=== PATIENT | female | born 1970 | race Caucasian/White ===

== ENCOUNTER 2016-11-15 14:06 | Emergency (ER) | payer OTHER, SELFPAY ==
--- NOTE | 2016-11-15 14:53 | ERPHSYRPT ---
- History of Present Illness Time Seen by Provider: 11/15/16 14:42 Source: patient Exam Limitations: no limitations Patient Subjective Stated Complaint: states fell out of bed sunday evening after having three seizures. now c/o pain to left shoulder, ribs, hip and knee. states knee is numb. Triage Nursing Assessment: ambulated to room per self with a cane. skin w/d, color normal, resp easy. no deformities or swelling noted to patient's left extremities or ribs and hip. no bruising noted. Physician History: The 46-year-old white female with history of chronic pain syndrome, seizures, high blood pressure, asthma, arthritis, degenerative disc disease, osteoarthritis, depression, menstrual problems, restless legs, herniated disc, Parkinson's she arrives with complaint of pain in her left shoulder left knee left hip left low back symptoms since falling during a seizure 3 days ago she states her knee feels numb. She also has pain on her left ribs Patient is not short of breath she has no abdominal pain she is not having any head pain or neck pain. Past medical history includes seizures, high blood pressure, asthma, arthritis, degenerative disc disease, osteoarthritis, depression, menstrual problems, bariatric surgery, restless legs, herniated disc, Parkinson's Past surgical history includes cholecystectomy, ulcers, kidney surgery, to remove kidney stone, , bariatric surgery Social history patient denies tobacco alcohol or illicit drug use. Patient does have a history of chronic pain review of patient's inspect report show that she is on a blue trans-patch, Klonopin, oxycodone the patient denies chance of Timing/Duration: day(s) (Seizure 3 4 days ago injured left shoulder, left thigh and hip low back left knee left ribs) Severity: moderate Modifying Factors: Improves With: other (patient chronic pain patient on Butrans -patch, oxycodone, Klonopin) Associated Symptoms: other (pain left shoulder, low back, left hip, left knee, left ribs), No nausea, No vomiting, No abdominal pain, No shortness of breath, No heartburn, No diaphoresis, No cough, No chills, No chest pain, No fever, No headaches, No loss of appetite, No malaise, No rash, No syncope, No seizure, No weakness Allergies/Adverse Reactions: aspirin Allergy (Verified 11/15/16 14:18) latex Allergy (Verified 11/15/16 14:18) NSAIDS (Non-Steroidal Anti-Inflamma Allergy (Verified 11/15/16 14:18) Penicillins Allergy (Verified 11/15/16 14:18) Home Medications: Clonazepam 1 mg PO DAILY 04/07/15 [History] Fluticasone/Salmeterol [Advair 250-50 Diskus] 1 puff IH BID 04/07/15 [History] Gabapentin 600 mg PO BID 04/07/15 [History] Buprenorphine [Butrans] 1 each TD WEEKLY 08/12/15 [History] Mecobalamin [B-12] 1,000 mcg PO UD 01/29/16 [History] Multivitamin [Multi-Vitamin Daily] 1 tablet PO DAILY 01/29/16 [History] Dulaglutide [Trulicity] 0.75 mg SQ UD 06/18/16 [History] Gabapentin Enacarbil [Horizant] 600 mg PO BID 11/15/16 [History] Levetiracetam [Keppra 500 mg ] 500 mg PO BID 11/15/16 [History] Oxycodone HCl/Acetaminophen [Oxycodon-Acetaminophen 7.5-325] 1 each PO TID 11/15 [History] Ropinirole HCl 0.5 mg [Requip 0.5 MG] 0.5 mg PO HS 11/15/16 [History] Hx Tetanus, Diphtheria Vaccination/Date Given: No Hx Influenza Vaccination/Date Given: No Hx Pneumococcal Vaccination/Date Given: Yes Immunizations Up to Date: No - Review of Systems Constitutional: No Fever, No Chills Eyes: No Symptoms Ears, Nose, & Throat: No Symptoms Respiratory: No Cough, No Dyspnea Cardiac: No Chest Pain, No Edema, No Syncope Abdominal/Gastrointestinal: No Abdominal Pain, No Nausea, No Vomiting, No Diarrhea Genitourinary Symptoms: No Dysuria Musculoskeletal: Other (pain l shoulder, low back, left hip, left kbee left ribs ), No Back Pain, No Neck Pain Skin: No Rash Neurological: Seizure (seizure 3 4 days ago, numbness left anterior knee) Psychological: No Symptoms Endocrine: No Symptoms All Other Systems: Reviewed and Negative - Past Medical History Pertinent Past Medical History: Yes Neurological History: Seizures ENT History: No Pertinent History Cardiac History: Hypertension Respiratory History: Asthma Endocrine Medical History: No Pertinent History Musculoskeletal History: Arthritis, Degenerative Disk Disease, Osteoarthritis, Other GI Medical History: Other History: Other Psycho-Social History: Bipolar, Depression Female Reproductive Disorders: Menstrual Problems Other Medical History: bariatric surgery, restless leg syndrome, herniated disc , parkinsons - Past Surgical History Past Surgical History: Yes Neuro Surgical History: No Pertinent History Cardiac: No Pertinent History Respiratory: No Pertinent History Gastrointestinal: Cholecystectomy, Other Genitourinary: Kidney Surgery Musculoskeletal: No Pertinent History Female Surgical History: Section Other Surgical History: ulcer, kidney, , bariatric, gallbladder - Social History Smoking Status: Former smoker Exposure to second hand smoke: Yes Drug Use: none Patient Lives Alone: No - Female History Hx Last Menstrual Period: 11/10/16 Hx Now: No - Nursing Vital Signs Nursing Vital Signs: Initial Vital Signs Temperature 97.9 F Temperature Source Oral Pulse Rate 71 Respiratory Rate 16 Blood Pressure [] 112/81 Pain Intensity 9 - Physical Exam General Appearance: mild distress Eye Exam: PERRL/EOMI, eyes nml inspection, other (fundi are unremarkable) Ears, Nose, Throat Exam: normal ENT inspection, TMs normal, pharynx normal, moist mucous membranes Neck Exam: non-tender, supple, full range of motion Respiratory Exam: normal breath sounds, chest tenderness (left ribs tender with palpation), lungs clear, airway intact, No respiratory distress Cardiovascular Exam: regular rate/rhythm, normal heart sounds, normal peripheral pulses Gastrointestinal/Abdomen Exam: soft, normal bowel sounds, No tenderness, No mass Back Exam: other (tender left low lumbar region with palpation) Extremity Exam: other (left shoulder tender with palpation and movement, left hip tender with palpation, left knee no tendernesswith palpation no edema decreased range of motion secondary tenderness) Neurologic Exam: alert, oriented x 3, crime scene investigator II-XII nml as tested, other (patient is alert, oriented 3, speech normal, sensation intact to all extremities cranial nerves II through XII intact) Skin Exam: normal color, warm, dry, No rash Lymphatic Exam: No adenopathy SpO2: 99 Oxygen Delivery: Room Air - Course Nursing assessment & vital signs reviewed: Yes - Radiology Exams Femur X-ray Interpretation: Discussed w/ radiologist ( degenerative joint disease, otherwise negative), Negative Left Knee X-ray Interpretation: Discussed w/ radiologist (degenerative joint disease otherwise negative), Negative, No Fracture, No Subluxation Pelvis X-ray Interpretation: Discussed w/ radiologist (bilateral degenerative joint disease otherwise negative), Negative, No Fracture, No Subluxation L-Spine X-ray Interpretation: Discussed w/ radiologist (degenerative disc disease otherwise negative), Negative, No Fracture, No Subluxation Left Shoulder X-ray Interpretation: Discussed w/ radiologist, Negative, No Fracture, No Subluxation Ordered Tests: Active Orders 24 hr Category Date Time Status Accucheck STAT Care 11/15/16 15:04 Active CHEST 2 VIEWS (PA AND LAT) Stat Exams 11/15/16 14:54 Completed FEMUR Stat Exams 11/15/16 14:49 Taken KNEE (3 VIEWS) Stat Exams 11/15/16 14:49 Taken LUMBAR LIMITED (2 OR 3 VIEWS) Stat Exams 11/15/16 14:47 Taken PELVIS (1 OR 2 VIEWS) Stat Exams 11/15/16 14:49 Taken SHOULDER Stat Exams 11/15/16 14:49 Taken - Progress Progress: improved Progress Note: 11/15/16 15:00 This is a 46-year-old white female with history of seizure disorder, Parkinson's , high blood pressure, asthma, chronic back pain Who is on butrans patch and oxycodone as well as Klonopin. She sees a pain specialist. She states she had a seizure 3 on Sunday 4 days ago. She is complaining of pain in her left shoulder left lateral ribs, low back, left hip, she states she has some numbness in her left anterior knee. On physical examination patient alert oriented 3 she does have tenderness with palpation or movement left shoulder tenderness with palpation left low back, tenderness left lateral hip, there does not appear to be tenderness in her left knee with palpation he does have tenderness with movement. She has negative edema to the left knee Patient is able to wiggle her toes she also has sensation intact to all extremities Will go ahead and obtain x-rays of the patient's left shoulder, chest, lumbar area, left femur. Will consider giving patient fentanyl for pain. Do not anticipate further home narcotic prescriptions. 11/15/16 15:43 Patient's x-ray of her left femur, left knee, pelvis, LS spine, shoulder all negative for fractures or dislocations. Patient states she has pain moving her left knee Will go ahead and place immobilizer on the knee. Patient has chronic pain medications she may take at home. Will go ahead and give patient fentanyl 50 g IV. - Departure Time of Disposition: 15:44 Departure Disposition: Home Clinical Impression: Multiple contusions, History of chronic pain Strain of left knee Qualifiers: Encounter type: initial encounter Qualified Code(s): S86.912A - Strain of unspecified muscle(s) and tendon(s) at lower leg level, left leg, initial encounter Back pain Qualifiers: Back pain location: low back pain Chronicity: acute Back pain laterality: left Sciatica presence: without sciatica Qualified Code(s): M54.5 - Low back pain Left shoulder strain Qualifiers: Encounter type: initial encounter Qualified Code(s): S46.912A - Strain of unspecified muscle, fascia and tendon at shoulder and upper arm level, left arm , initial encounter Condition: Fair Critical Care Time: No Additional Instructions: Return home. Cold packs to contused areas 24-48 hours. Pain meds as prescribed by your pain control systems specialist. Follow-up with your family doctor or pain control systems specialist. Return for acute distress or for severe symptoms
--- NOTE | 2016-11-15 15:32 | XRAY ---
Indication: Left-sided pain following fall. Comparison: October 26, 2009 AP/lateral chest again demonstrates normal heart and lungs. Bony thorax intact again with minimal spinal degenerative changes.
[2016-11-15] MEDS ORDERED: SUBLIMAZE 100 MCG/2 ML IV ONE (15:46)
[2016-11-15] MEDS ORDERED: SUBLIMAZE 100 MCG/2 ML ONE (16:08)
[2016-11-15 16:31] VITALS: BP 127/80; PULSE 70; O2SAT 97
--- NOTE | 2016-11-15 16:34 | XRAY ---
Indication: Left-sided pain following fall. Comparison: None 3 views of the lumbar spine demonstrates 5 lumbar vertebral segments with minimal multilevel anterior endplate spurring, L5-S1 degenerative disc space narrowing, bilateral L4-S1 degenerative facet arthropathy, cholecystectomy clips, and left abdominal suture material. No other bony, articular, or soft tissue abnormalities.
--- NOTE | 2016-11-15 16:34 | XRAY ---
Indication: Left-sided pain following fall. Comparison: None 3 views of the left shoulder demonstrates minimal AC degenerative arthropathy. No other bony, articular, or soft tissue abnormalities.
--- NOTE | 2016-11-15 16:34 | XRAY ---
Indication: Left-sided pain following fall. Comparison: None 2 views of the left femur demonstrates tiny spurring of the superior acetabulum and greater trochanter. No other bony, articular, or soft tissue abnormalities. Left knee reported separately.
--- NOTE | 2016-11-15 16:36 | XRAY ---
Indication: Left-sided pain following fall. Comparison: None 3 views of the left knee demonstrates mild tricompartmental degenerative changes and posterior fabella. No other bony, articular, or soft tissue abnormalities.
--- NOTE | 2016-11-15 16:37 | XRAY ---
Indication: Left-sided pain following fall. Comparison: None AP pelvis demonstrates small bilateral superior acetabular spurring, right greater than left. Also lower lumbar degenerative changes, left abdomen suture material, and pelvic phleboliths. No other bony, articular, or soft tissue abnormalities.
== END 2016-11-15 16:31 | disposition home or self-care (01) ==
LOC: ED 14:06
DX: S86.912A Strain of unspecified muscle(s) and tendon(s) at lower leg level, left leg, initial encounter (principal); M54.5 Low back pain; S46.912A Strain of unspecified muscle, fascia and tendon at shoulder and upper arm level, left arm, initial encounter; R56.9 Unspecified convulsions; M25.512 Pain in left shoulder; M25.552 Pain in left hip; M25.562 Pain in left knee; R07.81 Pleurodynia; I10 Essential (primary) hypertension; W06.XXXA Fall from bed, initial encounter; Z79.899 Other long term (current) drug therapy
CPT/HCPCS: 36000; 71020; 72100; 72170; 73030; 73552; 73562; 82962; 96374; 99283; J3010; L1830

== ENCOUNTER 2017-02-28 13:31 | Emergency (ER) | payer OTHER ==
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
[2017-02-28] MEDS ORDERED: Sodium Chloride 0.9% 1000 ML 1,000 ML IV STA (14:21)
[2017-02-28] MEDS ORDERED: Zofran 4 MG/2 ML VIAL IV ONE (14:21)
[2017-02-28] MEDS ORDERED: Zofran 4 MG/2 ML VIAL ONE (14:29)
[2017-02-28] MEDS ORDERED: Sodium Chloride 0.9% 1000 ML 1,000 ML ONE (14:29)
--- NOTE | 2017-02-28 14:48 | XRAY ---
Indication: Vomiting and weakness. Comparison: Chest exam November 15, 2016. 2 views of the abdomen nonacute and nonobstructed with note of previous gastric bypass surgery and cholecystectomy. A few pelvic phleboliths. Solid organs unremarkable. Osseous structures intact with lower lumbar degenerative changes. Single PA chest again demonstrates normal heart, lungs, and bony thorax. Impression: Nonacute nonobstructed abdomen. Stable normal 1 view chest.
[2017-02-28 15:08] LABS: BASOPHIL % 2.1 % (0.0-0.4); Eosinophil % 4.9 % (0.00-5.0); Granulocytes % 59.1 % (36.0-66.0); Lymphocytes % 26.5 % (24.0-44.0); Mean Cell Volume 97.3 fl (78-100); Mean Corpuscular Hemoglobin 30.5 pg (26-32); Mean Platelet Volume 9.5 fl (6-9.5); Monocytes % 7.4 % (0.0-12.0); Platelet Count 308 K/mm3 (150-450); Red Blood Count 3.67 M/mm3 (4.1-5.4); Red Cell Distribution Width 14.5 % (11.5-14.0); White Blood Count 4.3 K/mm3 (4.0-10.5)
[2017-02-28 15:09] LABS: Lactic Acid 2.9 (0.4-2.0)
[2017-02-28 15:25] LABS: Collection Type CCMS
[2017-02-28 15:26] LABS: Bacteria RARE /HPF (NEGATIVE); COMPLETE URINE MICROSCOPIC? YES; Epithelial Cells FEW /HPF (FEW); Mucus SLIGHT /HPF (NEGATIVE)
[2017-02-28 15:28] LABS: ALBUMIN 1.7 g/dL (3.4-5.0); ANION GAP 9.7 MEQ/L (5-15); BILIRUBIN,TOTAL 1.4 mg/dL (0.2-1.0); Carbon Dioxide 29.6 mEq/L (21-32); Potassium 3.6 mEq/L (3.5-5.1); Total Protein 4.8 gm/dL (6.4-8.2)
[2017-02-28 17:58] LABS: ACETAMINOPHEN 4.8 ug/ml (10-30)
[2017-02-28 23:49] VITALS: BP 113/75; PULSE 63; O2SAT 98
== END 2017-02-28 23:20 | disposition short-term general hospital (02) ==
LOC: ED 13:31
DX: F32.9 Major depressive disorder, single episode, unspecified (principal); F31.9 Bipolar disorder, unspecified; R11.10 Vomiting, unspecified; Z79.899 Other long term (current) drug therapy; I10 Essential (primary) hypertension; R56.9 Unspecified convulsions; R53.81 Other malaise
CPT/HCPCS: 36000; 36415; 74022; 80053; 80307; 80320; 81000; 83605; 83986; 85025; 90791; 96360; 96374; 99283; 99284; G0481; J2405; Q3014

== ENCOUNTER 2017-05-16 11:22 | Emergency (ER) | payer OTHER ==
[2017-05-16] MEDS ORDERED: Hydromorphone 1 mg/ml Ampule IM ONE (11:52)
[2017-05-16] MEDS ORDERED: Phenergan 25 MG INJ IM ONE (11:53)
--- NOTE | 2017-05-16 11:59 | ERPHSYRPT ---
- History of Present Illness Time Seen by Provider: 05/16/17 11:45 Source: patient Exam Limitations: clinical condition Patient Subjective Stated Complaint: pt states "I was dropped by my pain management physician and. I was trying to make my pain meds last but ran out today. I go. see my family physician, Dr. Nelson, tomorrow." Triage Nursing Assessment: pt alert and oriented X 3, skin pwd pt ambulates slowly. pt has. some slight tremors, able to speak in full sentences. Physician History: PATIENT WITH A HISTORY OF CHRONIC LOW BACK PAIN, OSTEOARTHRITIS, HERNIATED LUMBAR DISC RAN OUT OF HER PAIN MEDICATIONS INCLUDING PAIN PATCHES 2 DAYS AGO AND HAS INCREASING BACK PAIN. DENIES HISTORY OF RECENT TRAUMA OR INJURY, LOSS OF BOWEL OR URINARY FUNCTION. STATES SHE WAS DROPPED FROM HER [facility]EMENT [facility] MON[facility]S AGO. Timing/Duration: resolved prior to arrival Method of Injury: other (DENIES INJURY OR TRAUMA) Quality: sharp, throbbing Back Pain Location: lumbar spine Back Pain Radiation: buttocks Severity of Pain-Max: moderate Severity of Pain-Current: moderate Modifying Factors: Improves With: movement Associated Symptoms: muscle spasms Previous symptoms: same symptoms as today Allergies/Adverse Reactions: aspirin Allergy (Verified 02/28/17 13:51) latex Allergy (Verified 02/28/17 13:51) NSAIDS (Non-Steroidal Anti-Inflamma Allergy (Verified 05/16/17 11:38) Penicillins Allergy (Verified 02/28/17 13:51) Home Medications: Clonazepam 1 mg PO DAILY 04/07/15 [History] Fluticasone/Salmeterol [Advair 250-50 Diskus] 1 puff IH BID 04/07/15 [History] Gabapentin 600 mg PO BID 04/07/15 [History] Buprenorphine [Butrans] 1 each TD WEEKLY 08/12/15 [History] Mecobalamin [B-12] 1,000 mcg PO UD 01/29/16 [History] Multivitamin [Multi-Vitamin Daily] 1 tablet PO DAILY 01/29/16 [History] Dulaglutide [Trulicity] 0.75 mg SQ UD 06/18/16 [History] Gabapentin Enacarbil [Horizant] 600 mg PO BID 11/15/16 [History] Levetiracetam [Keppra 500 mg ] 500 mg PO BID 11/15/16 [History] Oxycodone HCl/Acetaminophen [Oxycodon-Acetaminophen 7.5-325] 1 each PO TID 11/15 [History] Ropinirole HCl 0.5 mg [Requip 0.5 MG] 0.5 mg PO HS 11/15/16 [History] Hx Tetanus, Diphtheria Vaccination/Date Given: Yes Hx Influenza Vaccination/Date Given: Yes Hx Pneumococcal Vaccination/Date Given: No Immunizations Up to Date: Yes - Review of Systems Constitutional: No Fever, No Chills Eyes: No Symptoms Ears, Nose, & Throat: No Symptoms Respiratory: No Symptoms, No Cough, No Dyspnea Cardiac: No Symptoms, No Chest Pain, No Edema, No Syncope Abdominal/Gastrointestinal: No Symptoms, No Abdominal Pain, No Nausea, No Vomiting, No Diarrhea Genitourinary Symptoms: No Symptoms, No Dysuria Musculoskeletal: Back Pain, No Neck Pain Skin: No Symptoms, No Rash Neurological: No Dizziness, No Focal Weakness, No Sensory Changes Psychological: No Symptoms Endocrine: No Symptoms All Other Systems: Reviewed and Negative - Past Medical History Pertinent Past Medical History: Yes Neurological History: Seizures ENT History: No Pertinent History Cardiac History: Hypertension Respiratory History: Asthma Endocrine Medical History: No Pertinent History Musculoskeletal History: Arthritis, Degenerative Disk Disease, Osteoarthritis, Other GI Medical History: Other History: Other Psycho-Social History: Bipolar, Depression Female Reproductive Disorders: Menstrual Problems Other Medical History: bariatric surgery, restless leg syndrome, herniated disc , parkinsons - Past Surgical History Past Surgical History: Yes Neuro Surgical History: No Pertinent History Cardiac: No Pertinent History Respiratory: No Pertinent History Gastrointestinal: Cholecystectomy, Other Genitourinary: Kidney Surgery Musculoskeletal: No Pertinent History Female Surgical History: Section Other Surgical History: ulcer, kidney, , bariatric, gallbladder - Social History Smoking Status: Never smoker Exposure to second hand smoke: Yes Drug Use: none Patient Lives Alone: No (lives with ) - Female History Hx Last Menstrual Period: menopause Hx Now: No - Nursing Vital Signs Nursing Vital Signs: Initial Vital Signs Temperature 97.7 F 05/16/17 11:29 Pulse Rate 77 05/16/17 11:29 Respiratory Rate 16 05/16/17 11:29 Blood Pressure 109/83 05/16/17 11:29 O2 Sat by Pulse Oximetry 99 05/16/17 11:29 Pain Scale Pain Intensity 9 - Physical Exam General Appearance: no apparent distress, alert Eye Exam: PERRL/EOMI, eyes nml inspection Neck Exam: normal inspection, non-tender, supple, full range of motion, No meningismus, No midline tenderness Respiratory Exam: normal breath sounds, lungs clear, No respiratory distress Cardiovascular Exam: regular rate/rhythm, normal heart sounds Gastrointestinal Exam: soft, normal bowel sounds, No tenderness, No mass Back Exam: normal inspection, decreased range of motion, muscle spasm ( VERTEBRAL TENDERNESS L-1 TO L-5 WITH PARASPINAL TENDERNESS), point tenderness Extremity Exam: normal inspection, normal range of motion, No calf tenderness, No pedal edema Peripheral Pulses: carotid (R): 2+, carotid (L): 2+, femoral (R): 2+, femoral (L ): 2+, dorsalis-pedis (R): 2+, dorsalis-pedis (L): 2+ Neurologic Exam: alert, oriented x 3, cooperative, contact center assistant II-XII nml as tested, normal mood/affect, nml station & gait, sensation nml, No motor deficits Skin Exam: normal color, warm, dry, No rash SpO2 Interpretation: normal SpO2: 99 Oxygen Delivery: Room Air Ordered Tests: Medication Summary Discontinued Medications Generic Name Dose Route Start Last Admin Trade Name Gagan PRN Reason Stop Dose Admin Hydromorphone HCl 1 mg 05/16/17 11:52 05/16/17 12:09 Hydromorphone 1 Mg/Ml Ampule IM 05/16/17 11:53 1 mg STAT ONE Administration Hydromorphone HCl Confirm 05/16/17 12:05 Hydromorphone 1 Mg/Ml Ampule Administered 05/16/17 12:06 Dose 1 mg .ROUTE .STK-MED ONE Promethazine HCl 25 mg 05/16/17 11:53 05/16/17 12:09 Phenergan 25 Mg Inj IM 05/16/17 11:54 25 mg STAT ONE Administration Promethazine HCl Confirm 05/16/17 12:05 Phenergan 25 Mg Inj Administered 05/16/17 12:06 Dose 25 mg .ROUTE .STK-MED ONE - Progress Progress Note: 05/16/17 11:58 PATIENT GIVEN DILAUDID 1MG/PHENERGAN 25MG IM Counseled pt/family regarding: diagnosis, need for follow-up - Departure Time of Disposition: 12:23 Departure Disposition: Home Clinical Impression: CHRONIC LOW BACK PAIN, DEGENERATIVE DISC DISEASE Condition: Stable Critical Care Time: No Referrals: GODWIN NELSON [Primary Care Provider] - Additional Instructions: FOLLOWUP WITH YOUR FAMILY PHYSICIAN FOR PRESCRIPTION REFILLS SCHEDULED TOMORROW AND REFERRAL TO ANOTHER PAIN SPECIALIST. ULTRAM 50MG EVERY 4 HOURS FOR PAIN NEEDED. NORFLEX 100MG TWICE DAILY FOR MUSCLE SPASMS. Prescriptions: Tramadol HCl 50 mg [Ultram 50 mg] 50 mg PO Q4H PRN PRN #8 tablet PRN Reason: Pain Orphenadrine Citrate 100 mg [Norflex 100 MG Tablet] 100 mg PO BIDPRN PRN # 8 tab PRN Reason: Muscle Spasms
[2017-05-16] MEDS ORDERED: Phenergan 25 MG INJ ONE (12:05)
[2017-05-16] MEDS ORDERED: Hydromorphone 1 mg/ml Ampule ONE (12:05)
[2017-05-16 12:24] VITALS: BP 110/78; PULSE 72
[2017-05-17 23:39] VITALS: O2SAT 99
== END 2017-05-16 12:27 | disposition home or self-care (01) ==
LOC: ED 11:22
DX: M54.5 Low back pain (principal); G89.29 Other chronic pain; M51.36 Other intervertebral disc degeneration, lumbar region
CPT/HCPCS: 96372; 99284; J1170; J2550

== ENCOUNTER 2017-10-30 16:42 | Emergency (ER) | payer OTHER ==
--- NOTE | 2017-10-30 17:06 | ERPHSYRPT ---
- History of Present Illness Time Seen by Provider: 10/30/17 17:01 Source: patient Exam Limitations: no limitations Physician History: The patient is a 47-year-old female with her and planing of possible bug in her right ear since last night. It hurts a little bit but not much. She states she can feel it tapping up against her eardrum. Her past medical history significant for seizures, asthma, allergies. Timing/Duration: abrupt onset Severity: mild ENT Location: ear (R) Prearrival Treatment: no prearrival treatment Modifying Factors: Improves With: nothing Associated Symptoms: ear pain (R) Allergies/Adverse Reactions: aspirin Allergy (Verified 10/30/17 17:04) latex Allergy (Verified 10/30/17 17:04) NSAIDS (Non-Steroidal Anti-Inflamma Allergy (Verified 10/30/17 17:04) Penicillins Allergy (Verified 10/30/17 17:04) Home Medications: Gabapentin 600 mg PO BID 04/07/15 [History] Levetiracetam [Keppra 500 mg ] 1,000 mg PO BID 11/15/16 [History] Acetaminophen [Tylenol Extra Strength] 500 mg PO .PRN 10/11/17 [History] Albuterol 2.5 mg/3 ml Neb [Proventil 2.5 mg/3 ml Neb] 2.5 mg IH .PRN 10/11 [History] Albuterol 8 gm Mdi Hfa [Ventolin Hfa MDI] 2 puff IH TID 10/11/17 [History] Montelukast Sodium 10 mg [Singulair 10 MG] 10 mg PO DAILY 10/11/17 [History] Oxybutynin Chloride [Oxybutynin Chloride ER] 5 mg PO HS 10/11/17 [History] Ropinirole HCl [Requip] 1 mg PO HS 10/11/17 [History] Sucralfate 1 gm [Carafate 1 GM] 1 gm PO TID 10/11/17 [History] Trolamine Salicylate/Aloe Vera [Aspercreme 10% Cream] 141.7 gm TP .PRN 10/11/17 [History] Hx Tetanus, Diphtheria Vaccination/Date Given: Yes Hx Influenza Vaccination/Date Given: Yes Hx Pneumococcal Vaccination/Date Given: No - Review of Systems Constitutional: No Fever, No Chills Eyes: No Symptoms Ears, Nose, & Throat: Ear Pain Respiratory: No Cough, No Dyspnea Cardiac: No Chest Pain, No Edema, No Syncope Abdominal/Gastrointestinal: No Abdominal Pain, No Nausea, No Vomiting, No Diarrhea Genitourinary Symptoms: No Dysuria Musculoskeletal: No Back Pain, No Neck Pain Skin: No Rash Neurological: No Dizziness, No Focal Weakness, No Sensory Changes Psychological: No Symptoms Endocrine: No Symptoms Hematologic/Lymphatic: No Symptoms Immunological/Allergic: No Symptoms All Other Systems: Reviewed and Negative - Past Medical History Pertinent Past Medical History: Yes Neurological History: Epilepsy, Peripheral Neuropathy ENT History: No Pertinent History Cardiac History: No Pertinent History Respiratory History: Asthma Endocrine Medical History: Diabetes Type II Musculoskeletal History: Osteoarthritis GI Medical History: Other History: Other Psycho-Social History: Bipolar, Depression Female Reproductive Disorders: Menstrual Problems Other Medical History: kidney surgery at 6 months old, gastric bypass 5 years ago. - Past Surgical History Past Surgical History: Yes Neuro Surgical History: No Pertinent History Cardiac: No Pertinent History Respiratory: No Pertinent History Gastrointestinal: Cholecystectomy, Other Genitourinary: Kidney Surgery Musculoskeletal: No Pertinent History Female Surgical History: Section Other Surgical History: ulcer, kidney, , bariatric, gallbladder - Social History Smoking Status: Never smoker Exposure to second hand smoke: Yes Drug Use: none Patient Lives Alone: No (lives with ) - Nursing Vital Signs Nursing Vital Signs: Initial Vital Signs Temperature 98.5 F 10/30/17 16:57 Pulse Rate 75 10/30/17 16:57 Respiratory Rate 18 10/30/17 16:57 Blood Pressure 133/80 10/30/17 16:57 O2 Sat by Pulse Oximetry 100 10/30/17 16:57 Pain Scale Pain Intensity 7 - Physical Exam General Appearance: no apparent distress, alert Eye Exam: bilateral eye: normal inspection Ear Exam: right ear: foreign body, left ear: TM normal Nasal Exam: normal inspection Throat Exam: pharynx normal, moist mucus membranes, No tonsillar exudate Neck Exam: supple Cardiovascular/Respiratory Exam: normal breath sounds, regular rate/rhythm Abdominal Exam: non-tender, soft Neurologic Exam: alert, oriented x 3, sensation nml, No motor deficits Skin Exam: normal color, warm, dry SpO2 Interpretation: normal - Progress Progress: improved Progress Note: 10/30/17 17:51 Insect was removed from right ear canal with forceps and irrigation by 4th year medical student under my supervision. Counseled pt/family regarding: diagnosis - Departure Time of Disposition: 17:52 Departure Disposition: Home Clinical Impression: Foreign body in right ear Condition: Stable Critical Care Time: No Referrals: GODWIN NELSON [Primary Care Provider] -
[2017-10-30 18:09] VITALS: BP 120/70; PULSE 78; O2SAT 98
== END 2017-10-30 18:20 | disposition home or self-care (01) ==
LOC: ED 16:42
DX: T16.1XXA Foreign body in right ear, initial encounter (principal)
CPT/HCPCS: 99281; 99283

== ENCOUNTER 2019-01-08 08:01 | Day surgery (SDC) | payer OTHER ==
[2019-01-08] MEDS ORDERED: Marcaine 0.5% SDV 10 ML IJ ONE (08:02)
[2019-01-08] MEDS ORDERED: LIDOCAINE HCL 2% 100 MG/5 ML IJ ONE (08:02)
[2019-01-08] MEDS ORDERED: Ketamine HCl 50 MG/ML IJ ONE (08:02)
[2019-01-08] MEDS ORDERED: DIPRIVAN 200 MG/20 ML IV ONE (08:02)
[2019-01-08] MEDS ORDERED: Depo-Medrol 40 MG/ML IM ONE (08:02)
[2019-01-08] MEDS ORDERED: Lactated Ringers 1,000 ML IV ONE (14:23)
--- NOTE | 2019-01-08 16:04 | XRAY ---
Indication: Bilateral SI joint injection. Intraoperative fluoroscopy was provided for 17 seconds. 3 digital spot images submitted for interpretation demonstrates posterior needle tip projecting over the inferior right SI joint. Correlate with intraoperative findings/report.
--- NOTE | 2019-01-08 16:08 | XRAY ---
17 seconds of fluoroscopy was used in surgery for bilateral SI joint injection.
== END 2019-01-08 10:27 | disposition home or self-care (01) ==
LOC: SDC-PAIN 08:01
PROVIDERS: ATTEND Psychiatry & Neurology Pain Medicine
DX: M46.1 Sacroiliitis, not elsewhere classified (principal); E11.9 Type 2 diabetes mellitus without complications; R56.9 Unspecified convulsions; K21.9 Gastro-esophageal reflux disease without esophagitis; F41.8 Other specified anxiety disorders; Z79.899 Other long term (current) drug therapy
CPT/HCPCS: 27096; 72020; 77002; 82962; J1030; J2704; G0260

== ENCOUNTER 2019-01-25 10:49 | Observation (INO) | payer OTHER ==
[2019-01-25] MEDS ORDERED: Adacel Vial IM ONE (11:32)
--- NOTE | 2019-01-25 11:32 | ERPHSYRPT ---
- History of Present Illness Time Seen by Provider: 01/25/19 11:00 Source: patient, other (daughter) Exam Limitations: clinical condition Physician History: According to patient's daughter she had a seizure 3 days ago, started c/o difficulty walking, loosing balance, and her speech became slurred since yesterday. They deny recent fall, head injury, vomiting, focal weakness, fever, cough, chest pain other complaints. She was seen by a wound clinic yesterday due to a sore on her right ear. She is legally blind. Timing/Duration: yesterday Severity: severe Character of Deficits: new weakness, impaired speech, vision problems (legally blind) Deficits: cannot stand, cannot walk, off balance Baseline/Normal Cognition: alert oriented x 3 Current Cognition: alert oriented x 3 Baseline Gait: uses cane Associated Symptoms: fatigue, weakness, slurred speech, trouble walking Allergies/Adverse Reactions: aspirin Allergy (Verified 01/25/19 11:30) latex Allergy (Verified 01/25/19 11:30) NSAIDS (Non-Steroidal Anti-Inflamma Allergy (Verified 01/25/19 11:30) Penicillins Allergy (Verified 01/25/19 11:30) Home Medications: Gabapentin 600 mg PO TID 04/07/15 [History] Levetiracetam [Keppra 500 mg ] 1,000 mg PO BID 11/15/16 [History] Acetaminophen [Tylenol Extra Strength] 500 mg PO .PRN 10/11/17 [History] Albuterol 2.5 mg/3 ml Neb [Proventil 2.5 mg/3 ml Neb] 2.5 mg IH .PRN 10/11 [History] Albuterol 8 gm Mdi Hfa [Ventolin Hfa MDI] 2 puff IH TID 10/11/17 [History] Montelukast Sodium 10 mg [Singulair 10 MG] 10 mg PO DAILY 10/11/17 [History] Oxybutynin Chloride [Oxybutynin Chloride ER] 5 mg PO HS 10/11/17 [History] Sucralfate 1 gm [Carafate 1 GM] 1 gm PO TID 10/11/17 [History] Trolamine Salicylate/Aloe Vera [Aspercreme 10% Cream] 141.7 gm TP .PRN 10/11/17 [History] Meloxicam [Mobic] 15 mg PO DAILY 12/10/17 [History] OLANZapine [Zyprexa] 20 mg PO HS 12/10/17 [History] Omeprazole 20 MG [Prilosec 20 mg] 20 mg PO DAILY 12/10/17 [History] Tizanidine HCl 4 mg [Zanaflex 4 MG] 4 mg PO BID 12/10/17 [History] Hx Tetanus, Diphtheria Vaccination/Date Given: Yes Hx Influenza Vaccination/Date Given: Yes Hx Pneumococcal Vaccination/Date Given: No - Review of Systems Constitutional: No Symptoms Eyes: Other (legally blind) Ears, Nose, & Throat: No Symptoms Respiratory: No Symptoms Cardiac: No Symptoms Abdominal/Gastrointestinal: No Symptoms Genitourinary Symptoms: No Symptoms Musculoskeletal: Back Pain (chronic), Joint Pain (chronic) Skin: Other (bullae on feet) Neurological: Dizziness, Gait Changes, Parasthesia, Speech Changes, Tremors All Other Systems: Reviewed and Negative - Past Medical History Pertinent Past Medical History: Yes Neurological History: Epilepsy, Peripheral Neuropathy, Seizures ENT History: No Pertinent History Cardiac History: No Pertinent History Respiratory History: Asthma Endocrine Medical History: Diabetes Type II Musculoskeletal History: Arthritis, Other GI Medical History: Other History: Other Psycho-Social History: Bipolar, Depression Female Reproductive Disorders: Menstrual Problems Other Medical History: 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 Sees a pain doctor. She reports that she had a seizure last night and has had approximately 4 total so far this year. history of: kidney sx, bariatric sx, - Past Surgical History Past Surgical History: Yes Neuro Surgical History: No Pertinent History Cardiac: No Pertinent History Respiratory: No Pertinent History Gastrointestinal: Cholecystectomy, Other Genitourinary: Kidney Surgery Musculoskeletal: No Pertinent History Female Surgical History: Section Other Surgical History: ulcer, kidney, , bariatric, gallbladder - Social History Smoking Status: Never smoker Exposure to second hand smoke: Yes Drug Use: none Patient Lives Alone: No (lives with ) - Female History Hx Now: No - Nursing Vital Signs Nursing Vital Signs: Initial Vital Signs Temperature 98.1 F 01/25/19 11:18 Pulse Rate 66 01/25/19 11:18 Respiratory Rate 18 01/25/19 11:18 Blood Pressure 96/71 01/25/19 11:18 O2 Sat by Pulse Oximetry 98 01/25/19 11:18 Pain Scale Pain Intensity 0 - [place] Coma Scale Best Eye Response ([place]): (4) open spontaneously Best Verbal Response ([place]): (5) oriented Best Motor Response ([place]): (6) obeys commands [place] Total: 15 - Physical Exam Eye Exam: bilateral eye: PERRL, EOMI Ears, Nose, Throat Exam: dry mucous membranes, No pharyngeal erythema Neck Exam: normal inspection, non-tender, supple, No carotid bruit, No JVD Respiratory: normal breath sounds, lungs clear, airway intact, No chest tenderness Cardiovascular: regular rate/rhythm, normal heart sounds, normal peripheral pulses, No murmur Gastrointestinal: soft, normal bowel sounds, No tenderness Back Exam: normal inspection, No CVA tenderness, No vertebral tenderness Extremity Exam: other (1-2 cm bullae on the medial edge of both feet ), No calf tenderness, No deformities Peripheral Pulses: dorsalis-pedis (R): 2+, dorsalis-pedis (L): 2+ Mental Status: alert, oriented x 3, cooperative dish maker Exam: PERRL, No facial droop Coordination/Gait: abnormal gait Motor/Sensory: no motor deficit DTR: knee (R): 2+, knee (L): 2+, ankle (R): 2+, ankle (L): 2+ Skin Exam: normal color, warm, dry, No rash, No petechiae SpO2 Interpretation: normal O2 Delivery: Room Air - Course Nursing assessment & vital signs reviewed: Yes EKG Interpreted by Me: RATE (69/min), Left Baxter Deviation, NORMAL INTERVALS, Non -specific ST Changes - Radiology Exams Chest X-ray Interpretation: Interpreted by me, Negative - CT Exams Head CT Interpretation: Negative, Tele-radiologist Report Ordered Tests: Active Orders 24 hr Category Date Time Status EKG-ER Only STAT Care 01/25/19 11:23 Active IV Insertion STAT Care 01/25/19 11:23 Active CHEST 1 VIEW (PORTABLE) Stat Exams 01/25/19 11:23 Taken HEAD WITHOUT CONTRAST [CT] Stat Exams 01/25/19 11:24 Taken CBC W DIFF Stat Lab 01/25/19 11:35 Completed CMP Stat Lab 01/25/19 11:35 Completed CULTURE,URINE Stat Lab 01/25/19 11:23 Received MAGNESIUM Stat Lab 01/25/19 11:35 Completed PROTIME WITH INR Stat Lab 01/25/19 11:35 Completed PTT Stat Lab 01/25/19 11:35 Completed SED RATE [Erythrocyte Sedimentation Rate] Stat Lab 01/25/19 11:35 Completed TROPONIN Q3H Lab 01/25/19 11:35 Completed TROPONIN Q3H Lab 01/25/19 14:30 Ordered TROPONIN Q3H Lab 01/25/19 17:30 Ordered TROPONIN Q3H Lab 01/25/19 20:30 Ordered TROPONIN Q3H Lab 01/25/19 23:30 Ordered UA W/RFX UR CULTURE Stat Lab 01/25/19 11:23 Completed Urine Triage Profile Stat Lab 01/25/19 11:23 Completed Medication Summary Generic Name Dose Route Start Last Admin Trade Name Freq PRN Reason Stop Dose Admin Sodium Chloride 1,000 mls @ 100 mls/hr 01/25/19 11:30 01/25/19 11:39 Sodium Chloride 0.9% 1000 Ml IV 02/24/19 11:29 100 mls/hr .Q10H JOSEMANUEL Administration Levofloxacin/Dextrose 500 mg in 100 mls @ 100 mls/hr 01/25/19 13:44 Levofloxacin 500mg/100ml D5w IV 01/25/19 14:43 STAT STA Discontinued Medications Generic Name Dose Route Start Last Admin Trade Name Freq PRN Reason Stop Dose Admin Diphtheria/Tetanus/Acell Pertussis 0.5 ml 01/25/19 11:32 01/25/19 11:41 Adacel Vial IM 01/25/19 11:33 Not Given .ONCE ONE Lab/Rad Data: Laboratory Result Diagrams 01/25/19 11:35 01/25/19 11:35 Laboratory Results 01/25/19 01/25/19 01/25/19 Range/Units 11:35 11:35 11:35 WBC (4.0-10.5) K/mm3 RBC (4.1-5.4) M/mm3 Hgb (12.0-16.0) gm/dl Hct (35-47) % MCV (78-100) fl MCH (26-32) pg MCHC (32-36) g/dl RDW (11.5-14.0) % Plt Count (150-450) K/mm3 MPV (6-9.5) fl Gran % (36.0-66.0) % Eos # (Auto) (0-0.5) Absolute Lymphs (auto) (1.0-4.6) Absolute Monos (auto) (0.0-1.3) Lymphocytes % (24.0-44.0) % Monocytes % (0.0-12.0) % Eosinophils % (0.00-5.0) % Basophils % (0.0-0.4) % Absolute Granulocytes (1.4-6.9) Basophils # (0-0.4) ESR 4 (0-20) mm/hr PT 11.9 (9.95-12.35) SECONDS INR 1.02 (0.8-3.0) APTT 32.4 (25.3-37.0) SECONDS Sodium (137-145) mmol/L Potassium (3.5-5.1) mmol/L Chloride (98-107) mmol/L Carbon Dioxide (22-30) mmol/L Anion Gap (5-15) MEQ/L BUN (7-17) mg/dL Creatinine (0.52-1.04) mg/dL Estimated GFR ML/MIN Glucose (74-106) mg/dL Calcium (8.4-10.2) mg/dL Magnesium (1.6-2.3) mg/dL Total Bilirubin (0.2-1.3) mg/dL AST (14-36) U/L ALT (0-35) U/L Alkaline Phosphatase (38-126) U/L Troponin I < 0.012 (0.000-0.034) ng/mL Serum Total Protein (6.3-8.2) g/dL Albumin (3.5-5.0) g/dL Urine Color (YELLOW) Urine Appearance (CLEAR) Urine pH (5-6) Ur Specific [place] (1.005-1.025) Urine Protein (Negative) Urine Ketones (NEGATIVE) Urine Blood (0-5) Caleb/ul Urine Nitrite (NEGATIVE) Urine Bilirubin (NEGATIVE) Urine Urobilinogen (0-1) mg/dL Ur Leukocyte Esterase (NEGATIVE) Urine WBC (Auto) (0-5) /HPF Urine RBC (Auto) (0-2) /HPF U Epithel Cells (Auto) (FEW) /HPF Urine Bacteria (Auto) (NEGATIVE) /HPF Urine Mucus (Auto) (NEGATIVE) /HPF Urine Culture Reflexed (NO) Urine Glucose (NEGATIVE) mg/dL Urine Opiates Level (NEGATIVE) Ur Methadone (NEGATIVE) Urine Barbiturates (NEGATIVE) Ur Phencyclidine (PCP) (NEGATIVE) Urine Amphetamine (NEGATIVE) U Benzodiazepine Level (NEGATIVE) Urine Cocaine (NEGATIVE) Urine Marijuana (THC) (NEGATIVE) 01/25/19 01/25/19 01/25/19 Range/Units 11:35 11:35 11:23 WBC 14.2 H (4.0-10.5) K/mm3 RBC 4.65 (4.1-5.4) M/mm3 Hgb 14.9 (12.0-16.0) gm/dl Hct 46.0 (35-47) % MCV 98.9 (78-100) fl MCH 32.0 (26-32) pg MCHC 32.4 (32-36) g/dl RDW 12.9 (11.5-14.0) % Plt Count 290 (150-450) K/mm3 MPV 9.8 H (6-9.5) fl Gran % 70.4 H (36.0-66.0) % Eos # (Auto) 0.15 (0-0.5) Absolute Lymphs (auto) 2.68 (1.0-4.6) Absolute Monos (auto) 1.33 H (0.0-1.3) Lymphocytes % 18.9 L (24.0-44.0) % Monocytes % 9.4 (0.0-12.0) % Eosinophils % 1.1 (0.00-5.0) % Basophils % 0.2 (0.0-0.4) % Absolute Granulocytes 10.01 H (1.4-6.9) Basophils # 0.03 (0-0.4) ESR (0-20) mm/hr PT (9.95-12.35) SECONDS INR (0.8-3.0) APTT (25.3-37.0) SECONDS Sodium 140 (137-145) mmol/L Potassium 3.7 (3.5-5.1) mmol/L Chloride 105 (98-107) mmol/L Carbon Dioxide 30 (22-30) mmol/L Anion Gap 9.1 (5-15) MEQ/L BUN 13 (7-17) mg/dL Creatinine 0.80 (0.52-1.04) mg/dL Estimated GFR > 60.0 ML/MIN Glucose 96 (74-106) mg/dL Calcium 9.4 (8.4-10.2) mg/dL Magnesium 1.8 (1.6-2.3) mg/dL Total Bilirubin 0.60 (0.2-1.3) mg/dL AST 24 (14-36) U/L ALT 14 (0-35) U/L Alkaline Phosphatase 104 (38-126) U/L Troponin I (0.000-0.034) ng/mL Serum Total Protein 6.2 L (6.3-8.2) g/dL Albumin 3.2 L (3.5-5.0) g/dL Urine Color (YELLOW) Urine Appearance (CLEAR) Urine pH (5-6) Ur Specific [place] (1.005-1.025) Urine Protein (Negative) Urine Ketones (NEGATIVE) Urine Blood (0-5) Caleb/ul Urine Nitrite (NEGATIVE) Urine Bilirubin (NEGATIVE) Urine Urobilinogen (0-1) mg/dL Ur Leukocyte Esterase (NEGATIVE) Urine WBC (Auto) (0-5) /HPF Urine RBC (Auto) (0-2) /HPF U Epithel Cells (Auto) (FEW) /HPF Urine Bacteria (Auto) (NEGATIVE) /HPF Urine Mucus (Auto) (NEGATIVE) /HPF Urine Culture Reflexed (NO) Urine Glucose (NEGATIVE) mg/dL Urine Opiates Level POSITIVE (NEGATIVE) Ur Methadone NEGATIVE (NEGATIVE) Urine Barbiturates NEGATIVE (NEGATIVE) Ur Phencyclidine (PCP) NEGATIVE (NEGATIVE) Urine Amphetamine NEGATIVE (NEGATIVE) U Benzodiazepine Level NEGATIVE (NEGATIVE) Urine Cocaine NEGATIVE (NEGATIVE) Urine Marijuana (THC) NEGATIVE (NEGATIVE) 01/25/19 Range/Units 11:23 WBC (4.0-10.5) K/mm3 RBC (4.1-5.4) M/mm3 Hgb (12.0-16.0) gm/dl Hct (35-47) % MCV (78-100) fl MCH (26-32) pg MCHC (32-36) g/dl RDW (11.5-14.0) % Plt Count (150-450) K/mm3 MPV (6-9.5) fl Gran % (36.0-66.0) % Eos # (Auto) (0-0.5) Absolute Lymphs (auto) (1.0-4.6) Absolute Monos (auto) (0.0-1.3) Lymphocytes % (24.0-44.0) % Monocytes % (0.0-12.0) % Eosinophils % (0.00-5.0) % Basophils % (0.0-0.4) % Absolute Granulocytes (1.4-6.9) Basophils # (0-0.4) ESR (0-20) mm/hr PT (9.95-12.35) SECONDS INR (0.8-3.0) APTT (25.3-37.0) SECONDS Sodium (137-145) mmol/L Potassium (3.5-5.1) mmol/L Chloride (98-107) mmol/L Carbon Dioxide (22-30) mmol/L Anion Gap (5-15) MEQ/L BUN (7-17) mg/dL Creatinine (0.52-1.04) mg/dL Estimated GFR ML/MIN Glucose (74-106) mg/dL Calcium (8.4-10.2) mg/dL Magnesium (1.6-2.3) mg/dL Total Bilirubin (0.2-1.3) mg/dL AST (14-36) U/L ALT (0-35) U/L Alkaline Phosphatase (38-126) U/L Troponin I (0.000-0.034) ng/mL Serum Total Protein (6.3-8.2) g/dL Albumin (3.5-5.0) g/dL Urine Color YELLOW (YELLOW) Urine Appearance CLOUDY (CLEAR) Urine pH 6.0 (5-6) Ur Specific [place] 1.005 (1.005-1.025) Urine Protein NEGATIVE (Negative) Urine Ketones NEGATIVE (NEGATIVE) Urine Blood NEGATIVE (0-5) Caleb/ul Urine Nitrite NEGATIVE (NEGATIVE) Urine Bilirubin NEGATIVE (NEGATIVE) Urine Urobilinogen 2 (0-1) mg/dL Ur Leukocyte Esterase MODERATE (NEGATIVE) Urine WBC (Auto) 26-50 (0-5) /HPF Urine RBC (Auto) 0-2 (0-2) /HPF U Epithel Cells (Auto) RARE (FEW) /HPF Urine Bacteria (Auto) FEW (NEGATIVE) /HPF Urine Mucus (Auto) SLIGHT (NEGATIVE) /HPF Urine Culture Reflexed YES (NO) Urine Glucose NEGATIVE (NEGATIVE) mg/dL Urine Opiates Level (NEGATIVE) Ur Methadone (NEGATIVE) Urine Barbiturates (NEGATIVE) Ur Phencyclidine (PCP) (NEGATIVE) Urine Amphetamine (NEGATIVE) U Benzodiazepine Level (NEGATIVE) Urine Cocaine (NEGATIVE) Urine Marijuana (THC) (NEGATIVE) - Progress Progress: improved Progress Note: 01/25/19 13:56 Pt was started on iv fluids, and iv Levaquin, she has been afebrile, stable, no severe pain or distress, we reviewed all her results and called Dr Munson, discussed our findings and her current condition, he agreed to admit her for observation. Patient and her daughter were informed and agreed. Discussed with : Arpit Will see patient in: hospital (observation) Counseled pt/family regarding: lab results, diagnosis, rad results - Departure Departure Disposition: Observation Clinical Impression: Ataxia Urinary tract infection Qualifiers: Urinary tract infection type: acute cystitis Hematuria presence: without hematuria Qualified Code(s): N30.00 - Acute cystitis without hematuria Condition: Stable Critical Care Time: No Referrals: GODWIN NELSON [Primary Care Provider] -
[2019-01-25] MEDS: Sodium Chloride 0.9% 1000 ML 1,000 ML IV SCH (11:39)
[2019-01-25 11:43] LABS: BASOPHIL % 0.2 % (0.0-0.4); Basophil (Absolute #) 0.03 (0-0.4); Eosinophil % 1.1 % (0.00-5.0); Eosinophil (Absolute #) 0.15 (0-0.5); Granulocyte Absolute (ANC) 10.01 (1.4-6.9); Granulocytes % 70.4 % (36.0-66.0); Hemoglobin 14.9 gm/dl (12.0-16.0); Lymphocyte (Absolute #) 2.68 (1.0-4.6); Lymphocytes % 18.9 % (24.0-44.0); Mean Cell Volume 98.9 fl (78-100); Mean Corpuscular Hgb Concent. 32.4 g/dl (32-36); Mean Platelet Volume 9.8 fl (6-9.5); Monocyte (Absolute #) 1.33 (0.0-1.3); Monocytes % 9.4 % (0.0-12.0); Platelet Count 290 K/mm3 (150-450); Red Blood Count 4.65 M/mm3 (4.1-5.4); Red Cell Distribution Width 12.9 % (11.5-14.0); White Blood Count 14.2 K/mm3 (4.0-10.5)
[2019-01-25 11:52] LABS: Appearance CLOUDY (CLEAR); Bacteria FEW /HPF (NEGATIVE); Bilirubin NEGATIVE (NEGATIVE); Blood NEGATIVE Ery/ul (0-5); Epithelial Cells RARE /HPF (FEW); Glucose NEGATIVE (NEGATIVE); Ketones NEGATIVE (NEGATIVE); Leukocyte Esterase MODERATE (NEGATIVE); Mucus SLIGHT /HPF (NEGATIVE); Nitrite NEGATIVE (NEGATIVE); Protein,Urine Dip NEGATIVE (Negative); RBC 0-2 /HPF (0-2); Specific Gravity 1.005 (1.005-1.025); Urobilinogen 2 mg/dL (0-1); WBC 26-50 /HPF (0-5)
[2019-01-25 11:53] LABS: INR 1.02 (0.8-3.0); PROTIME 11.9 SECONDS (9.95-12.35)
[2019-01-25 11:56] LABS: PTT 32.4 SECONDS (25.3-37.0)
[2019-01-25 12:01] LABS: Amphetamine,Urine NEGATIVE (NEGATIVE); Barbiturate,Urine NEGATIVE (NEGATIVE); Benzodiazepine,Urine NEGATIVE (NEGATIVE); Cocaine,Urine NEGATIVE (NEGATIVE); Methadone,Urine NEGATIVE (NEGATIVE); Opiate,Urine POSITIVE (NEGATIVE); PCP,Urine NEGATIVE (NEGATIVE); THC,Urine NEGATIVE (NEGATIVE)
[2019-01-25 12:04] LABS: ALBUMIN 3.2 g/dL (3.5-5.0); ALKALINE PHOSPHATASE 104 U/L (38-126); ANION GAP 9.1 MEQ/L (5-15); BLOOD UREA NITROGEN 13 mg/dL (7-17); CHLORIDE 105 mmol/L (98-107); Calcium 9.4 mg/dL (8.4-10.2); Carbon Dioxide 30 mmol/L (22-30); Glucose 96 mg/dL (74-106); MAGNESIUM 1.8 mg/dL (1.6-2.3); Potassium 3.7 mmol/L (3.5-5.1); SGOT/AST 24 U/L (14-36); SGPT/ALT 14 U/L (0-35); SODIUM 140 mmol/L (137-145); Total Protein 6.2 g/dL (6.3-8.2)
[2019-01-25] MEDS ORDERED: Levofloxacin 500MG/100ML D5W 500 MG/100 ML BAG IV STA (13:44)
[2019-01-25] MEDS ORDERED: TYLENOL 325 MG PO PRN (13:59)
[2019-01-25] MEDS ORDERED: Zofran 4 MG/2 ML VIAL IV PRN (13:59)
[2019-01-25] MEDS ORDERED: DUONEB 0.5-3 MG/3 ml Neb IH PRN (13:59)
[2019-01-25] MEDS ORDERED: PLAVIX 75 MG Tablet PO ONE (13:59)
[2019-01-25] MEDS ORDERED: NovoLOG Insulin SQ PRN (13:59)
[2019-01-25] MEDS ORDERED: Sodium Chloride 0.9% 1000 ML 1,000 ML IV SCH (14:00)
[2019-01-25] MEDS ORDERED: Levofloxacin 500MG/100ML D5W 500 MG/100 ML BAG IV ONE (14:35)
[2019-01-25] MEDS ORDERED: PLAVIX 75 MG Tablet ONE (17:13)
[2019-01-25] MEDS ORDERED: Ambien 10 MG PO PRN (18:03)
[2019-01-25] MEDS ORDERED: Ms Contin 15 MG PO PRN (18:07)
--- NOTE | 2019-01-25 18:54 | PCM.HP ---
History of Present Illness - Chief Complaint Chief Complaint: Ataxia, UTI History of Present Illness: is a 48 year old female who was brought to the ER by her family with concerns of difficulty ambulating, feels weak in her arms and legs, she is very slow with her speech and no family is available. she reports a mild cough, nonproductive, no fever, she is a smoker. no vomiting, no diarrhea, no fever, no urinary symptoms. she has a history of seizure disorder, reports compliance with her meds and denies any known recent seizures. - Review of Systems Constitutional: No Symptoms, Weakness Eyes: No Symptoms Respiratory: No Cough, No Short Of Breath Cardiac: No Chest Pain, No Edema, No Syncope Abdominal/Gastrointestinal: No Abdominal Pain, No Nausea, No Vomiting, No Diarrhea Genitourinary Symptoms: No Dysuria Skin: No Rash All Other Systems: Reviewed and Negative Medications & Allergies Home Medications: Home Medication List Levetiracetam [Keppra 500 mg ] 1,000 mg PO TID 11/15/16 [History Confirmed 01/25/19] Acetaminophen [Tylenol Extra Strength] 500 mg PO .PRN 10/11/17 [History Confirmed 01/25/19] Albuterol 2.5 mg/3 ml Neb [Proventil 2.5 mg/3 ml Neb] 2.5 mg IH .PRN 10/11 [History Confirmed 01/25/19] Albuterol 8 gm Mdi Hfa [Ventolin Hfa MDI] 2 puff IH QID 10/11/17 [History Confirmed 01/25/19] Montelukast Sodium 10 mg [Singulair 10 MG] 10 mg PO DAILY 10/11/17 [History Confirmed 01/25/19] Oxybutynin Chloride [Oxybutynin Chloride ER] 5 mg PO DAILY 10/11/17 [History Confirmed 01/25/19] Sucralfate 1 gm [Carafate 1 GM] 1 gm PO BID 10/11/17 [History Confirmed ] Meloxicam [Mobic] 15 mg PO DAILY 12/10/17 [History Confirmed 01/25/19] Omeprazole 20 MG [Prilosec 20 mg] 20 mg PO BID 12/10/17 [History Confirmed 01/25] Atorvastatin Calcium 20 mg PO DAILY 01/25/19 [History Confirmed 01/25/19] Buspirone HCl [Buspar] 15 mg PO BID 01/25/19 [History Confirmed 01/25/19] Cyanocobalamin (Vitamin B-12) [Vitamin B-12] 1,000 mcg PO DAILY 01/25/19 [ History Confirmed 01/25/19] Ergocalciferol (Vitamin D2) [Vitamin D2] 1 cap PO DAILY 01/25/19 [History Confirmed 01/25/19] Eszopiclone [Lunesta] 3 mg PO HS 01/25/19 [History Confirmed 01/25/19] Ferrous Sulfate 325 mg [Feosol 325 mg] 325 mg PO DAILY 01/25/19 [History Confirmed 01/25/19] Folic Acid 1 mg PO DAILY 01/25/19 [History Confirmed 01/25/19] Gabapentin 800 mg PO TID 01/25/19 [History Confirmed 01/25/19] Linaclotide [Linzess] 290 mcg PO DAILY 01/25/19 [History Confirmed 01/25/19] Liraglutide [Victoza 2-Sinan] 18 mg SQ DAILY 01/25/19 [History Confirmed 01/25/19] Melatonin 1 mg PO HS 01/25/19 [History Confirmed 01/25/19] Mometasone/Formoterol [Dulera 100 Mcg/5 Mcg Inhaler] 2 puff IH BID 01/25/19 [ History Confirmed 01/25/19] Morphine Sulfate 15 mg PO TID PRN PRN 01/25/19 [History Confirmed 01/25/19] Multivitamin [Multivitamins] 1 each PO DAILY 01/25/19 [History Confirmed ] Quetiapine Fumarate 300 mg PO HS 01/25/19 [History Confirmed 01/25/19] Ranolazine 500 MG [Ranexa 500 MG] 500 mg PO BID 01/25/19 [History Confirmed 01/25/19] Ropinirole HCl [Requip] 1 mg PO HS 01/25/19 [History Confirmed 01/25/19] Allergies/Adverse Reactions: Allergies Allergy/AdvReac Type Severity Reaction Status Date / Time aspirin Allergy Verified 01/25/19 11:30 latex Allergy Verified 01/25/19 11:30 NSAIDS (Non-Steroidal Allergy Verified 01/25/19 11:30 Anti-Inflamma Penicillins Allergy Verified 01/25/19 11:30 - Past Medical History Past Medical History: Yes Neurological History: Epilepsy, Peripheral Neuropathy, Seizures ENT History: No Pertinent History Cardiac History: No Pertinent History Respiratory History: Asthma Endocrine Medical History: Diabetes Type II Musculoskelatal History: Arthritis, Other GI Medical History: Other History: Other Pyscho-Social History: Bipolar, Depression Reproductive Disorders: Menstrual Problems Comment: 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 Sees a pain doctor. She reports that she had a seizure last night and has had approximately 4 total so far this year. history of: kidney sx, bariatric sx, - Female History Are you now?: No - Past Surgical History Past Surgical History: Yes Neuro Surgical History: No Pertinent History Cardiac History: No Pertinent History Respiratory Surgery: No Pertinent History GI Surgical History: Cholecystectomy, Other Genitourinary Surgical Hx: Kidney Surgery Musculskeletal Surgical Hx: Other Female Surgical History: Section, Other Other Surgical History: ulcer, kidney, , bariatric, gallbladder, pain procedure to bilateral hips with cortisone , ablasion - Social History Smoking Status: Current every day smoker Exposure to second hand smoke: Yes Alcohol: None Drug Use: none - Physical Exam Vital Signs: Vital Signs - 24 hr Temp Pulse Resp BP Pulse Ox 01/25/19 15:42 98.5 F 68 16 129/88 99 01/25/19 15:27 98.5 F 68 16 129/88 99 01/25/19 11:18 98.1 F 66 18 96/71 98 General Appearance: no apparent distress, alert Neurologic Exam: alert, cooperative, other (slow to respond, no focal deficits) Eye Exam: PERRL/EOMI, eyes nml inspection Respiratory Exam: normal breath sounds, lungs clear, No respiratory distress Cardiovascular Exam: regular rate/rhythm, normal heart sounds, normal peripheral pulses Gastrointestinal/Abdomen Exam: soft Results - Labs Lab/Micro Results: Accuchecks Date 01/25/19 Time 16:00 Accucheck Value: 94 Lab Results-Last 24 Hours 01/25/19 01/25/19 01/25/19 Range/Units 11:23 11:23 11:30 WBC (4.0-10.5) K/mm3 RBC (4.1-5.4) M/mm3 Hgb (12.0-16.0) gm/dl Hct (35-47) % MCV (78-100) fl MCH (26-32) pg MCHC (32-36) g/dl RDW (11.5-14.0) % Plt Count (150-450) K/mm3 MPV (6-9.5) fl Gran % (36.0-66.0) % Eos # (Auto) (0-0.5) Absolute Lymphs (auto) (1.0-4.6) Absolute Monos (auto) (0.0-1.3) Lymphocytes % (24.0-44.0) % Monocytes % (0.0-12.0) % Eosinophils % (0.00-5.0) % Basophils % (0.0-0.4) % Absolute Granulocytes (1.4-6.9) Basophils # (0-0.4) ESR (0-20) mm/hr PT (9.95-12.35) SECONDS INR (0.8-3.0) APTT (25.3-37.0) SECONDS Sodium (137-145) mmol/L Potassium (3.5-5.1) mmol/L Chloride (98-107) mmol/L Carbon Dioxide (22-30) mmol/L Anion Gap (5-15) MEQ/L BUN (7-17) mg/dL Creatinine (0.52-1.04) mg/dL Estimated GFR ML/MIN Glucose (74-106) mg/dL Hemoglobin A1c 4.90 (4.5-6.0) % Calcium (8.4-10.2) mg/dL Magnesium (1.6-2.3) mg/dL Total Bilirubin (0.2-1.3) mg/dL AST (14-36) U/L ALT (0-35) U/L Alkaline Phosphatase (38-126) U/L Troponin I (0.000-0.034) ng/mL Serum Total Protein (6.3-8.2) g/dL Albumin (3.5-5.0) g/dL Urine Color YELLOW (YELLOW) Urine Appearance CLOUDY (CLEAR) Urine pH 6.0 (5-6) Ur Specific [place] 1.005 (1.005-1.025) Urine Protein NEGATIVE (Negative) Urine Ketones NEGATIVE (NEGATIVE) Urine Blood NEGATIVE (0-5) Caleb/ul Urine Nitrite NEGATIVE (NEGATIVE) Urine Bilirubin NEGATIVE (NEGATIVE) Urine Urobilinogen 2 (0-1) mg/dL Ur Leukocyte Esterase MODERATE (NEGATIVE) Urine WBC (Auto) 26-50 (0-5) /HPF Urine RBC (Auto) 0-2 (0-2) /HPF U Epithel Cells (Auto) RARE (FEW) /HPF Urine Bacteria (Auto) FEW (NEGATIVE) /HPF Urine Mucus (Auto) SLIGHT (NEGATIVE) /HPF Urine Culture Reflexed YES (NO) Urine Glucose NEGATIVE (NEGATIVE) mg/dL Urine Opiates Level POSITIVE (NEGATIVE) Ur Methadone NEGATIVE (NEGATIVE) Urine Barbiturates NEGATIVE (NEGATIVE) Ur Phencyclidine (PCP) NEGATIVE (NEGATIVE) Urine Amphetamine NEGATIVE (NEGATIVE) U Benzodiazepine Level NEGATIVE (NEGATIVE) Urine Cocaine NEGATIVE (NEGATIVE) Urine Marijuana (THC) NEGATIVE (NEGATIVE) 01/25/19 01/25/19 01/25/19 Range/Units 11:35 11:35 11:35 WBC 14.2 H (4.0-10.5) K/mm3 RBC 4.65 (4.1-5.4) M/mm3 Hgb 14.9 (12.0-16.0) gm/dl Hct 46.0 (35-47) % MCV 98.9 (78-100) fl MCH 32.0 (26-32) pg MCHC 32.4 (32-36) g/dl RDW 12.9 (11.5-14.0) % Plt Count 290 (150-450) K/mm3 MPV 9.8 H (6-9.5) fl Gran % 70.4 H (36.0-66.0) % Eos # (Auto) 0.15 (0-0.5) Absolute Lymphs (auto) 2.68 (1.0-4.6) Absolute Monos (auto) 1.33 H (0.0-1.3) Lymphocytes % 18.9 L (24.0-44.0) % Monocytes % 9.4 (0.0-12.0) % Eosinophils % 1.1 (0.00-5.0) % Basophils % 0.2 (0.0-0.4) % Absolute Granulocytes 10.01 H (1.4-6.9) Basophils # 0.03 (0-0.4) ESR (0-20) mm/hr PT (9.95-12.35) SECONDS INR (0.8-3.0) APTT (25.3-37.0) SECONDS Sodium 140 (137-145) mmol/L Potassium 3.7 (3.5-5.1) mmol/L Chloride 105 (98-107) mmol/L Carbon Dioxide 30 (22-30) mmol/L Anion Gap 9.1 (5-15) MEQ/L BUN 13 (7-17) mg/dL Creatinine 0.80 (0.52-1.04) mg/dL Estimated GFR > 60.0 ML/MIN Glucose 96 (74-106) mg/dL Hemoglobin A1c (4.5-6.0) % Calcium 9.4 (8.4-10.2) mg/dL Magnesium 1.8 (1.6-2.3) mg/dL Total Bilirubin 0.60 (0.2-1.3) mg/dL AST 24 (14-36) U/L ALT 14 (0-35) U/L Alkaline Phosphatase 104 (38-126) U/L Troponin I < 0.012 (0.000-0.034) ng/mL Serum Total Protein 6.2 L (6.3-8.2) g/dL Albumin 3.2 L (3.5-5.0) g/dL Urine Color (YELLOW) Urine Appearance (CLEAR) Urine pH (5-6) Ur Specific [place] (1.005-1.025) Urine Protein (Negative) Urine Ketones (NEGATIVE) Urine Blood (0-5) Caleb/ul Urine Nitrite (NEGATIVE) Urine Bilirubin (NEGATIVE) Urine Urobilinogen (0-1) mg/dL Ur Leukocyte Esterase (NEGATIVE) Urine WBC (Auto) (0-5) /HPF Urine RBC (Auto) (0-2) /HPF U Epithel Cells (Auto) (FEW) /HPF Urine Bacteria (Auto) (NEGATIVE) /HPF Urine Mucus (Auto) (NEGATIVE) /HPF Urine Culture Reflexed (NO) Urine Glucose (NEGATIVE) mg/dL Urine Opiates Level (NEGATIVE) Ur Methadone (NEGATIVE) Urine Barbiturates (NEGATIVE) Ur Phencyclidine (PCP) (NEGATIVE) Urine Amphetamine (NEGATIVE) U Benzodiazepine Level (NEGATIVE) Urine Cocaine (NEGATIVE) Urine Marijuana (THC) (NEGATIVE) 01/25/19 01/25/19 Range/Units 11:35 11:35 WBC (4.0-10.5) K/mm3 RBC (4.1-5.4) M/mm3 Hgb (12.0-16.0) gm/dl Hct (35-47) % MCV (78-100) fl MCH (26-32) pg MCHC (32-36) g/dl RDW (11.5-14.0) % Plt Count (150-450) K/mm3 MPV (6-9.5) fl Gran % (36.0-66.0) % Eos # (Auto) (0-0.5) Absolute Lymphs (auto) (1.0-4.6) Absolute Monos (auto) (0.0-1.3) Lymphocytes % (24.0-44.0) % Monocytes % (0.0-12.0) % Eosinophils % (0.00-5.0) % Basophils % (0.0-0.4) % Absolute Granulocytes (1.4-6.9) Basophils # (0-0.4) ESR 4 (0-20) mm/hr PT 11.9 (9.95-12.35) SECONDS INR 1.02 (0.8-3.0) APTT 32.4 (25.3-37.0) SECONDS Sodium (137-145) mmol/L Potassium (3.5-5.1) mmol/L Chloride (98-107) mmol/L Carbon Dioxide (22-30) mmol/L Anion Gap (5-15) MEQ/L BUN (7-17) mg/dL Creatinine (0.52-1.04) mg/dL Estimated GFR ML/MIN Glucose (74-106) mg/dL Hemoglobin A1c (4.5-6.0) % Calcium (8.4-10.2) mg/dL Magnesium (1.6-2.3) mg/dL Total Bilirubin (0.2-1.3) mg/dL AST (14-36) U/L ALT (0-35) U/L Alkaline Phosphatase (38-126) U/L Troponin I (0.000-0.034) ng/mL Serum Total Protein (6.3-8.2) g/dL Albumin (3.5-5.0) g/dL Urine Color (YELLOW) Urine Appearance (CLEAR) Urine pH (5-6) Ur Specific [place] (1.005-1.025) Urine Protein (Negative) Urine Ketones (NEGATIVE) Urine Blood (0-5) Caleb/ul Urine Nitrite (NEGATIVE) Urine Bilirubin (NEGATIVE) Urine Urobilinogen (0-1) mg/dL Ur Leukocyte Esterase (NEGATIVE) Urine WBC (Auto) (0-5) /HPF Urine RBC (Auto) (0-2) /HPF U Epithel Cells (Auto) (FEW) /HPF Urine Bacteria (Auto) (NEGATIVE) /HPF Urine Mucus (Auto) (NEGATIVE) /HPF Urine Culture Reflexed (NO) Urine Glucose (NEGATIVE) mg/dL Urine Opiates Level (NEGATIVE) Ur Methadone (NEGATIVE) Urine Barbiturates (NEGATIVE) Ur Phencyclidine (PCP) (NEGATIVE) Urine Amphetamine (NEGATIVE) U Benzodiazepine Level (NEGATIVE) Urine Cocaine (NEGATIVE) Urine Marijuana (THC) (NEGATIVE) Accuchecks Date 01/25/19 Time 16:00 Accucheck Value: 94 - Radiology Impressions Radiology Exams & Impressions: Radiology Procedures Category Date Time Status CHEST 1 VIEW (PORTABLE) Stat Exams 01/25/19 11:23 Taken HEAD WITHOUT CONTRAST [CT] Stat Exams 01/25/19 11:24 Taken - Other Procedures and Tests Respiratory Therapy 01/25/19 17:46 Respiratory Therapy Assessment DAILY 01/25/19 17:47 Peak Expiratory Flow Rate ONCE Assessment/Plan (1) UTI (urinary tract infection) Current Visit: Yes Status: Acute Qualifiers: Urinary tract infection type: acute cystitis Hematuria presence: without hematuria Qualified Code(s): N30.00 - Acute cystitis without hematuria Assessment & Plan: on levaquin Code(s): N39.0 - URINARY TRACT INFECTION, SITE NOT SPECIFIED (2) Weakness Current Visit: Yes Status: Acute Assessment & Plan: nothing focal, head ct negative in ER. will observe, patient denies any recent medication changes but might be an element of overmedication. will continue her regular pain meds and re-evaluate home meds. continue keppra due to seizure disorder Code(s): R53.1 - WEAKNESS (3) Ataxia Current Visit: Yes Status: Acute Code(s): R27.0 - ATAXIA, UNSPECIFIED
--- NOTE | 2019-01-25 19:56 | XRAY ---
Indication: Dizziness and slurred speech. Multiple contiguous axial images obtained through the head without contrast. Comparison: November 292016 Again normal appearing brain parenchyma, ventricles, and bony calvarium. Visualized paranasal sinuses and mastoid air cells are clear. Impression: Stable normal CT head without contrast exam. Comment: Preliminary interpretation was made by [facility]. No discrepancy. CTDI 66.81
--- NOTE | 2019-01-25 20:01 | XRAY ---
Indication: Dizziness and slurred speech. Comparison: February 28, 2017. Portable chest remains clear. Heart and mediastinal structures within normal limits. Bony thorax intact. Impression: Stable nonacute chest.
[2019-01-25] MEDS ORDERED: KEPPRA 500 MG PO SCH (22:00)
[2019-01-25] MEDS ORDERED: Carafate 1 GM PO SCH (22:00)
[2019-01-25] MEDS: KEPPRA 500 MG PO SCH (22:34)
[2019-01-25] MEDS: Requip 0.5 MG PO SCH (22:34)
[2019-01-25] MEDS: Neurontin 400 MG PO SCH (22:35)
[2019-01-25] MEDS: Protonix 40MG Tablet PO SCH (22:35)
[2019-01-25] MEDS: Seroquel 100 MG PO SCH (22:35)
[2019-01-25] MEDS: Ranexa 500 MG PO SCH (22:35)
[2019-01-25] MEDS: BUSPAR 5 MG PO SCH (23:01)
[2019-01-26 05:56] LABS: BASOPHIL % 0.3 % (0.0-0.4); Basophil (Absolute #) 0.02 (0-0.4); Eosinophil % 2.2 % (0.00-5.0); Eosinophil (Absolute #) 0.16 (0-0.5); Granulocyte Absolute (ANC) 3.64 (1.4-6.9); Granulocytes % 50.7 % (36.0-66.0); Hematocrit 40.2 % (35-47); Hemoglobin 12.6 gm/dl (12.0-16.0); Lymphocyte (Absolute #) 2.83 (1.0-4.6); Lymphocytes % 39.4 % (24.0-44.0); Mean Cell Volume 99.8 fl (78-100); Mean Corpuscular Hgb Concent. 31.3 g/dl (32-36); Monocyte (Absolute #) 0.53 (0.0-1.3); Monocytes % 7.4 % (0.0-12.0); Platelet Count 244 K/mm3 (150-450); Red Blood Count 4.03 M/mm3 (4.1-5.4); Red Cell Distribution Width 12.8 % (11.5-14.0); White Blood Count 7.2 K/mm3 (4.0-10.5)
[2019-01-26 05:59] LABS: Mean Corpuscular Hemoglobin 31.2 pg (26-32)
[2019-01-26 06:05] LABS: ANION GAP 6.6 MEQ/L (5-15); BLOOD UREA NITROGEN 12 mg/dL (7-17); CHLORIDE 110 mmol/L (98-107); Calcium 8.3 mg/dL (8.4-10.2); Carbon Dioxide 27 mmol/L (22-30); Creatinine 1 0.63 mg/dL (0.52-1.04); Glucose 96 mg/dL (74-106); Potassium 3.7 mmol/L (3.5-5.1); SODIUM 140 mmol/L (137-145)
--- NOTE | 2019-01-26 08:08 | PCM.NOTE ---
Date and Time: 01/26/19 08 Subjective Assessment: patient improving, feels less weak. she is tolerating po intake. denies any focal weakness or symptoms. Objective Exam General Appearance: no apparent distress Neurologic Exam: alert, oriented x 3, cooperative, other (slow to respond) Skin Exam: normal color, warm, dry Respiratory Exam: normal breath sounds, lungs clear, No respiratory distress Cardiovascular Exam: regular rate/rhythm, normal heart sounds Gastrointestinal/Abdomen Exam: soft, No tenderness, No mass Extremity Exam: normal inspection, normal range of motion OBJECTIVE DATA Vital Signs: Vital Signs - 24 hr Temp Pulse Resp BP Pulse Ox 01/26/19 07:22 98.3 F 64 18 120/75 97 01/26/19 04:00 98.3 F 68 14 110/68 94 L 01/25/19 23:33 98.6 F 72 18 141/81 95 01/25/19 20:44 70 18 95 01/25/19 19:38 98.4 F 70 17 123/80 94 L 01/25/19 15:42 98.5 F 68 16 129/88 99 01/25/19 15:27 98.5 F 68 16 129/88 99 01/25/19 11:18 98.1 F 66 18 96/71 98 Pain Assessment - Last Documented Pain Intensity 0 Pain Scale Used 0-10 Pain Scale Intake and Output: Intake & Output 01/23/19 01/24/19 01/25/19 01/26/19 11:59 11:59 11:59 11:59 Intake Total 1785 Output Total 200 Balance 1585 Weight 84.822 kg 85.9 kg Lab Results: Accuchecks Date 01/26/19 Date 01/25/19 Date 01/25/19 Time 04:17 Time 23:00 Time 16:00 Accucheck Value: 80 Accucheck Value: 97 Accucheck Value: 94 Lab Results-Last 24 Hours 01/25/19 01/25/19 01/25/19 Range/Units 11:23 11:23 11:30 WBC (4.0-10.5) K/mm3 RBC (4.1-5.4) M/mm3 Hgb (12.0-16.0) gm/dl Hct (35-47) % MCV (78-100) fl MCH (26-32) pg MCHC (32-36) g/dl RDW (11.5-14.0) % Plt Count (150-450) K/mm3 MPV (6-9.5) fl Gran % (36.0-66.0) % Eos # (Auto) (0-0.5) Absolute Lymphs (auto) (1.0-4.6) Absolute Monos (auto) (0.0-1.3) Lymphocytes % (24.0-44.0) % Monocytes % (0.0-12.0) % Eosinophils % (0.00-5.0) % Basophils % (0.0-0.4) % Absolute Granulocytes (1.4-6.9) Basophils # (0-0.4) ESR (0-20) mm/hr PT (9.95-12.35) SECONDS INR (0.8-3.0) APTT (25.3-37.0) SECONDS Sodium (137-145) mmol/L Potassium (3.5-5.1) mmol/L Chloride (98-107) mmol/L Carbon Dioxide (22-30) mmol/L Anion Gap (5-15) MEQ/L BUN (7-17) mg/dL Creatinine (0.52-1.04) mg/dL Estimated GFR ML/MIN Glucose (74-106) mg/dL Hemoglobin A1c 4.90 (4.5-6.0) % Calcium (8.4-10.2) mg/dL Magnesium (1.6-2.3) mg/dL Total Bilirubin (0.2-1.3) mg/dL AST (14-36) U/L ALT (0-35) U/L Alkaline Phosphatase (38-126) U/L Troponin I (0.000-0.034) ng/mL Serum Total Protein (6.3-8.2) g/dL Albumin (3.5-5.0) g/dL Urine Color YELLOW (YELLOW) Urine Appearance CLOUDY (CLEAR) Urine pH 6.0 (5-6) Ur Specific [place] 1.005 (1.005-1.025) Urine Protein NEGATIVE (Negative) Urine Ketones NEGATIVE (NEGATIVE) Urine Blood NEGATIVE (0-5) Caleb/ul Urine Nitrite NEGATIVE (NEGATIVE) Urine Bilirubin NEGATIVE (NEGATIVE) Urine Urobilinogen 2 (0-1) mg/dL Ur Leukocyte Esterase MODERATE (NEGATIVE) Urine WBC (Auto) 26-50 (0-5) /HPF Urine RBC (Auto) 0-2 (0-2) /HPF U Epithel Cells (Auto) RARE (FEW) /HPF Urine Bacteria (Auto) FEW (NEGATIVE) /HPF Urine Mucus (Auto) SLIGHT (NEGATIVE) /HPF Urine Culture Reflexed YES (NO) Urine Glucose NEGATIVE (NEGATIVE) mg/dL Urine Opiates Level POSITIVE (NEGATIVE) Ur Methadone NEGATIVE (NEGATIVE) Urine Barbiturates NEGATIVE (NEGATIVE) Ur Phencyclidine (PCP) NEGATIVE (NEGATIVE) Urine Amphetamine NEGATIVE (NEGATIVE) U Benzodiazepine Level NEGATIVE (NEGATIVE) Urine Cocaine NEGATIVE (NEGATIVE) Urine Marijuana (THC) NEGATIVE (NEGATIVE) 01/25/19 01/25/19 01/25/19 Range/Units 11:35 11:35 11:35 WBC 14.2 H (4.0-10.5) K/mm3 RBC 4.65 (4.1-5.4) M/mm3 Hgb 14.9 (12.0-16.0) gm/dl Hct 46.0 (35-47) % MCV 98.9 (78-100) fl MCH 32.0 (26-32) pg MCHC 32.4 (32-36) g/dl RDW 12.9 (11.5-14.0) % Plt Count 290 (150-450) K/mm3 MPV 9.8 H (6-9.5) fl Gran % 70.4 H (36.0-66.0) % Eos # (Auto) 0.15 (0-0.5) Absolute Lymphs (auto) 2.68 (1.0-4.6) Absolute Monos (auto) 1.33 H (0.0-1.3) Lymphocytes % 18.9 L (24.0-44.0) % Monocytes % 9.4 (0.0-12.0) % Eosinophils % 1.1 (0.00-5.0) % Basophils % 0.2 (0.0-0.4) % Absolute Granulocytes 10.01 H (1.4-6.9) Basophils # 0.03 (0-0.4) ESR (0-20) mm/hr PT (9.95-12.35) SECONDS INR (0.8-3.0) APTT (25.3-37.0) SECONDS Sodium 140 (137-145) mmol/L Potassium 3.7 (3.5-5.1) mmol/L Chloride 105 (98-107) mmol/L Carbon Dioxide 30 (22-30) mmol/L Anion Gap 9.1 (5-15) MEQ/L BUN 13 (7-17) mg/dL Creatinine 0.80 (0.52-1.04) mg/dL Estimated GFR > 60.0 ML/MIN Glucose 96 (74-106) mg/dL Hemoglobin A1c (4.5-6.0) % Calcium 9.4 (8.4-10.2) mg/dL Magnesium 1.8 (1.6-2.3) mg/dL Total Bilirubin 0.60 (0.2-1.3) mg/dL AST 24 (14-36) U/L ALT 14 (0-35) U/L Alkaline Phosphatase 104 (38-126) U/L Troponin I < 0.012 (0.000-0.034) ng/mL Serum Total Protein 6.2 L (6.3-8.2) g/dL Albumin 3.2 L (3.5-5.0) g/dL Urine Color (YELLOW) Urine Appearance (CLEAR) Urine pH (5-6) Ur Specific [place] (1.005-1.025) Urine Protein (Negative) Urine Ketones (NEGATIVE) Urine Blood (0-5) Caleb/ul Urine Nitrite (NEGATIVE) Urine Bilirubin (NEGATIVE) Urine Urobilinogen (0-1) mg/dL Ur Leukocyte Esterase (NEGATIVE) Urine WBC (Auto) (0-5) /HPF Urine RBC (Auto) (0-2) /HPF U Epithel Cells (Auto) (FEW) /HPF Urine Bacteria (Auto) (NEGATIVE) /HPF Urine Mucus (Auto) (NEGATIVE) /HPF Urine Culture Reflexed (NO) Urine Glucose (NEGATIVE) mg/dL Urine Opiates Level (NEGATIVE) Ur Methadone (NEGATIVE) Urine Barbiturates (NEGATIVE) Ur Phencyclidine (PCP) (NEGATIVE) Urine Amphetamine (NEGATIVE) U Benzodiazepine Level (NEGATIVE) Urine Cocaine (NEGATIVE) Urine Marijuana (THC) (NEGATIVE) 01/25/19 01/25/19 01/26/19 Range/Units 11:35 11:35 05:10 WBC 7.2 (4.0-10.5) K/mm3 RBC 4.03 L (4.1-5.4) M/mm3 Hgb 12.6 (12.0-16.0) gm/dl Hct 40.2 (35-47) % MCV 99.8 (78-100) fl MCH 31.2 (26-32) pg MCHC 31.3 L (32-36) g/dl RDW 12.8 (11.5-14.0) % Plt Count 244 (150-450) K/mm3 MPV 10.0 H (6-9.5) fl Gran % 50.7 (36.0-66.0) % Eos # (Auto) 0.16 (0-0.5) Absolute Lymphs (auto) 2.83 (1.0-4.6) Absolute Monos (auto) 0.53 (0.0-1.3) Lymphocytes % 39.4 (24.0-44.0) % Monocytes % 7.4 (0.0-12.0) % Eosinophils % 2.2 (0.00-5.0) % Basophils % 0.3 (0.0-0.4) % Absolute Granulocytes 3.64 (1.4-6.9) Basophils # 0.02 (0-0.4) ESR 4 (0-20) mm/hr PT 11.9 (9.95-12.35) SECONDS INR 1.02 (0.8-3.0) APTT 32.4 (25.3-37.0) SECONDS Sodium (137-145) mmol/L Potassium (3.5-5.1) mmol/L Chloride (98-107) mmol/L Carbon Dioxide (22-30) mmol/L Anion Gap (5-15) MEQ/L BUN (7-17) mg/dL Creatinine (0.52-1.04) mg/dL Estimated GFR ML/MIN Glucose (74-106) mg/dL Hemoglobin A1c (4.5-6.0) % Calcium (8.4-10.2) mg/dL Magnesium (1.6-2.3) mg/dL Total Bilirubin (0.2-1.3) mg/dL AST (14-36) U/L ALT (0-35) U/L Alkaline Phosphatase (38-126) U/L Troponin I (0.000-0.034) ng/mL Serum Total Protein (6.3-8.2) g/dL Albumin (3.5-5.0) g/dL Urine Color (YELLOW) Urine Appearance (CLEAR) Urine pH (5-6) Ur Specific [place] (1.005-1.025) Urine Protein (Negative) Urine Ketones (NEGATIVE) Urine Blood (0-5) Caleb/ul Urine Nitrite (NEGATIVE) Urine Bilirubin (NEGATIVE) Urine Urobilinogen (0-1) mg/dL Ur Leukocyte Esterase (NEGATIVE) Urine WBC (Auto) (0-5) /HPF Urine RBC (Auto) (0-2) /HPF U Epithel Cells (Auto) (FEW) /HPF Urine Bacteria (Auto) (NEGATIVE) /HPF Urine Mucus (Auto) (NEGATIVE) /HPF Urine Culture Reflexed (NO) Urine Glucose (NEGATIVE) mg/dL Urine Opiates Level (NEGATIVE) Ur Methadone (NEGATIVE) Urine Barbiturates (NEGATIVE) Ur Phencyclidine (PCP) (NEGATIVE) Urine Amphetamine (NEGATIVE) U Benzodiazepine Level (NEGATIVE) Urine Cocaine (NEGATIVE) Urine Marijuana (THC) (NEGATIVE) 01/26/19 Range/Units 05:10 WBC (4.0-10.5) K/mm3 RBC (4.1-5.4) M/mm3 Hgb (12.0-16.0) gm/dl Hct (35-47) % MCV (78-100) fl MCH (26-32) pg MCHC (32-36) g/dl RDW (11.5-14.0) % Plt Count (150-450) K/mm3 MPV (6-9.5) fl Gran % (36.0-66.0) % Eos # (Auto) (0-0.5) Absolute Lymphs (auto) (1.0-4.6) Absolute Monos (auto) (0.0-1.3) Lymphocytes % (24.0-44.0) % Monocytes % (0.0-12.0) % Eosinophils % (0.00-5.0) % Basophils % (0.0-0.4) % Absolute Granulocytes (1.4-6.9) Basophils # (0-0.4) ESR (0-20) mm/hr PT (9.95-12.35) SECONDS INR (0.8-3.0) APTT (25.3-37.0) SECONDS Sodium 140 (137-145) mmol/L Potassium 3.7 (3.5-5.1) mmol/L Chloride 110 H (98-107) mmol/L Carbon Dioxide 27 (22-30) mmol/L Anion Gap 6.6 (5-15) MEQ/L BUN 12 (7-17) mg/dL Creatinine 0.63 (0.52-1.04) mg/dL Estimated GFR > 60.0 ML/MIN Glucose 96 (74-106) mg/dL Hemoglobin A1c (4.5-6.0) % Calcium 8.3 L (8.4-10.2) mg/dL Magnesium (1.6-2.3) mg/dL Total Bilirubin (0.2-1.3) mg/dL AST (14-36) U/L ALT (0-35) U/L Alkaline Phosphatase (38-126) U/L Troponin I (0.000-0.034) ng/mL Serum Total Protein (6.3-8.2) g/dL Albumin (3.5-5.0) g/dL Urine Color (YELLOW) Urine Appearance (CLEAR) Urine pH (5-6) Ur Specific [place] (1.005-1.025) Urine Protein (Negative) Urine Ketones (NEGATIVE) Urine Blood (0-5) Caleb/ul Urine Nitrite (NEGATIVE) Urine Bilirubin (NEGATIVE) Urine Urobilinogen (0-1) mg/dL Ur Leukocyte Esterase (NEGATIVE) Urine WBC (Auto) (0-5) /HPF Urine RBC (Auto) (0-2) /HPF U Epithel Cells (Auto) (FEW) /HPF Urine Bacteria (Auto) (NEGATIVE) /HPF Urine Mucus (Auto) (NEGATIVE) /HPF Urine Culture Reflexed (NO) Urine Glucose (NEGATIVE) mg/dL Urine Opiates Level (NEGATIVE) Ur Methadone (NEGATIVE) Urine Barbiturates (NEGATIVE) Ur Phencyclidine (PCP) (NEGATIVE) Urine Amphetamine (NEGATIVE) U Benzodiazepine Level (NEGATIVE) Urine Cocaine (NEGATIVE) Urine Marijuana (THC) (NEGATIVE) Radiology Exams: Radiology Procedures Category Date Time Status CHEST 1 VIEW (PORTABLE) Stat Exams 01/25/19 11:23 Completed HEAD WITHOUT CONTRAST [CT] Stat Exams 01/25/19 11:24 Completed Multi-Disciplinary Progress Notes: Multi-Disciplinary Progress Notes 01/26/19 07:48 Pharmacy Note by Heladio Kasper Please be aware of possible drug interaction with Levaquin and Seroquel. May prolong QT interval. Initialized on 01/26/19 07:48 - END OF NOTE Assessment/Plan (1) UTI (urinary tract infection) Current Visit: Yes Status: Acute Qualifiers: Urinary tract infection type: acute cystitis Hematuria presence: without hematuria Qualified Code(s): N30.00 - Acute cystitis without hematuria Assessment & Plan: culture pending, continue levaquin Code(s): N39.0 - URINARY TRACT INFECTION, SITE NOT SPECIFIED (2) Weakness Current Visit: Yes Status: Acute Code(s): R53.1 - WEAKNESS (3) Ataxia Current Visit: Yes Status: Acute Code(s): R27.0 - ATAXIA, UNSPECIFIED
[2019-01-26] MEDS: Carafate 1 GM PO SCH ×2 (08:17→16:48)
[2019-01-26] MEDS ORDERED: PROVENTIL 2.5 MG/3 ML NEB IH PRN (08:23)
[2019-01-26] MEDS: MSIR 15 MG PO PRN ×2 (08:25→16:51)
[2019-01-26] MEDS ORDERED: MEDICATION INTERVENTION PO SCH ×2 (08:45)
[2019-01-26] MEDS ORDERED: MEDICATION INTERVENTION MC SCH ×2 (08:45)
[2019-01-26] MEDS: Sodium Chloride 0.9% 1000 ML 1,000 ML IV SCH ×2 (08:50→20:07)
[2019-01-26] MEDS ORDERED: FORMOTEROL IH SCH (10:00)
[2019-01-26] MEDS ORDERED: MOMETASONE IH SCH (10:00)
[2019-01-26] MEDS ORDERED: Ditropan XL 5 MG PO SCH ×2 (10:00→22:00)
[2019-01-26] MEDS ORDERED: Ventolin Hfa MDI IH SCH (10:00)
[2019-01-26] MEDS: Ranexa 500 MG PO SCH ×2 (10:11→21:59)
[2019-01-26] MEDS: Protonix 40MG Tablet PO SCH ×2 (10:11→21:59)
[2019-01-26] MEDS: Singulair 10 MG PO SCH (10:11)
[2019-01-26] MEDS: Neurontin 400 MG PO SCH ×3 (10:11→21:59)
[2019-01-26] MEDS: BUSPAR 5 MG PO SCH ×3 (10:11→21:58)
[2019-01-26] MEDS: Levofloxacin 500MG/100ML D5W 500 MG/100 ML BAG IV SCH (10:12)
[2019-01-26] MEDS: KEPPRA 500 MG PO SCH ×3 (10:12→21:58)
[2019-01-26] MEDS ORDERED: PROVENTIL COMMON CANISTER IH SCH (11:00)
[2019-01-26] MEDS: Seroquel 100 MG PO SCH (21:59)
[2019-01-26] MEDS: Requip 0.5 MG PO SCH (21:59)
[2019-01-26] MEDS ORDERED: MELATONIN 1 MG PO SCH (22:00)
[2019-01-27] MEDS: MSIR 15 MG PO PRN ×2 (02:37→11:33)
[2019-01-27 05:49] LABS: BASOPHIL % 0.2 % (0.0-0.4); Basophil (Absolute #) 0.02 (0-0.4); Eosinophil (Absolute #) 0.16 (0-0.5); Granulocyte Absolute (ANC) 4.01 (1.4-6.9); Hematocrit 40.7 % (35-47); Hemoglobin 12.7 gm/dl (12.0-16.0); Lymphocytes % 38.7 % (24.0-44.0); Mean Cell Volume 100.7 fl (78-100); Mean Corpuscular Hemoglobin 31.4 pg (26-32); Mean Corpuscular Hgb Concent. 31.2 g/dl (32-36); Mean Platelet Volume 9.9 fl (6-9.5); Monocyte (Absolute #) 0.73 (0.0-1.3); Monocytes % 9.1 % (0.0-12.0); Platelet Count 237 K/mm3 (150-450); Red Blood Count 4.04 M/mm3 (4.1-5.4); Red Cell Distribution Width 12.7 % (11.5-14.0)
[2019-01-27 06:00] LABS: ANION GAP 8.5 MEQ/L (5-15); BLOOD UREA NITROGEN 9 mg/dL (7-17); CHLORIDE 113 mmol/L (98-107); Calcium 8.2 mg/dL (8.4-10.2); Carbon Dioxide 25 mmol/L (22-30); Creatinine 1 0.55 mg/dL (0.52-1.04); Glucose 120 mg/dL (74-106); Potassium 3.3 mmol/L (3.5-5.1); SODIUM 143 mmol/L (137-145)
[2019-01-27] MEDS: Sodium Chloride 0.9% 1000 ML 1,000 ML IV SCH (06:48)
[2019-01-27] MEDS: Carafate 1 GM PO SCH (07:41)
--- NOTE | 2019-01-27 08:37 | PCM.NOTE ---
Date and Time: 01/27/19832 Subjective Assessment: patient c/o right flank pain, suspicious of kidney stone as she has a history. she is much more alert Objective Exam General Appearance: no apparent distress, alert Neurologic Exam: alert, oriented x 3 Skin Exam: normal color, warm, dry Respiratory Exam: normal breath sounds, lungs clear, No respiratory distress Cardiovascular Exam: regular rate/rhythm, normal heart sounds Gastrointestinal/Abdomen Exam: soft, No tenderness, No mass Extremity Exam: normal inspection, normal range of motion OBJECTIVE DATA Vital Signs: Vital Signs - 24 hr Temp Pulse Resp BP Pulse Ox 01/27/19 07:56 95 01/27/19 07:52 98 F 60 18 146/73 93 L 01/27/19 04:00 97.8 F 66 20 131/85 96 01/26/19 23:40 98.4 F 62 18 135/77 97 01/26/19 21:56 95 01/26/19 21:55 62 14 95 01/26/19 20:00 97.9 F 65 12 121/77 96 01/26/19 16:00 98.6 F 59 L 16 137/86 94 L 01/26/19 11:37 98.6 F 71 16 120/75 95 01/26/19 11:22 68 16 95 Pain Assessment - Last Documented Pain Intensity 5 Pain Scale Used 0-10 Pain Scale Intake and Output: Intake & Output 01/24/19 01/25/19 01/26/19 01/27/19 11:59 11:59 11:59 11:59 Intake Total 2265 3598 Output Total 200 2400 Balance 2065 1198 Weight 84.822 kg 85.9 kg Lab Results: Accuchecks Date 01/26/1901/26/19 Date 01/26/19 Time 22:00 Time 16:00 Time 10:00 Accucheck Value: 89 Accucheck Value: 100 Accucheck Value: 103 Accucheck Value: 110 Lab Results-Last 24 Hours 01/25/19 01/27/19 01/27/19 Range/Units 11:35 05:06 05:06 WBC 8.0 (4.0-10.5) K/mm3 RBC 4.04 L (4.1-5.4) M/mm3 Hgb 12.7 (12.0-16.0) gm/dl Hct 40.7 (35-47) % MCV 100.7 H (78-100) fl MCH 31.4 (26-32) pg MCHC 31.2 L (32-36) g/dl RDW 12.7 (11.5-14.0) % Plt Count 237 (150-450) K/mm3 MPV 9.9 H (6-9.5) fl Gran % 50.0 (36.0-66.0) % Eos # (Auto) 0.16 (0-0.5) Absolute Lymphs (auto) 3.10 (1.0-4.6) Absolute Monos (auto) 0.73 (0.0-1.3) Lymphocytes % 38.7 (24.0-44.0) % Monocytes % 9.1 (0.0-12.0) % Eosinophils % 2.0 (0.00-5.0) % Basophils % 0.2 (0.0-0.4) % Absolute Granulocytes 4.01 (1.4-6.9) Basophils # 0.02 (0-0.4) Sodium 143 (137-145) mmol/L Potassium 3.3 L (3.5-5.1) mmol/L Chloride 113 H (98-107) mmol/L Carbon Dioxide 25 (22-30) mmol/L Anion Gap 8.5 (5-15) MEQ/L BUN 9 (7-17) mg/dL Creatinine 0.55 (0.52-1.04) mg/dL Estimated GFR > 60.0 ML/MIN Glucose 120 H (74-106) mg/dL Calcium 8.2 L (8.4-10.2) mg/dL Levetiracetam 52 H (5-30) mcg/mL Radiology Exams: Radiology Procedures Category Date Time Status ABDOMEN AND PELVIS W/0 CONTRAS [CT] Routine Exams 01/27/19 08:32 Ordered CHEST 1 VIEW (PORTABLE) Stat Exams 01/25/19 11:23 Completed HEAD WITHOUT CONTRAST [CT] Stat Exams 01/25/19 11:24 Completed Assessment/Plan (1) UTI (urinary tract infection) Current Visit: Yes Status: Acute Qualifiers: Urinary tract infection type: acute cystitis Hematuria presence: without hematuria Qualified Code(s): N30.00 - Acute cystitis without hematuria Assessment & Plan: continue levaquin, e coli sensitive Code(s): N39.0 - URINARY TRACT INFECTION, SITE NOT SPECIFIED (2) Weakness Current Visit: Yes Status: Acute Code(s): R53.1 - WEAKNESS (3) Ataxia Current Visit: Yes Status: Acute Assessment & Plan: metabolic, related to UTI, much better at this time. Code(s): R27.0 - ATAXIA, UNSPECIFIED (4) Flank pain, acute Current Visit: Yes Status: Acute Assessment & Plan: ct pending to r/o renal stone Code(s): R10.9 - UNSPECIFIED ABDOMINAL PAIN
[2019-01-27] MEDS: BUSPAR 5 MG PO SCH ×2 (08:56→14:21)
[2019-01-27] MEDS: KEPPRA 500 MG PO SCH ×2 (08:57→14:21)
[2019-01-27] MEDS: Levofloxacin 500MG/100ML D5W 500 MG/100 ML BAG IV SCH (08:57)
[2019-01-27] MEDS: Neurontin 400 MG PO SCH ×2 (08:57→14:21)
[2019-01-27] MEDS: Ranexa 500 MG PO SCH (09:00)
[2019-01-27] MEDS: Singulair 10 MG PO SCH (09:00)
[2019-01-27] MEDS: Protonix 40MG Tablet PO SCH (09:00)
[2019-01-27] MEDS ORDERED: PATIENT OWN MEDICATION SQ SCH (10:00)
[2019-01-27] MEDS ORDERED: PATIENT OWN MEDICATION PO SCH (10:00)
[2019-01-27 12:26] LABS: Appearance CLEAR (CLEAR); Bilirubin NEGATIVE (NEGATIVE); Blood SMALL Ery/ul (0-5); Glucose NEGATIVE (NEGATIVE); Ketones NEGATIVE (NEGATIVE); Leukocyte Esterase NEGATIVE (NEGATIVE); Mucus SLIGHT /HPF (NEGATIVE); Nitrite NEGATIVE (NEGATIVE); Protein,Urine Dip NEGATIVE (Negative); Specific Gravity 1.004 (1.005-1.025); Urobilinogen NEGATIVE mg/dL (0-1); WBC 0-2 /HPF (0-5)
--- NOTE | 2019-01-27 13:21 | PCM.DS ---
Discharge Summary Date of Admission: 01/25/19 14:54 Admitting Physician: DANG JEWELL Primary Care Provider: GODWIN NELSON Allergies Allergies aspirin Allergy (Verified 01/25/19 11:30) latex Allergy (Verified 01/25/19 11:30) NSAIDS (Non-Steroidal Anti-Inflamma Allergy (Verified 01/25/19 11:30) Penicillins Allergy (Verified 01/25/19 11:30) Hospital Summary - Hospital Course Hospital Course: patient was admitted with altered mental status, found to have UTI. was treated , doing much better. complained of some right flank pain but insurance refused to allow CT scan, repeat ua with no blood. patient does not meet insurance criteria for further hospital care so being discharge to home. can f/u with PCP regarding flank pain - Vitals & Intake/Output Vital Signs: Vital Signs Temperature 98 F 01/27/19 07:52 Pulse Rate 60 01/27/19 07:52 Respiratory Rate 18 01/27/19 07:52 Blood Pressure 146/73 01/27/19 07:52 O2 Sat by Pulse Oximetry 95 01/27/19 07:56 Intake & Output: Intake & Output 01/25/19 01/26/19 01/27/19 01/28/19 11:59 11:59 11:59 11:59 Intake Total 2265 3838 Output Total 200 3200 Balance 2065 638 Weight 84.822 kg 85.9 kg - Lab Result Diagrams: 01/27/19 05:06 01/27/19 05:06 Lab Results-Last 24 Hrs: Accuchecks Date 01/26/19 Date 01/26/19 Time 22:00 Time 16:00 Accucheck Value: 87 Accucheck Value: 89 Accucheck Value: 100 Accucheck Value: 103 Lab Results-Last 24 Hours 01/25/19 01/27/19 01/27/19 Range/Units 11:35 05:06 05:06 WBC 8.0 (4.0-10.5) K/mm3 RBC 4.04 L (4.1-5.4) M/mm3 Hgb 12.7 (12.0-16.0) gm/dl Hct 40.7 (35-47) % MCV 100.7 H (78-100) fl MCH 31.4 (26-32) pg MCHC 31.2 L (32-36) g/dl RDW 12.7 (11.5-14.0) % Plt Count 237 (150-450) K/mm3 MPV 9.9 H (6-9.5) fl Gran % 50.0 (36.0-66.0) % Eos # (Auto) 0.16 (0-0.5) Absolute Lymphs (auto) 3.10 (1.0-4.6) Absolute Monos (auto) 0.73 (0.0-1.3) Lymphocytes % 38.7 (24.0-44.0) % Monocytes % 9.1 (0.0-12.0) % Eosinophils % 2.0 (0.00-5.0) % Basophils % 0.2 (0.0-0.4) % Absolute Granulocytes 4.01 (1.4-6.9) Basophils # 0.02 (0-0.4) Sodium 143 (137-145) mmol/L Potassium 3.3 L (3.5-5.1) mmol/L Chloride 113 H (98-107) mmol/L Carbon Dioxide 25 (22-30) mmol/L Anion Gap 8.5 (5-15) MEQ/L BUN 9 (7-17) mg/dL Creatinine 0.55 (0.52-1.04) mg/dL Estimated GFR > 60.0 ML/MIN Glucose 120 H (74-106) mg/dL Calcium 8.2 L (8.4-10.2) mg/dL Urine Color (YELLOW) Urine Appearance (CLEAR) Urine pH (5-6) Ur Specific Blaine (1.005-1.025) Urine Protein (Negative) Urine Ketones (NEGATIVE) Urine Blood (0-5) Caleb/ul Urine Nitrite (NEGATIVE) Urine Bilirubin (NEGATIVE) Urine Urobilinogen (0-1) mg/dL Ur Leukocyte Esterase (NEGATIVE) Urine WBC (Auto) (0-5) /HPF Urine RBC (Auto) (0-2) /HPF U Epithel Cells (Auto) (FEW) /HPF Urine Bacteria (Auto) (NEGATIVE) /HPF Urine Mucus (Auto) (NEGATIVE) /HPF Urine Glucose (NEGATIVE) mg/dL Levetiracetam 52 H (5-30) mcg/mL 01/27/19 Range/Units Unknown WBC (4.0-10.5) K/mm3 RBC (4.1-5.4) M/mm3 Hgb (12.0-16.0) gm/dl Hct (35-47) % MCV (78-100) fl MCH (26-32) pg MCHC (32-36) g/dl RDW (11.5-14.0) % Plt Count (150-450) K/mm3 MPV (6-9.5) fl Gran % (36.0-66.0) % Eos # (Auto) (0-0.5) Absolute Lymphs (auto) (1.0-4.6) Absolute Monos (auto) (0.0-1.3) Lymphocytes % (24.0-44.0) % Monocytes % (0.0-12.0) % Eosinophils % (0.00-5.0) % Basophils % (0.0-0.4) % Absolute Granulocytes (1.4-6.9) Basophils # (0-0.4) Sodium (137-145) mmol/L Potassium (3.5-5.1) mmol/L Chloride (98-107) mmol/L Carbon Dioxide (22-30) mmol/L Anion Gap (5-15) MEQ/L BUN (7-17) mg/dL Creatinine (0.52-1.04) mg/dL Estimated GFR ML/MIN Glucose (74-106) mg/dL Calcium (8.4-10.2) mg/dL Urine Color STRAW (YELLOW) Urine Appearance CLEAR (CLEAR) Urine pH 6.0 (5-6) Ur Specific Blaine 1.004 (1.005-1.025) Urine Protein NEGATIVE (Negative) Urine Ketones NEGATIVE (NEGATIVE) Urine Blood SMALL (0-5) Caleb/ul Urine Nitrite NEGATIVE (NEGATIVE) Urine Bilirubin NEGATIVE (NEGATIVE) Urine Urobilinogen NEGATIVE (0-1) mg/dL Ur Leukocyte Esterase NEGATIVE (NEGATIVE) Urine WBC (Auto) 0-2 (0-5) /HPF Urine RBC (Auto) NONE (0-2) /HPF U Epithel Cells (Auto) NONE (FEW) /HPF Urine Bacteria (Auto) NONE (NEGATIVE) /HPF Urine Mucus (Auto) SLIGHT (NEGATIVE) /HPF Urine Glucose NEGATIVE (NEGATIVE) mg/dL Levetiracetam (5-30) mcg/mL Micro Results-Entire Visit: Microbiology 01/25/19 11:23 Urine Culture - Final Clean Catch Midstream Escherichia Coli Accuchecks Date 01/26/19 Date 01/26/19 Time 22:00 Time 16:00 Accucheck Value: 87 Accucheck Value: 89 Accucheck Value: 100 Accucheck Value: 103 - Radiology Exams Ordered Rad Exams-Entire Visit: Radiology Procedures Category Date Time Status ABDOMEN AND PELVIS W/0 CONTRAS [CT] Routine Exams 01/27/19 08:32 Ordered - Procedures and Test Procedures and Tests throughout Hospitalization: Therapy Orders & Screens 01/25/19 17:46 Respiratory Therapy Assessment DAILY Comment: Diagnosis: Ataxia, UTI 01/25/19 17:47 Peak Expiratory Flow Rate ONCE Comment: Reason For Exam: Diagnosis: Ataxia, UTI Discharge Exam General Appearance: no apparent distress, alert Neurologic Exam: alert, oriented x 3, cooperative, normal mood/affect, nml cerebellar function, sensation nml, No motor deficits Respiratory Exam: normal breath sounds, lungs clear, No respiratory distress Cardiovascular Exam: regular rate/rhythm, normal heart sounds Gastrointestinal/Abdomen Exam: soft, No tenderness, No mass Extremity Exam: normal inspection, normal range of motion Final Diagnosis/Problem List - Final Discharge Diagnosis/Problem (1) UTI (urinary tract infection) Current Visit: Yes Status: Acute Code(s): N39.0 - URINARY TRACT INFECTION, SITE NOT SPECIFIED (2) Weakness Current Visit: Yes Status: Acute Code(s): R53.1 - WEAKNESS (3) Ataxia Current Visit: Yes Status: Acute Code(s): R27.0 - ATAXIA, UNSPECIFIED (4) Flank pain, acute Current Visit: Yes Status: Acute Code(s): R10.9 - UNSPECIFIED ABDOMINAL PAIN - Discharge Disposition: Home, Self-Care Condition: Stable Prescriptions: New Levofloxacin [Levaquin] 500 mg PO DAILY #5 tablet Continue Levetiracetam [Keppra 500 mg ] 1,000 mg PO TID Montelukast Sodium 10 mg [Singulair 10 MG] 10 mg PO DAILY Sucralfate 1 gm [Carafate 1 GM] 1 gm PO BID Oxybutynin Chloride [Oxybutynin Chloride ER] 5 mg PO DAILY Albuterol 8 gm Mdi Hfa [Ventolin Hfa MDI] 2 puff IH QID Albuterol 2.5 mg/3 ml Neb [Proventil 2.5 mg/3 ml Neb] 2.5 mg IH .PRN Acetaminophen [Tylenol Extra Strength] 500 mg PO .PRN Meloxicam [Mobic] 15 mg PO DAILY Omeprazole 20 MG [Prilosec 20 mg] 20 mg PO BID Liraglutide [Victoza 2-Sinan] 18 mg SQ DAILY Cyanocobalamin (Vitamin B-12) [Vitamin B-12] 1,000 mcg PO DAILY Quetiapine Fumarate 300 mg PO HS Eszopiclone [Lunesta] 3 mg PO HS Melatonin 1 mg PO HS Atorvastatin Calcium 20 mg PO DAILY Ropinirole HCl [Requip] 1 mg PO HS Ranolazine 500 MG [Ranexa 500 MG] 500 mg PO BID Folic Acid 1 mg PO DAILY Ergocalciferol (Vitamin D2) [Vitamin D2] 1 cap PO DAILY Ferrous Sulfate 325 mg [Feosol 325 mg] 325 mg PO DAILY Multivitamin [Multivitamins] 1 each PO DAILY Gabapentin 800 mg PO TID Linaclotide [Linzess] 290 mcg PO DAILY Morphine Sulfate 15 mg PO TID PRN PRN PRN Reason: Pain Buspirone HCl [Buspar] 15 mg PO BID Mometasone/Formoterol [Dulera 100 Mcg/5 Mcg Inhaler] 2 puff IH BID Lacosamide [Vimpat] 150 mg PO BID Follow up with: GODWIN NELSON [Primary Care Provider] - 1 Week
[2019-01-27 14:07] VITALS: BP 114/72; PULSE 58; O2SAT 99
[2019-01-27] MEDS ORDERED: VIMPAT 150 MG PO SCH (22:00)
== END 2019-01-27 15:20 | disposition home or self-care (01) ==
LOC: ED 10:49 → MED SURG 14:54
PROVIDERS: ADMIT Family Medicine; ATTEND Family Medicine
DX: N39.0 Urinary tract infection, site not specified (principal); R53.1 Weakness; R27.0 Ataxia, unspecified; R10.9 Unspecified abdominal pain; Z79.899 Other long term (current) drug therapy; F17.200 Nicotine dependence, unspecified, uncomplicated
CPT/HCPCS: 36000; 36415; 70450; 71045; 80048; 80053; 80177; 80307; 81001; 82962; 83036; 83735; 84484; 85025; 85610; 85652; 85730; 87077; 87086; 87186; 93005; 93268; 94760; 96360; 96361; 96365; 99285; G0378; J1956; A9270-GY

== ENCOUNTER 2019-08-06 07:55 | Day surgery (SDC) | payer OTHER ==
[2019-08-06] MEDS ORDERED: Depo-Medrol 40 MG/ML IM ONE (07:56)
[2019-08-06] MEDS ORDERED: Marcaine 0.5% SDV 10 ML IJ ONE (07:56)
[2019-08-06] MEDS ORDERED: Ketamine HCl 50 MG/ML ONE (08:56)
[2019-08-06] MEDS ORDERED: DIPRIVAN 200 MG/20 ML IV ONE (09:06)
--- NOTE | 2019-08-06 10:41 | XRAY ---
Indication: Bilateral SI joint injection. Intraoperative fluoroscopy was provided for 32 seconds. 3 digital spot images submitted for interpretation demonstrates posterior needle tip projecting over the inferior left SI joint. Correlate with intraoperative findings/report.
--- NOTE | 2019-08-06 12:28 | XRAY ---
32 seconds total fluoroscopy time in surgery for bilateral SI joint injections.
[2019-08-06] MEDS ORDERED: Lactated Ringers 1,000 ML IV ONE (15:23)
== END 2019-08-06 09:58 | disposition home or self-care (01) ==
LOC: SDC-PAIN 07:55
PROVIDERS: ATTEND Psychiatry & Neurology Pain Medicine
DX: M46.1 Sacroiliitis, not elsewhere classified (principal); E11.9 Type 2 diabetes mellitus without complications; F41.8 Other specified anxiety disorders; R56.9 Unspecified convulsions; I10 Essential (primary) hypertension; E78.00 Pure hypercholesterolemia, unspecified; K21.9 Gastro-esophageal reflux disease without esophagitis; M06.9 Rheumatoid arthritis, unspecified; Z79.899 Other long term (current) drug therapy
CPT/HCPCS: 27096; 72202; 77002; 82962; 84703; 96375; J1030; J2704; G0260

== ENCOUNTER 2019-09-24 09:00 | Day surgery (SDC) | payer OTHER ==
[2019-09-24] MEDS ORDERED: Sodium Chloride 0.9(Preservative Free) 10 ML IJ ONE (09:01)
[2019-09-24] MEDS ORDERED: Depo-Medrol 40 MG/ML IM ONE (09:01)
[2019-09-24] MEDS ORDERED: DIPRIVAN 200 MG/20 ML IV ONE (10:12)
[2019-09-24] MEDS ORDERED: Ketamine HCl 50 MG/ML ONE (10:12)
--- NOTE | 2019-09-24 11:00 | XRAY ---
Indication: Left L4-S1 NAWAF. Intraoperative fluoroscopy was provided for 26 seconds. 2 digital spot images submitted for interpretation demonstrates posterior needle tips projecting over the expected course of the left L4 and L5 nerve roots. Small amount of contrast injected for needle tip placement. Correlate with intraoperative findings/report.
--- NOTE | 2019-09-24 11:00 | XRAY ---
26 seconds fluoroscopy time in surgery for left L4-S1 transforaminal NAWAF.
[2019-09-24] MEDS ORDERED: Lactated Ringers 1,000 ML IV ONE (14:30)
== END 2019-09-24 10:55 | disposition home or self-care (01) ==
LOC: SDC-PAIN 09:00
PROVIDERS: ATTEND Psychiatry & Neurology Pain Medicine
DX: M54.16 Radiculopathy, lumbar region (principal); E11.9 Type 2 diabetes mellitus without complications; I10 Essential (primary) hypertension; E78.00 Pure hypercholesterolemia, unspecified; M06.9 Rheumatoid arthritis, unspecified; K21.9 Gastro-esophageal reflux disease without esophagitis; R56.9 Unspecified convulsions; Z79.899 Other long term (current) drug therapy; F41.8 Other specified anxiety disorders
CPT/HCPCS: 64479; 64480; 72100; 77003; 82962; 84703; J1030; J2704; Q9966

== ENCOUNTER 2020-03-09 20:38 | Emergency (ER) | payer OTHER ==
[2020-03-09 21:39] VITALS: O2SAT 99
[2020-03-09] MEDS ORDERED: Zofran 4 MG/2 ML VIAL IV ONE (21:57)
[2020-03-09] MEDS ORDERED: MORPHINE SULFATE 2 MG INJ IV ONE (21:57)
[2020-03-09] MEDS ORDERED: Sodium Chloride 0.9% 1000 ML 1,000 ML IV SCH (22:00)
[2020-03-09 22:10] LABS: Absolute Neutrophil Ct (ANC) 5.63 (1.4-6.9); BASOPHIL % 0.5 % (0.0-0.4); Basophil (Absolute #) 0.04 (0-0.4); Eosinophil (Absolute #) 0 (0-0.5); Hematocrit 46.6 % (35-47); Hemoglobin 15.3 gm/dl (12.0-16.0); Lymphocyte (Absolute #) 2.24 (1.0-4.6); Lymphocytes % 26.5 % (24.0-44.0); Mean Cell Volume 96.9 fl (78-100); Mean Corpuscular Hemoglobin 31.8 pg (26-32); Mean Corpuscular Hgb Concent. 32.8 g/dl (32-36); Mean Platelet Volume 9.4 fl (7.5-11.0); Monocyte (Absolute #) 0.53 (0.0-1.3); Monocytes % 6.3 % (0.0-12.0); Neutrophil % 66.7 % (36.0-66.0); Platelet Count 342 K/mm3 (150-450); Red Blood Count 4.81 M/mm3 (4.1-5.4); Red Cell Distribution Width 13.8 % (11.5-14.0); White Blood Count 8.4 K/mm3 (4.0-10.5)
[2020-03-09] MEDS ORDERED: Sodium Chloride 0.9% 1000 ML 1,000 ML ONE (22:17)
[2020-03-09] MEDS ORDERED: MORPHINE SULFATE 2 MG INJ ONE (22:17)
[2020-03-09] MEDS ORDERED: Zofran 4 MG/2 ML VIAL ONE (22:17)
[2020-03-09 22:22] LABS: ALKALINE PHOSPHATASE 185 U/L (38-126); ANION GAP 13.1 MEQ/L (5-15); BLOOD UREA NITROGEN 10 mg/dL (7-17); CHLORIDE 100 mmol/L (98-107); Calcium 9.5 mg/dL (8.4-10.2); Carbon Dioxide 30 mmol/L (22-30); Creatinine 1 0.63 mg/dL (0.52-1.04); Glucose 112 mg/dL (74-106); LIPASE 34 U/L (23-300); Potassium 3.8 mmol/L (3.5-5.1); SGOT/AST 28 U/L (14-36); SGPT/ALT 15 U/L (0-35); SODIUM 140 mmol/L (137-145)
--- NOTE | 2020-03-09 22:30 | ERPHSYRPT ---
- History of Present Illness Time Seen by Provider: 03/09/20 21:45 Historian: patient Exam Limitations: no limitations Patient Subjective Stated Complaint: pt c/o abd pain to rt upper quadrant, nausea and vomiting Triage Nursing Assessment: pt c/o RUQ pain, nausea and vomiting since last night around 2100. Pt has continued to have these symptoms all day. Pt has bowel sounds x4 quad, tender to RUQ. Physician History: Patient is a 50-year-old female presents to our ED with complaints of right upper quadrant pain. Pain started yesterday at approximately 9 PM. Pain described as an ache that is constant. Pain tends to radiate towards the epigastrium. Patient is nauseous. She has vomited several times. Emesis was described as nonbloody nonbilious. No associated trauma. No fever. No chest pain or shortness of breath. Symptoms are mild to moderate in intensity. No specific worsening or improving factors. Patient advises staff that she has a history of cholecystectomy. Patient voices no other complaints at this time. Timing/Duration: yesterday Activities at Onset: none Quality: aching Abdominal Pain Onset Location: RUQ Pain Radiation: epigastric Severity of Pain-Max: moderate Severity of Pain-Current: moderate Modifying Factors: Improves With: nothing Associated Symptoms: nausea, vomiting, No back, No chest pain, No fever/chills, No weakness Previous symptoms: no prior history Allergies/Adverse Reactions: aspirin Allergy (Verified 03/09/20 21:48) latex Allergy (Verified 03/09/20 21:48) NSAIDS (Non-Steroidal Anti-Inflamma Allergy (Verified 03/09/20 21:48) Penicillins Allergy (Verified 03/09/20 21:48) metformin Adverse Reaction (Verified 03/09/20 21:48) Nausea Home Medications: Levetiracetam [Keppra 500 mg ] 1,000 mg PO TID 11/15/16 [History] Acetaminophen [Tylenol Extra Strength] 500 mg PO .PRN 10/11/17 [History] Albuterol 2.5 mg/3 ml Neb [Proventil 2.5 mg/3 ml Neb] 2.5 mg IH .PRN 10/11 [History] Albuterol 8 gm Mdi Hfa [Ventolin Hfa MDI] 2 puff IH QID 10/11/17 [History] Montelukast Sodium 10 mg [Singulair 10 MG] 10 mg PO DAILY 10/11/17 [History] Oxybutynin Chloride [Oxybutynin Chloride ER] 5 mg PO DAILY 10/11/17 [History] Sucralfate 1 gm [Carafate 1 GM] 1 gm PO BID 10/11/17 [History] Meloxicam [Mobic] 15 mg PO DAILY 12/10/17 [History] Omeprazole 20 MG [Prilosec 20 mg] 20 mg PO BID 12/10/17 [History] Atorvastatin Calcium 20 mg PO DAILY 01/25/19 [History] Buspirone HCl [Buspar] 15 mg PO BID 01/25/19 [History] Cyanocobalamin (Vitamin B-12) [Vitamin B-12] 1,000 mcg PO DAILY 01/25/19 [ History] Ergocalciferol (Vitamin D2) [Vitamin D2] 1 cap PO DAILY 01/25/19 [History] Eszopiclone [Lunesta] 3 mg PO HS 01/25/19 [History] Ferrous Sulfate 325 mg [Feosol 325 mg] 325 mg PO DAILY 01/25/19 [History] Folic Acid 1 mg PO DAILY 01/25/19 [History] Gabapentin 800 mg PO TID 01/25/19 [History] Liraglutide [Victoza 2-Sinan] 18 mg SQ DAILY 01/25/19 [History] Mometasone/Formoterol [Dulera 100 Mcg-5 Mcg Inhaler] 2 puff IH BID 01/25/19 [ History] Quetiapine Fumarate 300 mg PO HS 01/25/19 [History] Ranolazine 500 MG [Ranexa 500 MG] 500 mg PO BID 01/25/19 [History] Ropinirole HCl [Requip] 1 mg PO HS 01/25/19 [History] Lacosamide [Vimpat] 150 mg PO BID 01/27/19 [History] Hx Tetanus, Diphtheria Vaccination/Date Given: No Hx Influenza Vaccination/Date Given: No Hx Pneumococcal Vaccination/Date Given: No Immunizations Up to Date: No Travel Risk - International Travel Have you traveled outside of the country in past 3 weeks: No Have you or anyone close to you been diagnosed with or: No Do your reside in a community with a known COVID-19 case?: Yes If Yes where:: [place] - Coronavirus Screening Has patient experienced Coronavirus symptoms: No - Review of Systems Constitutional: No Symptoms, No Fever, No Chills Eyes: No Symptoms Ears, Nose, & Throat: No Symptoms Respiratory: No Symptoms, No Cough, No Dyspnea Cardiac: No Symptoms, No Chest Pain, No Edema, No Syncope Abdominal/Gastrointestinal: No Symptoms, Abdominal Pain, Nausea, Vomiting, No Diarrhea, No Constipation Genitourinary Symptoms: No Symptoms, No Dysuria, No Frequency, No Hematuria, No Urgency Musculoskeletal: No Symptoms, No Back Pain, No Neck Pain, No Joint Redness Skin: No Symptoms, No Rash Neurological: No Symptoms, No Dizziness, No Focal Weakness, No Sensory Changes Psychological: No Symptoms, No Alcohol Abuse Endocrine: No Symptoms Hematologic/Lymphatic: No Symptoms Immunological/Allergic: No Symptoms All Other Systems: Reviewed and Negative - Past Medical History Pertinent Past Medical History: Yes Neurological History: Epilepsy, Peripheral Neuropathy, Seizures ENT History: No Pertinent History Cardiac History: No Pertinent History Respiratory History: Asthma Endocrine Medical History: Diabetes Type II Musculoskeletal History: Arthritis, Other GI Medical History: Other History: Other Psycho-Social History: Bipolar, Depression Female Reproductive Disorders: Menstrual Problems Other Medical History: 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 Sees a pain doctor. history of: kidney sx, bariatric sx, - Past Surgical History Past Surgical History: Yes Neuro Surgical History: No Pertinent History Cardiac: No Pertinent History Respiratory: No Pertinent History Gastrointestinal: Cholecystectomy, Other Genitourinary: Kidney Surgery Musculoskeletal: Other Female Surgical History: Section, Other Other Surgical History: ulcer, kidney, , bariatric, gallbladder, pain procedure to bilateral hips with cortisone , ablasion - Social History Smoking Status: Current every day smoker How long have you smoked: 30 yrs Exposure to second hand smoke: Yes Drug Use: none Patient Lives Alone: No - Female History Hx Now: No - Nursing Vital Signs Nursing Vital Signs: Initial Vital Signs Temperature 98.1 F 03/09/20 21:38 Pulse Rate 81 03/09/20 21:38 Respiratory Rate 17 03/09/20 21:38 Blood Pressure 137/91 03/09/20 21:38 O2 Sat by Pulse Oximetry 99 03/09/20 21:38 Pain Scale Pain Intensity 7 - Physical Exam General Appearance: no apparent distress, alert, No anxiety Eye Exam: PERRL/EOMI, eyes nml inspection, No scleral icterus Ears, Nose, Throat Exam: normal ENT inspection, pharynx normal, moist mucous membranes, No dry mucous membranes, No TM abnormal (L) Neck Exam: normal inspection, non-tender, supple, full range of motion, No meningismus Respiratory Exam: normal breath sounds, lungs clear, airway intact, No chest tenderness, No respiratory distress Cardiovascular Exam: regular rate/rhythm, normal heart sounds, normal peripheral pulses, No murmur, No friction rub, No irregular Gastrointestinal/Abdomen Exam: soft, tenderness, other (Tenderness to palpation at the right upper quadrant and epigastric region. Overlying soft tissue intact. No signs of trauma. Negative Anthony sign. Negative Vasquez Gonzalez sign.) , No mass, No guarding, No pulsatile mass, No hepatomegaly, No organomegaly, No splenomegaly Pelvic Exam: not done Rectal Exam: deferred Back Exam: normal inspection, normal range of motion, No CVA tenderness, No vertebral tenderness Extremity Exam: normal inspection, normal range of motion, pelvis stable Neurologic Exam: alert, oriented x 3, cooperative, normal mood/affect, nml cerebellar function, sensation nml, No motor deficits Skin Exam: normal color, warm, dry Lymphatic Exam: No adenopathy SpO2 Interpretation: normal SpO2: 99 O2 Delivery: Room Air - Course Nursing assessment & vital signs reviewed: Yes EKG Interpreted by Me: RATE (68), Sinus Rhythm, NORMAL AXIS, NORMAL INTERVALS - CT Exams Abdomen/Pelvis CT Interpretation: Tele-radiologist Report (Liver cyst, hepatomegaly, right nephrolithiasis, phleboliths, spine arthritis.) Ordered Tests: Active Orders 24 hr Category Date Time Status EKG-ER Only STAT Care 03/09/20 21:57 Active IV Insertion STAT Care 03/09/20 21:57 Active Isolation, Initiate & Maintain Q4H Care 03/09/20 21:48 Active ABDOMEN AND PELVIS W/0 CONTRAS [CT] Stat Exams 03/09/20 21:58 Taken CBC W DIFF Stat Lab 03/09/20 22:05 Completed CMP Stat Lab 05/19/20 22:05 Completed LIPASE Stat Lab 03/09/20 22:05 Completed TROPONIN Q3H Lab 03/09/20 22:05 Completed TROPONIN Q3H Lab 03/10/20 01:00 Ordered TROPONIN Q3H Lab 03/10/20 04:00 Ordered TROPONIN Q3H Lab 03/10/20 07:00 Ordered TROPONIN Q3H Lab 03/10/20 10:00 Ordered UA W/RFX UR CULTURE Stat Lab 03/09/20 21:58 Uncollected Medication Summary Generic Name Dose Route Start Last Admin Trade Name Freq PRN Reason Stop Dose Admin Sodium Chloride 1,000 mls @ 100 mls/hr 03/09/20 22:00 03/09/20 22:21 Sodium Chloride 0.9% 1000 Ml IV 04/08/20 21:59 100 mls/hr .Q10H JOSEMANUEL Administration Discontinued Medications Generic Name Dose Route Start Last Admin Trade Name Freq PRN Reason Stop Dose Admin Morphine Sulfate 2 mg 03/09/20 21:57 03/09/20 22:21 Morphine Sulfate 2 Mg Inj IV 03/09/20 21:58 2 mg STAT ONE Administration Morphine Sulfate Confirm 03/09/20 22:17 Morphine Sulfate 2 Mg Inj Administered 03/09/20 22:18 Dose 2 mg .ROUTE .STK-MED ONE Ondansetron HCl 4 mg 03/09/20 21:57 03/09/20 22:21 Zofran 4 Mg/2 Ml Vial IV 03/09/20 21:58 4 mg STAT ONE Administration Ondansetron HCl Confirm 03/09/20 22:17 Zofran 4 Mg/2 Ml Vial Administered 03/09/20 22:18 Dose 4 mg .ROUTE .STK-MED ONE Lab/Rad Data: Laboratory Result Diagrams 03/09/20 22:05 03/09/20 22:05 Laboratory Results 03/09/20 03/09/20 03/09/20 Range/Units 22:05 22:05 22:05 WBC 8.4 (4.0-10.5) K/mm3 RBC 4.81 (4.1-5.4) M/mm3 Hgb 15.3 (12.0-16.0) gm/dl Hct 46.6 (35-47) % MCV 96.9 (78-100) fl MCH 31.8 (26-32) pg MCHC 32.8 (32-36) g/dl RDW 13.8 (11.5-14.0) % Plt Count 342 (150-450) K/mm3 MPV 9.4 (7.5-11.0) fl Gran % 66.7 H (36.0-66.0) % Eos # (Auto) 0 (0-0.5) Absolute Lymphs (auto) 2.24 (1.0-4.6) Absolute Monos (auto) 0.53 (0.0-1.3) Lymphocytes % 26.5 (24.0-44.0) % Monocytes % 6.3 (0.0-12.0) % Eosinophils % 0.0 (0.00-5.0) % Basophils % 0.5 (0.0-0.4) % Absolute Granulocytes 5.63 (1.4-6.9) Basophils # 0.04 (0-0.4) Sodium 140 (137-145) mmol/L Potassium 3.8 (3.5-5.1) mmol/L Chloride 100 (98-107) mmol/L Carbon Dioxide 30 (22-30) mmol/L Anion Gap 13.1 (5-15) MEQ/L BUN 10 (7-17) mg/dL Creatinine 0.63 (0.52-1.04) mg/dL Estimated GFR > 60.0 ML/MIN Glucose 112 H (74-106) mg/dL Calcium 9.5 (8.4-10.2) mg/dL Total Bilirubin 0.70 (0.2-1.3) mg/dL AST 28 (14-36) U/L ALT 15 (0-35) U/L Alkaline Phosphatase 185 H (38-126) U/L Troponin I < 0.012 (0.000-0.034) ng/mL Serum Total Protein 7.0 (6.3-8.2) g/dL Albumin 4.0 (3.5-5.0) g/dL Lipase 34 (23-300) U/L - Progress Progress: improved Progress Note: 03/09/20 23:31 Patient reassessed. Pain improved. Laboratory work-up essentially within normal limits. Alk phos marginally elevated. Liver cyst observed on CT scan. There is also hepatomegaly right nephrolithiasis phleboliths and incidentally noted spine arthritis. Patient is currently comfortable. Will discharge home. Patient agrees to follow-up with her family doctor within 48 hours for reevaluation. Counseled pt/family regarding: lab results, diagnosis, need for follow-up, rad results - Departure Departure Disposition: Home, Extended Care Facility, Release to OR/[facility] [place] Clinical Impression: Right upper quadrant abdominal pain, Hepatomegaly, Right nephrolithiasis, Phlebolith, Arthritis of spine Condition: Stable Critical Care Time: No Referrals: GODWIN NELSON [Primary Care Provider] - Additional Instructions: Discharge/Care Plan LEAHWOLF CHALINO was seen on 03/09/20 in the Emergency Room. The patient was counseled regarding Diagnosis,Lab results, Imaging studies, need for follow up and when to return to the Emergency Room. Prescriptions given: Discharge Note I have spoken with the patient and/or caregivers. I have explained the patient' s condition, diagnosis and treatment plan based on the information available to me at this time. I have answered the patient's and/or caregiver's questions and addressed any concerns. The patient and/or caregivers have as good understanding of the patient's diagnosis, condition and treatment plan as can be expected at this point. The vital signs have been stable. The patient's condition is stable and appropriate for discharge from the emergency department. The patient will pursue further outpatient evaluation with the primary care physician or other designated or consulting physician as outlined in the discharge instructions. The patient and/or caregivers are agreeable to this plan of care and follow-up instructions have been explained in detail. The patient and/or caregivers have received these instruction. The patient/and or caregivers are aware that any significant change in condition or worsening of symptoms should prompt an immediate return to this or the closest emergency department or call 911.
[2020-03-09 23:35] VITALS: BP 137/94; PULSE 71
--- NOTE | 2020-03-10 16:15 | XRAY ---
Exam: CT of the abdomen and pelvis without IV contrast from 03/09/2020. CTDI: 5.10 mGy Comparison: Acute abdominal series from 02/28/2017. Indication: 50-year-old female with abdominal pain localized to the right upper quadrant. History of prior gastric bypass surgery 6 years ago including cholecystectomy; history of prior tubal ligation, ureteral stent with subsequent removal, and lithotripsy. Patient has had right upper quadrant abdominal pain associated with nausea/vomiting for one day. Technique: Non-IV contrast axial images were obtained through the abdomen and pelvis. Reconstructed coronal and sagittal images were created and reviewed. The sonography technologist left a note that the study was done without IV contrast because the one time the patient did receive IV contrast for a CT in the past, she had a post-exam seizure. Correlate clinically. Findings: The lung bases appear clear. The heart size is normal. Extensive surgical suture material is seen within the medial aspect of the left upper quadrant due to prior gastric bypass surgery. Surgical clips consistent with prior cholecystectomy are seen within the right upper quadrant. Some fluid density is seen within a mildly prominent proximal small bowel loop in the upper abdomen, the bowel loop measuring about 2.7 cm in diameter on axial image #23. The remainder the bowel gas pattern appears unremarkable. Some surgical suture material is also seen overlying the lower left hemiabdomen from prior gastric bypass surgery. The liver is remarkable for some scattered simple appearing cysts within both lobes, the largest cyst seen within the lateral segment of the left lobe measuring 3.85 cm in diameter. No intrahepatic biliary duct distention is seen. The spleen is of normal size and reveals no focal mass. No abnormality of the pancreas is seen. The adrenal glands appear unremarkable. There is a questionable tiny stone within the midpole of the right kidney on coronal image #87. No acute obstructive uropathy is seen. No renal mass is noted. The kidneys appear of unremarkable size. A small extrarenal pelvis is seen on the left. The ureters are not distended. No definite ureteral calculi are seen. The urinary bladder is mildly distended and reveals no suspicious calcifications within it. Mild atherosclerotic vascular calcification is seen within the abdominal aorta. No abdominal aortic aneurysm or abnormal retroperitoneal lymphadenopathy is seen. The anterior abdominal wall appears intact. No free intraperitoneal air is seen. An unremarkable appearing appendix is seen within the right hemipelvis. I see no evidence of bowel distention or obstruction. No definite bowel wall thickening is seen. An unremarkable sized anteflexed uterus is seen. No pelvic masses or enlarged pelvic lymph nodes are seen. Multiple scattered calcified phleboliths are seen within the lower pelvis bilaterally. I also see some mild atherosclerotic vascular calcification within branches of the iliac arteries bilaterally. The pelvic sidewalls appear unremarkable. The skeleton reveals no acute fracture or aggressive bone lesion. I see evidence of mild degenerative disc disease at L5-S1, lower lumbar facet joint osteoarthritis, and other scattered anterior lateral vertebral endplate spurs within the visualized thoracolumbar spine. Impression: 1. There is a suggestion of a tiny nonobstructing stone within the midpole of the right kidney on coronal image #87. No hydronephrosis or other evidence of acute obstructive uropathy is seen. 2. Status post gastric bypass surgery and cholecystectomy. 3. Unremarkable appearing appendix. 4. No other acute process is seen within the abdomen or pelvis. I note some incidental scattered hepatic cysts within both lobes.
== END 2020-03-09 23:35 | disposition home or self-care (01) ==
LOC: ED 20:38
DX: R10.11 Right upper quadrant pain (principal); R16.0 Hepatomegaly, not elsewhere classified; N20.0 Calculus of kidney; I87.8 Other specified disorders of veins; M46.90 Unspecified inflammatory spondylopathy, site unspecified
CPT/HCPCS: 36000; 36415; 74176; 80053; 83690; 84484; 85025; 93005; 96360; 96374; 96375; 99284; J2270; J2405

== ENCOUNTER 2020-06-16 18:14 | Emergency (ER) | payer OTHER ==
--- NOTE | 2020-06-16 18:17 | ERPHSYRPT ---
- History of Present Illness Time Seen by Provider: 06/16/20 18:16 Source: patient Exam Limitations: no limitations Physician History: This is a 50-year-old diabetic female with a history of peripheral neuropathy who has recurrent left foot ulceration on the medial aspect. It is intermittently there. Approximately over a week ago it was present with the blister then the blister opens up, is tender and then resolves. He had a recurrence approximately 2 days ago similar scenario. Patient is on Percocet pain medicine. Patient has an appointment to see a global security architect on June 22, 2020. She was sent here by her primary care physician office for evaluation. Patient denies injury. Patient states she has had Rocephin and Levaquin in the past without any problems. Timing/Duration: intermittent (Chronically), worse Quality: painful Severity: moderate Location: feet (Medial aspect left foot) Possible Causes: no cause identified Associated Symptoms: blisters Allergies/Adverse Reactions: aspirin Allergy (Verified 03/09/20 21:48) latex Allergy (Verified 03/09/20 21:48) NSAIDS (Non-Steroidal Anti-Inflamma Allergy (Verified 03/09/20 21:48) Penicillins Allergy (Verified 03/09/20 21:48) metformin Adverse Reaction (Verified 03/09/20 21:48) Nausea Home Medications: Levetiracetam [Keppra 500 mg ] 1,000 mg PO TID 11/15/16 [History] Acetaminophen [Tylenol Extra Strength] 500 mg PO .PRN 10/11/17 [History] Albuterol 2.5 mg/3 ml Neb [Proventil 2.5 mg/3 ml Neb] 2.5 mg IH .PRN 10/11/17 [History] Albuterol 8 gm Mdi Hfa [Ventolin Hfa MDI] 2 puff IH QID 10/11/17 [History] Montelukast Sodium 10 mg [Singulair 10 MG] 10 mg PO DAILY 10/11/17 [History] Oxybutynin Chloride [Oxybutynin Chloride ER] 5 mg PO DAILY 10/11/17 [History] Sucralfate 1 gm [Carafate 1 GM] 1 gm PO BID 10/11/17 [History] Meloxicam [Mobic] 15 mg PO DAILY 12/10/17 [History] Omeprazole 20 MG [Prilosec 20 mg] 20 mg PO BID 12/10/17 [History] Atorvastatin Calcium 20 mg PO DAILY 01/25/19 [History] Buspirone HCl [Buspar] 15 mg PO BID 01/25/19 [History] Cyanocobalamin (Vitamin B-12) [Vitamin B-12] 1,000 mcg PO DAILY 01/25/19 [History] Ergocalciferol (Vitamin D2) [Vitamin D2] 1 cap PO DAILY 01/25/19 [History] Eszopiclone [Lunesta] 3 mg PO HS 01/25/19 [History] Ferrous Sulfate 325 mg [Feosol 325 mg] 325 mg PO DAILY 01/25/19 [History] Folic Acid 1 mg PO DAILY 01/25/19 [History] Gabapentin 800 mg PO TID 01/25/19 [History] Liraglutide [Victoza 2-Sinan] 18 mg SQ DAILY 01/25/19 [History] Mometasone/Formoterol [Dulera 100 Mcg-5 Mcg Inhaler] 2 puff IH BID 01/25/19 [History] Quetiapine Fumarate 300 mg PO HS 01/25/19 [History] Ranolazine 500 MG [Ranexa 500 MG] 500 mg PO BID 01/25/19 [History] Ropinirole HCl [Requip] 1 mg PO HS 01/25/19 [History] Lacosamide [Vimpat] 150 mg PO BID 01/27/19 [History] Hx Tetanus, Diphtheria Vaccination/Date Given: No Hx Influenza Vaccination/Date Given: No Hx Pneumococcal Vaccination/Date Given: No Travel Risk - International Travel Have you traveled outside of the country in past 3 weeks: No - Coronavirus Screening Are you exhibiting any of the following symptoms?: No Close contact with a COVID-19 positive Pt in past 14-21 Days: No - Review of Systems Constitutional: No Symptoms Eyes: No Symptoms Ears, Nose, & Throat: No Symptoms Respiratory: No Symptoms Cardiac: No Symptoms Abdominal/Gastrointestinal: No Symptoms Genitourinary Symptoms: No Symptoms Musculoskeletal: No Symptoms Skin: Other (Tender ulceration medial aspect of left foot) Neurological: No Symptoms Psychological: No Symptoms Endocrine: No Symptoms Hematologic/Lymphatic: No Symptoms Immunological/Allergic: No Symptoms All Other Systems: Reviewed and Negative - Past Medical History Pertinent Past Medical History: Yes Neurological History: Epilepsy, Peripheral Neuropathy, Seizures ENT History: No Pertinent History Cardiac History: No Pertinent History Respiratory History: Asthma Endocrine Medical History: Diabetes Type II Musculoskeletal History: Arthritis, Other GI Medical History: Other History: Other Psycho-Social History: Bipolar, Depression Female Reproductive Disorders: Menstrual Problems Other Medical History: 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 Sees a pain doctor. history of: kidney sx, bariatric sx, - Past Surgical History Past Surgical History: Yes Neuro Surgical History: No Pertinent History Cardiac: No Pertinent History Respiratory: No Pertinent History Gastrointestinal: Cholecystectomy, Other Genitourinary: Kidney Surgery Musculoskeletal: Other Female Surgical History: Section, Other Other Surgical History: ulcer, kidney, , bariatric, gallbladder, pain procedure to bilateral hips with cortisone , ablasion - Social History Smoking Status: Current every day smoker How long have you smoked: 30 yrs Exposure to second hand smoke: Yes Drug Use: none Patient Lives Alone: No - Nursing Vital Signs Nursing Vital Signs: Initial Vital Signs Temperature 98.5 F 06/16/20 18:18 Pulse Rate 71 06/16/20 18:18 Respiratory Rate 17 06/16/20 18:18 Blood Pressure 112/75 06/16/20 18:18 O2 Sat by Pulse Oximetry 100 06/16/20 18:18 Pain Scale Pain Intensity 6 - Physical Exam General Appearance: no apparent distress, alert, anxiety Eye Exam: PERRL/EOMI, eyes nml inspection Ears, Nose, Throat Exam: normal ENT inspection, moist mucous membranes Neck Exam: normal inspection, non-tender, supple, full range of motion Respiratory Exam: normal breath sounds, lungs clear, airway intact, No chest tenderness, No respiratory distress Cardiovascular Exam: regular rate/rhythm, normal heart sounds, normal peripheral pulses Gastrointestinal/Abdomen Exam: soft, normal bowel sounds, No tenderness Pelvic Exam: not done Rectal Exam: not done Back Exam: normal inspection, normal range of motion, No CVA tenderness, No vertebral tenderness Extremity Exam: tenderness (Over approximately 2 cm ulceration medial aspect left foot. There is no obvious cellulitis. There is no expressible pus. It is very tender to touch. There is no drainage present) Neurologic Exam: alert, oriented x 3, cooperative, brand marketing intern II-XII nml as tested, normal mood/affect, nml cerebellar function Skin Exam: other (See above) Lymphatic Exam: No adenopathy SpO2 Interpretation: normal O2 Delivery: Room Air - Course Nursing assessment & vital signs reviewed: Yes Ordered Tests: Active Orders 24 hr Category Date Time Status BLOOD CULTURE Stat Lab 06/16/20 19:36 Received CBC W DIFF Stat Lab 06/16/20 19:36 Completed CMP Stat Lab 06/16/20 19:36 Completed CULTURE,WOUND Stat Lab 06/16/20 19:36 Received UA W/RFX UR CULTURE Stat Lab 06/16/20 19:45 Completed Medication Summary Discontinued Medications Generic Name Dose Route Start Last Admin Trade Name Freq PRN Reason Stop Dose Admin Hydromorphone HCl 0.5 mg 06/16/20 19:59 06/16/20 20:08 Hydromorphone 1 Mg/Ml Ampule IV 06/16/20 20:00 0.5 mg STAT ONE Administration Hydromorphone HCl Confirm 06/16/20 20:03 Hydromorphone 1 Mg/Ml Ampule Administered 06/16/20 20:04 Dose 1 mg .ROUTE .STK-MED ONE Sodium Chloride 500 mls @ 500 mls/hr 06/16/20 18:51 06/16/20 20:13 Sodium Chloride 0.9% 500 Ml IV 06/16/20 19:50 Infused .Q1H ONE Infusion Sodium Chloride Confirm 06/16/20 18:55 Sodium Chloride 0.9% 500 Ml Administered 06/16/20 18:56 Dose 500 mls @ ud IV .STK-MED ONE Ceftriaxone Sodium/Dextrose 1 g in 50 mls @ 100 mls/hr 06/16/20 19:40 06/16/20 20:31 Rocephin 1 Gm-D5w 50 Ml Bag IV 06/16/20 20:09 Infused STAT STA Infusion Ceftriaxone Sodium/Dextrose Confirm 06/16/20 19:48 Rocephin 1 Gm-D5w 50 Ml Bag Administered 06/16/20 19:49 Dose 1 g in 50 mls @ ud IV .STK-MED ONE Levofloxacin 500 mg 06/16/20 19:41 06/16/20 19:50 Levofloxacin 500 Mg Tablet PO 06/16/20 19:42 500 mg STAT ONE Administration Levofloxacin Confirm 06/16/20 19:48 Levofloxacin 500 Mg Tablet Administered 06/16/20 19:49 Dose 500 mg .ROUTE .STK-MED ONE Ondansetron HCl 4 mg 06/16/20 19:59 06/16/20 20:08 Zofran 4 Mg/2 Ml Vial IV 06/16/20 20:00 4 mg STAT ONE Administration Ondansetron HCl Confirm 06/16/20 20:02 Zofran 4 Mg/2 Ml Vial Administered 06/16/20 20:03 Dose 4 mg .ROUTE .STK-MED ONE Lab/Rad Data: Laboratory Result Diagrams 06/16/20 19:36 06/16/20 19:36 Laboratory Results 06/16/20 06/16/20 06/16/20 Range/Units 19:45 19:36 19:36 WBC 9.0 (4.0-10.5) K/mm3 RBC 4.12 (4.1-5.4) M/mm3 Hgb 13.1 (12.0-16.0) gm/dl Hct 42.1 (35-47) % MCV 102.2 H (78-100) fl MCH 31.8 (26-32) pg MCHC 31.1 L (32-36) g/dl RDW 13.6 (11.5-14.0) % Plt Count 244 (150-450) K/mm3 MPV 10.0 (7.5-11.0) fl Gran % 68.2 H (36.0-66.0) % Eos # (Auto) 0.13 (0-0.5) Absolute Lymphs (auto) 1.98 (1.0-4.6) Absolute Monos (auto) 0.73 (0.0-1.3) Lymphocytes % 22.0 L (24.0-44.0) % Monocytes % 8.1 (0.0-12.0) % Eosinophils % 1.4 (0.00-5.0) % Basophils % 0.3 (0.0-0.4) % Absolute Granulocytes 6.11 (1.4-6.9) Basophils # 0.03 (0-0.4) Sodium 138 (137-145) mmol/L Potassium 3.4 L (3.5-5.1) mmol/L Chloride 101 (98-107) mmol/L Carbon Dioxide 31 H (22-30) mmol/L Anion Gap 9.0 (5-15) MEQ/L BUN 7 (7-17) mg/dL Creatinine 0.82 (0.52-1.04) mg/dL Estimated GFR > 60.0 ML/MIN Glucose 107 H (74-106) mg/dL Calcium 8.7 (8.4-10.2) mg/dL Total Bilirubin 0.40 (0.2-1.3) mg/dL AST 25 (14-36) U/L ALT 13 (0-35) U/L Alkaline Phosphatase 121 (38-126) U/L Serum Total Protein 6.0 L (6.3-8.2) g/dL Albumin 3.3 L (3.5-5.0) g/dL Urine Color YELLOW (YELLOW) Urine Appearance CLEAR (CLEAR) Urine pH 7.0 (5-6) Ur Specific [place] 1.005 (1.005-1.025) Urine Protein NEGATIVE (Negative) Urine Ketones NEGATIVE (NEGATIVE) Urine Blood NEGATIVE (0-5) Caleb/ul Urine Nitrite NEGATIVE (NEGATIVE) Urine Bilirubin NEGATIVE (NEGATIVE) Urine Urobilinogen 2 (0-1) mg/dL Ur Leukocyte Esterase NEGATIVE (NEGATIVE) Urine WBC (Auto) 0-2 (0-5) /HPF Urine RBC (Auto) 0-2 (0-2) /HPF U Epithel Cells (Auto) RARE (FEW) /HPF Urine Bacteria (Auto) RARE (NEGATIVE) /HPF Calcium Oxalate Crystal 0-2 (NEGATIVE) /HPF Urine Mucus (Auto) SLIGHT (NEGATIVE) /HPF Urine Culture Reflexed NO (NO) Urine Glucose NEGATIVE (NEGATIVE) mg/dL - Progress Progress: improved, pain not gone completely, re-examined Counseled pt/family regarding: lab results, diagnosis, need for follow-up - Departure Departure Disposition: Home Clinical Impression: Foot ulcer, left Condition: Stable Critical Care Time: No Referrals: GODWIN NELSON [Primary Care Provider] - Additional Instructions: Drink plenty of fluids. Take medication as prescribed. Follow-up with your global security architect at the schedule appointment on June 22, 2020. Take your Percocet pain medicine as prescribed. Follow-up with your prescribing doctors for pain control issues. Prescriptions: Ciprofloxacin [Cipro 500 MG] 500 mg PO BID #14 tablet
[2020-06-16] MEDS ORDERED: Sodium Chloride 0.9% 500 ML 500 ML IV ONE ×2 (18:51→18:55)
[2020-06-16 19:39] LABS: Absolute Neutrophil Ct (ANC) 6.11 (1.4-6.9); BASOPHIL % 0.3 % (0.0-0.4); Basophil (Absolute #) 0.03 (0-0.4); Eosinophil % 1.4 % (0.00-5.0); Eosinophil (Absolute #) 0.13 (0-0.5); Hematocrit 42.1 % (35-47); Hemoglobin 13.1 gm/dl (12.0-16.0); Lymphocyte (Absolute #) 1.98 (1.0-4.6); Mean Cell Volume 102.2 fl (78-100); Mean Corpuscular Hemoglobin 31.8 pg (26-32); Mean Corpuscular Hgb Concent. 31.1 g/dl (32-36); Monocyte (Absolute #) 0.73 (0.0-1.3); Monocytes % 8.1 % (0.0-12.0); Neutrophil % 68.2 % (36.0-66.0); Platelet Count 244 K/mm3 (150-450); Red Blood Count 4.12 M/mm3 (4.1-5.4); Red Cell Distribution Width 13.6 % (11.5-14.0)
[2020-06-16] MEDS ORDERED: ROCEPHIN 1 Gm-D5w 50 ml Bag** 1 G/50 ML IVPB IV STA (19:40)
[2020-06-16] MEDS ORDERED: Levofloxacin 500 MG Tablet PO ONE (19:41)
[2020-06-16] MEDS ORDERED: ROCEPHIN 1 Gm-D5w 50 ml Bag** 1 G/50 ML IVPB IV ONE (19:48)
[2020-06-16] MEDS ORDERED: Levofloxacin 500 MG Tablet ONE (19:48)
[2020-06-16 19:57] LABS: ALBUMIN 3.3 g/dL (3.5-5.0); ALKALINE PHOSPHATASE 121 U/L (38-126); BLOOD UREA NITROGEN 7 mg/dL (7-17); CHLORIDE 101 mmol/L (98-107); Calcium 8.7 mg/dL (8.4-10.2); Carbon Dioxide 31 mmol/L (22-30); Creatinine 1 0.82 mg/dL (0.52-1.04); EST GLOMERULAR FILTRATION RATE > 60.0 ML/MIN; Glucose 107 mg/dL (74-106); Potassium 3.4 mmol/L (3.5-5.1); SGOT/AST 25 U/L (14-36); SGPT/ALT 13 U/L (0-35); SODIUM 138 mmol/L (137-145)
[2020-06-16 19:58] VITALS: O2SAT 99
[2020-06-16] MEDS ORDERED: Zofran 4 MG/2 ML VIAL IV ONE (19:59)
[2020-06-16] MEDS ORDERED: Hydromorphone 1 mg/ml Ampule IV ONE (19:59)
[2020-06-16] MEDS ORDERED: Zofran 4 MG/2 ML VIAL ONE (20:02)
[2020-06-16] MEDS ORDERED: Hydromorphone 1 mg/ml Ampule ONE (20:03)
[2020-06-16 20:17] LABS: Appearance CLEAR (CLEAR); Bacteria RARE /HPF (NEGATIVE); Bilirubin NEGATIVE (NEGATIVE); Blood NEGATIVE Ery/ul (0-5); Calcium Oxalate Crystals 0-2 /HPF (NEGATIVE); Epithelial Cells RARE /HPF (FEW); Glucose NEGATIVE (NEGATIVE); Ketones NEGATIVE (NEGATIVE); Leukocyte Esterase NEGATIVE (NEGATIVE); Mucus SLIGHT /HPF (NEGATIVE); Nitrite NEGATIVE (NEGATIVE); Protein,Urine Dip NEGATIVE (Negative); RBC 0-2 /HPF (0-2); Specific Gravity 1.005 (1.005-1.025); Urobilinogen 2 mg/dL (0-1); WBC 0-2 /HPF (0-5)
[2020-06-16 21:04] VITALS: BP 132/83; PULSE 71
== END 2020-06-16 21:05 | disposition home or self-care (01) ==
LOC: ED 18:14
DX: E11.621 Type 2 diabetes mellitus with foot ulcer (principal); L97.529 Non-pressure chronic ulcer of other part of left foot with unspecified severity; G62.9 Polyneuropathy, unspecified; Z79.899 Other long term (current) drug therapy; S90.822A Blister (nonthermal), left foot, initial encounter; G40.909 Epilepsy, unspecified, not intractable, without status epilepticus
CPT/HCPCS: 36000; 36415; 80053; 81001; 85025; 87040; 87070; 87077; 87186; 96360; 96365; 96374; 96375; 99284; J0696; J1170; J2405; A9270-GY

== ENCOUNTER 2021-07-13 09:05 | Day surgery (SDC) | payer OTHER ==
[2021-07-13] MEDS ORDERED: LIDOCAINE HCL 2% 100 MG/5 ML IJ ONE (09:06)
[2021-07-13] MEDS ORDERED: Depo-Medrol 40 MG/ML IM ONE (09:06)
[2021-07-13] MEDS ORDERED: DIPRIVAN 200 MG/20 ML IV ONE (09:48)
[2021-07-13] MEDS ORDERED: Lactated Ringers 1,000 ML IV ONE (16:11)
--- NOTE | 2021-07-14 11:29 | XRAY ---
14 seconds fluoroscopy time in surgery for right L3-S1 MBB.
--- NOTE | 2021-07-16 22:33 | XRAY ---
Indication: Right L3-S1 MBB. Intraoperative fluoroscopy was provided for 14 seconds. A single digital spot image submitted for interpretation demonstrates posterior needle tips projected over the expected right L3-S1 nerve roots. Correlate with intraoperative findings/report.
== END 2021-07-13 10:22 | disposition home or self-care (01) ==
LOC: SDC-PAIN 09:05
PROVIDERS: ATTEND Psychiatry & Neurology Pain Medicine
DX: M47.816 Spondylosis without myelopathy or radiculopathy, lumbar region (principal); E11.9 Type 2 diabetes mellitus without complications; Z79.899 Other long term (current) drug therapy
CPT/HCPCS: 64493; 64494; 64495; 72020; 77002; 82947; 84703; J1030; J2704

== ENCOUNTER 2021-08-10 09:57 | Day surgery (SDC) | payer OTHER ==
[2021-08-10] MEDS ORDERED: Depo-Medrol 40 MG/ML IM ONE (09:58)
[2021-08-10] MEDS ORDERED: DIPRIVAN 200 MG/20 ML IV ONE (09:58)
[2021-08-10] MEDS ORDERED: LIDOCAINE HCL 2% 100 MG/5 ML IJ ONE (09:58)
--- NOTE | 2021-08-10 13:07 | XRAY ---
Indication: Left L3-S1 MBB. Intraoperative fluoroscopy provided for 7 seconds. Single digital spot image submitted for interpretation demonstrates posterior needle tips projecting over the expected left L3-S1 nerve roots. Correlate with intraoperative findings/report.
--- NOTE | 2021-08-10 14:13 | XRAY ---
7 seconds of fluoroscopy was used in surgery for a left L3-S1 MBB.
[2021-08-10] MEDS ORDERED: Lactated Ringers 1,000 ML IV ONE (16:27)
== END 2021-08-10 12:20 | disposition home or self-care (01) ==
LOC: SDC-PAIN 09:57
PROVIDERS: ATTEND Psychiatry & Neurology Pain Medicine
DX: M47.816 Spondylosis without myelopathy or radiculopathy, lumbar region (principal); E11.9 Type 2 diabetes mellitus without complications; Z79.899 Other long term (current) drug therapy
CPT/HCPCS: 64493; 64494; 64495; 72020; 77002; 82947; 84703; J1030; J2704

== ENCOUNTER 2021-08-19 20:09 | Emergency (ER) | payer OTHER ==
--- NOTE | 2021-08-19 20:11 | ERPHSYRPT ---
- History of Present Illness Time Seen by Provider: 08/19/21 20:11 Historian: patient Exam Limitations: no limitations Physician History: This is a 51-year-old white female who smokes daily and has chronic pain issues and sees a pain specialist who presents with sudden onset of chest pain that occurred 2 hours prior to her evaluation here in the emergency department. She is brought in by the EMS service. Patient was simply sitting at home when the sharp pain occurred in the lower substernal region. Patient has had a cholecystectomy in the past. Patient also had a gastric bypass surgery at [facility] in [address] James. She has a history of seizure disorder, peripheral neuropathy, asthma, diabetes, elevated cholesterol, bipolar disorder, depression, and sleep apnea. Patient took 15 mg of her morphine at 5:00 this afternoon. Her pain began approximately 6 PM. The EMS was contacted and brought the patient here to the emergency department. En route, patient received 50 mcg of fentanyl intravenously. Patient is allergic to aspirin so she did not take any aspirin. Patient has no primary cardiac issues. However, she does say that she knows she has "black spots" on her heart she has seen Dr. Sethi(cardiology) in the past. Timing/Duration: hour(s) (2) Activities at Onset: none Quality: sharpness Location: epigastric Chest Pain Radiation: no radiation Severity of Pain-Max: moderate Severity of Pain-Current: mild (to mod) Nitro Today/Relief: no nitro taken today Aspirin Treatment Today: no aspirin today Allergies/Adverse Reactions: aspirin Allergy (Verified 08/19/21 20:29) latex Allergy (Verified 08/19/21 20:29) NSAIDS (Non-Steroidal Anti-Inflamma Allergy (Verified 08/19/21 20:29) Penicillins Allergy (Verified 08/19/21 20:29) metformin Adverse Reaction (Verified 08/19/21 20:29) Nausea Home Medications: Levetiracetam [Keppra 500 mg ] 1,000 mg PO TID 11/15/16 [History] Acetaminophen [Tylenol Extra Strength] 500 mg PO .PRN 10/11/17 [History] Albuterol 2.5 mg/3 ml Neb [Proventil 2.5 mg/3 ml Neb] 2.5 mg IH .PRN 10/11/17 [History] Albuterol 8 gm Mdi Hfa [Ventolin Hfa MDI] 2 puff IH QID 10/11/17 [History] Montelukast Sodium 10 mg [Singulair 10 MG] 10 mg PO DAILY 10/11/17 [History] Oxybutynin Chloride [Oxybutynin Chloride ER] 5 mg PO DAILY 10/11/17 [History] Sucralfate 1 gm [Carafate 1 GM] 1 gm PO BID 10/11/17 [History] Meloxicam [Mobic] 15 mg PO DAILY 12/10/17 [History] Omeprazole 20 MG [Prilosec 20 mg] 20 mg PO BID 12/10/17 [History] Atorvastatin Calcium 20 mg PO DAILY 01/25/19 [History] Buspirone HCl [Buspar] 15 mg PO BID 01/25/19 [History] Cyanocobalamin (Vitamin B-12) [Vitamin B-12] 1,000 mcg PO DAILY 01/25/19 [History] Ergocalciferol (Vitamin D2) [Vitamin D2] 1 cap PO DAILY 01/25/19 [History] Eszopiclone [Lunesta] 3 mg PO HS 01/25/19 [History] Ferrous Sulfate 325 mg [Feosol 325 mg] 325 mg PO DAILY 01/25/19 [History] Folic Acid 1 mg PO DAILY 01/25/19 [History] Gabapentin 800 mg PO TID 01/25/19 [History] Liraglutide [Victoza 2-Sinan] 18 mg SQ DAILY 01/25/19 [History] Mometasone/Formoterol [Dulera 100 Mcg-5 Mcg Inhaler] 2 puff IH BID 01/25/19 [History] Quetiapine Fumarate 300 mg PO HS 01/25/19 [History] Ranolazine 500 MG [Ranexa 500 MG] 500 mg PO BID 01/25/19 [History] Ropinirole HCl [Requip] 1 mg PO HS 01/25/19 [History] Lacosamide [Vimpat] 150 mg PO BID 01/27/19 [History] Hx Tetanus, Diphtheria Vaccination/Date Given: No Hx Influenza Vaccination/Date Given: No Hx Pneumococcal Vaccination/Date Given: No Travel Risk - International Travel Have you traveled outside of the country in past 3 weeks: No - Coronavirus Screening Are you exhibiting any of the following symptoms?: No Close contact with a COVID-19 positive Pt in past 14-21 Days: No - Review of Systems Constitutional: No Symptoms Eyes: No Symptoms Ears, Nose, & Throat: No Symptoms Respiratory: No Symptoms Cardiac: Chest Pain Abdominal/Gastrointestinal: No Symptoms Genitourinary Symptoms: No Symptoms Musculoskeletal: No Symptoms Skin: No Symptoms Neurological: No Symptoms Psychological: No Symptoms Endocrine: No Symptoms Hematologic/Lymphatic: No Symptoms Immunological/Allergic: No Symptoms All Other Systems: Reviewed and Negative - Past Medical History Pertinent Past Medical History: Yes Neurological History: Epilepsy, Migraines, Peripheral Neuropathy ENT History: No Pertinent History Cardiac History: High Cholesterol, Hypertension, Other Respiratory History: Asthma, Sleep Apnea Endocrine Medical History: Diabetes Type II Musculoskeletal History: Osteoarthritis GI Medical History: Other History: Other Psycho-Social History: Bipolar, Depression Female Reproductive Disorders: Menstrual Problems Other Medical History: PATIENT IS FULLY VACCINATED FOR COVID. 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 REPORTS NEUROPATHY IN HANDS AND FEET - Past Surgical History Past Surgical History: Yes Neuro Surgical History: No Pertinent History Cardiac: No Pertinent History Respiratory: No Pertinent History Gastrointestinal: Cholecystectomy, Other Genitourinary: Kidney Surgery Musculoskeletal: Other Female Surgical History: Section, Other Other Surgical History: ulcer, kidney, , bariatric, gallbladder, pain procedure to bilateral hips with cortisone , ablasion - Social History Smoking Status: Current every day smoker How long have you smoked: 30 yrs Exposure to second hand smoke: Yes Drug Use: none Patient Lives Alone: No - Nursing Vital Signs Nursing Vital Signs: Initial Vital Signs Temperature 98.2 F 08/19/21 20:10 Pulse Rate 81 08/19/21 20:10 Respiratory Rate 22 08/19/21 20:10 Blood Pressure 135/88 08/19/21 20:10 O2 Sat by Pulse Oximetry 99 08/19/21 20:10 Pain Scale Pain Intensity 8 - Physical Exam General Appearance: no apparent distress, alert, anxiety Eye Exam: PERRL/EOMI, eyes nml inspection Ears, Nose, Throat Exam: normal ENT inspection, moist mucous membranes Neck Exam: normal inspection, non-tender, supple, full range of motion Respiratory Exam: normal breath sounds, chest tenderness, lungs clear, airway intact, No respiratory distress Cardiovascular Exam: regular rate/rhythm, normal heart sounds, normal peripheral pulses Gastrointestinal/Abdomen Exam: soft, normal bowel sounds, tenderness (epigastr ic) Pelvic Exam: not done Rectal Exam: not done Back Exam: normal inspection, normal range of motion, No CVA tenderness, No v ertebral tenderness Extremity Exam: normal inspection, normal range of motion, pelvis stable Neurologic Exam: alert, oriented x 3, cooperative, personal consultant II-XII nml as tested, normal mood/affect, nml cerebellar function, nml station & gait, sensation nml Skin Exam: normal color, warm, dry Lymphatic Exam: No adenopathy SpO2 Interpretation: normal O2 Delivery: Room Air - Course EKG Interpreted by Me: RATE (79), Sinus Rhythm, NORMAL AXIS, NORMAL INTERVALS, NORMAL QRS, NORMAL ST-T Ordered Tests: Active Orders 24 hr Category Date Time Status EKG-ER Only STAT Care 08/19/21 20:20 Active IV Insertion STAT Care 08/19/21 20:20 Active Pulse Oximetry (ED) STAT Care 08/19/21 20:20 Active ABDOMEN AND PELVIS W CONTRAST [CT] Routine Exams 08/19/21 22:20 Taken CHEST 1 VIEW (PORTABLE) Stat Exams 08/19/21 20:21 Taken CHEST WITH CONTRAST [CT] Stat Exams 08/19/21 21:38 Taken BLOOD CULTURE Stat Lab 08/19/21 23:25 Received CBC W DIFF Stat Lab 08/19/21 20:30 Completed CMP Stat Lab 08/19/21 20:30 Completed D-DIMER QUANTITATIVE Stat Lab 08/19/21 20:30 Completed Lactic Acid Routine Lab 08/19/21 23:30 Completed Lactic Acid Stat Lab 08/19/21 21:10 Completed NT PRO BNP Stat Lab 08/19/21 20:30 Completed PROTIME WITH INR Stat Lab 08/19/21 20:30 Completed TROPONIN Q3H Lab 08/19/21 20:30 Completed TROPONIN Q3H Lab 08/19/21 23:25 Completed TROPONIN Q3H Lab 08/20/21 02:30 Ordered TROPONIN Q3H Lab 08/20/21 05:30 Ordered TROPONIN Q3H Lab 08/20/21 08:30 Ordered UA W/RFX UR CULTURE Stat Lab 08/20/21 00:48 Ordered Medication Summary Generic Name Dose Route Start Last Admin Trade Name Gagan PRN Reason Stop Dose Admin Sodium Chloride 1,000 mls @ 999 mls/hr 08/20/21 00:43 Sodium Chloride 0.9% 1000 Ml IV 08/20/21 01:43 .Q1H1M STA Discontinued Medications Generic Name Dose Route Start Last Admin Trade Name Gagan PRN Reason Stop Dose Admin Hydromorphone HCl 1 mg 08/19/21 21:02 08/19/21 21:14 Hydromorphone 1 Mg/1ml Inj 1 Mg/Ml Syringe IV 08/19/21 21:03 1 mg STAT ONE Administration Hydromorphone HCl Confirm 08/19/21 21:10 Hydromorphone 1 Mg/1ml Inj 1 Mg/Ml Syringe Administered 08/19/21 21:11 Dose 1 mg .ROUTE .STK-MED ONE Hydromorphone HCl 1 mg 08/19/21 23:23 08/19/21 23:56 Hydromorphone 1 Mg/1ml Inj 1 Mg/Ml Syringe IV 08/19/21 23:24 1 mg STAT ONE Administration Hydromorphone HCl Confirm 08/19/21 23:45 Hydromorphone 1 Mg/1ml Inj 1 Mg/Ml Syringe Administered 08/19/21 23:46 Dose 1 mg .ROUTE .STK-MED ONE Lactated Ringer's 1,000 mls @ 999 mls/hr 08/19/21 21:37 08/19/21 22:32 Lactated Ringers IV 08/19/21 22:37 999 mls/hr .Q1H1M ONE Administration Lactated Ringer's Confirm 08/19/21 22:02 Lactated Ringers Administered 08/19/21 22:03 Dose 1,000 mls @ ud IV .STK-MED ONE Levofloxacin/Dextrose 500 mg in 100 mls @ 100 mls/hr 08/19/21 23:07 08/20/21 00:04 Levofloxacin 500mg/100ml D5w IV 08/20/21 00:06 Not Given STAT STA Levofloxacin/Dextrose 500 mg in 100 mls @ 100 mls/hr 08/19/21 23:16 08/19/21 23:55 Levofloxacin 500mg/100ml D5w IV 08/20/21 00:15 100 mls/hr STAT STA 100 mls/hr Administration Metronidazole 500 mg in 100 mls @ 200 mls/hr 08/19/21 23:16 08/19/21 23:54 Flagyl 500 Mg Ivpb IV 08/19/21 23:45 200 mls/hr STAT STA 200 mls/hr Administration Sodium Chloride Confirm 08/19/21 23:38 Sodium Chloride 0.9% 1000 Ml Administered 08/19/21 23:39 Dose 1,000 mls @ ud .ROUTE .STK-MED ONE Metronidazole Confirm 08/19/21 23:46 Flagyl 500 Mg Ivpb Administered 08/19/21 23:47 Dose 500 mg in 100 mls @ ud IV .STK-MED ONE Levofloxacin/Dextrose Confirm 08/19/21 23:46 Levofloxacin 500mg/100ml D5w Administered 08/19/21 23:47 Dose 500 mg in 100 mls @ ud IV .STK-MED ONE Ondansetron HCl 4 mg 08/19/21 21:02 08/19/21 21:12 Ondansetron Hcl 4 Mg/2 Ml Vial IV 08/19/21 21:03 4 mg STAT ONE Administration Ondansetron HCl Confirm 08/19/21 21:10 Ondansetron Hcl 4 Mg/2 Ml Vial Administered 08/19/21 21:11 Dose 4 mg .ROUTE .STK-MED ONE Potassium Chloride 20 meq 08/19/21 21:37 08/19/21 22:32 Potassium Chloride 10 Meq Tablet PO 08/19/21 21:38 20 meq STAT ONE Administration Potassium Chloride Confirm 08/19/21 22:02 Potassium Chloride 10 Meq Tablet Administered 08/19/21 22:03 Dose 20 meq PO .STK-MED ONE Lab/Rad Data: Laboratory Result Diagrams 08/19/21 20:30 08/19/21 20:30 Laboratory Results 08/19/21 08/19/21 08/19/21 Range/Units 23:30 23:25 21:10 WBC (4.0-10.5) K/mm3 RBC (4.1-5.4) M/mm3 Hgb (12.0-16.0) gm/dl Hct (35-47) % MCV (78-100) fl MCH (26-32) pg MCHC (32-36) g/dl RDW (11.5-14.0) % Plt Count (150-450) K/mm3 MPV (7.5-11.0) fl Gran % (36.0-66.0) % Eos # (Auto) (0-0.5) Absolute Lymphs (auto) (1.0-4.6) Absolute Monos (auto) (0.0-1.3) Lymphocytes % (24.0-44.0) % Monocytes % (0.0-12.0) % Eosinophils % (0.00-5.0) % Basophils % (0.0-0.4) % Absolute Granulocytes (1.4-6.9) Basophils # (0-0.4) PT (9.4-12.5) SECONDS INR (0.8-3.0) D-Dimer (215-500) ng/mL Sodium (137-145) mmol/L Potassium (3.5-5.1) mmol/L Chloride (98-107) mmol/L Carbon Dioxide (22-30) mmol/L Anion Gap (5-15) MEQ/L BUN (7-17) mg/dL Creatinine (0.52-1.04) mg/dL Estimated GFR ML/MIN Glucose (74-106) mg/dL Lactic Acid 2.7 H 2.1 H (0.4-2.0) Calcium (8.4-10.2) mg/dL Total Bilirubin (0.2-1.3) mg/dL AST (14-36) U/L ALT (0-35) U/L Alkaline Phosphatase (38-126) U/L Troponin I < 0.012 (0.000-0.034) ng/mL NT-Pro-B Natriuret Pep (0-900) pg/mL Serum Total Protein (6.3-8.2) g/dL Albumin (3.5-5.0) g/dL Slides for Path Review 08/19/21 08/19/21 08/19/21 Range/Units 20:30 20:30 20:30 WBC (4.0-10.5) K/mm3 RBC (4.1-5.4) M/mm3 Hgb (12.0-16.0) gm/dl Hct (35-47) % MCV (78-100) fl MCH (26-32) pg MCHC (32-36) g/dl RDW (11.5-14.0) % Plt Count (150-450) K/mm3 MPV (7.5-11.0) fl Gran % (36.0-66.0) % Eos # (Auto) (0-0.5) Absolute Lymphs (auto) (1.0-4.6) Absolute Monos (auto) (0.0-1.3) Lymphocytes % (24.0-44.0) % Monocytes % (0.0-12.0) % Eosinophils % (0.00-5.0) % Basophils % (0.0-0.4) % Absolute Granulocytes (1.4-6.9) Basophils # (0-0.4) PT 11.3 (9.4-12.5) SECONDS INR 0.96 (0.8-3.0) D-Dimer 1397 H* (215-500) ng/mL Sodium 139 (137-145) mmol/L Potassium 2.9 L* (3.5-5.1) mmol/L Chloride 97 L (98-107) mmol/L Carbon Dioxide 31 H (22-30) mmol/L Anion Gap 13.3 (5-15) MEQ/L BUN 12 (7-17) mg/dL Creatinine 0.66 (0.52-1.04) mg/dL Estimated GFR > 60.0 ML/MIN Glucose 159 H (74-106) mg/dL Lactic Acid (0.4-2.0) Calcium 9.4 (8.4-10.2) mg/dL Total Bilirubin 0.40 (0.2-1.3) mg/dL AST 16 (14-36) U/L ALT 12 (0-35) U/L Alkaline Phosphatase 92 (38-126) U/L Troponin I < 0.012 (0.000-0.034) ng/mL NT-Pro-B Natriuret Pep 82.2 (0-900) pg/mL Serum Total Protein 6.8 (6.3-8.2) g/dL Albumin 4.2 (3.5-5.0) g/dL Slides for Path Review 08/19/21 Range/Units 20:30 WBC 22.0 H (4.0-10.5) K/mm3 RBC 5.15 (4.1-5.4) M/mm3 Hgb 16.0 (12.0-16.0) gm/dl Hct 49.6 H (35-47) % MCV 96.3 (78-100) fl MCH 31.1 (26-32) pg MCHC 32.3 (32-36) g/dl RDW 13.9 (11.5-14.0) % Plt Count 298 (150-450) K/mm3 MPV 9.6 (7.5-11.0) fl Gran % 83.6 H (36.0-66.0) % Eos # (Auto) 0.03 (0-0.5) Absolute Lymphs (auto) 2.01 (1.0-4.6) Absolute Monos (auto) 1.57 H (0.0-1.3) Lymphocytes % 9.1 L (24.0-44.0) % Monocytes % 7.1 (0.0-12.0) % Eosinophils % 0.1 (0.00-5.0) % Basophils % 0.1 (0.0-0.4) % Absolute Granulocytes 18.39 H (1.4-6.9) Basophils # 0.03 (0-0.4) PT (9.4-12.5) SECONDS INR (0.8-3.0) D-Dimer (215-500) ng/mL Sodium (137-145) mmol/L Potassium (3.5-5.1) mmol/L Chloride (98-107) mmol/L Carbon Dioxide (22-30) mmol/L Anion Gap (5-15) MEQ/L BUN (7-17) mg/dL Creatinine (0.52-1.04) mg/dL Estimated GFR ML/MIN Glucose (74-106) mg/dL Lactic Acid (0.4-2.0) Calcium (8.4-10.2) mg/dL Total Bilirubin (0.2-1.3) mg/dL AST (14-36) U/L ALT (0-35) U/L Alkaline Phosphatase (38-126) U/L Troponin I (0.000-0.034) ng/mL NT-Pro-B Natriuret Pep (0-900) pg/mL Serum Total Protein (6.3-8.2) g/dL Albumin (3.5-5.0) g/dL Slides for Path Review YES - Progress Progress: improved, re-examined Air Movement: good Progress Note: 08/19/21 23:14 CAT scan of the chest with contrast shows no evidence of pulmonary embolus. There are no acute intrathoracic findings. 08/20/21 00:36 CAT scan of the abdomen pelvis with contrast shows a pneumoperitoneum that is moderate in amount in the upper abdomen and an ill-defined fluid collection in the left upper quadrant. There is mildly distended gastric pouch present. Medical decision making: This patient has a pneumoperitoneum with an elevated white count of 22,000 and a lactic acid level of 2.1 that has risen to 2.7. The patient is having significant epigastric pain. Patient's gastric bypass surgeon is no longer practicing as a gastric bypass surgeon at [facility]. We did call the hospital transfer line and a bariatric surgeon, Dr. Tirado, was to evaluate the films we put on the cloud and will contact us for further instructions and possible acceptance for transfer. 08/20/21 00:55 Medical decision making: I spoke with Evon Goldman who is a nurse practitioner for Dr. Tirado (bariatric surgeon) at [facility]. She accepts the patient for transfer for Dr. Tirado. We will make arrangements to transfer the patient via helicopter if it is available. The weather is not ideal at this time but we will contact them first. If they decline then we will arrange emergent transport via ground. Blood Culture(s) Obtained: No Antibiotics given: Yes Counseled pt/family regarding: lab results, diagnosis, rad results - Departure Departure Disposition: Transfer Clinical Impression: Epigastric pain, Pneumoperitoneum Condition: Fair Critical Care Time: Yes Critical Care Time(excluding separately billable procedures): Critical 30-74 mins (45 minutes) Referrals: GODWIN NELSON [Primary Care Provider] -
[2021-08-19 20:41] LABS: Absolute Neutrophil Ct (ANC) 18.39 (1.4-6.9); BASOPHIL % 0.1 % (0.0-0.4); Basophil (Absolute #) 0.03 (0-0.4); Eosinophil % 0.1 % (0.00-5.0); Eosinophil (Absolute #) 0.03 (0-0.5); Hematocrit 49.6 % (35-47); Lymphocyte (Absolute #) 2.01 (1.0-4.6); Lymphocytes % 9.1 % (24.0-44.0); Mean Cell Volume 96.3 fl (78-100); Mean Corpuscular Hemoglobin 31.1 pg (26-32); Mean Corpuscular Hgb Concent. 32.3 g/dl (32-36); Mean Platelet Volume 9.6 fl (7.5-11.0); Monocyte (Absolute #) 1.57 (0.0-1.3); Monocytes % 7.1 % (0.0-12.0); Neutrophil % 83.6 % (36.0-66.0); Platelet Count 298 K/mm3 (150-450); Red Blood Count 5.15 M/mm3 (4.1-5.4); Red Cell Distribution Width 13.9 % (11.5-14.0)
[2021-08-19 20:46] LABS: INR 0.96 (0.8-3.0); PROTIME 11.3 SECONDS (9.4-12.5)
[2021-08-19 20:59] LABS: ALBUMIN 4.2 g/dL (3.5-5.0); ALKALINE PHOSPHATASE 92 U/L (38-126); ANION GAP 13.3 MEQ/L (5-15); BLOOD UREA NITROGEN 12 mg/dL (7-17); CHLORIDE 97 mmol/L (98-107); Calcium 9.4 mg/dL (8.4-10.2); Carbon Dioxide 31 mmol/L (22-30); Creatinine 1 0.66 mg/dL (0.52-1.04); EST GLOMERULAR FILTRATION RATE > 60.0 ML/MIN; Glucose 159 mg/dL (74-106); NT PRO BNP 82.2 pg/mL (0-900); SGOT/AST 16 U/L (14-36); SGPT/ALT 12 U/L (0-35); SODIUM 139 mmol/L (137-145); Total Protein 6.8 g/dL (6.3-8.2)
[2021-08-19] MEDS ORDERED: Hydromorphone 1 mg/ml Injection IV ONE ×2 (21:02→23:23)
[2021-08-19] MEDS ORDERED: Zofran 4 MG/2 ML VIAL IV ONE (21:02)
[2021-08-19] MEDS ORDERED: Hydromorphone 1 mg/ml Injection ONE ×2 (21:10→23:45)
[2021-08-19] MEDS ORDERED: Zofran 4 MG/2 ML VIAL ONE (21:10)
[2021-08-19 21:15] LABS: Potassium 2.9 mmol/L (3.5-5.1)
[2021-08-19 21:17] LABS: Slide Review 1 YES
[2021-08-19] MEDS ORDERED: Lactated Ringers 1,000 ML IV ONE ×2 (21:37→22:02)
[2021-08-19] MEDS ORDERED: Klor Con 10 MEQ PO ONE ×2 (21:37→22:02)
[2021-08-19] MEDS ORDERED: Levofloxacin 500MG/100ML D5W 500 MG/100 ML BAG IV STA ×2 (23:07→23:16)
[2021-08-19] MEDS ORDERED: FLAGYL 500 MG IVPB 500 MG/100 ML BAG IV STA (23:16)
[2021-08-19] MEDS ORDERED: Sodium Chloride 0.9% 1000 ML 1,000 ML ONE (23:38)
[2021-08-19] MEDS ORDERED: Levofloxacin 500MG/100ML D5W 500 MG/100 ML BAG IV ONE (23:46)
[2021-08-19] MEDS ORDERED: FLAGYL 500 MG IVPB 500 MG/100 ML BAG IV ONE (23:46)
[2021-08-20] MEDS ORDERED: Sodium Chloride 0.9% 1000 ML 1,000 ML IV STA ×3 (00:43→05:32)
[2021-08-20] MEDS ORDERED: MORPHINE SULFATE 4 MG INJ IV ONE (01:06)
[2021-08-20] MEDS ORDERED: Ativan 2 MG/1 ML VIAL IV ONE (01:06)
[2021-08-20] MEDS ORDERED: Ativan 2 MG/1 ML VIAL ONE (01:10)
[2021-08-20] MEDS ORDERED: MORPHINE SULFATE 4 MG INJ ONE (01:10)
[2021-08-20] MEDS ORDERED: SUBLIMAZE 100 MCG/2 ML IV ONE (02:48)
[2021-08-20] MEDS ORDERED: SUBLIMAZE 100 MCG/2 ML ONE (02:58)
[2021-08-20] MEDS ORDERED: Sodium Chloride 0.9% 1000 ML 1,000 ML ONE ×2 (02:58→05:31)
[2021-08-20] MEDS ORDERED: Ketamine HCl 50 MG/ML IV ONE (04:20)
[2021-08-20 04:21] LABS: Appearance CLEAR (CLEAR); Bilirubin NEGATIVE (NEGATIVE); Blood NEGATIVE Ery/ul (0-5); Glucose NEGATIVE (NEGATIVE); Ketones NEGATIVE (NEGATIVE); Leukocyte Esterase NEGATIVE (NEGATIVE); Nitrite NEGATIVE (NEGATIVE); Protein,Urine Dip NEGATIVE (Negative); Specific Gravity 1.058 (1.005-1.025); Urobilinogen 2 mg/dL (0-1); WBC 0-2 /HPF (0-5)
[2021-08-20 05:23] VITALS: O2SAT 98
[2021-08-20] MEDS ORDERED: DILAUDID 1 MG/1ML PCA IV PRN (05:52)
--- NOTE | 2021-08-20 07:27 | XRAY ---
Indication: Chest pain. Elevated d-dimer. Multiple contiguous axial images obtained through the chest using 80 cc Isovue 370 contrast and PE protocol. Comparison: None There is good opacification of the pulmonary arteries to include the lobar and segmental branches. No pulmonary embolus. Heart not enlarged. Aorta normal in course and caliber. No pathologic mediastinal/hilar lymphadenopathy. Lungs are inflated and clear. Bony thorax intact with mild degenerative changes throughout the spine. CT abdomen/pelvis reported separately. Impression: Negative pulmonary embolus. No acute cardiopulmonary abnormalities. Comment: Preliminary interpretation made by C. No critical discrepancy.
--- NOTE | 2021-08-20 07:31 | XRAY ---
Indication: Epigastric pain. Multiple contiguous axial images obtained through the abdomen and pelvis using 80 cc Isovue 370 contrast and PE protocol. Comparison: March 09, 2020. CT chest reported separately. Again gastric bypass surgery. Noncontrasted stomach and bowel loops nonobstructed. New tiny free air and small free fluid greatest in the left upper quadrant concerning for perforated bowel loop. Stable hepatic cysts and cholecystectomy. Remaining liver, pancreas, spleen, adrenal glands, kidneys, ureters, and bladder are unremarkable. There remains mild scattered aortoiliac calcifications. No AAA or pathologic retroperitoneal lymphadenopathy. Osseous structures intact again with minimal/mild degenerative changes throughout the spine. Impression: 1. New pneumoperitoneum and free fluid surrounding for perforated bowel loop. 2. Again incidental hepatic cysts. Comment: Preliminary interpretation made by [facility]. No critical discrepancy.
--- NOTE | 2021-08-20 07:32 | XRAY ---
Indication: Chest pain. Comparison: January 25, 2019. Portable chest remains clear. Heart not enlarged. Bony thorax intact. No new/acute findings.
[2021-08-20 10:09] VITALS: BP 168/94; PULSE 92
== END 2021-08-20 10:12 | disposition short-term general hospital (02) ==
LOC: ED 20:09
DX: R10.13 Epigastric pain (principal); Z79.899 Other long term (current) drug therapy
CPT/HCPCS: 36000; 36415; 71045; 71260; 74177; 80053; 81001; 83605; 83880; 84484; 85025; 85379; 85610; 87040; 93005; 94760; 96374; 96375; 96376; 99285; 99291; J1170; J1956; J2060; J2270; J2405; J3010; A9270-GY

== ENCOUNTER 2021-12-03 10:12 | Emergency (ER) | payer OTHER ==
--- NOTE | 2021-12-03 10:59 | ERPHSYRPT ---
- History of Present Illness Time Seen by Provider: 12/03/21 10:49 Historian: patient Exam Limitations: no limitations Patient Subjective Stated Complaint: Patient states her Gtube came out last night at 0300. She believes it got wrapped around her blanket. She called her PCP who told her to go to the ER for replacement. Has tube placed for bowel rupture. Triage Nursing Assessment: Patient to ED because gtube came out. Bandage over site at this time. Abdominal assessment negative. Physician History: 51 years old female with history of bariatric surgery with secondary malnutrition having G-tube for protein shakes presented to the ER after her G- tube got wrapped with her blanket and accidentally got pulled out around 3 AM today. Patient has coming to our ER around 10 AM. Reports minimal abdominal pain earlier but no abdominal pain at present. No nausea or vomiting. She wants to replace G-tube. Timing/Duration: today Severity of Pain-Max: mild Severity of Pain-Current: none Modifying Factors: Improves With: nothing Associated Symptoms: denies symptoms Previous symptoms: no prior history Allergies/Adverse Reactions: aspirin Allergy (Verified 12/03/21 10:29) latex Allergy (Verified 12/03/21 10:29) NSAIDS (Non-Steroidal Anti-Inflamma Allergy (Verified 12/03/21 10:29) Penicillins Allergy (Verified 12/03/21 10:29) metformin Adverse Reaction (Verified 12/03/21 10:29) Nausea Home Medications: Levetiracetam [Keppra 500 mg ] 1,000 mg PO TID 11/15/16 [History] Acetaminophen [Tylenol Extra Strength] 500 mg PO .PRN 10/11/17 [History] Albuterol 2.5 mg/3 ml Neb [Proventil 2.5 mg/3 ml Neb] 2.5 mg IH .PRN 10/11/17 [History] Albuterol 8 gm Mdi Hfa [Ventolin Hfa MDI] 2 puff IH QID 10/11/17 [History] Montelukast Sodium 10 mg [Singulair 10 MG] 10 mg PO DAILY 10/11/17 [History] Oxybutynin Chloride [Oxybutynin Chloride ER] 5 mg PO DAILY 10/11/17 [History] Sucralfate 1 gm [Carafate 1 GM] 1 gm PO BID 10/11/17 [History] Meloxicam [Mobic] 15 mg PO DAILY 12/10/17 [History] Omeprazole 20 MG [Prilosec 20 mg] 20 mg PO BID 12/10/17 [History] Atorvastatin Calcium 20 mg PO DAILY 01/25/19 [History] Buspirone HCl [Buspar] 15 mg PO BID 01/25/19 [History] Cyanocobalamin (Vitamin B-12) [Vitamin B-12] 1,000 mcg PO DAILY 01/25/19 [History] Ergocalciferol (Vitamin D2) [Vitamin D2] 1 cap PO DAILY 01/25/19 [History] Eszopiclone [Lunesta] 3 mg PO HS 01/25/19 [History] Ferrous Sulfate 325 mg [Feosol 325 mg] 325 mg PO DAILY 01/25/19 [History] Folic Acid 1 mg PO DAILY 01/25/19 [History] Gabapentin 800 mg PO TID 01/25/19 [History] Liraglutide [Victoza 2-Sinan] 18 mg SQ DAILY 01/25/19 [History] Mometasone/Formoterol [Dulera 100 Mcg-5 Mcg Inhaler] 2 puff IH BID 01/25/19 [History] Quetiapine Fumarate 300 mg PO HS 01/25/19 [History] Ranolazine 500 MG [Ranexa 500 MG] 500 mg PO BID 01/25/19 [History] Ropinirole HCl [Requip] 1 mg PO HS 01/25/19 [History] Lacosamide [Vimpat] 150 mg PO BID 01/27/19 [History] Hx Tetanus, Diphtheria Vaccination/Date Given: No Hx Influenza Vaccination/Date Given: No Hx Pneumococcal Vaccination/Date Given: No Travel Risk - International Travel Have you traveled outside of the country in past 3 weeks: No - Coronavirus Screening Are you exhibiting any of the following symptoms?: No Close contact with a COVID-19 positive Pt in past 14-21 Days: No - Vaccine Status Have you recieved a Covid-19 vaccination: Yes 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[employer] - Vaccination Dates Date of 2cond Vaccination (if applicable): February 2021 - Review of Systems Constitutional: No Symptoms Ears, Nose, & Throat: No Symptoms Respiratory: No Symptoms Cardiac: No Symptoms Abdominal/Gastrointestinal: Abdominal Pain Musculoskeletal: No Symptoms Skin: No Symptoms Neurological: No Symptoms Endocrine: No Symptoms Hematologic/Lymphatic: No Symptoms - Past Medical History Pertinent Past Medical History: Yes Neurological History: Epilepsy, Migraines, Peripheral Neuropathy ENT History: No Pertinent History Cardiac History: High Cholesterol, Hypertension, Other Respiratory History: Asthma, Sleep Apnea Endocrine Medical History: Diabetes Type II Musculoskeletal History: Osteoarthritis GI Medical History: Other History: Other Psycho-Social History: Bipolar, Depression Female Reproductive Disorders: Menstrual Problems Other Medical History: PATIENT IS FULLY VACCINATED FOR COVID. 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 REPORTS NEUROPATHY IN HANDS AND FEET - Past Surgical History Past Surgical History: Yes Neuro Surgical History: No Pertinent History Cardiac: No Pertinent History Respiratory: No Pertinent History Gastrointestinal: Cholecystectomy, Other Genitourinary: Kidney Surgery Musculoskeletal: Other Female Surgical History: Section, Other Other Surgical History: ulcer, kidney, , bariatric, gallbladder, pain procedure to bilateral hips with cortisone , ablasion , July 2021 gtube placed for bowel rupture - Social History Smoking Status: Former smoker How long have you smoked: 30 yrs Exposure to second hand smoke: Yes Drug Use: none Patient Lives Alone: No - Female History Hx Now: No (Menopause) - Nursing Vital Signs Nursing Vital Signs: Initial Vital Signs Temperature 97.1 F 12/03/21 10:18 Pulse Rate 78 12/03/21 10:18 Respiratory Rate 20 12/03/21 10:18 Blood Pressure 114/76 12/03/21 10:18 O2 Sat by Pulse Oximetry 100 12/03/21 10:18 Pain Scale Pain Intensity 0 - Physical Exam General Appearance: no apparent distress, alert Eye Exam: PERRL/EOMI, eyes nml inspection Ears, Nose, Throat Exam: normal ENT inspection, TMs normal Neck Exam: normal inspection, supple, full range of motion Respiratory Exam: normal breath sounds, lungs clear Cardiovascular Exam: regular rate/rhythm, normal heart sounds Gastrointestinal/Abdomen Exam: soft, normal bowel sounds, tenderness (Minimal tenderness around G-tube insertion area), No guarding Back Exam: normal inspection, normal range of motion Extremity Exam: normal inspection, normal range of motion Neurologic Exam: alert, oriented x 3, cooperative Skin Exam: normal color SpO2 Interpretation: normal SpO2: 100 O2 Delivery: Room Air - Progress Progress: unchanged Progress Note: 12/03/21 10:56 I have tried to put back G-tube but was not successful with the 1 patient has already and another 1 we have here. I believe the tract is already closed now and it is almost 7 hours. Recommended follow-up with her primary surgeon to be replaced. Patient can have oral intake which she is encouraged to continue and follow-up surgeons recommendations. Counseled pt/family regarding: diagnosis, need for follow-up - Departure Departure Disposition: Home Clinical Impression: Gastrojejunostomy tube dislodgement Condition: Stable Critical Care Time: No Referrals: GODWIN NELSON [Primary Care Provider] - Follow up/PCP as directed (1-2 days for reevaluation) Instructions: Acute Abdomen (Belly Pain) Additional Instructions: Call your surgeon at [facility] for G-tube placement. Continue with oral intake. Return to ER if having continuous intractable abdominal pain/vomiting/fever chills etc.
[2021-12-03 11:01] VITALS: BP 121/75; PULSE 109; O2SAT 98
== END 2021-12-03 11:05 | disposition home or self-care (01) ==
LOC: ED 10:12
DX: K94.29 Other complications of gastrostomy (principal); E78.5 Hyperlipidemia, unspecified; I10 Essential (primary) hypertension; E11.42 Type 2 diabetes mellitus with diabetic polyneuropathy; Z79.84 Long term (current) use of oral hypoglycemic drugs; Z79.899 Other long term (current) drug therapy
CPT/HCPCS: 99283

== ENCOUNTER 2021-12-07 08:28 | Day surgery (SDC) | payer OTHER ==
[2021-12-07] MEDS ORDERED: Depo-Medrol 40 MG/ML IM ONE (08:29)
[2021-12-07] MEDS ORDERED: BUPIVACAINE 0.5% VIAL IJ ONE (08:29)
[2021-12-07] MEDS ORDERED: Lactated Ringers 1,000 ML IV ONE (10:07)
[2021-12-07] MEDS ORDERED: DIPRIVAN 200 MG/20 ML IV ONE (10:12)
--- NOTE | 2021-12-07 10:48 | XRAY ---
Indication: Right L3-S1 MBB. Intraoperative fluoroscopy provided for 12 seconds. Single digital spot image submitted for interpretation demonstrates posterior needle tips projecting over the expected right L3-S1 nerve roots. Correlate with intraoperative findings/report.
--- NOTE | 2021-12-07 11:21 | XRAY ---
12 seconds fluoroscopy time in surgery for right L3-S1 MBB.
== END 2021-12-07 10:40 | disposition home or self-care (01) ==
LOC: SDC-PAIN 08:28
PROVIDERS: ATTEND Psychiatry & Neurology Pain Medicine
DX: M47.816 Spondylosis without myelopathy or radiculopathy, lumbar region (principal); E11.9 Type 2 diabetes mellitus without complications; E78.00 Pure hypercholesterolemia, unspecified; I10 Essential (primary) hypertension; Z79.899 Other long term (current) drug therapy
CPT/HCPCS: 64493; 64494; 64495; 72020; 77002; 82947; 84703; J1030; J2704

== ENCOUNTER 2022-01-18 08:58 | Day surgery (SDC) | payer OTHER ==
[2022-01-18] MEDS ORDERED: BUPIVACAINE 0.5% VIAL IJ ONE (08:59)
[2022-01-18] MEDS ORDERED: Lactated Ringers 1,000 ML IV ONE (10:20)
[2022-01-18] MEDS ORDERED: DIPRIVAN 200 MG/20 ML IV ONE (11:03)
--- NOTE | 2022-01-18 12:07 | XRAY ---
Indication: Left L3-S1 MBB. Intraoperative fluoroscopy provided for 21 seconds. Single digital spot image submitted for interpretation demonstrates posterior needle tips projecting over the expected left L3-S1 nerve roots. Correlate with intraoperative findings/report.
--- NOTE | 2022-01-18 12:12 | XRAY ---
21 seconds fluoroscopy time in surgery for left L3-S1 MBB.
== END 2022-01-18 11:29 | disposition home or self-care (01) ==
LOC: SDC-PAIN 08:58
PROVIDERS: ATTEND Psychiatry & Neurology Pain Medicine
DX: M47.816 Spondylosis without myelopathy or radiculopathy, lumbar region (principal); E11.9 Type 2 diabetes mellitus without complications; Z79.899 Other long term (current) drug therapy
CPT/HCPCS: 64493; 64494; 64495; 72020; 77002; 82947; 84703; J2704

== ENCOUNTER 2022-02-15 08:54 | Day surgery (SDC) | payer OTHER ==
[2022-02-15] MEDS ORDERED: BUPIVACAINE 0.5% VIAL IJ ONE (08:55)
[2022-02-15] MEDS ORDERED: Xylocaine 1% Vial 30 ML PF IJ ONE (08:55)
[2022-02-15] MEDS ORDERED: Depo-Medrol 40 MG/ML IM ONE (08:55)
[2022-02-15] MEDS ORDERED: DIPRIVAN 200 MG/20 ML IV ONE ×2 (10:38→11:01)
--- NOTE | 2022-02-15 11:36 | XRAY ---
24 seconds fluoroscopy time in surgery for left L3-S1 RFA.
--- NOTE | 2022-02-15 11:37 | XRAY ---
Indication: Left L3-S1 RFA. Intraoperative fluoroscopy provided for 24 seconds. 3 digital spot image submitted for interpretation demonstrates posterior needle tips projecting over the left L3-S1 nerve roots. Correlate with intraoperative findings/report.
== END 2022-02-15 11:11 | disposition home or self-care (01) ==
LOC: SDC-PAIN 08:54
PROVIDERS: ATTEND Psychiatry & Neurology Pain Medicine
DX: M47.816 Spondylosis without myelopathy or radiculopathy, lumbar region (principal); E11.9 Type 2 diabetes mellitus without complications; Z79.899 Other long term (current) drug therapy
CPT/HCPCS: 64635; 64636; 72100; 77002; 82947; 84703; J1030; J2001; J2704

== ENCOUNTER 2022-03-01 08:46 | Day surgery (SDC) | payer OTHER ==
[2022-03-01] MEDS ORDERED: Xylocaine 1% Vial 30 ML PF IJ ONE (08:47)
[2022-03-01] MEDS ORDERED: Depo-Medrol 40 MG/ML IM ONE (08:47)
[2022-03-01] MEDS ORDERED: BUPIVACAINE 0.5% VIAL IJ ONE (08:47)
[2022-03-01] MEDS ORDERED: Lactated Ringers 1,000 ML IV ONE (10:28)
[2022-03-01] MEDS ORDERED: DIPRIVAN 200 MG/20 ML IV ONE (10:45)
--- NOTE | 2022-03-01 12:01 | XRAY ---
Indication: Right L3-S1 RFA. Intraoperative fluoroscopy provided for 32 seconds. 4 digital spot images submitted for interpretation demonstrates posterior needle tips projecting over the expected right L3-S1 nerve roots. Correlate with intraoperative findings/report.
--- NOTE | 2022-03-01 12:49 | XRAY ---
32 seconds fluoroscopy time in surgery for right L3-S1 RFA.
== END 2022-03-01 11:19 | disposition home or self-care (01) ==
LOC: SDC-PAIN 08:46
PROVIDERS: ATTEND Psychiatry & Neurology Pain Medicine
DX: M47.816 Spondylosis without myelopathy or radiculopathy, lumbar region (principal); E11.9 Type 2 diabetes mellitus without complications; Z79.899 Other long term (current) drug therapy
CPT/HCPCS: 64635; 64636; 72100; 77002; 82947; 84703; J1030; J2001; J2704

== ENCOUNTER 2022-08-27 13:44 | Emergency (ER) | payer OTHER ==
[2022-08-27 13:52] VITALS: O2SAT 98
--- NOTE | 2022-08-27 14:05 | ERPHSYRPT ---
- History of Present Illness Time Seen by Provider: 08/27/22 14:01 Source: patient Exam Limitations: no limitations Patient Subjective Stated Complaint: Pt states "I rolled my right ankle and it is swollen." Triage Nursing Assessment: Pt presented alert and oriented X 3, skin pwd. Pt ambulates with a cane and a limp. Pt right ankle swollen and tender. Physician History: Pt states "I rolled my right ankle and it is swollen." Method of Injury: twisted Occurred: just prior to arrival Quality: aching Severity of Pain-Max: moderate Severity of Pain-Current: moderate Lower Extremities Pain: foot: right, ankle: right Modifying Factors: Improves With: cold therapy Associated Symptoms: unable to bear weight, No dizzy, No fainted, No seizure, No snapping sensation, No popping sensation Allergies/Adverse Reactions: aspirin Allergy (Verified 12/03/21 10:29) latex Allergy (Verified 12/03/21 10:29) NSAIDS (Non-Steroidal Anti-Inflamma Allergy (Verified 12/03/21 10:29) Penicillins Allergy (Verified 12/03/21 10:29) metformin Adverse Reaction (Verified 12/03/21 10:29) Nausea Home Medications: Levetiracetam [Keppra] 1,000 mg PO TID 11/15/16 [History] Acetaminophen [Tylenol Extra Strength] 500 mg PO .PRN 10/11/17 [History] Albuterol 2.5 mg/3 ml Neb [Proventil 2.5 mg/3 ml Neb] 2.5 mg IH .PRN 10/11/17 [History] Albuterol 8 gm Mdi Hfa [Ventolin Hfa MDI] 2 puff IH QID 10/11/17 [History] Montelukast Sodium 10 mg [Singulair 10 MG] 10 mg PO DAILY 10/11/17 [History] Oxybutynin Chloride [Oxybutynin Chloride ER] 5 mg PO DAILY 10/11/17 [History] Sucralfate 1 gm [Carafate 1 GM] 1 gm PO BID 10/11/17 [History] Meloxicam [Mobic] 15 mg PO DAILY 12/10/17 [History] Omeprazole 20 MG [Prilosec 20 mg] 20 mg PO BID 12/10/17 [History] Atorvastatin Calcium 20 mg PO DAILY 01/25/19 [History] Buspirone HCl [Buspar] 15 mg PO BID 01/25/19 [History] Cyanocobalamin (Vitamin B-12) [Vitamin B-12] 1,000 mcg PO DAILY 01/25/19 [History] Ergocalciferol (Vitamin D2) [Vitamin D2] 1 cap PO DAILY 01/25/19 [History] Eszopiclone [Lunesta] 3 mg PO HS 01/25/19 [History] Ferrous Sulfate 325 mg [Feosol 325 mg] 325 mg PO DAILY 01/25/19 [History] Folic Acid 1 mg PO DAILY 01/25/19 [History] Gabapentin 800 mg PO TID 01/25/19 [History] Liraglutide [Victoza 2-Sinan] 18 mg SQ DAILY 01/25/19 [History] Mometasone/Formoterol [Dulera 100 Mcg-5 Mcg Inhaler] 2 puff IH BID 01/25/19 [History] Quetiapine Fumarate 300 mg PO HS 01/25/19 [History] Ranolazine 500 MG [Ranexa 500 MG] 500 mg PO BID 01/25/19 [History] Ropinirole HCl [Requip] 1 mg PO HS 01/25/19 [History] Lacosamide [Vimpat] 150 mg PO BID 01/27/19 [History] Hx Tetanus, Diphtheria Vaccination/Date Given: No Hx Influenza Vaccination/Date Given: No Hx Pneumococcal Vaccination/Date Given: No Immunizations Up to Date: Yes Travel Risk - International Travel Have you traveled outside of the country in past 3 weeks: No - Coronavirus Screening Are you exhibiting any of the following symptoms?: No Close contact with a COVID-19 positive Pt in past 14-21 Days: No - Vaccine Status Have you recieved a Covid-19 vaccination: 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[employer] - Vaccination Dates Date of 2cond Vaccination (if applicable): February 2021 - Review of Systems Constitutional: No Symptoms Eyes: No Symptoms Ears, Nose, & Throat: No Symptoms Respiratory: No Symptoms Cardiac: No Symptoms Abdominal/Gastrointestinal: No Symptoms Genitourinary Symptoms: No Symptoms Musculoskeletal: Joint Pain (right ankle and foot), Joint Swelling - Past Medical History Pertinent Past Medical History: Yes Neurological History: Epilepsy, Migraines, Peripheral Neuropathy, TIA ENT History: No Pertinent History Cardiac History: Other Respiratory History: Asthma Endocrine Medical History: Diabetes Type II, Other Musculoskeletal History: Osteoarthritis GI Medical History: Other History: Other Psycho-Social History: Bipolar, Depression Female Reproductive Disorders: Menstrual Problems Other Medical History: KIDNEY STONES, NODULES ON HER THYROID, HAS A HEART CONDITION. - Past Surgical History Past Surgical History: Yes Neuro Surgical History: No Pertinent History Cardiac: No Pertinent History Respiratory: No Pertinent History Gastrointestinal: Cholecystectomy, Other Genitourinary: Kidney Surgery Musculoskeletal: Other Female Surgical History: Section, Other Other Surgical History: ulcer, kidney, , bariatric, gallbladder, pain procedure to bilateral hips with cortisone , ablasion , July 2021 gtube placed for bowel rupture - Social History Smoking Status: Former smoker How long have you smoked: 30 yrs Exposure to second hand smoke: Yes Drug Use: none Patient Lives Alone: No - Nursing Vital Signs Nursing Vital Signs: Initial Vital Signs Temperature 98.1 F 08/27/22 13:49 Pulse Rate 82 08/27/22 13:49 Respiratory Rate 20 08/27/22 13:49 Blood Pressure 113/75 08/27/22 13:49 O2 Sat by Pulse Oximetry 98 08/27/22 13:49 Pain Scale Pain Intensity 7 - Physical Exam General Appearance: no apparent distress Eyes, Ears, Nose, Throat Exam: normal ENT inspection Neck Exam: normal inspection Cardiovascular/Respiratory Exam: chest non-tender Gastrointestinal/Abdominal Exam: non-tender Back Exam: normal inspection Hips Exam: bilateral: non-tender Legs Exam: bilateral leg: non-tender Knees Exam: bilateral knee: non-tender Ankle Exam: right ankle: limited range of motion, pain Foot Exam: right foot: normal range of motion Neuro/Tendon Exam: normal sensation, normal motor functions, normal tendon functions, responds to pain, no evidence tendon injury, No motor deficit, No sensory deficit Mental Status Exam: alert, oriented x 3 SpO2: 98 - Course Nursing assessment & vital signs reviewed: Yes - Radiology Exams Ankle X-ray Interpretation: Reviewed by me, Negative, No Fracture, No Subluxation Foot X-ray Interpretation: Reviewed by me, No Fracture, No Subluxation Ordered Tests: Active Orders 24 hr Category Date Time Status ANKLE (3 VIEWS) Stat Exams 08/27/22 14:00 Taken FOOT (MINIMUM 3 VIEWS) Stat Exams 08/27/22 14:00 Taken - Progress Progress: improved, pain not gone completely Counseled pt/family regarding: diagnosis, need for follow-up, rad results - Departure Departure Disposition: Home Clinical Impression: Sprain of right ankle Qualifiers: Encounter type: initial encounter Involved ligament of ankle: unspecified ligament Qualified Code(s): S93.401A - Sprain of unspecified ligament of right ankle, initial encounter Condition: Stable Critical Care Time: No Referrals: GODWIN NELSON [Primary Care Provider] - [facility] M-F [id number] Instructions: Ankle Sprain (DC) Additional Instructions: Discharge/Care Plan WOLF LYNN was seen on 08/27/22 in the Emergency Room. The patient was counseled regarding Diagnosis,Lab results, Imaging studies, need for follow up and when to return to the Emergency Room. Prescriptions given: Discharge Note I have spoken with the patient and/or caregivers. I have explained the patient's condition, diagnosis and treatment plan based on the information available to me at this time. I have answered the patient's and/or caregiver's questions and addressed any concerns. The patient and/or caregivers have as good understanding of the patient's diagnosis, condition and treatment plan as can be expected at this point. The vital signs have been stable. The patient's condition is stable and appropriate for discharge from the emergency department. The patient will pursue further outpatient evaluation with the primary care physician or other designated or consulting physician as outlined in the discharge instructions. The patient and/or caregivers are agreeable to this plan of care and follow-up instructions have been explained in detail. The patient and/or caregivers have received these instruction. The patient/and or caregivers are aware that any significant change in condition or worsening of symptoms should prompt an immediate return to this or the closest emergency department or call 911. LEAHWOLF LYNN was seen on 08/27/22 n the Emergency Room. At that time you were treated for an emergent condition, during your visit Laboratory, Radiology and/or other procedures may have been ordered. It is very important that you follow-up with your Primary Care Physician GODWIN NELSON within the next 24-48 hours to review your Emergency Room visit and the final results of testing that was ordered. Some test results such as Urine Cultures, Blood Cultures, and other cultures if ordered will not be finalized for 24-48 hours. If you do not have a Primary Care Provider please call the medical records department at [phone] ext [phone] to obtain a copy of your results or you may sign into our patient portal to obtain these results by visiting us @ [email or web address] and completing the following steps: 1. Click on the Patient Portal link 2. Click the Patient Self Enrollment Link to complete the enrollment form and entering your 3. Once the enrollment form is completed you will receive an email with a temporary ID and password at the email address you provided. 4. Next choose a user name and password. Your user name must be at least 4 characters long and your password must be at least 4 characters long. 5. Choose a security question from the list and provide your answer to the question. If you already have signed into the Health Portal you may access your Health Care Information 14/05 by the following steps: 1. Login to our website @ [email or web address] 2. Enter your original user name and password. FAQS The [facility] Health Portal is an online tool that contains your Lab Results, Radiology Reports, Visit History, Discharge Instructions and Health Summary Lab and Radiology Results will not be available for 72 hours on the portal. The Portal is a secure site, passwords are encryted and URLs are re-written so they cannot be copied and pasted. You and authorized family members are the only ones who can access your Portal. Also there is a timeout feature that protects your information if you leave the Portal page open. If you have technical difficulty please use the Contact Us link on the page this will allow you to submit any questions you have regarding the Portal or you may contact the Medical Record Department at [phone] ext [phone]. Prescriptions: Indomethacin 25 mg [Indocin 25 MG] 25 mg PO TID #20 cap
[2022-08-27 14:34] VITALS: BP 112/74; PULSE 78
--- NOTE | 2022-08-27 18:31 | XRAY ---
Indication: Pain following twisting injury. Comparison: None 3 view right ankle demonstrates mild soft tissue swelling, osteopenia, and small posterior/plantar heel spurs. No other bony, articular, or soft tissue abnormalities.
--- NOTE | 2022-08-27 18:31 | XRAY ---
Indication: Pain following twisting injury. Comparison: None 3 nonweightbearing views right foot demonstrates osteopenia, small posterior/plantar heel spurs, and small cuboid accessory ossicle. No other bony, articular, or soft tissue abnormalities.
== END 2022-08-27 14:34 | disposition home or self-care (01) ==
LOC: ED 13:44
DX: S93.401A Sprain of unspecified ligament of right ankle, initial encounter (principal); X50.0XXA Overexertion from strenuous movement or load, initial encounter; M25.571 Pain in right ankle and joints of right foot; E11.42 Type 2 diabetes mellitus with diabetic polyneuropathy; Z79.85 Long-term (current) use of injectable non-insulin antidiabetic drugs; Z79.899 Other long term (current) drug therapy
CPT/HCPCS: 73610; 73630; 99283

== ENCOUNTER 2022-10-11 15:17 | Day surgery (SDC) | payer OTHER ==
[2022-10-11] MEDS ORDERED: Depo-Medrol 40 MG/ML IM ONE (15:18)
[2022-10-11] MEDS ORDERED: BUPIVACAINE 0.5% VIAL IJ ONE (15:18)
[2022-10-11] MEDS ORDERED: LIDOCAINE HCL 1% 50 MG/5 ML VL PF IJ ONE (15:18)
--- NOTE | 2022-10-11 19:40 | XRAY ---
Indication: Right knee injection. Intraoperative fluoroscopy provided for 7 second. Single digital spot image submitted for interpretation demonstrates needle tip projecting over the right femur intercondylar notch. Small amount of contrast injected for needle tip placement. Correlate with intraoperative findings/report.
== END 2022-10-11 18:30 | disposition home or self-care (01) ==
LOC: SDC-PAIN 15:17
PROVIDERS: ATTEND Psychiatry & Neurology Pain Medicine
DX: M17.11 Unilateral primary osteoarthritis, right knee (principal); E11.9 Type 2 diabetes mellitus without complications; Z79.899 Other long term (current) drug therapy
CPT/HCPCS: 20610; 73560; 77002; 81025; 82947; J1030; J2001; Q9966

== ENCOUNTER 2023-01-21 13:37 | Emergency (ER) | payer OTHER ==
--- NOTE | 2023-01-21 13:40 | ERPHSYRPT ---
- History of Present Illness Time Seen by Provider: 01/21/23 13:40 Source: patient Exam Limitations: no limitations Physician History: This is a morbidly obese 52-year-old white female patient who has diabetes and has a history of seizure disorder, peripheral neuropathy, migraine headache, asthma, bipolar disorder and depression and presents with 3-day history of left lower extremity redness and mild swelling is localized in an area that has a scratch that was caused by her dog. There is no dog bite. Patient has not had fevers. She is here for an antibiotic and tetanus injection Method of Injury: other (Dog scratch) Occurred: days ago (3) Quality: aching (Mild anterior left lower leg) Lower Extremities Pain: leg: left (Skin overlying anterior tibia) Modifying Factors: Improves With: nothing Associated Symptoms: none Allergies/Adverse Reactions: aspirin Allergy (Verified 01/21/23 13:49) latex Allergy (Verified 01/21/23 13:49) NSAIDS (Non-Steroidal Anti-Inflamma Allergy (Verified 01/21/23 13:49) Penicillins Allergy (Verified 01/21/23 13:49) metformin Adverse Reaction (Verified 01/21/23 13:49) Nausea Home Medications: Levetiracetam [Keppra] 1,000 mg PO TID 11/15/16 [History] Acetaminophen [Tylenol Extra Strength] 500 mg PO .PRN 10/11/17 [History] Albuterol 2.5 mg/3 ml Neb [Proventil 2.5 mg/3 ml Neb] 2.5 mg IH .PRN 10/11/17 [History] Albuterol 8 gm Mdi Hfa [Ventolin Hfa MDI] 2 puff IH QID 10/11/17 [History] Montelukast Sodium 10 mg [Singulair 10 MG] 10 mg PO DAILY 10/11/17 [History] Oxybutynin Chloride [Oxybutynin Chloride ER] 5 mg PO DAILY 10/11/17 [History] Sucralfate 1 gm [Carafate 1 GM] 1 gm PO BID 10/11/17 [History] Meloxicam [Mobic] 15 mg PO DAILY 12/10/17 [History] Omeprazole 20 MG [Prilosec 20 mg] 20 mg PO BID 12/10/17 [History] Atorvastatin Calcium 20 mg PO DAILY 01/25/19 [History] Buspirone HCl [Buspar] 15 mg PO BID 01/25/19 [History] Cyanocobalamin (Vitamin B-12) [Vitamin B-12] 1,000 mcg PO DAILY 01/25/19 [History] Ergocalciferol (Vitamin D2) [Vitamin D2] 1 cap PO DAILY 01/25/19 [History] Eszopiclone [Lunesta] 3 mg PO HS 01/25/19 [History] Ferrous Sulfate 325 mg [Feosol 325 mg] 325 mg PO DAILY 01/25/19 [History] Folic Acid 1 mg PO DAILY 01/25/19 [History] Gabapentin 800 mg PO TID 01/25/19 [History] Liraglutide [Victoza 2-Sinan] 18 mg SQ DAILY 01/25/19 [History] Mometasone/Formoterol [Dulera 100 Mcg-5 Mcg Inhaler] 2 puff IH BID 01/25/19 [History] Quetiapine Fumarate 300 mg PO HS 01/25/19 [History] Ranolazine 500 MG [Ranexa 500 MG] 500 mg PO BID 01/25/19 [History] Ropinirole HCl [Requip] 1 mg PO HS 01/25/19 [History] Lacosamide [Vimpat] 150 mg PO BID 01/27/19 [History] Hx Tetanus, Diphtheria Vaccination/Date Given: No Hx Influenza Vaccination/Date Given: No Hx Pneumococcal Vaccination/Date Given: No Travel Risk - International Travel Have you traveled outside of the country in past 3 weeks: No - Coronavirus Screening Are you exhibiting any of the following symptoms?: No Close contact with a COVID-19 positive Pt in past 14-21 Days: No - Vaccine Status Have you recieved a Covid-19 vaccination: Yes 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[employer] - Vaccination Dates Date of 2cond Vaccination (if applicable): February 2021 - Review of Systems Constitutional: No Symptoms Eyes: No Symptoms Ears, Nose, & Throat: No Symptoms Respiratory: No Symptoms Cardiac: No Symptoms Abdominal/Gastrointestinal: No Symptoms Genitourinary Symptoms: No Symptoms Musculoskeletal: No Symptoms Skin: Cellulitis (Skin overlying left lower leg/anterior tibia) Neurological: No Symptoms Psychological: No Symptoms Endocrine: No Symptoms Hematologic/Lymphatic: No Symptoms Immunological/Allergic: No Symptoms All Other Systems: Reviewed and Negative - Past Medical History Pertinent Past Medical History: Yes Neurological History: Epilepsy, Migraines, Peripheral Neuropathy, TIA ENT History: No Pertinent History Cardiac History: Other Respiratory History: Asthma Endocrine Medical History: Diabetes Type II, Other Musculoskeletal History: Osteoarthritis GI Medical History: Other History: Other Psycho-Social History: Bipolar, Depression Female Reproductive Disorders: Menstrual Problems Other Medical History: KIDNEY STONES, NODULES ON HER THYROID, HAS A HEART CONDITION. - Past Surgical History Past Surgical History: Yes Neuro Surgical History: No Pertinent History Cardiac: No Pertinent History Respiratory: No Pertinent History Gastrointestinal: Cholecystectomy, Other Genitourinary: Kidney Surgery Musculoskeletal: Other Female Surgical History: Section, Other Other Surgical History: ulcer, kidney, , bariatric, gallbladder, pain procedure to bilateral hips with cortisone , ablasion , July 2021 gtube placed for bowel rupture - Social History Smoking Status: Former smoker How long have you smoked: 30 yrs Exposure to second hand smoke: Yes Drug Use: none Patient Lives Alone: No - Nursing Vital Signs Nursing Vital Signs: Pain Scale Pain Intensity 5 - Physical Exam General Appearance: no apparent distress, alert, anxiety, obese Eyes, Ears, Nose, Throat Exam: normal ENT inspection, moist mucous membranes Neck Exam: normal inspection, non-tender, supple, full range of motion Cardiovascular/Respiratory Exam: chest non-tender, no respiratory distress Gastrointestinal/Abdominal Exam: non-tender Back Exam: normal inspection, normal range of motion, No CVA tenderness, No vertebral tenderness Hips Exam: bilateral: non-tender, normal inspection, normal range of motion, no evidence of injury Legs Exam: right leg: non-tender, normal inspection, no evidence of injury, left leg: soft tissue tenderness (Skin overlying distal third anterior tibia with cellulitis. No pus no odor. No proximal streaking), bilateral leg: normal range of motion Knees Exam: bilateral knee: non-tender, normal inspection, normal range of motion, no evidence of injury Ankle Exam: bilateral ankle: non-tender, normal inspection, normal range of motion, no evidence of injury Foot Exam: bilateral foot: non-tender, normal inspection, normal range of motion, no evidence of injury - Course Nursing assessment & vital signs reviewed: Yes Ordered Tests: Medication Summary Discontinued Medications Generic Name Dose Route Start Last Admin Trade Name Freq PRN Reason Stop Dose Admin Ceftriaxone Sodium 1,000 mg 01/21/23 14:31 Ceftriaxone Sodium 1000 Mg Inj Vial IM 01/21/23 14:32 STAT ONE Diphtheria/Tetanus/Acell Pertussis 0.5 ml 01/21/23 14:31 Tdap --Diph,Pertuss(Acell),Tet Vac/Pf 0.5 Ml Vial IM 01/21/23 14:32 .ONCE ONE Trimethoprim/Sulfamethoxazole 1 tab 01/21/23 14:32 Smz/Tmp Ds Tablet 1 Tablet PO 01/21/23 14:33 STAT ONE - Progress Progress: unchanged Progress Note: 01/21/23 14:37 This patient's medical issue is 1 of low complexity. The level of complexity and the work-up performed was based on review of the patient's past medical history, medication list, drug allergy list, history of present illness and findings on physical examination. No labs or radiographic studies are necessary. Examinations of cellulitis left lower leg without proximal streaking. Patient is afebrile. There is no abscess or drainage from the dog scratch site. Patient desires a tetanus shot we will provide her with this as well as a Rocephin injection. Patient has had Rocephin and Keflex in the past without any issues. For home, we will have the patient clean the site daily with soap and water. She is to cover the wound site with a nonstick bandage. She is to take the Bactrim DS medication as prescribed. She is not to use any lotions ointments or creams to the site Counseled pt/family regarding: diagnosis, need for follow-up Medical Desision Making - Discussion of managment Agreed on:: Treatment plan, need for follow-up - Diagnostic Testing Diagnostic test were ordered, analyzed, and reviewed by me: No - Risk of complications The pt has a mod risk of morbidity or mortality based on: Need for prescription drug management - Departure Departure Disposition: Home Clinical Impression: Cellulitis of left leg Condition: Stable Critical Care Time: No Referrals: GODWIN NELSON [Primary Care Provider] - Follow up/PCP as directed Additional Instructions: Keep the left leg dog scratch site clean daily with soap and water. Blot dry use a hairdryer. Do not apply any lotions ointments or creams to the site. Take your antibiotics as prescribed. After each washing, cover the site with a nonstick bandage. Follow-up with your primary care provider for further evaluation management. Prescriptions: Smz/Tmp Ds Tablet [Bactrim Ds Tablet] 1 udtab PO BID #14 tablet
[2023-01-21] MEDS ORDERED: Adacel Vial IM ONE ×2 (14:31→14:56)
[2023-01-21] MEDS ORDERED: Rocephin 1000 MG INJ IM ONE (14:31)
[2023-01-21] MEDS ORDERED: BACTRIM DS TABLET PO ONE ×2 (14:32→14:59)
[2023-01-21] MEDS ORDERED: Rocephin 1000 MG INJ ONE (14:55)
[2023-01-21] MEDS ORDERED: XYLOCAINE 1% HCL 20 ML MDV ONE (14:55)
[2023-01-21] MEDS ORDERED: BACIGUENT PACKET ONE (14:56)
[2023-01-21 15:31] VITALS: BP 110/69; PULSE 68; O2SAT 98
== END 2023-01-21 15:29 | disposition home or self-care (01) ==
LOC: ED 13:37
DX: L03.116 Cellulitis of left lower limb (principal); E11.42 Type 2 diabetes mellitus with diabetic polyneuropathy; Z79.85 Long-term (current) use of injectable non-insulin antidiabetic drugs; Z79.899 Other long term (current) drug therapy
CPT/HCPCS: 90471; 90715; 96372; 99283; J0696; A9270-GY

== ENCOUNTER 2023-05-28 11:43 | Emergency (ER) | payer OTHER ==
--- NOTE | 2023-05-28 11:52 | ERPHSYRPT ---
- History of Present Illness Time Seen by Provider: 05/28/23 11:51 Source: patient Exam Limitations: no limitations Physician History: This is a morbidly obese 53-year-old white female who is here because she stated that she fell several days ago. She thinks 05/16/2023. Since that time she has had pain in both hips and both knees when she goes to get up. She also states that 3 to 4 weeks ago she fell and hit her head. Patient does see a formulation scientist, and pain specialist, Dr. Covarrubias. Patient is diabetic, she has a seizure disorder on Keppra, peripheral neuropathy, migraine headaches, asthma, bipolar disorder and depression. Patient seems a bit confused. She appears somewhat intoxicated with medication. Approximately 1 to 2 weeks ago, per her recollection, she was at [facility] and found to have a potassium level of 3.0. Patient denies chest pain. She denies shortness of breath. She has no abdominal pain. She is primarily here because of pain in her hips and bilateral knees Occurred: days ago Reason for Fall: unknown Injuries/Pain Location: head (Several weeks ago), lower extremity (Several days ago with pain in bilateral hips and bilateral knees) Loss of Consciousness: unsure Quality: aching Severity of Pain-Max: mild Severity of Pain-Current: mild Associated Symptoms (Fall): other (Patient states that when she goes to get up from sitting down or lying down position she has pain in both her hips and both anterior knees) Allergies/Adverse Reactions: aspirin Allergy (Verified 05/28/23 11:48) latex Allergy (Verified 05/28/23 11:48) NSAIDS (Non-Steroidal Anti-Inflamma Allergy (Verified 05/28/23 11:48) Penicillins Allergy (Verified 05/28/23 11:48) metformin Adverse Reaction (Verified 05/28/23 11:48) Nausea Home Medications: Levetiracetam [Keppra] 1,000 mg PO TID 11/15/16 [History] Acetaminophen [Tylenol Extra Strength] 500 mg PO .PRN 10/11/17 [History] Albuterol 2.5 mg/3 ml Neb [Proventil 2.5 mg/3 ml Neb] 2.5 mg IH .PRN 10/11/17 [History] Albuterol 8 gm Mdi Hfa [Ventolin Hfa MDI] 2 puff IH QID 10/11/17 [History] Montelukast Sodium 10 mg [Singulair 10 MG] 10 mg PO DAILY 10/11/17 [History] Oxybutynin Chloride [Oxybutynin Chloride ER] 5 mg PO DAILY 10/11/17 [History] Sucralfate 1 gm [Carafate 1 GM] 1 gm PO BID 10/11/17 [History] Meloxicam [Mobic] 15 mg PO DAILY 12/10/17 [History] Omeprazole 20 MG [Prilosec 20 mg] 20 mg PO BID 12/10/17 [History] Atorvastatin Calcium 20 mg PO DAILY 01/25/19 [History] Buspirone HCl [Buspar] 15 mg PO BID 01/25/19 [History] Cyanocobalamin (Vitamin B-12) [Vitamin B-12] 1,000 mcg PO DAILY 01/25/19 [Histor y] Ergocalciferol (Vitamin D2) [Vitamin D2] 1 cap PO DAILY 01/25/19 [History] Eszopiclone [Lunesta] 3 mg PO HS 01/25/19 [History] Ferrous Sulfate 325 mg [Feosol 325 mg] 325 mg PO DAILY 01/25/19 [History] Folic Acid 1 mg PO DAILY 01/25/19 [History] Gabapentin 800 mg PO TID 01/25/19 [History] Liraglutide [Victoza 2-Sinan] 18 mg SQ DAILY 01/25/19 [History] Mometasone/Formoterol [Dulera 100 Mcg-5 Mcg Inhaler] 2 puff IH BID 01/25/19 [History] Quetiapine Fumarate 300 mg PO HS 01/25/19 [History] Ranolazine 500 MG [Ranexa 500 MG] 500 mg PO BID 01/25/19 [History] Ropinirole HCl [Requip] 1 mg PO HS 01/25/19 [History] Lacosamide [Vimpat] 150 mg PO BID 01/27/19 [History] Hx Tetanus, Diphtheria Vaccination/Date Given: No Hx Influenza Vaccination/Date Given: No Hx Pneumococcal Vaccination/Date Given: No Travel Risk - International Travel Have you traveled outside of the country in past 3 weeks: No - Coronavirus Screening Are you exhibiting any of the following symptoms?: No Close contact with a COVID-19 positive Pt in past 14-21 Days: No - Vaccine Status Have you recieved a Covid-19 vaccination: Yes 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 Does not smell of alcohol) Endocrine: No Symptoms Hematologic/Lymphatic: No Symptoms Immunological/Allergic: No Symptoms All Other Systems: Reviewed and Negative - Past Medical History Pertinent Past Medical History: Yes Neurological History: Epilepsy, Migraines, Peripheral Neuropathy, TIA ENT History: No Pertinent History Cardiac History: Other Respiratory History: Asthma Endocrine Medical History: Diabetes Type II, Other Musculoskeletal History: Osteoarthritis GI Medical History: Other History: Other Psycho-Social History: Bipolar, Depression Female Reproductive Disorders: Menstrual Problems Other Medical History: KIDNEY STONES, NODULES ON HER THYROID, HAS A HEART CONDITION. - Past Surgical History Past Surgical History: Yes Neuro Surgical History: No Pertinent History Cardiac: No Pertinent History Respiratory: No Pertinent History Gastrointestinal: Cholecystectomy, Other Genitourinary: Kidney Surgery Musculoskeletal: Other Female Surgical History: Section, Other Other Surgical History: ulcer, kidney, , bariatric, gallbladder, pain procedure to bilateral hips with cortisone , ablasion , July 2021 gtube placed for bowel rupture - Social History Smoking Status: Former smoker How long have you smoked: 30 yrs Exposure to second hand smoke: Yes Drug Use: none Patient Lives Alone: No - Nursing Vital Signs Nursing Vital Signs: Initial Vital Signs Temperature 97.4 F 05/28/23 11:48 Pulse Rate 68 05/28/23 11:48 Respiratory Rate 18 05/28/23 11:48 Blood Pressure 111/75 05/28/23 11:48 O2 Sat by Pulse Oximetry 93 L 05/28/23 11:48 Pain Scale Pain Intensity 10 - [place] Coma Score Best Eye Response ([place]): (4) open spontaneously Best Verbal Response ([place]): (4) confused conversation Best Motor Response ([place]): (6) obeys commands Valentino Total: 14 - Physical Exam General Appearance: no apparent distress, obese, other (Seems intoxicated) Head Injury: no evidence of injury Eye Exam: other (Bilateral pupils are reactive but seem mildly dilated. They are equal) ENT Exam: other (Dry mouth) Neck Exam: supple, trachea midline, full range of motion, normal inspection Respiratory/Chest Exam: normal breath sounds, No chest tenderness, No respiratory distress, No ecchymosis, No crepitus Cardiovascular Exam: normal heart sounds, regular rate/rhythm, murmur Gastrointestinal Exam: soft, normal bowel sounds, No tenderness Rectal Exam: not done Back Exam: normal inspection, normal range of motion, No CVA tenderness, No vertebral tenderness Extremity Exam: normal inspection, normal range of motion Neurologic Exam: cooperative, intoxicated appearance Skin Exam: normal color, warm, dry SpO2 Interpretation: borderline oxygenation O2 Delivery: Room Air - Course Nursing assessment & vital signs reviewed: Yes Ordered Tests: Active Orders 24 hr Category Date Time Status HEAD WITHOUT CONTRAST [CT] Stat Exams 05/28/23 12:14 Completed HIP RHONA (4V) INCL PELV IF DONE Stat Exams 05/28/23 12:15 Completed KNEE (3 VIEWS) Stat Exams 05/28/23 12:15 Completed KNEE (3 VIEWS) Stat Exams 05/28/23 12:16 Completed BMP Stat Lab 05/28/23 13:00 Completed CBC W DIFF Stat Lab 05/28/23 13:00 Completed Lab/Rad Data: Laboratory Result Diagrams 05/28/23 13:00 05/28/23 13:00 Laboratory Results 05/28/23 05/28/23 Range/Units 13:00 13:00 WBC 7.1 (4.0-10.5) x10^3/uL RBC 4.48 (4.1-5.4) x10^6/uL Hgb 12.8 (12.0-16.0) g/dL Hct 41.4 (35-47) % MCV 92.4 (78-100) fL MCH 28.6 (26-32) pg MCHC 30.9 L (32-36) g/dL RDW 14.3 H (11.5-14.0) % Plt Count 290 (150-450) x10^3/uL MPV 8.8 (7.5-11.0) fL Gran % 59.8 (36.0-66.0) % Immature Gran % (Auto) 0.6 H (0.00-0.4) % Nucleat RBC Rel Count 0.0 (0.00-0.1) % Eos # (Auto) 0.14 (0-0.5) x10^3/uL Immature Gran # (Auto) 0.04 H (0.00-0.03) x10^3u/L Absolute Lymphs (auto) 1.94 (1.0-4.6) x10^3/uL Absolute Monos (auto) 0.64 (0.0-1.3) x10^3/uL Absolute Nucleated RBC 0.00 (0.00-0.01) x10^3u/L Lymphocytes % 27.5 (24.0-44.0) % Monocytes % 9.1 (0.0-12.0) % Eosinophils % 2.0 (0.00-5.0) % Basophils % 1.0 (0.0-0.4) % Absolute Granulocytes 4.22 (1.4-6.9) x10^3/uL Basophils # 0.07 (0-0.4) x10^3/uL Sodium 141 (137-145) mmol/L Potassium 3.8 (3.5-5.1) mmol/L Chloride 105 (98-107) mmol/L Carbon Dioxide 27 (22-30) mmol/L Anion Gap 13.4 (5-15) MEQ/L BUN 11 (7-17) mg/dL Creatinine 1.13 H (0.52-1.04) mg/dL Estimated GFR 53.7 ML/MIN Glucose 87 (74-106) mg/dL Calcium 8.5 (8.4-10.2) mg/dL - Progress Progress: unchanged, pain not gone completely, re-examined Progress Note: 05/28/23 12:28 This patient's medical issue is 1 of low to moderate complexity. The level complexity and the work-up performed is based on review of the patient's past medical history, review of the [facility] emergency room records, review of the patient's medication list, review of the patient's drug allergy list, history of present illness and physical findings on examination. Patient seems somewhat intoxicated. She was told that she will not receive any narcotic medication. She does see a pain specialist and I recommended that she follow-up with her pain specialist for her outpatient pain control. I think it is important to CAT scan her head because she does seem somewhat intoxicated. We will also x-ray her bilateral hips as well as bilateral knees. She has a history, per her report, of a low potassium of 3.0. I think it is important to have the CBC and a BMP drawn. I will follow-up on the work-up results. 05/28/23 13:21 CT scan of the head without contrast was compared to a CT scan of the head without contrast performed on January 2019. There is a new but remote lacunar infarct left basal ganglia. This is not an acute finding but a new finding of an old infarct when compared to the prior CT scan of the head from January 2019. Bilateral hip x-rays shows mild lower lumbar degenerative changes without fracture or dislocation of the hips. Right knee x-ray shows no fracture or dislocation but a nonspecific small effusion. Left knee x-ray shows no acute fracture or dislocation but a nonspecific small effusion. This patient is not anemic and her potassium is in the normal range, it is 3.8. Counseled pt/family regarding: lab results, diagnosis, rad results Medical Desision Making - Diagnostic Testing Diagnostic test were ordered, analyzed, and reviewed by me: Yes Radiological Interpretation: Reviewed by me, Teleradiologist Report - Risk of complications Low Risk: Low risk of morbidity from additional dx testing or treatment - Departure Departure Disposition: Home Clinical Impression: Fall with no significant injury, Bilateral knee pain, Bilateral hip pain Condition: Stable Critical Care Time: No Referrals: GODWIN NELSON [Primary Care Provider] - Follow up/PCP as directed Additional Instructions: Take all your medications as prescribed. Follow-up with your prescribing provider on an outpatient basis for pain control.
[2023-05-28 12:02] VITALS: TEMP 97.4
--- NOTE | 2023-05-28 12:35 | XRAY ---
Indication: Slurred speech. Status post fall. Multiple contiguous axial images obtained through the head without contrast. Comparison: January 25, 2019 Ventriculosulcal pattern appears symmetric. New remote lacunar infarct left basal ganglia. No acute intracranial hemorrhage, abnormal extra-axial fluid collection, or mass effect. Fourth ventricle is midline without hydrocephalus. Jama-white matter differentiation preserved. Bony calvarium intact.. Visualized paranasal sinuses and mastoid air cells are clear. Impression: New remote lacunar infarct left basal ganglia. Remaining CT head without contrast exam is negative.
--- NOTE | 2023-05-28 12:53 | XRAY ---
Indication: Pain following fall. Comparison: None AP pelvis and 2 view left/right hip demonstrates osteopenia, mild lower lumbar degenerative changes, small bilateral greater trochanter heterotopic ossifications, mild scattered vascular calcifications, and left midabdomen suture material. No other bony, articular, or soft tissue abnormalities.
--- NOTE | 2023-05-28 12:53 | XRAY ---
Indication: Pain following fall. Comparison: None 3 view left knee demonstrates osteopenia, minimal/mild tricompartmental degenerative changes greatest medial compartment, small nonspecific effusion, tiny fabella, and minimal vascular calcifications. No other bony, articular, or soft tissue abnormalities.
--- NOTE | 2023-05-28 12:55 | XRAY ---
Indication: Pain following fall. Comparison: None 3 view right knee demonstrates osteopenia, minimal/mild tricompartmental degenerative changes greatest medial compartment, small nonspecific effusion, tiny fabella, and minimal vascular calcifications. No other bony, articular, or soft tissue abnormalities.
[2023-05-28 13:04] LABS: Absolute Neutrophil Ct (ANC) 4.22 x10^3/uL (1.4-6.9); Basophil (Absolute #) 0.07 x10^3/uL (0-0.4); Eosinophil (Absolute #) 0.14 x10^3/uL (0-0.5); Hematocrit 41.4 % (35-47); Hemoglobin 12.8 g/dL (12.0-16.0); IMMATURE GRAN # 0.04 x10^3u/L (0.00-0.03); IMMATURE GRAN % 0.6 % (0.00-0.4); Lymphocyte (Absolute #) 1.94 x10^3/uL (1.0-4.6); Lymphocytes % 27.5 % (24.0-44.0); Mean Cell Volume 92.4 fL (78-100); Mean Corpuscular Hemoglobin 28.6 pg (26-32); Mean Corpuscular Hgb Concent. 30.9 g/dL (32-36); Mean Platelet Volume 8.8 fL (7.5-11.0); Monocyte (Absolute #) 0.64 x10^3/uL (0.0-1.3); Monocytes % 9.1 % (0.0-12.0); Neutrophil % 59.8 % (36.0-66.0); Platelet Count 290 x10^3/uL (150-450); Red Blood Count 4.48 x10^6/uL (4.1-5.4); Red Cell Distribution Width 14.3 % (11.5-14.0); White Blood Count 7.1 x10^3/uL (4.0-10.5)
[2023-05-28 13:16] VITALS: BP 114/77; O2SAT 96
[2023-05-28 13:17] LABS: ANION GAP 13.4 MEQ/L (5-15); Calcium 8.5 mg/dL (8.4-10.2); Creatinine 1 1.13 mg/dL (0.52-1.04); EST GLOMERULAR FILTRATION RATE 53.7 ML/MIN; Potassium 3.8 mmol/L (3.5-5.1)
[2023-05-28 13:28] VITALS: PULSE 60; RESP 16
== END 2023-05-28 13:38 | disposition home or self-care (01) ==
LOC: ED 11:43
DX: M25.551 Pain in right hip (principal); M25.552 Pain in left hip; M25.561 Pain in right knee; M25.562 Pain in left knee; W19.XXXA Unspecified fall, initial encounter; E11.42 Type 2 diabetes mellitus with diabetic polyneuropathy; Z79.85 Long-term (current) use of injectable non-insulin antidiabetic drugs; Z79.899 Other long term (current) drug therapy
CPT/HCPCS: 36415; 70450; 73522; 73562; 80048; 85025; 99283

== ENCOUNTER 2023-08-14 16:16 | Observation (INO) | payer OTHER ==
--- NOTE | 2023-08-14 16:46 | ERPHSYRPT ---
- History of Present Illness Time Seen by Provider: 08/14/23 16:42 Source: patient Exam Limitations: no limitations Patient Subjective Stated Complaint: C/O increasing weakness for the past 1.5 to 2 weeks. Patient indicates that her friends and family think she has had a s troke. Patient states that she thinks she is weaker on the right side of her body. Triage Nursing Assessment: Patient arrived in a W/C. She transferred from W/C to bed with a cane and stand-by assist; able to bear wear to BLE. She is alert and oriented but her speech is muffled and slurred; at bedside and states that this is not her normal speech and that this also started over a week ago. Physician History: Patient is a 53-year-old female history of diabetes TIA and legal blindness presents to our ED for evaluation of strokelike symptoms that started 2 weeks ago. Patient states her speech is slurred and her right upper lower extremity feel more weak versus the left. Patient has not seen her primary care doctor for the symptoms. Patient is here because her family members convinced her to come get checked out for stroke. Family members are concerned that patient may have had a stroke. Patient denies pain. No nausea or vomiting. No diarrhea. No rash. Symptoms are mild to moderate in intensity. No specific worsening im proving factors. Patient voices no other complaints or concerns at this time. Portions of this note were created with voice recognition technology. There may be grammatical, spelling, punctuation or sound alike errors Timing/Duration: week(s) (2 weeks) Severity: moderate Modifying Factors: Improves With: nothing Associated Symptoms: denies symptoms Allergies/Adverse Reactions: aspirin Allergy (Verified 08/14/23 16:19) latex Allergy (Verified 08/14/23 16:19) NSAIDS (Non-Steroidal Anti-Inflamma Allergy (Verified 08/14/23 16:19) Penicillins Allergy (Verified 08/14/23 16:19) metformin Adverse Reaction (Verified 08/14/23 16:19) Nausea Home Medications: Acetaminophen [Tylenol Extra Strength] 500 mg PO .PRN 10/11/17 [History] Albuterol 2.5 mg/3 ml Neb [Proventil 2.5 mg/3 ml Neb] 2.5 mg IH .PRN 10/11/17 [History] Oxybutynin Chloride [Oxybutynin Chloride ER] 5 mg PO DAILY 10/11/17 [History] Atorvastatin Calcium 20 mg PO HS 01/25/19 [History] Mometasone/Formoterol [Dulera 100 Mcg-5 Mcg Inhaler] 2 puff IH BID 01/25/19 [History] Ranolazine 500 MG [Ranexa 500 MG] 500 mg PO BID 01/25/19 [History] Ropinirole HCl [Requip] 1 mg PO BID 01/25/19 [History] Amitriptyline HCl 1 tab PO HS 08/14/23 [History] Cariprazine HCl [Vraylar] 1 cap PO DAILY 08/14/23 [History] Duloxetine HCl 1 cap PO DAILY 08/14/23 [History] Metoprolol Succinate 25 mg Xl* [Toprol-Xl 25MG Tablets] 12.5 mg PO DAILY 08/14/23 [History] PANTOPRAZOLE 40 mg Tablet [Protonix 40MG Tablet] 1 tab PO BID 08/14/23 [History] Pregabalin 1 cap PO TID 08/14/23 [History] Topiramate 100 mg [Topamax 100 MG] 1 tab PO BID 08/14/23 [History] clonazePAM [Clonazepam] 1 tab PO BID 08/14/23 [History] Hx Tetanus, Diphtheria Vaccination/Date Given: Yes Hx Influenza Vaccination/Date Given: No Hx Pneumococcal Vaccination/Date Given: No Immunizations Up to Date: Yes Travel Risk - International Travel Have you traveled outside of the country in past 3 weeks: No - Coronavirus Screening Are you exhibiting any of the following symptoms?: No Close contact with a COVID-19 positive Pt in past 14-21 Days: No - Vaccine Status Have you recieved a Covid-19 vaccination: Yes [employer] - Vaccination Dates Date of 2cond Vaccination (if applicable): February 2021 - Review of Systems Constitutional: No Symptoms, No Fever, No Chills Eyes: No Symptoms Ears, Nose, & Throat: No Symptoms Respiratory: No Symptoms, No Cough, No Dyspnea Cardiac: No Symptoms, No Chest Pain, No Edema, No Syncope Abdominal/Gastrointestinal: No Symptoms, No Abdominal Pain, No Nausea, No Vomiting, No Diarrhea Genitourinary Symptoms: No Symptoms, No Dysuria Musculoskeletal: No Symptoms, No Back Pain, No Neck Pain Skin: No Symptoms, No Rash Neurological: No Symptoms, No Dizziness, No Focal Weakness, No Sensory Changes Psychological: No Symptoms Endocrine: No Symptoms Hematologic/Lymphatic: No Symptoms Immunological/Allergic: No Symptoms All Other Systems: Reviewed and Negative - Past Medical History Pertinent Past Medical History: Yes Neurological History: Epilepsy, Migraines, Peripheral Neuropathy, TIA ENT History: Other Cardiac History: Other Respiratory History: Asthma Endocrine Medical History: Diabetes Type II, Other Musculoskeletal History: Osteoarthritis GI Medical History: Gallbladder Disease, Other History: Other Psycho-Social History: Bipolar, Depression Female Reproductive Disorders: Menstrual Problems Other Medical History: KIDNEY STONES, NODULES ON HER THYROID, HAS A HEART CONDITION, 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 - Past Surgical History Past Surgical History: Yes Neuro Surgical History: No Pertinent History Cardiac: No Pertinent History Respiratory: No Pertinent History Gastrointestinal: Cholecystectomy, Other Genitourinary: Kidney Surgery Musculoskeletal: Other Female Surgical History: Section, Other Other Surgical History: ulcer, bariatric, pain procedure to bilateral hips with cortisone, ablasion, July 2021 gtube placed for bowel rupture (no longer has this) - Social History Smoking Status: Former smoker How long have you smoked: 30 yrs Exposure to second hand smoke: Yes Drug Use: none Patient Lives Alone: No - Nursing Vital Signs Nursing Vital Signs: Initial Vital Signs Temperature 96.7 F 08/14/23 16:16 Pulse Rate 65 08/14/23 16:16 Respiratory Rate 17 08/14/23 16:16 Blood Pressure 119/75 08/14/23 16:16 O2 Sat by Pulse Oximetry 95 08/14/23 16:16 Pain Scale Pain Intensity 0 - Physical Exam General Appearance: no apparent distress, alert Eye Exam: PERRL/EOMI, eyes nml inspection Ears, Nose, Throat Exam: normal ENT inspection, TMs normal, pharynx normal, moist mucous membranes Neck Exam: normal inspection, non-tender, supple, full range of motion Respiratory Exam: normal breath sounds, lungs clear, airway intact, No respiratory distress Cardiovascular Exam: regular rate/rhythm, normal heart sounds, normal peripheral pulses Gastrointestinal/Abdomen Exam: soft, normal bowel sounds, No tenderness, No mass Back Exam: normal inspection, normal range of motion, No CVA tenderness, No vertebral tenderness Extremity Exam: normal inspection, normal range of motion, pelvis stable, other (Right upper and lower extremity appear to be weaker than left) Neurologic Exam: alert, oriented x 3, cooperative, normal mood/affect, nml cerebellar function, sensation nml, No motor deficits Skin Exam: normal color, warm, dry, No rash Lymphatic Exam: No adenopathy SpO2 Interpretation: normal SpO2: 95 O2 Delivery: Room Air - Course Nursing assessment & vital signs reviewed: Yes EKG Interpreted by Me: RATE (65), Sinus Rhythm, NORMAL AXIS, NORMAL INTERVALS - CT Exams Head CT Interpretation: Tele-radiologist Report (Plain CTA head stable remote lacunar infarct at the left basal ganglia) Other CT Interpretation: Tele-radiologist Report (CTA head scattered disease bilateral parasellar ICA, no critical stenosis) Soft Tissue Neck CT Interpretation: Tele-radiologist Report (CTA neck normal CTA neck) Ordered Tests: Active Orders 24 hr Category Date Time Status Dry Cleaner Helper STAT Care 08/14/23 16:39 Active EKG-ER Only STAT Care 08/14/23 16:38 Active IV Insertion STAT Care 08/14/23 16:38 Active Pulse Oximetry (ED) STAT Care 08/14/23 16:[address] ANGIOGRAPHY NECK [CT] Stat Exams 08/14/23 16:38 Taken CTA HEAD W AND/OR WO CONTRAST [CT] Stat Exams 08/14/23 16:38 Taken HEAD WITHOUT CONTRAST [CT] Stat Exams 08/14/23 16:45 Taken CBC W DIFF Stat Lab 08/14/23 Completed CMP Stat Lab 08/14/23 Completed CULTURE,URINE Stat Lab 08/14/23 17:07 Received MAGNESIUM Stat Lab 08/14/23 Completed TROPONIN Q4H Lab 08/14/23 Completed TROPONIN Q4H Lab 08/14/23 20:45 Ordered TROPONIN Q4H Lab 08/15/23 00:45 Ordered TSH [TSH, 3RD Generation] Stat Lab 08/14/23 Completed UA W/RFX UR CULTURE Stat Lab 08/14/23 17:07 Completed Transfer Order Routine Transfer 08/14/23 Ordered Medication Summary Generic Name Dose Route Start Last Admin Trade Name Freq PRN Reason Stop Dose Admin Sodium Chloride 1,000 mls @ 100 mls/hr 08/14/23 16:45 08/14/23 17:26 Sodium Chloride 0.9% 1000 Ml IV 09/13/23 16:44 100 mls/hr .Q10H JOSEMANUEL Administration Discontinued Medications Generic Name Dose Route Start Last Admin Trade Name Gagan PRN Reason Stop Dose Admin Levofloxacin/Dextrose 500 mg in 100 mls @ 100 mls/hr 08/14/23 18:25 08/14/23 18:28 Levofloxacin 500mg/100ml D5w IV 08/14/23 19:24 100 mls/hr STAT STA 100 mls/hr Administration Levofloxacin/Dextrose Confirm 08/14/23 18:27 Levofloxacin 500mg/100ml D5w Administered 08/14/23 18:28 Dose 500 mg in 100 mls @ ud IV .[facility] Lab/Rad Data: Laboratory Result Diagrams 08/14/23 Unknown 08/14/23 Unknown Laboratory Results 08/14/23 08/14/23 08/14/23 Range/Units Unknown Unknown Unknown WBC (4.0-10.5) x10^3/uL RBC (4.1-5.4) x10^6/uL Hgb (12.0-16.0) g/dL Hct (35-47) % MCV (78-100) fL MCH (26-32) pg MCHC (32-36) g/dL RDW (11.5-14.0) % Plt Count (150-450) x10^3/uL MPV (7.5-11.0) fL Gran % (36.0-66.0) % Immature Gran % (Auto) (0.00-0.4) % Nucleat RBC Rel Count (0.00-0.1) % Eos # (Auto) (0-0.5) x10^3/uL Immature Gran # (Auto) (0.00-0.03) x10^3u/L Absolute Lymphs (auto) (1.0-4.6) x10^3/uL Absolute Monos (auto) (0.0-1.3) x10^3/uL Absolute Nucleated RBC (0.00-0.01) x10^3u/L Lymphocytes % (24.0-44.0) % Monocytes % (0.0-12.0) % Eosinophils % (0.00-5.0) % Basophils % (0.0-0.4) % Absolute Granulocytes (1.4-6.9) x10^3/uL Basophils # (0-0.4) x10^3/uL Sodium 140 (137-145) mmol/L Potassium 3.4 L (3.5-5.1) mmol/L Chloride 106 (98-107) mmol/L Carbon Dioxide 27 (22-30) mmol/L Anion Gap 10.1 (5-15) MEQ/L BUN 14 (7-17) mg/dL Creatinine 1.06 H (0.52-1.04) mg/dL Estimated GFR 57.9 ML/MIN Glucose 88 (74-106) mg/dL Calcium 8.6 (8.4-10.2) mg/dL Magnesium 2.3 (1.6-2.3) mg/dL Total Bilirubin 0.60 (0.2-1.3) mg/dL AST 28 (14-36) U/L ALT 14 (0-35) U/L Alkaline Phosphatase 164 H (38-126) U/L Troponin I < 0.012 (0.000-0.034) ng/mL Serum Total Protein 6.9 (6.3-8.2) g/dL Albumin 4.0 (3.5-5.0) g/dL TSH 3rd Generation 1.500 (0.47-4.68) mIU/L Urine Color (Yellow) Urine Appearance (Clear) Urine pH (4.6-8.0) Ur Specific Lamont (1.005-1.030) Urine Protein (Negative) Urine Glucose (UA) (Negative) mg/dL Urine Ketones (Negative) Urine Blood (Negative) Urine Nitrite (Negative) Urine Bilirubin (Negative) Urine Urobilinogen (0.2) mg/dL Ur Leukocyte Esterase (Negative) U Hyaline Cast (Auto) (0-2) /LPF Urine Microscopic RBC (0-5) /HPF Urine Microscopic WBC (0-5) /HPF Ur Epithelial Cells (None Seen) /HPF Urine Bacteria (None Seen) /HPF Urine Culture Reflexed (NO) 08/14/23 08/14/23 Range/Units Unknown 17:07 WBC 6.8 (4.0-10.5) x10^3/uL RBC 4.25 (4.1-5.4) x10^6/uL Hgb 12.7 (12.0-16.0) g/dL Hct 40.4 (35-47) % MCV 95.1 (78-100) fL MCH 29.9 (26-32) pg MCHC 31.4 L (32-36) g/dL RDW 15.1 H (11.5-14.0) % Plt Count 292 (150-450) x10^3/uL MPV 9.5 (7.5-11.0) fL Gran % 50.7 (36.0-66.0) % Immature Gran % (Auto) 0.6 H (0.00-0.4) % Nucleat RBC Rel Count 0.0 (0.00-0.1) % Eos # (Auto) 0.10 (0-0.5) x10^3/uL Immature Gran # (Auto) 0.04 H (0.00-0.03) x10^3u/L Absolute Lymphs (auto) 2.44 (1.0-4.6) x10^3/uL Absolute Monos (auto) 0.72 (0.0-1.3) x10^3/uL Absolute Nucleated RBC 0.00 (0.00-0.01) x10^3u/L Lymphocytes % 35.7 (24.0-44.0) % Monocytes % 10.5 (0.0-12.0) % Eosinophils % 1.5 (0.00-5.0) % Basophils % 1.0 (0.0-0.4) % Absolute Granulocytes 3.46 (1.4-6.9) x10^3/uL Basophils # 0.07 (0-0.4) x10^3/uL Sodium (137-145) mmol/L Potassium (3.5-5.1) mmol/L Chloride (98-107) mmol/L Carbon Dioxide (22-30) mmol/L Anion Gap (5-15) MEQ/L BUN (7-17) mg/dL Creatinine (0.52-1.04) mg/dL Estimated GFR ML/MIN Glucose (74-106) mg/dL Calcium (8.4-10.2) mg/dL Magnesium (1.6-2.3) mg/dL Total Bilirubin (0.2-1.3) mg/dL AST (14-36) U/L ALT (0-35) U/L Alkaline Phosphatase (38-126) U/L Troponin I (0.000-0.034) ng/mL Serum Total Protein (6.3-8.2) g/dL Albumin (3.5-5.0) g/dL TSH 3rd Generation (0.47-4.68) mIU/L Urine Color Yellow (Yellow) Urine Appearance Cloudy A (Clear) Urine pH 6.0 (4.6-8.0) Ur Specific [place] 1.020 (1.005-1.030) Urine Protein Negative (Negative) Urine Glucose (UA) >=1000 A (Negative) mg/dL Urine Ketones Negative (Negative) Urine Blood NHT (Negative) Urine Nitrite Negative (Negative) Urine Bilirubin Negative (Negative) Urine Urobilinogen 1.0 A (0.2) mg/dL Ur Leukocyte Esterase Moderate A (Negative) U Hyaline Cast (Auto) NONE SEEN (0-2) /LPF Urine Microscopic RBC 0-2 (0-5) /HPF Urine Microscopic WBC >100 A (0-5) /HPF Ur Epithelial Cells None Seen (None Seen) /HPF Urine Bacteria Many A (None Seen) /HPF Urine Culture Reflexed YES (NO) - Progress Progress: improved Progress Note: Patient is a 53-year-old female history of diabetes. Patient is legally blind. presents to the emergency department for evaluation of possible stroke. Patient has had strokelike symptoms including weakness and slurred speech for 2 weeks. EKG is normal sinus rhythm. CTA head neck shows no acute pathology. Plain CT head shows an old lacunar basal ganglia infarct. Urinalysis reveals a urinary tract infection. Patient is allergic to penicillin. Patient received a dose of Levaquin. We intended to order aspirin however patient is allergic to NSAIDs. IV fluids ordered and initiated. CBC CMP otherwise essentially unremarkable. Troponin negative. TSH within normal limits. We ordered a telemetry neuro consultation. However due to the low acuity of patient's condition telemetry neuro is not immediately available. However we will admit and telemetry neuro consultation will occur on the floor. Case discussed with Dr. Bocanegra at 7:[address] Bocanegra accepts admission to observation. Plan of care discussed with patient. She agrees to admission to [facility] for further evaluation and treatment. Portions of this note were created with voice recognition technology. There may be grammatical, spelling, punctuation or sound alike errors Complexity of problems addressed is moderate acute complicated No critical care time Complexity of problems addressed is extensive. Test ordered test reviewed. Results analyzed and correlated clinically with history and physical examination. Management discussed with hospitalist Dr. Chaves who accepts admission to observation. Risk of complication and a risk morbidity/mortality of patient management is high. Patient requires hospitalization for further evaluation and treatment. Vital stable. Time spent to admit patient is approximately 20 minutes. Plan of care established for shared decision making. Portions of this note were created with voice recognition technology. There may be grammatical, spelling, punctuation or sound alike error. 08/14/23 20:27 Discussed with : Bhakti Will see patient in: hospital (observation) Counseled pt/family regarding: lab results, diagnosis, rad results - Departure Departure Disposition: Observation Clinical Impression: UTI (urinary tract infection), Slurred speech, Stroke Condition: Stable Critical Care Time: No Referrals: GODWIN NELSON [Primary Care Provider] - Follow up/PCP as directed
[2023-08-14 17:00] LABS: Absolute Neutrophil Ct (ANC) 3.46 x10^3/uL (1.4-6.9); Basophil (Absolute #) 0.07 x10^3/uL (0-0.4); Eosinophil % 1.5 % (0.00-5.0); Hematocrit 40.4 % (35-47); Hemoglobin 12.7 g/dL (12.0-16.0); IMMATURE GRAN # 0.04 x10^3u/L (0.00-0.03); IMMATURE GRAN % 0.6 % (0.00-0.4); Lymphocyte (Absolute #) 2.44 x10^3/uL (1.0-4.6); Lymphocytes % 35.7 % (24.0-44.0); Mean Cell Volume 95.1 fL (78-100); Mean Corpuscular Hemoglobin 29.9 pg (26-32); Mean Corpuscular Hgb Concent. 31.4 g/dL (32-36); Mean Platelet Volume 9.5 fL (7.5-11.0); Monocyte (Absolute #) 0.72 x10^3/uL (0.0-1.3); Monocytes % 10.5 % (0.0-12.0); Neutrophil % 50.7 % (36.0-66.0); Platelet Count 292 x10^3/uL (150-450); Red Blood Count 4.25 x10^6/uL (4.1-5.4); Red Cell Distribution Width 15.1 % (11.5-14.0); White Blood Count 6.8 x10^3/uL (4.0-10.5)
[2023-08-14 17:20] LABS: ANION GAP 10.1 MEQ/L (5-15); BILIRUBIN,TOTAL 0.6 mg/dL (0.2-1.3); Calcium 8.6 mg/dL (8.4-10.2); Creatinine 1 1.06 mg/dL (0.52-1.04); EST GLOMERULAR FILTRATION RATE 57.9 ML/MIN; MAGNESIUM 2.3 mg/dL (1.6-2.3); Potassium 3.4 mmol/L (3.5-5.1); Total Protein 6.9 g/dL (6.3-8.2)
[2023-08-14 17:23] LABS: Appearance Cloudy (Clear); Bacteria Many /HPF (None Seen); Bilirubin Negative (Negative); Blood NHT (Negative); Epithelial Cells None Seen /HPF (None Seen); Glucose, Urine >=1000 mg/dL (Negative); Hyaline Casts NONE SEEN /LPF (0-2); Ketones Negative (Negative); Leukocyte Esterase Moderate (Negative); Nitrite Negative (Negative); Protein,Urine Dip Negative (Negative); RBC 0-2 /HPF (0-5); WBC >100 /HPF (0-5)
[2023-08-14] MEDS: Sodium Chloride 0.9% 1000 ML 1,000 ML IV SCH (17:26)
[2023-08-14 17:38] LABS: ADD URINE CULTURE? YES (NO)
[2023-08-14] MEDS ORDERED: Levofloxacin 500MG/100ML D5W 500 MG/100 ML BAG IV STA (18:25)
[2023-08-14] MEDS ORDERED: Levofloxacin 500MG/100ML D5W 500 MG/100 ML BAG IV ONE (18:27)
[2023-08-14] MEDS ORDERED: HUMALOG SQ PRN (22:02)
[2023-08-14] MEDS ORDERED: D50W 50 ml Abboject IV ONE (22:06)
[2023-08-14] MEDS ORDERED: PROVENTIL 2.5 MG/3 ML NEB IH PRN (22:34)
--- NOTE | 2023-08-14 22:42 | PCM.HP ---
History of Present Illness - Chief Complaint Chief Complaint: Slurred speech, weakness Date: 08/14/23 History of Present Illness: is a 53 year old female with h/o seizures, DM2, and congenital blindness, who presents with prolonged course of weakness and slurred speech. Patient brought in by because of two weeks of right-sided weakness and slurred speech, with associated memory lapses. However, patient admitted that she has been having more weakness for the past two months, but didn't want to tell anyone. She notes it has been progressively worsening, and she thought it was just due to her seizure history. She denies any episodic symptoms, loss of consciousness, or loss of bowel or bladder control. She also notes that she has had decreased sensation with numbness along her right side, particularly in her feet and fingertips, worse than the left side. Her daughter noted facial droop with some drooling from her lip. Patient told nurse that was having some coughing after swallowing as well. Patient fell one week ago, leading to some right knee pain, and has been unable to get up from her cough with her cane, having to crawl to furniture to get up if she is down. She has a prescription for a rolling walker but states her never filled it. 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 She denies any dysuria, but has noted increased urgency leading to incontinence due to not reaching bathroom in time. - Review of Systems Constitutional: No Fever, No Fatigue, No Lethargy Eyes: No Eye Pain, No Vision Changes Ears, Nose, & Throat: No Hearing Changes, No Nose Congestion, No Throat Pain Respiratory: No Cough, No Short Of Breath, No Wheezing Cardiac: No Chest Pain, No Edema, No Palpitations Abdominal/Gastrointestinal: No Abdominal Pain, No Nausea, No Diarrhea Genitourinary Symptoms: Frequency, Urgency, No Dysuria Musculoskeletal: Arthralgias Skin: No No Symptoms Neurological: Focal Weakness, Gait Changes, Parasthesia, No Headache, No Seizure, No Vertigo Psychological: No Alcohol Abuse, No Drug Abuse, No Anxiety, No Depression Medications & Allergies Home Medications: Home Medication List Acetaminophen [Tylenol Extra Strength] 500 mg PO .PRN 10/11/17 [History Confirmed 08/14/23] Albuterol 2.5 mg/3 ml Neb [Proventil 2.5 mg/3 ml Neb] 2.5 mg IH .PRN 10/11/17 [History Confirmed 08/14/23] Oxybutynin Chloride [Oxybutynin Chloride ER] 5 mg PO DAILY 10/11/17 [History Confirmed 08/14/23] Atorvastatin Calcium 20 mg PO HS 01/25/19 [History Confirmed 08/14/23] Mometasone/Formoterol [Dulera 100 Mcg-5 Mcg Inhaler] 2 puff IH BID 01/25/19 [History Confirmed 08/14/23] Ranolazine 500 MG [Ranexa 500 MG] 500 mg PO BID 01/25/19 [History Confirmed 08/14/23] Ropinirole HCl [Requip] 1 mg PO BID 01/25/19 [History Confirmed 08/14/23] Amitriptyline HCl 1 tab PO HS 08/14/23 [History Confirmed 08/14/23] Cariprazine HCl [Vraylar] 1 cap PO DAILY 08/14/23 [History Confirmed 08/14/23] Duloxetine HCl 1 cap PO DAILY 08/14/23 [History Confirmed 08/14/23] Metoprolol Succinate 25 mg Xl* [Toprol-Xl 25MG Tablets] 12.5 mg PO DAILY 08/14/23 [History Confirmed 08/14/23] PANTOPRAZOLE 40 mg Tablet [Protonix 40MG Tablet] 1 tab PO BID 08/14/23 [History Confirmed 08/14/23] Pregabalin 1 cap PO TID 08/14/23 [History Confirmed 08/14/23] Topiramate 100 mg [Topamax 100 MG] 1 tab PO BID 08/14/23 [History Confirmed 08/14/23] clonazePAM [Clonazepam] 1 tab PO BID 08/14/23 [History Confirmed 08/14/23] Allergies/Adverse Reactions: Allergies Allergy/AdvReac Type Severity Reaction Status Date / Time aspirin Allergy Verified 08/14/23 16:19 latex Allergy Verified 08/14/23 16:19 NSAIDS (Non-Steroidal Allergy Verified 08/14/23 16:19 Anti-Inflamma Penicillins Allergy Verified 08/14/23 16:19 metformin AdvReac Nausea Verified 08/14/23 16:19 - Past Medical History Past Medical History: Yes Neurological History: Epilepsy, Migraines, Peripheral Neuropathy, Seizures, Stroke, TIA ENT History: Other Cardiac History: Arrhythmia, Coronary Artery Disease, Other Respiratory History: Asthma, Pneumonia, Sleep Apnea Endocrine Medical History: Diabetes Type II, Other Musculoskelatal History: Bone Cancer, Degenerative Disk Disease, Osteoarthritis GI Medical History: Gallbladder Disease, Irritable Bowel, Ulcer, Other History: Other Pyscho-Social History: Anxiety, Bipolar, Depression, Panic Disorder Reproductive Disorders: Menstrual Problems Comment: KIDNEY STONES, NODULES ON HER THYROID, HAS A HEART CONDITION, 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 - Female History Are you now?: No - Past Surgical History Past Surgical History: Yes Neuro Surgical History: No Pertinent History Cardiac History: Cardiac Catheterization Respiratory Surgery: No Pertinent History GI Surgical History: Bowel Surgery, Other Genitourinary Surgical Hx: Kidney Surgery Musculskeletal Surgical Hx: Other Female Surgical History: Section, Other Other Surgical History: ulcer, bariatric, pain procedure to bilateral hips with cortisone, ablasion, July 2021 gtube placed for bowel rupture (no longer has this) - Social History Smoking Status: Never smoker How long have you smoked: 30 yrs Exposure to second hand smoke: Yes Alcohol: None Drug Use: none Significant Family History: other (vision loss) - Physical Exam Vital Signs: Vital Signs - 24 hr Temp Pulse Resp BP BP Pulse Ox 08/14/23 20:40 97.3 F 65 18 146/79 98 08/14/23 20:32 95 08/14/23 20:00 65 13 110/78 89 L 08/14/23 19:45 66 12 119/88 90 L 08/14/23 19:31 65 16 119/88 98 08/14/23 19:00 65 21 103/71 08/14/23 18:30 65 14 112/77 92 L 08/14/23 18:06 66 13 121/83 94 L 08/14/23 17:06 128/89 08/14/23 17:05 72 21 98 08/14/23 16:38 96 08/14/23 16:30 113/79 08/14/23 16:16 96.7 F 65 17 119/75 95 General Appearance: no apparent distress Neurologic Exam: alert, oriented x 3, normal mood/affect, motor deficits (left- sided mild facial droop. Right leg raise 4/5, Left leg raise intact, BUE arm raise without drift.), sensory deficit (decreased sensation to light touch along distal RLE, RUE), dysarthria Eye Exam: PERRL/EOMI Respiratory Exam: normal breath sounds, No respiratory distress Cardiovascular Exam: regular rate/rhythm, normal heart sounds, No edema Gastrointestinal/Abdomen Exam: normal bowel sounds, No distention Results - Labs Lab/Micro Results: Lab Results-Last 24 Hours 08/14/23 08/14/23 08/14/23 Range/Units 17:07 21:00 22:00 WBC (4.0-10.5) x10^3/uL RBC (4.1-5.4) x10^6/uL Hgb (12.0-16.0) g/dL Hct (35-47) % MCV (78-100) fL MCH (26-32) pg MCHC (32-36) g/dL RDW (11.5-14.0) % Plt Count (150-450) x10^3/uL MPV (7.5-11.0) fL Gran % (36.0-66.0) % Immature Gran % (Auto) (0.00-0.4) % Nucleat RBC Rel Count (0.00-0.1) % Eos # (Auto) (0-0.5) x10^3/uL Immature Gran # (Auto) (0.00-0.03) x10^3u/L Absolute Lymphs (auto) (1.0-4.6) x10^3/uL Absolute Monos (auto) (0.0-1.3) x10^3/uL Absolute Nucleated RBC (0.00-0.01) x10^3u/L Lymphocytes % (24.0-44.0) % Monocytes % (0.0-12.0) % Eosinophils % (0.00-5.0) % Basophils % (0.0-0.4) % Absolute Granulocytes (1.4-6.9) x10^3/uL Basophils # (0-0.4) x10^3/uL Sodium (137-145) mmol/L Potassium (3.5-5.1) mmol/L Chloride (98-107) mmol/L Carbon Dioxide (22-30) mmol/L Anion Gap (5-15) MEQ/L BUN (7-17) mg/dL Creatinine (0.52-1.04) mg/dL Estimated GFR ML/MIN Glucose (74-106) mg/dL POC Glucometer 62 L (74 to 106) mg/dL Calcium (8.4-10.2) mg/dL Magnesium (1.6-2.3) mg/dL Total Bilirubin (0.2-1.3) mg/dL AST (14-36) U/L ALT (0-35) U/L Alkaline Phosphatase (38-126) U/L Troponin I < 0.012 (0.000-0.034) ng/mL Serum Total Protein (6.3-8.2) g/dL Albumin (3.5-5.0) g/dL TSH 3rd Generation (0.47-4.68) mIU/L Urine Color Yellow (Yellow) Urine Appearance Cloudy A (Clear) Urine pH 6.0 (4.6-8.0) Ur Specific Reynolds 1.020 (1.005-1.030) Urine Protein Negative (Negative) Urine Glucose (UA) >=1000 A (Negative) mg/dL Urine Ketones Negative (Negative) Urine Blood NHT (Negative) Urine Nitrite Negative (Negative) Urine Bilirubin Negative (Negative) Urine Urobilinogen 1.0 A (0.2) mg/dL Ur Leukocyte Esterase Moderate A (Negative) U Hyaline Cast (Auto) NONE SEEN (0-2) /LPF Urine Microscopic RBC 0-2 (0-5) /HPF Urine Microscopic WBC >100 A (0-5) /HPF Ur Epithelial Cells None Seen (None Seen) /HPF Urine Bacteria Many A (None Seen) /HPF Urine Culture Reflexed YES (NO) 08/14/23 08/14/23 08/14/23 Range/Units Unknown Unknown Unknown WBC 6.8 (4.0-10.5) x10^3/uL RBC 4.25 (4.1-5.4) x10^6/uL Hgb 12.7 (12.0-16.0) g/dL Hct 40.4 (35-47) % MCV 95.1 (78-100) fL MCH 29.9 (26-32) pg MCHC 31.4 L (32-36) g/dL RDW 15.1 H (11.5-14.0) % Plt Count 292 (150-450) x10^3/uL MPV 9.5 (7.5-11.0) fL Gran % 50.7 (36.0-66.0) % Immature Gran % (Auto) 0.6 H (0.00-0.4) % Nucleat RBC Rel Count 0.0 (0.00-0.1) % Eos # (Auto) 0.10 (0-0.5) x10^3/uL Immature Gran # (Auto) 0.04 H (0.00-0.03) x10^3u/L Absolute Lymphs (auto) 2.44 (1.0-4.6) x10^3/uL Absolute Monos (auto) 0.72 (0.0-1.3) x10^3/uL Absolute Nucleated RBC 0.00 (0.00-0.01) x10^3u/L Lymphocytes % 35.7 (24.0-44.0) % Monocytes % 10.5 (0.0-12.0) % Eosinophils % 1.5 (0.00-5.0) % Basophils % 1.0 (0.0-0.4) % Absolute Granulocytes 3.46 (1.4-6.9) x10^3/uL Basophils # 0.07 (0-0.4) x10^3/uL Sodium 140 (137-145) mmol/L Potassium 3.4 L (3.5-5.1) mmol/L Chloride 106 (98-107) mmol/L Carbon Dioxide 27 (22-30) mmol/L Anion Gap 10.1 (5-15) MEQ/L BUN 14 (7-17) mg/dL Creatinine 1.06 H (0.52-1.04) mg/dL Estimated GFR 57.9 ML/MIN Glucose 88 (74-106) mg/dL POC Glucometer (74 to 106) mg/dL Calcium 8.6 (8.4-10.2) mg/dL Magnesium 2.3 (1.6-2.3) mg/dL Total Bilirubin 0.60 (0.2-1.3) mg/dL AST 28 (14-36) U/L ALT 14 (0-35) U/L Alkaline Phosphatase 164 H (38-126) U/L Troponin I < 0.012 (0.000-0.034) ng/mL Serum Total Protein 6.9 (6.3-8.2) g/dL Albumin 4.0 (3.5-5.0) g/dL TSH 3rd Generation (0.47-4.68) mIU/L Urine Color (Yellow) Urine Appearance (Clear) Urine pH (4.6-8.0) Ur Specific Reynolds (1.005-1.030) Urine Protein (Negative) Urine Glucose (UA) (Negative) mg/dL Urine Ketones (Negative) Urine Blood (Negative) Urine Nitrite (Negative) Urine Bilirubin (Negative) Urine Urobilinogen (0.2) mg/dL Ur Leukocyte Esterase (Negative) U Hyaline Cast (Auto) (0-2) /LPF Urine Microscopic RBC (0-5) /HPF Urine Microscopic WBC (0-5) /HPF Ur Epithelial Cells (None Seen) /HPF Urine Bacteria (None Seen) /HPF Urine Culture Reflexed (NO) 08/14/23 Range/Units Unknown WBC (4.0-10.5) x10^3/uL RBC (4.1-5.4) x10^6/uL Hgb (12.0-16.0) g/dL Hct (35-47) % MCV (78-100) fL MCH (26-32) pg MCHC (32-36) g/dL RDW (11.5-14.0) % Plt Count (150-450) x10^3/uL MPV (7.5-11.0) fL Gran % (36.0-66.0) % Immature Gran % (Auto) (0.00-0.4) % Nucleat RBC Rel Count (0.00-0.1) % Eos # (Auto) (0-0.5) x10^3/uL Immature Gran # (Auto) (0.00-0.03) x10^3u/L Absolute Lymphs (auto) (1.0-4.6) x10^3/uL Absolute Monos (auto) (0.0-1.3) x10^3/uL Absolute Nucleated RBC (0.00-0.01) x10^3u/L Lymphocytes % (24.0-44.0) % Monocytes % (0.0-12.0) % Eosinophils % (0.00-5.0) % Basophils % (0.0-0.4) % Absolute Granulocytes (1.4-6.9) x10^3/uL Basophils # (0-0.4) x10^3/uL Sodium (137-145) mmol/L Potassium (3.5-5.1) mmol/L Chloride (98-107) mmol/L Carbon Dioxide (22-30) mmol/L Anion Gap (5-15) MEQ/L BUN (7-17) mg/dL Creatinine (0.52-1.04) mg/dL Estimated GFR ML/MIN Glucose (74-106) mg/dL POC Glucometer (74 to 106) mg/dL Calcium (8.4-10.2) mg/dL Magnesium (1.6-2.3) mg/dL Total Bilirubin (0.2-1.3) mg/dL AST (14-36) U/L ALT (0-35) U/L Alkaline Phosphatase (38-126) U/L Troponin I (0.000-0.034) ng/mL Serum Total Protein (6.3-8.2) g/dL Albumin (3.5-5.0) g/dL TSH 3rd Generation 1.500 (0.47-4.68) mIU/L Urine Color (Yellow) Urine Appearance (Clear) Urine pH (4.6-8.0) Ur Specific Reynolds (1.005-1.030) Urine Protein (Negative) Urine Glucose (UA) (Negative) mg/dL Urine Ketones (Negative) Urine Blood (Negative) Urine Nitrite (Negative) Urine Bilirubin (Negative) Urine Urobilinogen (0.2) mg/dL Ur Leukocyte Esterase (Negative) U Hyaline Cast (Auto) (0-2) /LPF Urine Microscopic RBC (0-5) /HPF Urine Microscopic WBC (0-5) /HPF Ur Epithelial Cells (None Seen) /HPF Urine Bacteria (None Seen) /HPF Urine Culture Reflexed (NO) - Radiology Impressions Radiology Exams & Impressions: Radiology Procedures Category Date Time Status CT ANGIOGRAPHY NECK [CT] Stat Exams 08/14/23 16:38 Taken CTA HEAD W AND/OR WO CONTRAST [CT] Stat Exams 08/14/23 16:38 Taken ECHO W/2D AND DOPPLER [US] Routine Exams 08/14/23 22:27 Ordered HEAD WITHOUT CONTRAST [CT] Stat Exams 08/14/23 16:45 Taken MRI BRAIN W/O CONTRAST [MRI] Routine Exams 08/14/23 22:31 Ordered Assessment/Plan (1) Slurred speech Current Visit: Yes Status: Acute Assessment & Plan: 53 y/o F with h/o DM2, seizure disorder, mood disorder, and blindness, here with 2 weeks to 2 months of progressive neurologic impairments including dysarthria, paresthesias, and hemiplegia. ## Suspected stroke - timeline would at best be subacute, and location is suspect. But having motor symptoms in RUE, RLE (but left face), and decreased sensation over right leg, with overt dysarthria and suspected dysphagia. Initial CTA head/neck done, and CT head with no large vessel obstruction or large hemorrhage or stroke, per ED report (radiology reports not visible overnight in EMR.) Persistent nature of symptoms argues against epileptic cause. Tele- neurology consulted, and I discussed with Dr. Wan: - MRI in AM - check TTE - check A1c, TSH - neuro checks - monitor on telemetry - NPO pending swallow evaluation - will place on NS at 100 ml/hr - PT/OT evaluation ## Acute cystitis - no dysuria, but I suspect her urgency is related to cystitis, which could be causing some worsening of symptoms above. Given first dose of Abx in ED. - Start Bactrim DS PO BID for 5 days (end date 08/19) - f/u urine culture results ## DM2 - per patient, although no medications noted from home list. Initial Glc on lower side. - place on low-dose sliding scale with hypoglycemia coverage ## Seizure disorder - reported per patient, although current h/o is not suggestive of seizures. - continue home Tegretol, Klonopin 0.5 mg BID ## Mood disorder - diagnose not in chart, and patient not describing further. - continue home Vraylar 3 mg daily, Cymbalta 60 daily, Elavil 75 qHS Code status: Full PPx: lovenox 40 Diet: NPO pending swallow evaluation, then diabetic Code(s): R47.81 - SLURRED SPEECH Telemedicine Encounter - Telemedicine Encounter Telemedicine Encounter: The entirety of this encounter was performed via Telemedicine"
[2023-08-15] MEDS: Sodium Chloride 0.9% 1000 ML 1,000 ML IV SCH ×2 (03:45→13:39)
[2023-08-15 05:26] LABS: Hematocrit 38.9 % (35-47); Hemoglobin 11.9 g/dL (12.0-16.0); Mean Cell Volume 95.8 fL (78-100); Mean Corpuscular Hemoglobin 29.3 pg (26-32); Mean Corpuscular Hgb Concent. 30.6 g/dL (32-36); Mean Platelet Volume 9.3 fL (7.5-11.0); Platelet Count 278 x10^3/uL (150-450); Red Blood Count 4.06 x10^6/uL (4.1-5.4); White Blood Count 6.1 x10^3/uL (4.0-10.5)
[2023-08-15 05:55] LABS: ANION GAP 12.5 MEQ/L (5-15); BLOOD UREA NITROGEN 12 mg/dL (7-17); CHLORIDE 112 mmol/L (98-107); Calcium 8.2 mg/dL (8.4-10.2); Carbon Dioxide 22 mmol/L (22-30); Creatinine 1 0.98 mg/dL (0.52-1.04); EST GLOMERULAR FILTRATION RATE > 60.0 ML/MIN; Glucose 88 mg/dL (74-106); Potassium 3.6 mmol/L (3.5-5.1); SODIUM 143 mmol/L (137-145)
[2023-08-15] MEDS ORDERED: MEDICATION INTERVENTION MC SCH ×2 (07:30)
--- NOTE | 2023-08-15 08:30 | XRAY ---
Indication: Altered mental status. Weakness. Slurred speech. Multiple contiguous axial images obtained through the head without contrast. Comparison: May 28, 2023 Stable remote lacunar infarct left basal ganglia. No acute intracranial hemorrhage, abnormal extra-axial fluid collection, or mass effect. Fourth ventricle is midline without hydrocephalus. Jama-white matter differentiation preserved. Bony calvarium intact. Visualized paranasal sinuses and mastoid air cells are clear. Impression: Stable remote lacunar infarct left basal ganglia. Remaining CT head without contrast exam continues to be negative.
--- NOTE | 2023-08-15 08:34 | XRAY ---
Indication: Altered mental status. Weakness. Slurred speech. Two-dimensional contrast enhanced CTA neck performed using 80 cc Isovue 370 contrast. 2-D sagittal and coronal reformatted images obtained. Additional 3-D reformatted images obtained using a separate workstation. Comparison: None Visualized aortic arch demonstrates anatomic variant for bovine arch without critical stenosis or obstruction. Examination of the right carotid circulation demonstrates widely patent common carotid, carotid bulb, internal carotid, and external carotid arteries. Examination of the left carotid circulation demonstrates minimal eccentric calcified plaque in proximal internal carotid artery. Remaining common carotid, carotid bulb, and external carotid arteries are normal in CTA appearance. Vertebral arteries are bilaterally patent with the right slightly larger in caliber. Visualized soft tissues demonstrates a few centimeter/subcentimeter cervical and submandibular nodes bilaterally, none pathologically enlarged. Parotid and submandibular glands are bilaterally symmetric. Thyroid gland enhances homogeneously. Supra and infraglottic airway widely patent. Osseous structures intact with mild/moderate degenerative changes throughout the cervical spine. Patient is nearly edentulous. Impression: 1. Minimal calcified plaquing proximal left internal carotid artery. Remaining CTA neck is normal. 2. Incidental multilevel cervical degenerative spondylosis.
--- NOTE | 2023-08-15 08:38 | XRAY ---
Indication: Altered mental status. Weakness. Slurred speech. Two-dimensional contrast enhanced CTA head performed using 80 cc Isovue 370 contrast. 2-D sagittal and coronal reformatted images obtained. Additional 3-D reformatted images obtained using a separate workstation. Comparison: None Distal internal carotid arteries are bilaterally symmetric with minimal scattered calcifications in both parasellar internal carotid arteries. No critical stenosis, obstruction, or AV malformation. Normal carotid terminus with normal branching A1 and M1 segments bilaterally. More distal anterior cerebral and middle cerebral arteries are normal in CTA appearance bilaterally. Incidental anatomic variant origin right posterior cerebral artery. Posterior circulation demonstrates normal CTA appearance to the basilar, left/right posterior cerebral, left/right superior cerebellar, and left/right anterior inferior cerebellar arteries. Venous sinuses/drainage unremarkable. Brain parenchyma is negative for abnormal enhancing intra or extra-axial mass. Impression: Minimal arteriosclerotic calcifications both parasellar internal carotid arteries without critical stenosis/obstruction. Remaining CTA head is negative.
[2023-08-15] MEDS ORDERED: Cymbalta 30 MG Capsule PO SCH (10:00)
[2023-08-15] MEDS ORDERED: MOMETASONE IH SCH (10:00)
[2023-08-15] MEDS ORDERED: FORMOTEROL IH SCH (10:00)
[2023-08-15] MEDS ORDERED: [UNRECOGNIZED DRUG - OTHER] IH SCH (10:00)
[2023-08-15] MEDS ORDERED: NON-FORMULARY ITEM (Cariprazine Hcl [Vraylar] 3 MG Capsule) PO SCH (10:00)
[2023-08-15 10:15] LABS: Folate (Folic Acid) 8.59 ng/mL (2.76 - >20); PREALBUMIN 17.69 mg/dL (17.6-36.0); TSH, 3RD Generation 1.25 mIU/L (0.47-4.68)
[2023-08-15] MEDS ORDERED: VITAMIN D2 PO SCH (12:00)
[2023-08-15] MEDS ORDERED: TYLENOL EXTRA STRENGTH 500 MG PO SCH (12:00)
[2023-08-15] MEDS: Advair Hfa 115/21 Common canister IH SCH ×2 (12:35→18:37)
[2023-08-15] MEDS: Toprol-Xl 25MG Tablets PO SCH (13:36)
[2023-08-15] MEDS: Requip 0.5 MG PO SCH ×2 (13:36→22:04)
[2023-08-15] MEDS: TOPIRAMATE PO SCH ×2 (13:37→22:04)
[2023-08-15] MEDS: LYRICA 100MG PO SCH ×3 (13:37→22:02)
[2023-08-15] MEDS: Ditropan XL 5 MG PO SCH (13:37)
[2023-08-15] MEDS: Ranexa 500 MG PO SCH ×2 (13:38→22:02)
[2023-08-15] MEDS: Protonix 40MG Tablet PO SCH ×2 (13:38→22:03)
[2023-08-15] MEDS: BACTRIM DS TABLET PO SCH ×2 (13:38→22:03)
[2023-08-15] MEDS: clonazePAM PO SCH ×2 (13:38→22:04)
[2023-08-15] MEDS: ENOXAPARIN SODIUM SQ SCH (13:39)
[2023-08-15] MEDS: MARY'S MOUTHWASH PO SCH ×2 (13:42→14:29)
[2023-08-15] MEDS: KEPPRA PO SCH ×2 (13:45→22:04)
[2023-08-15] MEDS: Cymbalta 30 MG Capsule PO SCH (13:45)
--- NOTE | 2023-08-15 14:30 | PCM.NOTE ---
Date and Time: 08/15/23 1425 Subjective Assessment: 08/14/23 is a 53 year old female with h/o seizures, DM2, and congenital blindness, who presents with prolonged course of weakness and slurred speech. Patient brought in by because of two weeks of right-sided weakness and slurred speech, with associated memory lapses. However, patient admitted that she has been having more weakness for the past two months, but didn't want to tell anyone. She notes it has been progressively worsening, and she thought it was just due to her seizure history. She denies any episodic symptoms, loss of consciousness, or loss of bowel or bladder control. She also notes that she has had decreased sensation with numbness along her right side, particularly in her feet and fingertips, worse than the left side. Her daughter noted facial droop with some drooling from her lip. Patient told nurse that was having some coughing after swallowing as well. Patient fell one week ago, leading to some right knee pain, and has been unable to get up from her cough with her cane, having to crawl to furniture to get up if she is down. She has a prescription for a rolling walker but states her never filled it. 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 She denies any dysuria, but has noted increased urgency leading to incontinence due to not reaching bathroom in time. 08/15 Pt resting in bed. She was able to pass the swallow eval with speech and now eating a regular diet. She is awaiting to have the MRI and echo today. She has no neurological deficits on exam. She was not able to walk well with PT and they are recommending rehab. Pt is agreeable and case management working on placement. Order placed for rolling walker to be delivered to home. She denies CP, SOB, Abd pain, N/V/D. - Review of Systems Constitutional: Weakness, No Fever, No Chills Eyes: No Symptoms Ears, Nose, & Throat: No Symptoms Respiratory: No Cough, No Short Of Breath Cardiac: No Chest Pain, No Edema, No Syncope Abdominal/Gastrointestinal: No Abdominal Pain, No Nausea, No Vomiting, No Diarrhea Genitourinary Symptoms: Dysuria Musculoskeletal: No Back Pain, No Neck Pain Skin: No Rash Neurological: No Dizziness, No Focal Weakness, No Sensory Changes Psychological: No Symptoms Endocrine: No Symptoms Hematologic/Lymphatic: No Symptoms Immunological/Allergic: No Symptoms Objective Exam General Appearance: no apparent distress, alert Neurologic Exam: alert, oriented x 3, cooperative, normal mood/affect, nml cerebellar function, sensation nml, motor weakness (with walking), No motor deficits Skin Exam: normal color, warm, dry Eye Exam: PERRL, EOMI, eyes nml inspection Ears, Nose, Throat Exam: normal ENT inspection, pharynx normal, moist mucous membranes Neck Exam: normal inspection, non-tender, supple, full range of motion Respiratory Exam: normal breath sounds, lungs clear, No respiratory distress Cardiovascular Exam: regular rate/rhythm, normal heart sounds Gastrointestinal/Abdomen Exam: soft, No tenderness, No mass Extremity Exam: normal inspection, normal range of motion Back Exam: normal inspection, normal range of motion, No CVA tenderness, No vertebral tenderness Pelvic Exam: deferred Rectal Exam: deferred OBJECTIVE DATA Vital Signs: Vital Signs - 24 hr Temp Pulse Resp BP BP Pulse Ox 08/15/23 12:00 97.6 F 74 22 121/76 99 08/15/23 07:39 97.5 F 73 16 120/75 97 08/15/23 07:32 70 18 95 08/15/23 04:00 98.1 F 69 20 136/69 97 08/15/23 00:15 68 18 91 L 08/14/23 23:43 98.4 F 68 20 92/53 92 L 08/14/23 21:00 98 08/14/23 20:40 97.3 F 65 18 146/79 98 08/14/23 20:32 95 08/14/23 20:00 65 13 110/78 89 L 08/14/23 19:45 66 12 119/88 90 L 08/14/23 19:31 65 16 119/88 98 08/14/23 19:00 65 21 103/71 08/14/23 18:30 65 14 112/77 92 L 08/14/23 18:06 66 13 121/83 94 L 08/14/23 17:06 128/89 08/14/23 17:05 72 21 98 08/14/23 16:38 96 08/14/23 16:30 113/79 08/14/23 16:16 96.7 F 65 17 119/75 95 Pain Assessment - Last Documented Pain Intensity 0 Intake and Output: Intake & Output 08/13/23 08/14/23 08/15/23 08/16/23 11:59 11:59 11:59 11:59 Intake Total 992 240 Output Total 775 Balance 217 240 Weight 110.6 kg 110.6 kg Lab Results: Lab Results-Last 24 Hours 08/14/23 08/14/23 08/14/23 Range/Units 17:07 21:00 22:00 WBC (4.0-10.5) x10^3/uL RBC (4.1-5.4) x10^6/uL Hgb (12.0-16.0) g/dL Hct (35-47) % MCV (78-100) fL MCH (26-32) pg MCHC (32-36) g/dL RDW (11.5-14.0) % Plt Count (150-450) x10^3/uL MPV (7.5-11.0) fL Gran % (36.0-66.0) % Immature Gran % (Auto) (0.00-0.4) % Nucleat RBC Rel Count (0.00-0.1) % Eos # (Auto) (0-0.5) x10^3/uL Immature Gran # (Auto) (0.00-0.03) x10^3u/L Absolute Lymphs (auto) (1.0-4.6) x10^3/uL Absolute Monos (auto) (0.0-1.3) x10^3/uL Absolute Nucleated RBC (0.00-0.01) x10^3u/L Lymphocytes % (24.0-44.0) % Monocytes % (0.0-12.0) % Eosinophils % (0.00-5.0) % Basophils % (0.0-0.4) % Absolute Granulocytes (1.4-6.9) x10^3/uL Basophils # (0-0.4) x10^3/uL Sodium (137-145) mmol/L Potassium (3.5-5.1) mmol/L Chloride (98-107) mmol/L Carbon Dioxide (22-30) mmol/L Anion Gap (5-15) MEQ/L BUN (7-17) mg/dL Creatinine (0.52-1.04) mg/dL Estimated GFR ML/MIN Glucose (74-106) mg/dL POC Glucometer 62 L (74 to 106) mg/dL Hemoglobin A1c (4.5-6.0) % Calcium (8.4-10.2) mg/dL Magnesium (1.6-2.3) mg/dL Total Bilirubin (0.2-1.3) mg/dL AST (14-36) U/L ALT (0-35) U/L Alkaline Phosphatase (38-126) U/L Troponin I < 0.012 (0.000-0.034) ng/mL Serum Total Protein (6.3-8.2) g/dL Albumin (3.5-5.0) g/dL Prealbumin (17.6-36.0) mg/dL Vitamin B12 (239-931) pg/mL Folic Acid (2.76 - >20) ng/mL TSH 3rd Generation (0.47-4.68) mIU/L Urine Color Yellow (Yellow) Urine Appearance Cloudy A (Clear) Urine pH 6.0 (4.6-8.0) Ur Specific [place] 1.020 (1.005-1.030) Urine Protein Negative (Negative) Urine Glucose (UA) >=1000 A (Negative) mg/dL Urine Ketones Negative (Negative) Urine Blood NHT (Negative) Urine Nitrite Negative (Negative) Urine Bilirubin Negative (Negative) Urine Urobilinogen 1.0 A (0.2) mg/dL Ur Leukocyte Esterase Moderate A (Negative) U Hyaline Cast (Auto) NONE SEEN (0-2) /LPF Urine Microscopic RBC 0-2 (0-5) /HPF Urine Microscopic WBC >100 A (0-5) /HPF Ur Epithelial Cells None Seen (None Seen) /HPF Urine Bacteria Many A (None Seen) /HPF Urine Culture Reflexed YES (NO) 08/14/23 08/14/23 08/14/23 Range/Units 22:39 Unknown Unknown WBC 6.8 (4.0-10.5) x10^3/uL RBC 4.25 (4.1-5.4) x10^6/uL Hgb 12.7 (12.0-16.0) g/dL Hct 40.4 (35-47) % MCV 95.1 (78-100) fL MCH 29.9 (26-32) pg MCHC 31.4 L (32-36) g/dL RDW 15.1 H (11.5-14.0) % Plt Count 292 (150-450) x10^3/uL MPV 9.5 (7.5-11.0) fL Gran % 50.7 (36.0-66.0) % Immature Gran % (Auto) 0.6 H (0.00-0.4) % Nucleat RBC Rel Count 0.0 (0.00-0.1) % Eos # (Auto) 0.10 (0-0.5) x10^3/uL Immature Gran # (Auto) 0.04 H (0.00-0.03) x10^3u/L Absolute Lymphs (auto) 2.44 (1.0-4.6) x10^3/uL Absolute Monos (auto) 0.72 (0.0-1.3) x10^3/uL Absolute Nucleated RBC 0.00 (0.00-0.01) x10^3u/L Lymphocytes % 35.7 (24.0-44.0) % Monocytes % 10.5 (0.0-12.0) % Eosinophils % 1.5 (0.00-5.0) % Basophils % 1.0 (0.0-0.4) % Absolute Granulocytes 3.46 (1.4-6.9) x10^3/uL Basophils # 0.07 (0-0.4) x10^3/uL Sodium 140 (137-145) mmol/L Potassium 3.4 L (3.5-5.1) mmol/L Chloride 106 (98-107) mmol/L Carbon Dioxide 27 (22-30) mmol/L Anion Gap 10.1 (5-15) MEQ/L BUN 14 (7-17) mg/dL Creatinine 1.06 H (0.52-1.04) mg/dL Estimated GFR 57.9 ML/MIN Glucose 88 (74-106) mg/dL POC Glucometer 102 (74 to 106) mg/dL Hemoglobin A1c (4.5-6.0) % Calcium 8.6 (8.4-10.2) mg/dL Magnesium 2.3 (1.6-2.3) mg/dL Total Bilirubin 0.60 (0.2-1.3) mg/dL AST 28 (14-36) U/L ALT 14 (0-35) U/L Alkaline Phosphatase 164 H (38-126) U/L Troponin I (0.000-0.034) ng/mL Serum Total Protein 6.9 (6.3-8.2) g/dL Albumin 4.0 (3.5-5.0) g/dL Prealbumin (17.6-36.0) mg/dL Vitamin B12 (239-931) pg/mL Folic Acid (2.76 - >20) ng/mL TSH 3rd Generation (0.47-4.68) mIU/L Urine Color (Yellow) Urine Appearance (Clear) Urine pH (4.6-8.0) Ur Specific [place] (1.005-1.030) Urine Protein (Negative) Urine Glucose (UA) (Negative) mg/dL Urine Ketones (Negative) Urine Blood (Negative) Urine Nitrite (Negative) Urine Bilirubin (Negative) Urine Urobilinogen (0.2) mg/dL Ur Leukocyte Esterase (Negative) U Hyaline Cast (Auto) (0-2) /LPF Urine Microscopic RBC (0-5) /HPF Urine Microscopic WBC (0-5) /HPF Ur Epithelial Cells (None Seen) /HPF Urine Bacteria (None Seen) /HPF Urine Culture Reflexed (NO) 08/14/23 08/14/23 08/15/23 Range/Units Unknown Unknown 02:44 WBC (4.0-10.5) x10^3/uL RBC (4.1-5.4) x10^6/uL Hgb (12.0-16.0) g/dL Hct (35-47) % MCV (78-100) fL MCH (26-32) pg MCHC (32-36) g/dL RDW (11.5-14.0) % Plt Count (150-450) x10^3/uL MPV (7.5-11.0) fL Gran % (36.0-66.0) % Immature Gran % (Auto) (0.00-0.4) % Nucleat RBC Rel Count (0.00-0.1) % Eos # (Auto) (0-0.5) x10^3/uL Immature Gran # (Auto) (0.00-0.03) x10^3u/L Absolute Lymphs (auto) (1.0-4.6) x10^3/uL Absolute Monos (auto) (0.0-1.3) x10^3/uL Absolute Nucleated RBC (0.00-0.01) x10^3u/L Lymphocytes % (24.0-44.0) % Monocytes % (0.0-12.0) % Eosinophils % (0.00-5.0) % Basophils % (0.0-0.4) % Absolute Granulocytes (1.4-6.9) x10^3/uL Basophils # (0-0.4) x10^3/uL Sodium (137-145) mmol/L Potassium (3.5-5.1) mmol/L Chloride (98-107) mmol/L Carbon Dioxide (22-30) mmol/L Anion Gap (5-15) MEQ/L BUN (7-17) mg/dL Creatinine (0.52-1.04) mg/dL Estimated GFR ML/MIN Glucose (74-106) mg/dL POC Glucometer 80 (74 to 106) mg/dL Hemoglobin A1c (4.5-6.0) % Calcium (8.4-10.2) mg/dL Magnesium (1.6-2.3) mg/dL Total Bilirubin (0.2-1.3) mg/dL AST (14-36) U/L ALT (0-35) U/L Alkaline Phosphatase (38-126) U/L Troponin I < 0.012 (0.000-0.034) ng/mL Serum Total Protein (6.3-8.2) g/dL Albumin (3.5-5.0) g/dL Prealbumin (17.6-36.0) mg/dL Vitamin B12 (239-931) pg/mL Folic Acid (2.76 - >20) ng/mL TSH 3rd Generation 1.500 (0.47-4.68) mIU/L Urine Color (Yellow) Urine Appearance (Clear) Urine pH (4.6-8.0) Ur Specific [place] (1.005-1.030) Urine Protein (Negative) Urine Glucose (UA) (Negative) mg/dL Urine Ketones (Negative) Urine Blood (Negative) Urine Nitrite (Negative) Urine Bilirubin (Negative) Urine Urobilinogen (0.2) mg/dL Ur Leukocyte Esterase (Negative) U Hyaline Cast (Auto) (0-2) /LPF Urine Microscopic RBC (0-5) /HPF Urine Microscopic WBC (0-5) /HPF Ur Epithelial Cells (None Seen) /HPF Urine Bacteria (None Seen) /HPF Urine Culture Reflexed (NO) 08/15/23 08/15/23 08/15/23 Range/Units 05:08 05:08 05:08 WBC 6.1 (4.0-10.5) x10^3/uL RBC 4.06 L (4.1-5.4) x10^6/uL Hgb 11.9 L (12.0-16.0) g/dL Hct 38.9 (35-47) % MCV 95.8 (78-100) fL MCH 29.3 (26-32) pg MCHC 30.6 L (32-36) g/dL RDW 15.0 H (11.5-14.0) % Plt Count 278 (150-450) x10^3/uL MPV 9.3 (7.5-11.0) fL Gran % (36.0-66.0) % Immature Gran % (Auto) (0.00-0.4) % Nucleat RBC Rel Count (0.00-0.1) % Eos # (Auto) (0-0.5) x10^3/uL Immature Gran # (Auto) (0.00-0.03) x10^3u/L Absolute Lymphs (auto) (1.0-4.6) x10^3/uL Absolute Monos (auto) (0.0-1.3) x10^3/uL Absolute Nucleated RBC (0.00-0.01) x10^3u/L Lymphocytes % (24.0-44.0) % Monocytes % (0.0-12.0) % Eosinophils % (0.00-5.0) % Basophils % (0.0-0.4) % Absolute Granulocytes (1.4-6.9) x10^3/uL Basophils # (0-0.4) x10^3/uL Sodium 143 (137-145) mmol/L Potassium 3.6 (3.5-5.1) mmol/L Chloride 112 H (98-107) mmol/L Carbon Dioxide 22 (22-30) mmol/L Anion Gap 12.5 (5-15) MEQ/L BUN 12 (7-17) mg/dL Creatinine 0.98 (0.52-1.04) mg/dL Estimated GFR > 60.0 ML/MIN Glucose 88 (74-106) mg/dL POC Glucometer (74 to 106) mg/dL Hemoglobin A1c 5.32 (4.5-6.0) % Calcium 8.2 L (8.4-10.2) mg/dL Magnesium (1.6-2.3) mg/dL Total Bilirubin (0.2-1.3) mg/dL AST (14-36) U/L ALT (0-35) U/L Alkaline Phosphatase (38-126) U/L Troponin I (0.000-0.034) ng/mL Serum Total Protein (6.3-8.2) g/dL Albumin (3.5-5.0) g/dL Prealbumin (17.6-36.0) mg/dL Vitamin B12 (239-931) pg/mL Folic Acid (2.76 - >20) ng/mL TSH 3rd Generation (0.47-4.68) mIU/L Urine Color (Yellow) Urine Appearance (Clear) Urine pH (4.6-8.0) Ur Specific [place] (1.005-1.030) Urine Protein (Negative) Urine Glucose (UA) (Negative) mg/dL Urine Ketones (Negative) Urine Blood (Negative) Urine Nitrite (Negative) Urine Bilirubin (Negative) Urine Urobilinogen (0.2) mg/dL Ur Leukocyte Esterase (Negative) U Hyaline Cast (Auto) (0-2) /LPF Urine Microscopic RBC (0-5) /HPF Urine Microscopic WBC (0-5) /HPF Ur Epithelial Cells (None Seen) /HPF Urine Bacteria (None Seen) /HPF Urine Culture Reflexed (NO) 08/15/23 08/15/23 08/15/23 Range/Units 05:08 07:22 11:42 WBC (4.0-10.5) x10^3/uL RBC (4.1-5.4) x10^6/uL Hgb (12.0-16.0) g/dL Hct (35-47) % MCV (78-100) fL MCH (26-32) pg MCHC (32-36) g/dL RDW (11.5-14.0) % Plt Count (150-450) x10^3/uL MPV (7.5-11.0) fL Gran % (36.0-66.0) % Immature Gran % (Auto) (0.00-0.4) % Nucleat RBC Rel Count (0.00-0.1) % Eos # (Auto) (0-0.5) x10^3/uL Immature Gran # (Auto) (0.00-0.03) x10^3u/L Absolute Lymphs (auto) (1.0-4.6) x10^3/uL Absolute Monos (auto) (0.0-1.3) x10^3/uL Absolute Nucleated RBC (0.00-0.01) x10^3u/L Lymphocytes % (24.0-44.0) % Monocytes % (0.0-12.0) % Eosinophils % (0.00-5.0) % Basophils % (0.0-0.4) % Absolute Granulocytes (1.4-6.9) x10^3/uL Basophils # (0-0.4) x10^3/uL Sodium (137-145) mmol/L Potassium (3.5-5.1) mmol/L Chloride (98-107) mmol/L Carbon Dioxide (22-30) mmol/L Anion Gap (5-15) MEQ/L BUN (7-17) mg/dL Creatinine (0.52-1.04) mg/dL Estimated GFR ML/MIN Glucose (74-106) mg/dL POC Glucometer 87 75 (74 to 106) mg/dL Hemoglobin A1c (4.5-6.0) % Calcium (8.4-10.2) mg/dL Magnesium (1.6-2.3) mg/dL Total Bilirubin (0.2-1.3) mg/dL AST (14-36) U/L ALT (0-35) U/L Alkaline Phosphatase (38-126) U/L Troponin I (0.000-0.034) ng/mL Serum Total Protein (6.3-8.2) g/dL Albumin (3.5-5.0) g/dL Prealbumin 17.69 (17.6-36.0) mg/dL Vitamin B12 490 (239-931) pg/mL Folic Acid 8.59 (2.76 - >20) ng/mL TSH 3rd Generation 1.250 (0.47-4.68) mIU/L Urine Color (Yellow) Urine Appearance (Clear) Urine pH (4.6-8.0) Ur Specific [place] (1.005-1.030) Urine Protein (Negative) Urine Glucose (UA) (Negative) mg/dL Urine Ketones (Negative) Urine Blood (Negative) Urine Nitrite (Negative) Urine Bilirubin (Negative) Urine Urobilinogen (0.2) mg/dL Ur Leukocyte Esterase (Negative) U Hyaline Cast (Auto) (0-2) /LPF Urine Microscopic RBC (0-5) /HPF Urine Microscopic WBC (0-5) /HPF Ur Epithelial Cells (None Seen) /HPF Urine Bacteria (None Seen) /HPF Urine Culture Reflexed (NO) Radiology Exams: Radiology Procedures Category Date Time Status CT ANGIOGRAPHY NECK [CT] Stat Exams 08/14/23 16:38 Completed CTA HEAD W AND/OR WO CONTRAST [CT] Stat Exams 08/14/23 16:38 Completed ECHO W/2D AND DOPPLER [US] Routine Exams 08/15/23 22:27 Taken HEAD WITHOUT CONTRAST [CT] Stat Exams 08/14/23 16:45 Completed MRI BRAIN W/O CONTRAST [MRI] Routine Exams 08/15/23 22:31 Ordered Assessment/Plan (1) Right sided weakness Current Visit: Yes Status: Acute Assessment & Plan: -Suspected stroke - timeline would at best be subacute, and location is suspect. But having motor symptoms in RUE, RLE (but left face), and decreased sensation over right leg, with overt dysarthria and suspected dysphagia. Initial CTA head/neck done, and CT head with no large vessel obstruction or large hemorrhage or stroke. Persistent nature of symptoms argues against epileptic cause. -Tele-neurology consulted, - MRI - pending - echo - check TTE - check A1c 5.32 - TSH 1.250 - neuro checks - monitor on telemetry - passed swallow evaluation- regular diet - NS at 100 ml/hr d/c'd since pt is alondra to eat and drink well - PT/OT evaluation - PT recommends rehab placement Code(s): R53.1 - WEAKNESS (2) Slurred speech Current Visit: Yes Status: Acute Assessment & Plan: - resolved - passed swallow eval - Tox screen not done on admission Code(s): R47.81 - SLURRED SPEECH (3) Acute cystitis Current Visit: Yes Status: Acute Assessment & Plan: - Start Bactrim DS PO BID for 5 days (end date 08/19) - f/u urine culture results Code(s): N30.00 - ACUTE CYSTITIS WITHOUT HEMATURIA (4) Type II diabetes mellitus Current Visit: Yes Status: Acute Assessment & Plan: - low-dose sliding scale with hypoglycemia coverage - A1C 5.32 - Controlled (5) Mood disorder Current Visit: Yes Status: Acute Assessment & Plan: - unable to continue Vraylar 3 mg daily as it is not formulary - Continue Cymbalta 60 daily, Elavil 75 qHS Code(s): F39 - UNSPECIFIED MOOD [AFFECTIVE] DISORDER (6) Seizure disorder Current Visit: No Status: Acute Assessment & Plan: - continue home Tegretol, Klonopin 0.5 mg BID Code(s): G40.909 - EPILEPSY, UNSP, NOT INTRACTABLE, WITHOUT STATUS EPILEPTICUS (7) Thrush Current Visit: Yes Status: Acute Assessment & Plan: - of tongue - Pt refusing meds - she explained she scrubbed her tongue and now she's better. Code status: Full PPx: lovenox 40mg daily PPI: Protonix D/C plan: 1-2 days pending MRI and echo results Next of Kin: [facility] [phone] Code(s): B37.0 - CANDIDAL STOMATITIS
[2023-08-15] MEDS: BUSPAR 5 MG PO SCH ×2 (15:13→22:01)
--- NOTE | 2023-08-15 15:19 | XRAY ---
Indication: Dysarthria. Right hemiplegia. Stroke. Sagittal, coronal, and axial MRI brain performed without contrast using T1, T2, FLAIR, diffusion, and ADC sequences. Comparison: None Age-appropriate global atrophy and remote lacunar infarct left basal ganglia. No acute intracranial hemorrhage, abnormal extra-axial fluid collection, or mass effect. Diffusion images are negative for restricted signal. Fourth ventricle is midline without hydrocephalus. 7/8 cranial nerve complex bilaterally symmetric. Normal flow-void signal within the major intracerebral circulation. Normal-appearing craniocervical junction and sella turcica. Paranasal sinuses are clear. Impression: Remote lacunar infarct left basal ganglia. Remaining MRI brain without contrast exam is negative.
[2023-08-15] MEDS ORDERED: AMITRIPTYLINE 25 MG TABLET PO SCH (22:00)
[2023-08-15] MEDS: AMITRIPTYLINE 25 MG TABLET PO SCH (22:02)
[2023-08-15] MEDS: ZOCOR 20MG PO SCH (22:03)
[2023-08-15] MEDS: Depakote EXTENDED RELEASE 250 MG PO SCH (22:04)
[2023-08-15] MEDS ORDERED: D50W 50 ml Abboject IV ONE (22:05)
[2023-08-16 04:54] LABS: Hematocrit 37.9 % (35-47); Hemoglobin 11.8 g/dL (12.0-16.0); Mean Cell Volume 95.5 fL (78-100); Mean Corpuscular Hemoglobin 29.7 pg (26-32); Mean Corpuscular Hgb Concent. 31.1 g/dL (32-36); Mean Platelet Volume 9.2 fL (7.5-11.0); Platelet Count 282 x10^3/uL (150-450); Red Blood Count 3.97 x10^6/uL (4.1-5.4); Red Cell Distribution Width 15.2 % (11.5-14.0); White Blood Count 6.1 x10^3/uL (4.0-10.5)
[2023-08-16 05:21] LABS: ALBUMIN 3.5 g/dL (3.5-5.0); ANION GAP 13.1 MEQ/L (5-15); BILIRUBIN,TOTAL 0.3 mg/dL (0.2-1.3); Calcium 8.3 mg/dL (8.4-10.2); Creatinine 1 1.15 mg/dL (0.52-1.04); EST GLOMERULAR FILTRATION RATE 52.7 ML/MIN; Potassium 3.8 mmol/L (3.5-5.1); Total Protein 6.1 g/dL (6.3-8.2)
[2023-08-16] MEDS: Advair Hfa 115/21 Common canister IH SCH ×2 (07:40→18:38)
[2023-08-16] MEDS: Cymbalta 30 MG Capsule PO SCH (09:16)
[2023-08-16] MEDS: BUSPAR 5 MG PO SCH ×3 (09:16→21:17)
[2023-08-16] MEDS: LYRICA 100MG PO SCH ×3 (09:16→21:18)
[2023-08-16] MEDS: TYLENOL 325 MG PO PRN ×2 (09:16→16:21)
[2023-08-16] MEDS: KEPPRA PO SCH ×2 (09:16→21:17)
[2023-08-16] MEDS: Requip 0.5 MG PO SCH ×2 (09:16→21:17)
[2023-08-16] MEDS: Ditropan XL 5 MG PO SCH (09:17)
[2023-08-16] MEDS: TOPIRAMATE PO SCH ×2 (09:17→21:17)
[2023-08-16] MEDS: Ranexa 500 MG PO SCH ×2 (09:17→21:18)
[2023-08-16] MEDS: ENOXAPARIN SODIUM SQ SCH (09:17)
[2023-08-16] MEDS: Toprol-Xl 25MG Tablets PO SCH (09:17)
[2023-08-16] MEDS: BACTRIM DS TABLET PO SCH (09:17)
[2023-08-16] MEDS: Protonix 40MG Tablet PO SCH ×2 (09:17→21:17)
[2023-08-16] MEDS: clonazePAM PO SCH ×2 (09:35→21:17)
--- NOTE | 2023-08-16 15:30 | PCM.NOTE ---
Date and Time: 08/16/23 1525 Subjective Assessment: 08/14/23 is a 53 year old female with h/o seizures, DM2, and congenital blindness, who presents with prolonged course of weakness and slurred speech. Patient brought in by because of two weeks of right-sided weakness and slurred speech, with associated memory lapses. However, patient admitted that she has been having more weakness for the past two months, but didn't want to tell anyone. She notes it has been progressively worsening, and she thought it was just due to her seizure history. She denies any episodic symptoms, loss of consciousness, or loss of bowel or bladder control. She also notes that she has had decreased sensation with numbness along her right side, particularly in her feet and fingertips, worse than the left side. Her daughter noted facial droop with some drooling from her lip. Patient told nurse that was having some coughing after swallowing as well. Patient fell one week ago, leading to some right knee pain, and has been unable to get up from her cough with her cane, having to crawl to furniture to get up if she is down. She has a prescription for a rolling walker but states her never filled it. 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 She denies any dysuria, but has noted increased urgency leading to incontinence due to not reaching bathroom in time. 08/15 Pt resting in bed. She was able to pass the swallow eval with speech and now eating a regular diet. She is awaiting to have the MRI and echo today. She has no neurological deficits on exam. She was not able to walk well with PT and they are recommending rehab. Pt is agreeable and case management working on placement. She denies CP, SOB, Abd pain, N/V/D. 08/16 Pt resting in the chair. She is feeling better today. She has been accepted to rehab at [facility]. She is waiting for a precert. MRi of brain showed remote lacunar infarct left basal ganglia. Echo is pending. Asked CM about walker for pt and pt will be evaluated at rehab for home walker needs. Echo pending. Pt denies any further concerns at this time. - Review of Systems Constitutional: Weakness, No Fever, No Chills Eyes: No Symptoms Ears, Nose, & Throat: No Symptoms Respiratory: No Cough, No Short Of Breath Cardiac: No Chest Pain, No Edema, No Syncope Abdominal/Gastrointestinal: No Abdominal Pain, No Nausea, No Vomiting, No Diarrhea Genitourinary Symptoms: No Dysuria Musculoskeletal: No Back Pain, No Neck Pain Skin: No Rash Neurological: No Dizziness, No Focal Weakness, No Sensory Changes Psychological: No Symptoms Endocrine: No Symptoms Hematologic/Lymphatic: No Symptoms Immunological/Allergic: No Symptoms Objective Exam General Appearance: no apparent distress, alert Neurologic Exam: alert, oriented x 3, cooperative, normal mood/affect, nml cerebellar function, sensation nml, motor weakness, No motor deficits Skin Exam: normal color, warm, dry Eye Exam: PERRL, EOMI, eyes nml inspection Ears, Nose, Throat Exam: normal ENT inspection, pharynx normal, moist mucous membranes Neck Exam: normal inspection, non-tender, supple, full range of motion Respiratory Exam: normal breath sounds, lungs clear, No respiratory distress Cardiovascular Exam: regular rate/rhythm, normal heart sounds Gastrointestinal/Abdomen Exam: soft, No tenderness, No mass Extremity Exam: normal inspection, normal range of motion Back Exam: normal inspection, normal range of motion, No CVA tenderness, No vertebral tenderness Pelvic Exam: deferred Rectal Exam: deferred OBJECTIVE DATA Vital Signs: Vital Signs - 24 hr Temp Pulse Resp BP Pulse Ox 08/16/23 11:44 97.5 F 68 16 99/55 95 08/16/23 07:34 68 16 100 08/16/23 07:33 97.7 F 66 16 104/68 100 08/16/23 04:00 97.8 F 68 16 111/62 99 08/15/23 23:41 98.0 F 70 20 108/59 100 08/15/23 20:00 97.8 F 70 22 125/74 93 L 08/15/23 18:40 91 L 08/15/23 16:00 97.7 F 71 16 124/73 95 Pain Assessment - Last Documented Pain Intensity 8 Pain Scale Used 0-10 Pain Scale Intake and Output: Intake & Output 08/14/23 08/15/23 08/16/23 08/17/23 11:59 11:59 11:59 11:59 Intake Total 992 1320 480 Output Total 775 1500 Balance 217 -180 480 Weight 110.6 kg 110.6 kg Lab Results: Lab Results-Last 24 Hours 08/15/23 08/15/23 08/16/23 Range/Units 16:36 20:57 04:48 WBC 6.1 (4.0-10.5) x10^3/uL RBC 3.97 L (4.1-5.4) x10^6/uL Hgb 11.8 L (12.0-16.0) g/dL Hct 37.9 (35-47) % MCV 95.5 (78-100) fL MCH 29.7 (26-32) pg MCHC 31.1 L (32-36) g/dL RDW 15.2 H (11.5-14.0) % Plt Count 282 (150-450) x10^3/uL MPV 9.2 (7.5-11.0) fL Sodium (137-145) mmol/L Potassium (3.5-5.1) mmol/L Chloride (98-107) mmol/L Carbon Dioxide (22-30) mmol/L Anion Gap (5-15) MEQ/L BUN (7-17) mg/dL Creatinine (0.52-1.04) mg/dL Estimated GFR ML/MIN Glucose (74-106) mg/dL POC Glucometer 78 108 H (74 to 106) mg/dL Calcium (8.4-10.2) mg/dL Total Bilirubin (0.2-1.3) mg/dL AST (14-36) U/L ALT (0-35) U/L Alkaline Phosphatase (38-126) U/L Serum Total Protein (6.3-8.2) g/dL Albumin (3.5-5.0) g/dL 08/16/23 08/16/23 08/16/23 Range/Units 04:48 07:00 11:34 WBC (4.0-10.5) x10^3/uL RBC (4.1-5.4) x10^6/uL Hgb (12.0-16.0) g/dL Hct (35-47) % MCV (78-100) fL MCH (26-32) pg MCHC (32-36) g/dL RDW (11.5-14.0) % Plt Count (150-450) x10^3/uL MPV (7.5-11.0) fL Sodium 140 (137-145) mmol/L Potassium 3.8 (3.5-5.1) mmol/L Chloride 111 H (98-107) mmol/L Carbon Dioxide 20 L (22-30) mmol/L Anion Gap 13.1 (5-15) MEQ/L BUN 15 (7-17) mg/dL Creatinine 1.15 H (0.52-1.04) mg/dL Estimated GFR 52.7 ML/MIN Glucose 96 (74-106) mg/dL POC Glucometer 94 109 H (74 to 106) mg/dL Calcium 8.3 L (8.4-10.2) mg/dL Total Bilirubin 0.30 (0.2-1.3) mg/dL AST 20 (14-36) U/L ALT 11 (0-35) U/L Alkaline Phosphatase 145 H (38-126) U/L Serum Total Protein 6.1 L (6.3-8.2) g/dL Albumin 3.5 (3.5-5.0) g/dL 08/16/23 Range/Units 14:11 WBC (4.0-10.5) x10^3/uL RBC (4.1-5.4) x10^6/uL Hgb (12.0-16.0) g/dL Hct (35-47) % MCV (78-100) fL MCH (26-32) pg MCHC (32-36) g/dL RDW (11.5-14.0) % Plt Count (150-450) x10^3/uL MPV (7.5-11.0) fL Sodium (137-145) mmol/L Potassium (3.5-5.1) mmol/L Chloride (98-107) mmol/L Carbon Dioxide (22-30) mmol/L Anion Gap (5-15) MEQ/L BUN (7-17) mg/dL Creatinine (0.52-1.04) mg/dL Estimated GFR ML/MIN Glucose (74-106) mg/dL POC Glucometer 140 H (74 to 106) mg/dL Calcium (8.4-10.2) mg/dL Total Bilirubin (0.2-1.3) mg/dL AST (14-36) U/L ALT (0-35) U/L Alkaline Phosphatase (38-126) U/L Serum Total Protein (6.3-8.2) g/dL Albumin (3.5-5.0) g/dL Radiology Exams: Radiology Procedures Category Date Time Status CT ANGIOGRAPHY NECK [CT] Stat Exams 08/14/23 16:38 Completed CTA HEAD W AND/OR WO CONTRAST [CT] Stat Exams 08/14/23 16:38 Completed ECHO W/2D AND DOPPLER [US] Routine Exams 08/15/23 22:27 Taken HEAD WITHOUT CONTRAST [CT] Stat Exams 08/14/23 16:45 Completed MRI BRAIN W/O CONTRAST [MRI] Routine Exams 08/15/23 22:31 Completed Multi-Disciplinary Progress Notes: Multi-Disciplinary Progress Notes 08/16/23 13:17 Case Management Note by Bailee Moore Addendum entered by Bailee Moore 08/16/23 13:18: PER PHONE CONVERSATION YEST - NO PASSR/LO REQUIRED Original Note: [facility] HAS ACCEPTED HER- THEY WILL START PRECERT TODAY Initialized on 08/16/23 13:17 - END OF NOTE 08/16/23 10:54 Case Management Note by Bailee Moore [facility] Initialized on 08/16/23 10:54 - END OF NOTE 08/16/23 10:10 Case Management Note by Bailee Moore UPDATED CLINICAL FAXED TO [facility] Initialized on 08/16/23 10:10 - END OF NOTE 08/16/23 08:25 Case Management Note by Bailee Moore UPDATED CLINICALS WITH PT/ST NOTES FAXED TO [facility] PER REQUEST Initialized on 08/16/23 08:25 - END OF NOTE Assessment/Plan (1) Right sided weakness Current Visit: Yes Status: Acute Code(s): R53.1 - WEAKNESS (2) Slurred speech Current Visit: Yes Status: Acute Code(s): R47.81 - SLURRED SPEECH (3) Acute cystitis Current Visit: Yes Status: Acute Code(s): N30.00 - ACUTE CYSTITIS WITHOUT HEMATURIA (4) Type II diabetes mellitus Current Visit: Yes Status: Acute (5) Mood disorder Current Visit: Yes Status: Acute Code(s): F39 - UNSPECIFIED MOOD [AFFECTIVE] DISORDER (6) Seizure disorder Current Visit: No Status: Acute Code(s): G40.909 - EPILEPSY, UNSP, NOT INTRACTABLE, WITHOUT STATUS EPILEPTICUS (7) Thrush Current Visit: Yes Status: Acute Assessment & Plan: (1) Right sided weakness Current Visit: Yes Status: Acute Assessment & Plan: -Suspected stroke - timeline would at best be subacute, and location is suspect. But having motor symptoms in RUE, RLE (but left face), and decreased sensation over right leg, with overt dysarthria and suspected dysphagia. Initial CTA head/neck done, and CT head with no large vessel obstruction or large hemorrhage or stroke. Persistent nature of symptoms argues against epileptic cause. -Tele-neurology consulted, - MRI -reviewed, no new findings - echo- pending - check TTE - check A1c 5.32 - TSH 1.250 - neuro checks - monitor on telemetry - passed swallow evaluation- regular diet - NS at 100 ml/hr d/c'd since pt is alondra to eat and drink well - PT/OT evaluation - PT recommends rehab placement - pending rehab placement- precert Code(s): R53.1 - WEAKNESS (2) Slurred speech Current Visit: Yes Status: Acute Assessment & Plan: - resolved - passed swallow eval - Tox screen not done on admission Code(s): R47.81 - SLURRED SPEECH (3) Acute cystitis Current Visit: Yes Status: Acute Assessment & Plan: - Start Bactrim DS PO BID for 5 days (end date 08/19) - f/u urine culture results Code(s): N30.00 - ACUTE CYSTITIS WITHOUT HEMATURIA (4) Type II diabetes mellitus Current Visit: Yes Status: Acute Assessment & Plan: - low-dose sliding scale with hypoglycemia coverage - A1C 5.32 - Controlled (5) Mood disorder Current Visit: Yes Status: Acute Assessment & Plan: - unable to continue Vraylar 3 mg daily as it is not formulary - Continue Cymbalta 60 daily, Elavil 75 qHS Code(s): F39 - UNSPECIFIED MOOD [AFFECTIVE] DISORDER (6) Seizure disorder Current Visit: No Status: Acute Assessment & Plan: - continue home Tegretol, Klonopin 0.5 mg BID Code(s): G40.909 - EPILEPSY, UNSP, NOT INTRACTABLE, WITHOUT STATUS EPILEPTICUS (7) Thrush Current Visit: Yes Status: Acute Assessment & Plan: - of tongue - Pt refusing meds - she explained she scrubbed her tongue and now she's better. Code status: Full PPx: lovenox 40mg daily PPI: Protonix D/C plan: 1-2 days pending MRI and echo results Next of Kin: Salinas Broussard [phone] Code(s): B37.0 - CANDIDAL STOMATITIS
[2023-08-16] MEDS: ROCEPHIN 1 Gm-D5w 50 ml Bag** 1 G/50 ML IVPB IV SCH (16:25)
[2023-08-16] MEDS: Depakote EXTENDED RELEASE 250 MG PO SCH (21:16)
[2023-08-16] MEDS: AMITRIPTYLINE 25 MG TABLET PO SCH (21:18)
[2023-08-16] MEDS: ZOCOR 20MG PO SCH (21:18)
[2023-08-17 05:06] LABS: Hematocrit 36.3 % (35-47); Hemoglobin 11.3 g/dL (12.0-16.0); Mean Corpuscular Hemoglobin 29.6 pg (26-32); Mean Corpuscular Hgb Concent. 31.1 g/dL (32-36); Mean Platelet Volume 9.4 fL (7.5-11.0); Platelet Count 292 x10^3/uL (150-450); Red Blood Count 3.82 x10^6/uL (4.1-5.4); Red Cell Distribution Width 15.4 % (11.5-14.0); White Blood Count 6.1 x10^3/uL (4.0-10.5)
[2023-08-17 05:21] LABS: ALBUMIN 3.3 g/dL (3.5-5.0); ANION GAP 12.4 MEQ/L (5-15); BILIRUBIN,TOTAL 0.2 mg/dL (0.2-1.3); Calcium 8.3 mg/dL (8.4-10.2); Creatinine 1 1.23 mg/dL (0.52-1.04); EST GLOMERULAR FILTRATION RATE 48.7 ML/MIN; Potassium 3.9 mmol/L (3.5-5.1); Total Protein 6.1 g/dL (6.3-8.2)
[2023-08-17] MEDS: Advair Hfa 115/21 Common canister IH SCH (07:05)
[2023-08-17] MEDS ORDERED: Sodium Chloride 0.9% 1000 ML 1,000 ML IV SCH (08:15)
[2023-08-17 08:44] VITALS: RESP 18
[2023-08-17] MEDS: Cymbalta 30 MG Capsule PO SCH (09:13)
[2023-08-17] MEDS: TOPIRAMATE PO SCH (09:14)
[2023-08-17] MEDS: Ranexa 500 MG PO SCH (09:14)
[2023-08-17] MEDS: Protonix 40MG Tablet PO SCH (09:14)
[2023-08-17] MEDS: BUSPAR 5 MG PO SCH ×2 (09:14→14:52)
[2023-08-17] MEDS: LYRICA 100MG PO SCH ×2 (09:14→14:52)
[2023-08-17] MEDS: clonazePAM PO SCH (09:14)
[2023-08-17] MEDS: Requip 0.5 MG PO SCH (09:14)
[2023-08-17] MEDS: Toprol-Xl 25MG Tablets PO SCH (09:14)
[2023-08-17] MEDS: Ditropan XL 5 MG PO SCH (09:14)
[2023-08-17] MEDS: KEPPRA PO SCH (09:14)
[2023-08-17] MEDS: ENOXAPARIN SODIUM SQ SCH (09:14)
[2023-08-17] MEDS: ROCEPHIN 1 Gm-D5w 50 ml Bag** 1 G/50 ML IVPB IV SCH (09:22)
[2023-08-17 12:11] VITALS: BP 118/71; PULSE 67; TEMP 97.3; O2SAT 94
--- NOTE | 2023-08-17 14:21 | PCM.DS ---
Discharge Summary Date of Admission: 08/14/23 20:40 Date of Discharge: 08/17/23 Admitting Physician: BLANCO GUZMAN MD Primary Care Provider: GODWIN NELSON Allergies Allergies aspirin Allergy (Verified 08/14/23 16:19) latex Allergy (Verified 08/14/23 16:19) NSAIDS (Non-Steroidal Anti-Inflamma Allergy (Verified 08/14/23 16:19) Penicillins Allergy (Verified 08/14/23 16:19) metformin Adverse Reaction (Verified 08/14/23 16:19) Nausea Hospital Summary - Hospital Course Hospital Course: 08/14/23 is a 53 year old female with h/o seizures, DM2, and congenital blindness, who presents with prolonged course of weakness and slurred speech. Patient brought in by because of two weeks of right-sided weakness and slurred speech, with associated memory lapses. However, patient admitted that she has been having more weakness for the past two months, but didn't want to tell anyone. She notes it has been progressively worsening, and she thought it was just due to her seizure history. She denies any episodic symptoms, loss of consciousness, or loss of bowel or bladder control. She also notes that she has had decreased sensation with numbness along her right side, particularly in her feet and fingertips, worse than the left side. Her daughter noted facial droop with some drooling from her lip. Patient told nurse that was having some coughing after swallowing as well. Patient fell one week ago, leading to some right knee pain, and has been unable to get up from her cough with her cane, having to crawl to furniture to get up if she is down. She has a prescription for a rolling walker but states her never filled it. 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 She denies any dysuria, but has noted increased urgency leading to incontinence due to not reaching bathroom in time. 08/15 Pt resting in bed. She was able to pass the swallow eval with speech and now eating a regular diet. She is awaiting to have the MRI and echo today. She has no neurological deficits on exam. She was not able to walk well with PT and they are recommending rehab. Pt is agreeable and case management working on placement. She denies CP, SOB, Abd pain, N/V/D. 08/16 Pt resting in the chair. She is feeling better today. She has been accepted to rehab at [facility]. She is waiting for a precert. MRi of brain showed remote lacunar infarct left basal ganglia. Echo is pending. Asked CM about walker for pt and pt will be evaluated at rehab for home walker needs. Echo pending. Pt denies any further concerns at this time. 08/17/23 Pt sitting up in chair. She is ready to go to rehab and get stronger. She has been accepted to [facility] IP rehab. She states her right leg continues to feel heavy and she has paresthesias in BLLE. Lyrica helps with related pain. She denies further concerns at this time. Family is visiting with pt today in room. - Vitals & Intake/Output Vital Signs: Vital Signs Temperature 97.3 F 08/17/23 12:00 Pulse Rate 67 08/17/23 12:00 Respiratory Rate 18 08/17/23 12:00 Blood Pressure 118/71 08/17/23 12:00 O2 Sat by Pulse Oximetry 94 L 08/17/23 12:00 Intake & Output: Intake & Output 08/15/23 08/16/23 08/17/23 08/18/23 11:59 11:59 11:59 11:59 Intake Total 992 1320 1900 480 Output Total 775 1500 1350 Balance 217 -180 550 480 Weight 110.6 kg 110.6 kg - Lab Result Diagrams: 08/17/23 04:50 08/17/23 04:50 Lab Results-Last 24 Hrs: Lab Results-Last 24 Hours 08/16/23 08/16/23 08/17/23 Range/Units 16:41 21:35 04:50 WBC 6.1 (4.0-10.5) x10^3/uL RBC 3.82 L (4.1-5.4) x10^6/uL Hgb 11.3 L (12.0-16.0) g/dL Hct 36.3 (35-47) % MCV 95.0 (78-100) fL MCH 29.6 (26-32) pg MCHC 31.1 L (32-36) g/dL RDW 15.4 H (11.5-14.0) % Plt Count 292 (150-450) x10^3/uL MPV 9.4 (7.5-11.0) fL Sodium (137-145) mmol/L Potassium (3.5-5.1) mmol/L Chloride (98-107) mmol/L Carbon Dioxide (22-30) mmol/L Anion Gap (5-15) MEQ/L BUN (7-17) mg/dL Creatinine (0.52-1.04) mg/dL Estimated GFR ML/MIN Glucose (74-106) mg/dL POC Glucometer 98 111 H (74 to 106) mg/dL Calcium (8.4-10.2) mg/dL Total Bilirubin (0.2-1.3) mg/dL AST (14-36) U/L ALT (0-35) U/L Alkaline Phosphatase (38-126) U/L Serum Total Protein (6.3-8.2) g/dL Albumin (3.5-5.0) g/dL 08/17/23 08/17/23 08/17/23 Range/Units 04:50 08:38 12:02 WBC (4.0-10.5) x10^3/uL RBC (4.1-5.4) x10^6/uL Hgb (12.0-16.0) g/dL Hct (35-47) % MCV (78-100) fL MCH (26-32) pg MCHC (32-36) g/dL RDW (11.5-14.0) % Plt Count (150-450) x10^3/uL MPV (7.5-11.0) fL Sodium 141 (137-145) mmol/L Potassium 3.9 (3.5-5.1) mmol/L Chloride 112 H (98-107) mmol/L Carbon Dioxide 21 L (22-30) mmol/L Anion Gap 12.4 (5-15) MEQ/L BUN 17 (7-17) mg/dL Creatinine 1.23 H (0.52-1.04) mg/dL Estimated GFR 48.7 ML/MIN Glucose 91 (74-106) mg/dL POC Glucometer 88 94 (74 to 106) mg/dL Calcium 8.3 L (8.4-10.2) mg/dL Total Bilirubin 0.20 (0.2-1.3) mg/dL AST 21 (14-36) U/L ALT 12 (0-35) U/L Alkaline Phosphatase 128 H (38-126) U/L Serum Total Protein 6.1 L (6.3-8.2) g/dL Albumin 3.3 L (3.5-5.0) g/dL Micro Results-Entire Visit: Microbiology 08/14/23 17:07 Urine Culture - Final Clean Catch Midstream Escherichia Coli Accuchecks Date 08/17/23 Date 08/17/23 Date 08/16/23 Time 12:10 Time 08:43 Time 16:19 - Radiology Exams Ordered Rad Exams-Entire Visit: Radiology Procedures Category Date Time Status ECHO W/2D AND DOPPLER [US] Routine Exams 08/15/23 22:27 Taken MRI BRAIN W/O CONTRAST [MRI] Routine Exams 08/15/23 22:31 Completed - Procedures and Test Procedures and Tests throughout Hospitalization: Therapy Orders & Screens 08/14/23 22:24 PT Eval & Treat (MD Order) ONCE Reason for Eval:: RLE weakness Diagnosis: Slurred speech, weakness OT Eval and Treat (MD Order) ONCE Comment: Physician Instructions: Reason For Exam: Diagnosis: Slurred speech, weakness 08/14/23 22:27 ST Eval & Treat (MD Order) ROUTINE Comment: Physician Instructions: Reason For Exam: Evaluate: Yes Treat: Yes Reason for Eval: slurred speech, r/o dysphagia Diagnosis: Slurred speech, weakness 08/15/23 01:10 Respiratory Therapy Assessment DAILY Comment: Diagnosis: Slurred speech, weakness 08/15/23 01:35 Oxygen Nasal Cannula 2 lpm Comment: Diagnosis: Slurred speech, weakness Discharge Exam General Appearance: no apparent distress, alert Neurologic Exam: alert, oriented x 3, cooperative, normal mood/affect, nml cerebellar function, sensation nml, motor weakness (RLE), No motor deficits Eye Exam: PERRL, EOMI, eyes nml inspection Ears, Nose, Throat Exam: normal ENT inspection, pharynx normal, moist mucous membranes Neck Exam: normal inspection, non-tender, supple, full range of motion Respiratory Exam: normal breath sounds, lungs clear, No respiratory distress Cardiovascular Exam: regular rate/rhythm, normal heart sounds Gastrointestinal/Abdomen Exam: soft, No tenderness, No mass Pelvic Exam: deferred Rectal Exam: deferred Back Exam: normal inspection, normal range of motion, No CVA tenderness, No vertebral tenderness Extremity Exam: normal inspection, normal range of motion, parasthesia (BLLE) Skin Exam: normal color, warm, dry Final Diagnosis/Problem List - Final Discharge Diagnosis/Problem (1) Right sided weakness Current Visit: Yes Status: Acute Code(s): R53.1 - WEAKNESS (2) Slurred speech Current Visit: Yes Status: Acute Code(s): R47.81 - SLURRED SPEECH (3) Acute cystitis Current Visit: Yes Status: Acute Code(s): N30.00 - ACUTE CYSTITIS WITHOUT HEMATURIA (4) Type II diabetes mellitus Current Visit: Yes Status: Acute (5) Mood disorder Current Visit: Yes Status: Acute Code(s): F39 - UNSPECIFIED MOOD [AFFECTIVE] DISORDER (6) Seizure disorder Current Visit: No Status: Acute Code(s): G40.909 - EPILEPSY, UNSP, NOT INTRACTABLE, WITHOUT STATUS EPILEPTICUS (7) Thrush Current Visit: Yes Status: Acute Assessment & Plan: (1) Right sided weakness Current Visit: Yes Status: Acute Assessment & Plan: -Suspected stroke - timeline would at best be subacute, and location is suspect. But having motor symptoms in RUE, RLE (but left face), and decreased sensation over right leg, with overt dysarthria and suspected dysphagia. Initial CTA head/neck done, and CT head with no large vessel obstruction or large hemorrhage or stroke. Persistent nature of symptoms argues against epileptic cause. -Tele-neurology consulted, - MRI -reviewed, no new findings - echo- pending - check TTE - check A1c 5.32 - TSH 1.250 - neuro checks - monitor on telemetry - passed swallow evaluation- regular diet - NS at 100 ml/hr d/c'd since pt is alondra to eat and drink well - PT/OT evaluation - PT recommends rehab placement - pending rehab placement- precert Code(s): R53.1 - WEAKNESS (2) Slurred speech Current Visit: Yes Status: Acute Assessment & Plan: - resolved - passed swallow eval - Tox screen not done on admission Code(s): R47.81 - SLURRED SPEECH (3) Acute cystitis Current Visit: Yes Status: Acute Assessment & Plan: - Start Bactrim DS PO BID for 5 days (end date 08/19) - f/u urine culture results Code(s): N30.00 - ACUTE CYSTITIS WITHOUT HEMATURIA (4) Type II diabetes mellitus Current Visit: Yes Status: Acute Assessment & Plan: - low-dose sliding scale with hypoglycemia coverage - A1C 5.32 - Controlled (5) Mood disorder Current Visit: Yes Status: Acute Assessment & Plan: - unable to continue Vraylar 3 mg daily as it is not formulary - Continue Cymbalta 60 daily, Elavil 75 qHS Code(s): F39 - UNSPECIFIED MOOD [AFFECTIVE] DISORDER (6) Seizure disorder Current Visit: No Status: Acute Assessment & Plan: - continue home Tegretol, Klonopin 0.5 mg BID Code(s): G40.909 - EPILEPSY, UNSP, NOT INTRACTABLE, WITHOUT STATUS EPILEPTICUS (7) Thrush Current Visit: Yes Status: Acute Assessment & Plan: - of tongue - Pt refusing meds - she explained she scrubbed her tongue and now she's better. Code(s): B37.0 - CANDIDAL STOMATITIS - Discharge Discharge Date: 08/17/23 (rehab) [facility] Condition: Stable Prescriptions: Continue Oxybutynin Chloride [Oxybutynin Chloride ER] 5 mg PO DAILY Albuterol 2.5 mg/3 ml Neb [Proventil 2.5 mg/3 ml Neb] 2.5 mg IH .PRN Acetaminophen [Tylenol Extra Strength] 500 mg PO .PRN Atorvastatin Calcium 20 mg PO HS Ropinirole HCl [Requip] 2 mg PO BID Ranolazine 500 MG [Ranexa 500 MG] 500 mg PO BID Mometasone/Formoterol [Dulera 100 Mcg-5 Mcg Inhaler] 2 puff IH BID Cariprazine HCl [Vraylar] 3 mg PO DAILY Pregabalin 100 mg PO TID Metoprolol Succinate 25 mg Xl* [Toprol-Xl 25MG Tablets] 12.5 mg PO DAILY Topiramate 100 mg [Topamax 100 MG] 100 mg PO BID PANTOPRAZOLE 40 mg Tablet [Protonix 40MG Tablet] 40 mg PO BID clonazePAM [Clonazepam] 0.5 mg PO BID Ertugliflozin Pidolate [Steglatro] 15 mg PO DAILY Levetiracetam 250 MG [Keppra 250 MG] 1,500 mg PO BID Ergocalciferol (Vitamin D2) [Vitamin D2] 50,000 unit PO UD Finerenone [Kerendia] 10 mg PO DAILY Buspirone HCl 5 mg [Buspar 5 mg] 15 mg PO TID Amitriptyline HCl 25 mg [Amitriptyline 25 mg Tablet] 125 mg PO HS Duloxetine HCl 30 mg [Cymbalta 30 MG Capsule] 90 mg PO DAILY Divalproex Sodium ER 250 mg [Depakote EXTENDED RELEASE 250 MG] 750 mg PO HS [facility]: [facility] -Pt/OT eval and treat -accuchecks ACHS -see attached medication list for medication orders. Continue antibiotics for UTI- do not fill at pharmacy just continue at [facility] . Follow up with: GODWIN NELSON [Primary Care Provider] -
--- NOTE | 2023-08-17 16:08 | ECHO ---
DATE: 08/15/2023 INDICATION: Stroke. The M-mode, 2D, and Doppler echocardiogram including color flow Doppler have limited windows. The left ventricle is normal in size. There is no thrombus present. There is borderline hypertrophy of the interventricular septum. The left ventricular systolic function is normal. The ejection fraction is calculated to be 77%. There is evidence of impaired left ventricular relaxation. The right ventricle is not well visualized. The left atrium is normal in size. No thrombus is noted. The interatrial septum is not well visualized. The right atrium is not well visualized. The aortic valve opens well. There is no aortic regurgitation. The mitral valve is normal. There is mild tricuspid regurgitation. The right ventricular systolic pressure is calculated to be 39 mm Hg. The pulmonic valve is not well visualized. The aortic root is normal. There is no pericardial effusion present. IMPRESSION: 1. NORMAL CONTRACTILITY OF THE LEFT VENTRICLE. 2. POSSIBLE IMPAIRED LEFT VENTRICULAR RELAXATION. 3. BORDERLINE HYPERTROPHY OF THE INTERVENTRICULAR SEPTUM. 4. MILD TRICUSPID REGURGITATION. 5. MILD PULMONARY HYPERTENSION. 6. NO THROMBUS IS NOTED.
== END 2023-08-17 15:52 | disposition short-term general hospital (02) ==
LOC: ED 16:16 → MED SURG 20:40
PROVIDERS: ADMIT Internal Medicine; ATTEND Internal Medicine
DX: R53.1 Weakness (principal); R47.81 Slurred speech; N30.00 Acute cystitis without hematuria; E11.9 Type 2 diabetes mellitus without complications; I10 Essential (primary) hypertension; F39 Unspecified mood [affective] disorder; G40.909 Epilepsy, unspecified, not intractable, without status epilepticus; B37.9 Candidiasis, unspecified; Z79.899 Other long term (current) drug therapy; H54.8 Legal blindness, as defined in USA
CPT/HCPCS: 36000; 36415; 70450; 70496; 70498; 70551; 80048; 80053; 81001; 82607; 82746; 82947; 83036; 83735; 84134; 84443; 84484; 85025; 85027; 87077; 87086; 87186; 93005; 93041; 93268; 93306; 94640; 94760; 94762; 96365; 99285; J0696; J1650; J1956; 97110-GP; A9270-GY; G0378

== ENCOUNTER 2023-11-29 15:13 | Day surgery (SDC) | payer OTHER ==
[2023-11-29] MEDS ORDERED: Depo-Medrol 40 MG/ML IM ONE (15:14)
[2023-11-29] MEDS ORDERED: BUPIVACAINE 0.5% VIAL IJ ONE (15:14)
[2023-11-29] MEDS ORDERED: XYLOCAINE-MPF 1% 5ML SDV IJ ONE (15:14)
[2023-11-29 15:31] LABS: HCG URINE TEST NEGATIVE (NEGATIVE)
--- NOTE | 2023-11-29 17:10 | XRAY ---
Indication: Right knee injection. Intraoperative fluoroscopy provided for 5 seconds. Single digital spot image submitted for interpretation demonstrates needle tip projecting over right femur intercondylar notch. Small amount of contrast injected for needle tip placement. Correlate with intraoperative findings/report.
--- NOTE | 2023-11-30 08:35 | XRAY ---
5 seconds of fluoroscopy was used in surgery for a right intra-articular knee injection.
== END 2023-11-29 16:26 | disposition home or self-care (01) ==
LOC: SDC-PAIN 15:13
PROVIDERS: ATTEND Psychiatry & Neurology Pain Medicine
DX: M17.11 Unilateral primary osteoarthritis, right knee (principal); M70.51 Other bursitis of knee, right knee; E11.9 Type 2 diabetes mellitus without complications
CPT/HCPCS: 20610; 73560; 77002; 81025; 82947; J1030; Q9966

== ENCOUNTER 2024-03-18 13:17 | Emergency (ER) | payer OTHER ==
[2024-03-18 13:36] VITALS: BP 137/80; PULSE 70; RESP 18; TEMP 97.5; O2SAT 99
--- NOTE | 2024-03-18 13:56 | ERPHSYRPT ---
- History of Present Illness Time Seen by Provider: 03/18/24 13:45 Source: patient Exam Limitations: no limitations Patient Subjective Stated Complaint: Tam knee pain Triage Nursing Assessment: Patient ambulated back to ED with slow and steady gait using a walker. Patient transferred to bed per self. Patient A+O X 3. Patient's skin pink, warm and dry. Patient states she had a fall last week and injured her left foot that required sutures. Patient states she landed on her tam knees then. Patient states she has been having pain when walking to tam knees 07/31. Physician History: 54-year-old female presents to our ED for pain to both knees. Pain started last week after a fall. At that time patient presented to our ED for laceration repair sustained due to that fall. Patient states her knees did not hurt that badly at that time however over the past week they began to ache. Patient states she fell onto both knees. No other injuries reported. No BHT or LOC no neck pain cervical spine cleared clinically. Pain described as an ache that is localized. No radiation. Pain worse with weightbearing and palpation. Pain improved with rest. The fall was not associated with any neuro cardiovascular symptomology. No chest pain or shortness of breath. No nausea vomiting or diaphoresis. No numbness tingling or weakness. Patient otherwise feels well. She voices no other complaints or concerns at this time. Portions of this note were created with voice recognition technology. There may be grammatical, spelling, punctuation or sound alike errors Method of Injury: fell Occurred: last week Quality: constant Severity of Pain-Max: moderate Severity of Pain-Current: mild Lower Extremities Pain: knee: right (Bilateral knees) Modifying Factors: Improves With: movement Associated Symptoms: none Allergies/Adverse Reactions: aspirin Allergy (Verified 03/18/24 13:28) latex Allergy (Verified 03/18/24 13:28) NSAIDS (Non-Steroidal Anti-Inflamma Allergy (Verified 03/18/24 13:28) Penicillins Allergy (Verified 03/18/24 13:28) metformin Adverse Reaction (Verified 03/18/24 13:28) Nausea Home Medications: Acetaminophen [Tylenol Extra Strength] 500 mg PO .PRN 10/11/17 [History] Albuterol 2.5 mg/3 ml Neb [Proventil 2.5 mg/3 ml Neb] 2.5 mg IH .PRN 10/11/17 [History] Oxybutynin Chloride [Oxybutynin Chloride ER] 5 mg PO DAILY 10/11/17 [History] Atorvastatin Calcium 20 mg PO HS 01/25/19 [History] Mometasone/Formoterol [Dulera 100 Mcg-5 Mcg Inhaler] 2 puff IH BID 01/25/19 [History] Ranolazine 500 MG [Ranexa 500 MG] 500 mg PO BID 01/25/19 [History] Ropinirole HCl [Requip] 2 mg PO BID 01/25/19 [History] Cariprazine HCl [Vraylar] 3 mg PO DAILY 08/14/23 [History] Metoprolol Succinate 25 mg Xl* [Toprol-Xl 25MG Tablets] 12.5 mg PO DAILY 08/14/23 [History] PANTOPRAZOLE 40 mg Tablet [Protonix 40MG Tablet] 40 mg PO BID 08/14/23 [History] Pregabalin 100 mg PO TID 08/14/23 [History] Topiramate 100 mg [Topamax 100 MG] 100 mg PO BID 08/14/23 [History] clonazePAM [Clonazepam] 0.5 mg PO BID 08/14/23 [History] Amitriptyline HCl 25 mg [Amitriptyline 25 mg Tablet] 125 mg PO HS 08/15/23 [History] Buspirone HCl 5 mg [Buspar 5 mg] 15 mg PO TID 08/15/23 [History] Divalproex Sodium ER 250 mg [Depakote EXTENDED RELEASE 250 MG] 750 mg PO HS 08/15/23 [History] Duloxetine HCl 30 mg [Cymbalta 30 MG Capsule] 90 mg PO DAILY 08/15/23 [History] Ergocalciferol (Vitamin D2) [Vitamin D2] 50,000 unit PO UD 08/15/23 [History] Ertugliflozin Pidolate [Steglatro] 15 mg PO DAILY 08/15/23 [History] Finerenone [Kerendia] 10 mg PO DAILY 08/15/23 [History] Levetiracetam 250 MG [Keppra 250 MG] 1,500 mg PO BID 08/15/23 [History] Hx Tetanus, Diphtheria Vaccination/Date Given: Yes (tetanus on 01/21/23) Hx Influenza Vaccination/Date Given: No Hx Pneumococcal Vaccination/Date Given: No Travel Risk - International Travel Have you traveled outside of the country in past 3 weeks: No - Emerging Infectious Disease Are you exhibiting symptoms associated with any current EIDs: No - Review of Systems Constitutional: No Symptoms, No Fever, No Chills Eyes: No Symptoms Ears, Nose, & Throat: No Symptoms Respiratory: No Symptoms, No Cough, No Dyspnea Cardiac: No Symptoms, No Chest Pain, No Edema, No Syncope Abdominal/Gastrointestinal: No Symptoms, No Abdominal Pain, No Nausea, No Vomiting, No Diarrhea Genitourinary Symptoms: No Symptoms, No Dysuria Musculoskeletal: No Symptoms, No Back Pain, No Neck Pain Skin: No Symptoms, No Rash Neurological: No Symptoms, No Dizziness, No Focal Weakness, No Sensory Changes Psychological: No Symptoms Endocrine: No Symptoms Hematologic/Lymphatic: No Symptoms Immunological/Allergic: No Symptoms All Other Systems: Reviewed and Negative - Past Medical History Pertinent Past Medical History: Yes Neurological History: Epilepsy, Migraines, Peripheral Neuropathy, Seizures, Stroke, TIA ENT History: Other Cardiac History: Arrhythmia, Coronary Artery Disease, Other Respiratory History: Asthma, Pneumonia, Sleep Apnea Endocrine Medical History: Diabetes Type II, Other Musculoskeletal History: Bone Cancer, Degenerative Disk Disease, Osteoarthritis GI Medical History: Gallbladder Disease, Irritable Bowel, Ulcer, Other History: Other Psycho-Social History: Anxiety, Bipolar, Depression, Panic Disorder Female Reproductive Disorders: Menstrual Problems Other Medical History: KIDNEY STONES, NODULES ON HER THYROID, HAS A HEART CONDITION, 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 - Past Surgical History Past Surgical History: Yes Neuro Surgical History: No Pertinent History Cardiac: Cardiac Catheterization Respiratory: No Pertinent History Gastrointestinal: Bowel Surgery, Other Genitourinary: Kidney Surgery Musculoskeletal: Other Female Surgical History: Section, Other Other Surgical History: ulcer, bariatric, pain procedure to bilateral hips with cortisone, ablasion, July 2021 gtube placed for bowel rupture (no longer has this) Significant Family History: other (vision loss) - Female History Hx Last Menstrual Period: ablation Hx Now: No - Social History Smoking Status: Former smoker How long have you smoked: 30 yrs Exposure to second hand smoke: Yes Drug Use: none Patient Lives Alone: No - Nursing Vital Signs Nursing Vital Signs: Initial Vital Signs Temperature 97.5 F 03/18/24 13:28 Pulse Rate 70 03/18/24 13:28 Respiratory Rate 18 03/18/24 13:28 Blood Pressure 137/80 03/18/24 13:28 O2 Sat by Pulse Oximetry 99 03/18/24 13:28 Pain Scale Pain Intensity 10 - Physical Exam General Appearance: alert Eyes, Ears, Nose, Throat Exam: moist mucous membranes Neck Exam: non-tender, supple Cardiovascular/Respiratory Exam: chest non-tender, normal breath sounds, regular rate/rhythm, no respiratory distress Gastrointestinal/Abdominal Exam: non-tender, guarding Back Exam: normal inspection, No vertebral tenderness Hips Exam: bilateral: non-tender, normal inspection, normal range of motion, no evidence of injury Legs Exam: bilateral leg: non-tender, normal inspection, normal range of motion, no evidence of injury Knees Exam: bilateral knee: pain, soft tissue tenderness, other (Both lower extremities are neurovascular tact distally compartments are soft cap refill less than 2 seconds. PT DP pulse palpable.) Ankle Exam: bilateral ankle: non-tender, normal inspection, normal range of motion, no evidence of injury Foot Exam: bilateral foot: non-tender, normal inspection, normal range of motion, no evidence of injury Neuro/Tendon Exam: normal sensation, normal motor functions Mental Status Exam: alert, oriented x 3, cooperative Skin Exam: normal color, warm, dry SpO2: 99 O2 Delivery: Room Air - Course Nursing assessment & vital signs reviewed: Yes - Radiology Exams Knee X-ray Interpretation: Teleradiologist Report (Both knees reveal osteopenia, small effusion tricompartmental arthritis and fabella.) Ordered Tests: Active Orders 24 hr Category Date Time Status KNEE (3 VIEWS) Stat Exams 03/18/24 13:26 Completed KNEE (3 VIEWS) Stat Exams 03/18/24 13:27 Completed Medication Summary Discontinued Medications Generic Name Dose Route Start Last Admin Trade Name Freq PRN Reason Stop Dose Admin Hydrocodone Bitart/Acetaminophen 1 tab 03/18/24 14:03 03/18/24 14:09 Hydrocodone/Apap 5/325 1 Tab Tablet PO 03/18/24 14:04 1 tab STAT ONE Administration Hydrocodone Bitart/Acetaminophen Confirm 03/18/24 14:07 Hydrocodone/Apap 5/325 1 Tab Tablet Administered 03/18/24 14:08 Dose 1 tab .ROUTE .STK-MED ONE - Progress Progress: improved Progress Note: 54-year-old female presents to emergency department for evaluation of bilateral knee pain for 1 week after a fall. Physical exam reveals both knees to be somewhat swollen. There are some tenderness. No pain to small arcs of motion. Both involved lower extremities neurovascular tact distally compartments are soft cap refill less than 2 seconds. No open or draining lesions. PT DP pulse palpable bilaterally. X-rays of both knees reveal osteopenia knee effusions tricompartmental arthritis and vascular calcifications. Fabellae noted at both knees. However these findings are chronic. Patient will be referred to orthopedic clinic for follow-up. Patient currently has a walker and is able to ambulate with a walker. Patient requested Nelson for pain control. Nelson administered. Will discharge home. Patient voices no other complaints or concerns at this time. Portions of this note were created with voice recognition technology. There may be grammatical, spelling, punctuation or sound alike errors Complexity problem addressed is moderate acute complicated. No critical care time. Complex of data reviewed and analyzed is moderate. Test ordered test reviewed results analyzed and correlated clinically with history and physical examination. Risk of morbidity/risk of mortality is low. Vital stable. Time spent to discharge patient is approximately 15 minutes. Plan of care established for shared decision making. No social determinants of health present impede follow-up. Portions of this note were created with voice recognition technology. There may be grammatical, spelling, punctuation or sound alike errors 03/18/24 14:15 Counseled pt/family regarding: diagnosis, need for follow-up, rad results - Departure Departure Disposition: Home Clinical Impression: Knee pain, bilateral, Bilateral knee effusions, Bilateral knee arthritis, Osteopenia, Vascular calcification Condition: Stable Critical Care Time: No Referrals: GODWIN NELSON [Primary Care Provider] - Follow up/PCP as directed Additional Instructions: Discharge/Care Plan WOLF LYNN was seen on 03/18/24 in the Emergency Room. The patient was counseled regarding Diagnosis,Lab results, Imaging studies, need for follow up and when to return to the Emergency Room. Prescriptions given: Discharge Note I have spoken with the patient and/or caregivers. I have explained the patient's condition, diagnosis and treatment plan based on the information available to me at this time. I have answered the patient's and/or caregiver's questions and addressed any concerns. The patient and/or caregivers have as good understanding of the patient's diagnosis, condition and treatment plan as can be expected at this point. The vital signs have been stable. The patient's condition is stable and appropriate for discharge from the emergency department. The patient will pursue further outpatient evaluation with the primary care physician or other designated or consulting physician as outlined in the discharge instructions. The patient and/or caregivers are agreeable to this plan of care and follow-up instructions have been explained in detail. The patient and/or caregivers have received these instruction. The patient/and or caregivers are aware that any significant change in condition or worsening of symptoms should prompt an immediate return to this or the closest emergency department or call 911. Outpatient Orders: Ortho Referral Time Frame: 1 Day, Facility: [facility], Location: ORTHO CLINIC
--- NOTE | 2024-03-18 14:05 | XRAY ---
Indication: Pain. Comparison: May 28, 2023 3 view right knee unchanged again demonstrating osteopenia, minimal/mild tricompartmental degenerative changes, small nonspecific effusion, tiny posterior fabella, and minimal scattered vascular calcifications. No new/acute bony, articular, or soft tissue abnormalities.
[2024-03-18] MEDS ORDERED: NORCO 5/325 MG ONE (14:07)
--- NOTE | 2024-03-18 14:07 | XRAY ---
Indication: Pain. Comparison: None 3 view left knee demonstrates osteopenia, minimal/mild tricompartmental degenerative changes greatest medial compartment, small nonspecific effusion, and small posterior fabella. No other bony, articular, or soft tissue abnormalities.
[2024-03-18] MEDS: NORCO 5/325 MG PO ONE (14:09)
== END 2024-03-18 14:26 | disposition home or self-care (01) ==
LOC: ED 13:17
DX: M25.561 Pain in right knee (principal); M25.562 Pain in left knee; M25.462 Effusion, left knee; M25.461 Effusion, right knee; M17.0 Bilateral primary osteoarthritis of knee; M85.88 Other specified disorders of bone density and structure, other site; I70.201 Unspecified atherosclerosis of native arteries of extremities, right leg; E11.42 Type 2 diabetes mellitus with diabetic polyneuropathy; Z79.899 Other long term (current) drug therapy
CPT/HCPCS: 73562; 99282; A9270-GY

== ENCOUNTER 2024-04-08 07:13 | Emergency (ER) | payer OTHER ==
[2024-04-08 07:32] VITALS: RESP 18; TEMP 97.7
[2024-04-08] MEDS ORDERED: XYLOCAINE 1% HCL 20 ML MDV ONE (08:23)
--- NOTE | 2024-04-08 08:30 | ERPHSYRPT ---
- History of Present Illness Time Seen by Provider: 04/08/24 07:40 Source: patient Exam Limitations: no limitations Patient Subjective Stated Complaint: Laceration Triage Nursing Assessment: Patient ambulated back to ED with slow and steady gait using cane. Patient A+O X 3. Patient's skin pink, warm and dry. Patient states she was walking down the porch steps to check on her dog and she fell landing on an unknown object causing a laceration to right innfer forearm. Patient states she also hit her right side of head on a toilet that was outside. Patient complains of headache and pain to laceration to right forearm 02/28. Physician History: 54-year-old female history of stroke on blood thinners high risk for falls presents to our ED for evaluation and treatment of a laceration to the volar aspect of her right forearm. Patient states that she was walking outdoors descending his flight of steps when she fell. Patient states there was a toilet adjacent to the stairs. Patient hit her head on the toilet. Patient states her left forearm hit a cinderblock thereby causing the laceration. No other injuries reported. No neck pain cervical spine cleared clinically. The fall was not associated with any cute neuro cardiovascular symptomology. No chest pain or shortness of breath. No nausea vomiting or diaphoresis. No numbness tingling or weakness. Patient has a slight headache. There is some pain at the laceration site as well. Patient otherwise feels well. Patient voices no other complaints or concerns at this time. Patient reports that her fall occurred at approximately 6 AM today Portions of this note were created with voice recognition technology. There may be grammatical, spelling, punctuation or sound alike errors Timing/Duration: today Severity: moderate Modifying Factors: Improves With: movement Associated Symptoms: denies symptoms Allergies/Adverse Reactions: aspirin Allergy (Verified 04/08/24 07:23) latex Allergy (Verified 04/08/24 07:23) NSAIDS (Non-Steroidal Anti-Inflamma Allergy (Verified 04/08/24 07:23) Penicillins Allergy (Verified 04/08/24 07:23) metformin Adverse Reaction (Verified 04/08/24 07:23) Nausea Home Medications: Acetaminophen [Tylenol Extra Strength] 500 mg PO .PRN 10/11/17 [History] Albuterol 2.5 mg/3 ml Neb [Proventil 2.5 mg/3 ml Neb] 2.5 mg IH .PRN 10/11/17 [History] Oxybutynin Chloride [Oxybutynin Chloride ER] 5 mg PO DAILY 10/11/17 [History] Atorvastatin Calcium 20 mg PO HS 01/25/19 [History] Mometasone/Formoterol [Dulera 100 Mcg-5 Mcg Inhaler] 2 puff IH BID 01/25/19 [History] Ranolazine 500 MG [Ranexa 500 MG] 500 mg PO BID 01/25/19 [History] Ropinirole HCl [Requip] 2 mg PO BID 01/25/19 [History] Cariprazine HCl [Vraylar] 3 mg PO DAILY 08/14/23 [History] Metoprolol Succinate 25 mg Xl* [Toprol-Xl 25MG Tablets] 12.5 mg PO DAILY 08/14/23 [History] PANTOPRAZOLE 40 mg Tablet [Protonix 40MG Tablet] 40 mg PO BID 08/14/23 [History] Pregabalin 100 mg PO TID 08/14/23 [History] Topiramate 100 mg [Topamax 100 MG] 100 mg PO BID 08/14/23 [History] clonazePAM [Clonazepam] 0.5 mg PO BID 08/14/23 [History] Amitriptyline HCl 25 mg [Amitriptyline 25 mg Tablet] 125 mg PO HS 08/15/23 [History] Buspirone HCl 5 mg [Buspar 5 mg] 15 mg PO TID 08/15/23 [History] Divalproex Sodium ER 250 mg [Depakote EXTENDED RELEASE 250 MG] 750 mg PO HS 08/15/23 [History] Duloxetine HCl 30 mg [Cymbalta 30 MG Capsule] 90 mg PO DAILY 08/15/23 [History] Ergocalciferol (Vitamin D2) [Vitamin D2] 50,000 unit PO UD 08/15/23 [History] Ertugliflozin Pidolate [Steglatro] 15 mg PO DAILY 08/15/23 [History] Finerenone [Kerendia] 10 mg PO DAILY 08/15/23 [History] Levetiracetam 250 MG [Keppra 250 MG] 1,500 mg PO BID 08/15/23 [History] Hx Tetanus, Diphtheria Vaccination/Date Given: Yes (tetanus on 01/21/23) Hx Influenza Vaccination/Date Given: No Hx Pneumococcal Vaccination/Date Given: No Immunizations Up to Date: Yes Travel Risk - International Travel Have you traveled outside of the country in past 3 weeks: No - Emerging Infectious Disease Are you exhibiting symptoms associated with any current EIDs: No - Review of Systems Constitutional: No Symptoms, No Fever, No Chills Eyes: No Symptoms Ears, Nose, & Throat: No Symptoms Respiratory: No Symptoms, No Cough, No Dyspnea Cardiac: No Symptoms, No Chest Pain, No Edema, No Syncope Abdominal/Gastrointestinal: No Symptoms, No Abdominal Pain, No Nausea, No Vomiting, No Diarrhea Genitourinary Symptoms: No Symptoms, No Dysuria Musculoskeletal: No Symptoms, No Back Pain, No Neck Pain Skin: No Symptoms, No Rash Neurological: No Symptoms, No Dizziness, No Focal Weakness, No Sensory Changes Psychological: No Symptoms Endocrine: No Symptoms Hematologic/Lymphatic: No Symptoms Immunological/Allergic: No Symptoms All Other Systems: Reviewed and Negative - Past Medical History Pertinent Past Medical History: Yes Neurological History: Epilepsy, Migraines, Peripheral Neuropathy, Seizures, Stroke, TIA ENT History: Other Cardiac History: Arrhythmia, Coronary Artery Disease, Other Respiratory History: Asthma, Pneumonia, Sleep Apnea Endocrine Medical History: Diabetes Type II, Other Musculoskeletal History: Bone Cancer, Degenerative Disk Disease, Osteoarthritis GI Medical History: Gallbladder Disease, Irritable Bowel, Ulcer, Other History: Other Psycho-Social History: Anxiety, Bipolar, Depression, Panic Disorder Female Reproductive Disorders: Menstrual Problems Other Medical History: KIDNEY STONES, NODULES ON HER THYROID, HAS A HEART CONDITION, 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 - Past Surgical History Past Surgical History: Yes Neuro Surgical History: No Pertinent History Cardiac: Cardiac Catheterization Respiratory: No Pertinent History Gastrointestinal: Bowel Surgery, Other Genitourinary: Kidney Surgery Musculoskeletal: Other Female Surgical History: Section, Other Other Surgical History: ulcer, bariatric, pain procedure to bilateral hips with cortisone, ablasion, July 2021 gtube placed for bowel rupture (no longer has this) Significant Family History: other (vision loss) - Female History Hx Last Menstrual Period: ablation Hx Now: No - Social History Smoking Status: Former smoker How long have you smoked: 30 yrs Exposure to second hand smoke: Yes Drug Use: none Patient Lives Alone: No - Social Determinants of Health Will the patient participate in the screening: Yes Do you worry about a steady place to live?: No Do you have any problems with any of the following?: No known problems In the past 12 months,have you had to go without utilities?: No Transportation Issues: No Has anyone in your support network made you feel unsafe?: No Have you or anyone in your house had to go without enough: No - Nursing Vital Signs Nursing Vital Signs: Initial Vital Signs Temperature 97.7 F 04/08/24 07:26 Pulse Rate 84 04/08/24 07:26 Respiratory Rate 18 04/08/24 07:26 Blood Pressure 109/85 04/08/24 07:26 O2 Sat by Pulse Oximetry 96 04/08/24 07:26 Pain Scale Pain Intensity 0 - Physical Exam General Appearance: no apparent distress, alert Eye Exam: PERRL/EOMI, eyes nml inspection Ears, Nose, Throat Exam: normal ENT inspection, TMs normal, pharynx normal, moist mucous membranes Neck Exam: normal inspection, non-tender, supple, full range of motion Respiratory Exam: normal breath sounds, lungs clear, airway intact, No respiratory distress Cardiovascular Exam: regular rate/rhythm, normal heart sounds, normal peripheral pulses Gastrointestinal/Abdomen Exam: soft, normal bowel sounds, No tenderness, No mass Back Exam: normal inspection, normal range of motion, No CVA tenderness, No vertebral tenderness Extremity Exam: normal inspection, normal range of motion, pelvis stable, other Neurologic Exam: alert, oriented x 3, cooperative, normal mood/affect, sensation nml, No motor deficits Skin Exam: normal color, warm, dry, No rash Lymphatic Exam: No adenopathy SpO2 Interpretation: normal SpO2: 96 O2 Delivery: Room Air Procedures - Laceration/Wound Repair Right Arm Time of Procedure: 09:00 Wound Location: Right (Right forearm) Wound Length (cm): 6 (Wound measures 6 cm x 4 cm) Wound's Depth, Shape: into subcut Wound Explored: clean Irrigated: Yes Hibiclens Prep: Yes Anesthesia: 1% Lidocaine Volume Anesthetic (ccs): 5 Wound Repaired With: sutures Suture Size/Type: 5-0, ethilon Number of Sutures: 14 Layer Closure?: No Sterile Dressing Applied?: No Splint Applied?: No Sling Applied?: No Progress: 04/08/24 09:38 No intra or postprocedural complications. Patient tolerated procedure well. Patient neurovascular tact distally post and preprocedure. - Course Nursing assessment & vital signs reviewed: Yes - Radiology Exams Forearm X-ray Interpretation: Teleradiologist Report (X-ray right forearm no fracture dislocations.) - CT Exams Head CT Interpretation: Tele-radiologist Report (Stable remote lacunar infarct left basal ganglia no acute intracranial process) Ordered Tests: Active Orders 24 hr Category Date Time Status FOREARM Stat Exams 04/08/24 07:33 Completed HEAD WITHOUT CONTRAST [CT] Stat Exams 04/08/24 07:32 Completed Medication Summary Discontinued Medications Generic Name Dose Route Start Last Admin Trade Name Freq PRN Reason Stop Dose Admin Acetaminophen 975 mg 04/08/24 08:28 04/08/24 08:46 Acetaminophen 325 Mg Tablet PO 04/08/24 08:29 975 mg STAT ONE Administration Acetaminophen Confirm 04/08/24 08:45 Acetaminophen 325 Mg Tablet Administered 04/08/24 08:46 Dose 975 mg .ROUTE .STK-MED ONE Doxycycline Hyclate 100 mg 04/08/24 09:15 04/08/24 09:19 Doxycycline Hyclate 100 Mg Tablet PO 04/08/24 09:16 100 mg STAT ONE Administration Doxycycline Hyclate Confirm 04/08/24 09:18 Doxycycline Hyclate 100 Mg Tablet Administered 04/08/24 09:19 Dose 100 mg .ROUTE .STK-MED ONE Lidocaine HCl Confirm 04/08/24 08:23 Lidocaine Hcl 1% 20 Ml Mdv 20 Ml Ml Administered 04/08/24 08:24 Dose 5 ml .ROUTE .STK-MED ONE Lidocaine HCl 5 ml 04/08/24 08:34 04/08/24 08:46 Lidocaine Hcl 1% 20 Ml Mdv 20 Ml Ml IJ 04/08/24 08:35 5 ml STAT ONE Administration - Progress Progress: improved Progress Note: 54-year-old female presents to our ED for evaluation of a laceration status post fall. Patient is on blood thinner. Physical exam reveals small contusion to her right scalp. CT head negative for acute intracranial pathology. Right forearm reveals a stellate laceration measuring 6 x 4 cm. Laceration was repaired using 14 simple interrupted sutures. Patient neurovascular intact pre and post procedure. No intra or postprocedural complications. Patient received doxycycline in our ED. A prophylactic prescription for doxycycline was forwarded to patient's pharmacy. Patient is pen allergic. Dressing applied. Dressing to stay in place for the next 48 hours. Sutures to be removed in 1 week. No indication for further workup. Will discharge home. Patient voices no other complaints or concerns at this time. Portions of this note were created with voice recognition technology. There may be grammatical, spelling, punctuation or sound alike errors Complexity problem addressed is moderate acute complicated. No critical care time. Complex of data reviewed and analyzed is moderate. Test ordered test reviewed results analyzed and correlated clinically with history and physical exam. CT scan negative for acute intracranial pathology. X-ray right forearm negative for fracture dislocation. Risk of complication and or risk of morbidity/mortality patient management is moderate. Patient received a dose of doxycycline in our ED. A prescription for the same was forwarded to patient's pharmacy. Vital stable. Time spent to discharge patient approximately 20 minutes. Plan of care established for shared decision making. No social determinants of health present impede follow-up. Portions of this note were created with voice recognition technology. There may be grammatical, spelling, punctuation or sound alike errors 04/08/24 09:22 Counseled pt/family regarding: diagnosis, need for follow-up, rad results - Departure Departure Disposition: Home Clinical Impression: Fall, Scalp contusion, Laceration Condition: Stable Critical Care Time: No Referrals: GODWIN NELSON [Primary Care Provider] - Follow up/PCP as directed Additional Instructions: Discharge/Care Plan WOLF LYNN was seen on 04/08/24 in the Emergency Room. The patient was counseled regarding Diagnosis,Lab results, Imaging studies, need for follow up and when to return to the Emergency Room. Prescriptions given: Discharge Note I have spoken with the patient and/or caregivers. I have explained the patient's condition, diagnosis and treatment plan based on the information available to me at this time. I have answered the patient's and/or caregiver's questions and addressed any concerns. The patient and/or caregivers have as good understanding of the patient's diagnosis, condition and treatment plan as can be expected at this point. The vital signs have been stable. The patient's condition is stable and appropriate for discharge from the emergency department. The patient will pursue further outpatient evaluation with the primary care ysician or other designated or consulting physician as outlined in the discharge instructions. The patient and/or caregivers are agreeable to this plan of care and follow-up instructions have been explained in detail. The patient and/or caregivers have received these instruction. The patient/and or caregivers are aware that any significant change in condition or worsening of symptoms should prompt an immediate return to this or the closest emergency department or call 911. Prescriptions: Doxycycline Hyclate 100 mg [Vibramycin 100 MG] 100 mg PO BID 5 Days #10 tab
--- NOTE | 2024-04-08 08:37 | XRAY ---
Indication: Headache following fall. History of stroke. Multiple contiguous axial images obtained through the head without contrast. Comparison: August 14, 2023 Stable remote lacunar infarct left basal ganglia. No acute intracranial hemorrhage, abnormal extra-axial fluid collection, or mass effect. Fourth ventricle is midline without hydrocephalus. Jama-white matter differentiation preserved. Bony calvarium intact. Visualized paranasal sinuses and mastoid air cells are clear. Impression: Stable remote lacunar infarct left basal ganglia. No new/acute intracranial abnormalities.
[2024-04-08] MEDS ORDERED: TYLENOL 325 MG ONE (08:45)
[2024-04-08] MEDS: TYLENOL 325 MG PO ONE (08:46)
[2024-04-08] MEDS: XYLOCAINE 1% HCL 20 ML MDV IJ ONE (08:46)
--- NOTE | 2024-04-08 09:07 | XRAY ---
Indication: Pain following fall. Comparison: None 2 view right forearm demonstrates osteopenia and posterior medial soft tissue swelling/laceration. No other bony, articular, or soft tissue abnormalities.
[2024-04-08] MEDS ORDERED: Vibramycin 100 MG ONE (09:18)
[2024-04-08] MEDS: Vibramycin 100 MG PO ONE (09:19)
[2024-04-08 09:22] VITALS: BP 122/82; PULSE 76
[2024-04-08 09:25] VITALS: O2SAT 96
== END 2024-04-08 09:56 | disposition home or self-care (01) ==
LOC: ED 07:13
DX: S51.811A Laceration without foreign body of right forearm, initial encounter (principal); S00.03XA Contusion of scalp, initial encounter; W10.9XXA Fall (on) (from) unspecified stairs and steps, initial encounter; E11.42 Type 2 diabetes mellitus with diabetic polyneuropathy; Z79.84 Long term (current) use of oral hypoglycemic drugs; Z79.899 Other long term (current) drug therapy
CPT/HCPCS: 12002; 70450; 73090; 96372; 99284; A9270-GY

== ENCOUNTER 2025-01-21 07:53 | Day surgery (SDC) | payer OTHER ==
[2025-01-21] MEDS ORDERED: SYNVISC 16 MG/2 ML SYRINGE IU ONE (07:54)
[2025-01-21] MEDS ORDERED: Depo-Medrol 40 MG/ML IM ONE (07:54)
[2025-01-21] MEDS ORDERED: BUPIVACAINE 0.5% VIAL IJ ONE (07:54)
[2025-01-21 08:22] LABS: HCG URINE TEST NEGATIVE (NEGATIVE)
[2025-01-21] MEDS ORDERED: propofoL IV ONE (09:50)
--- NOTE | 2025-01-21 12:01 | XRAY ---
Indication: Left knee injection. Intraoperative fluoroscopy provided for 15 seconds. Single digital spot image submitted for interpretation demonstrates needle tip projecting over left femur intercondylar notch. Small amount of contrast injected for needle tip placement. Correlate with intraoperative findings/report.
--- NOTE | 2025-01-21 12:58 | XRAY ---
5 seconds of fluoroscopy was used in surgery for a right intra-articular knee injection.
--- NOTE | 2025-01-21 12:58 | XRAY ---
15 seconds of fluoroscopy was used in surgery for a left intra-articular knee injection.
== END 2025-01-21 10:28 | disposition home or self-care (01) ==
LOC: SDC-PAIN 07:53
PROVIDERS: ATTEND Psychiatry & Neurology Pain Medicine
DX: M17.0 Bilateral primary osteoarthritis of knee (principal); M70.52 Other bursitis of knee, left knee; M70.51 Other bursitis of knee, right knee; E11.9 Type 2 diabetes mellitus without complications
CPT/HCPCS: 20610; 73560; 77002; 81025; 82947; J2704; J7325; Q9966

== ENCOUNTER 2025-01-28 07:35 | Day surgery (SDC) | payer OTHER ==
[2025-01-28] MEDS ORDERED: SYNVISC 16 MG/2 ML SYRINGE IU ONE (07:36)
[2025-01-28 09:35] LABS: HCG URINE TEST NEGATIVE (NEGATIVE)
[2025-01-28] MEDS ORDERED: propofoL IV ONE (10:48)
--- NOTE | 2025-01-28 12:19 | XRAY ---
Indication: Right knee injection. Intraoperative fluoroscopy provided for 6 seconds. Single digital spot image submitted for interpretation demonstrates needle tip projecting over right femur intercondylar notch. Small amount of contrast injected for needle tip placement. Correlate with intraoperative findings/report.
--- NOTE | 2025-01-28 12:19 | XRAY ---
Indication: Left knee injection. Intraoperative fluoroscopy provided for 13 seconds. Single digital spot image submitted for interpretation demonstrates needle tip projecting over left femur intercondylar notch. Small amount of contrast injected for needle tip placement. Correlate with intraoperative findings/report.
--- NOTE | 2025-01-28 12:45 | XRAY ---
13 seconds of fluoroscopy used in surgery for a left intra-articular knee injection.
--- NOTE | 2025-01-28 12:45 | XRAY ---
6 seconds of fluoroscopy used in surgery for a right intra-articular knee injection.
== END 2025-01-28 11:28 | disposition home or self-care (01) ==
LOC: SDC-PAIN 07:35
PROVIDERS: ATTEND Psychiatry & Neurology Pain Medicine
DX: M17.0 Bilateral primary osteoarthritis of knee (principal); E11.9 Type 2 diabetes mellitus without complications
CPT/HCPCS: 20610; 73560; 77002; 81025; 82947; J2704; J7325; Q9966

== ENCOUNTER 2025-02-04 07:43 | Day surgery (SDC) | payer OTHER ==
[2025-02-04] MEDS ORDERED: SYNVISC 16 MG/2 ML SYRINGE IU ONE (07:44)
[2025-02-04 08:52] LABS: HCG URINE TEST NEGATIVE (NEGATIVE)
[2025-02-04] MEDS ORDERED: propofoL IV ONE (10:22)
--- NOTE | 2025-02-04 11:40 | XRAY ---
Indication: Left knee injection. Intraoperative fluoroscopy provided for 11 seconds. Single digital spot image submitted for interpretation demonstrates needle tip projecting over left femur intercondylar notch. Small amount of contrast injected for needle tip placement. Correlate with intraoperative findings/report.
--- NOTE | 2025-02-04 12:57 | XRAY ---
5 seconds of fluoroscopy was used in surgery for a right intra-articular knee injection.
--- NOTE | 2025-02-04 12:57 | XRAY ---
11 seconds of fluoroscopy was used in surgery for a left intra-articular knee injection.
== END 2025-02-04 11:00 | disposition home or self-care (01) ==
LOC: SDC-PAIN 07:43
PROVIDERS: ATTEND Psychiatry & Neurology Pain Medicine
DX: M17.0 Bilateral primary osteoarthritis of knee (principal); E11.9 Type 2 diabetes mellitus without complications
CPT/HCPCS: 20610; 73560; 77002; 81025; 82947; J2704; J7325; Q9966

== ENCOUNTER 2025-07-22 09:10 | Day surgery (SDC) | payer OTHER ==
[2025-07-22] MEDS ORDERED: methylPREDNISolone acetate IM ONE (09:11)
[2025-07-22] MEDS ORDERED: LIDOCAINE HCL 2% 100 MG/5 ML IJ ONE (09:11)
[2025-07-22 10:19] LABS: HCG URINE TEST NEGATIVE (NEGATIVE)
[2025-07-22] MEDS ORDERED: propofoL IV ONE (11:49)
--- NOTE | 2025-07-22 13:01 | XRAY ---
Indication: Bilateral L4-S1 MBB. Intraoperative fluoroscopy provided for 24 seconds. Single digital spot image submitted for interpretation demonstrates posterior needle tips projecting over expected left and right L4-S1 nerve roots. Correlate with intraoperative findings/report.
--- NOTE | 2025-07-22 13:07 | XRAY ---
24 seconds of fluoroscopy were used in surgery for a bilateral L4-S1 MBB.
[2025-07-22] MEDS ORDERED: Lactated Ringers 1,000 ML IV ONE (15:17)
== END 2025-07-22 12:33 | disposition home or self-care (01) ==
LOC: SDC-PAIN 09:10
PROVIDERS: ATTEND Psychiatry & Neurology Pain Medicine
DX: M47.817 Spondylosis without myelopathy or radiculopathy, lumbosacral region (principal); E11.9 Type 2 diabetes mellitus without complications

== ENCOUNTER 2025-08-11 16:14 | Observation (INO) | payer OTHER ==
--- NOTE | 2025-08-11 16:45 | ERPHSYRPT ---
- History of Present Illness Time Seen by Provider: 08/11/25 16:40 Source: patient Exam Limitations: no limitations Patient Subjective Stated Complaint: patient has knot on back of your head that patient states appears to be getting biggger and hurting more throughoutthe day Triage Nursing Assessment: patient walkedinto the ED using a cane, she has swollen area to back of scalp and denies any fall or incident. states pain has gotten worse throughout the day and it has swollen bigger. patient stastes some right sided vision deficits more tsevere than what she previously had. Physician History: Patient is a 55-year-old female history of diabetes stroke, seizures, coronary artery disease, peripheral neuropathy, bipolar, anxiety, panic disorder presents to our ED for evaluation of a palpable fluctuant scalp mass. However patient adds that she has been experiencing a right facial numbness and blurred vision. In light of patient's significant past medical history patient will be experiencing a stroke workup. No slurred speech. No extremity numbness tingling or weakness. No dizziness. No chest pain or shortness of breath. No nausea or vomiting. Patient otherwise feels well. She voices no other complaints or concerns at this time. Portions of this note were created with voice recognition technology. There may be grammatical, spelling, punctuation or sound alike errors Timing/Duration: today Severity: moderate Modifying Factors: Improves With: nothing Associated Symptoms: denies symptoms Allergies/Adverse Reactions: aspirin Allergy (Verified 08/11/25 16:28) latex Allergy (Verified 08/11/25 16:28) NSAIDS (Non-Steroidal Anti-Inflamma Allergy (Verified 08/11/25 16:28) Penicillins Allergy (Verified 08/11/25 16:28) metformin Adverse Reaction (Verified 08/11/25 16:28) Nausea Home Medications: Acetaminophen [Tylenol Extra Strength] 500 mg PO .PRN 10/11/17 [History] Albuterol 2.5 mg/3 ml Neb [Proventil 2.5 mg/3 ml Neb] 2.5 mg IH .PRN 10/11/17 [History] Oxybutynin Chloride [Oxybutynin Chloride ER] 5 mg PO DAILY 10/11/17 [History] Atorvastatin Calcium 20 mg PO HS 01/25/19 [History] Mometasone/Formoterol [Dulera 100 Mcg-5 Mcg Inhaler] 2 puff IH BID 01/25/19 [History] Ranolazine 500 MG [Ranexa 500 MG] 500 mg PO BID 01/25/19 [History] Ropinirole HCl [Requip] 2 mg PO BID 01/25/19 [History] Cariprazine HCl [Vraylar] 3 mg PO DAILY 08/14/23 [History] Metoprolol Succinate 25 mg Xl* [Toprol-Xl 25MG Tablets] 12.5 mg PO DAILY 08/14/23 [History] PANTOPRAZOLE 40 mg Tablet [Protonix 40MG Tablet] 40 mg PO BID 08/14/23 [History] Pregabalin 100 mg PO TID 08/14/23 [History] Topiramate 100 mg [Topamax 100 MG] 100 mg PO BID 08/14/23 [History] clonazePAM [Clonazepam] 0.5 mg PO BID 08/14/23 [History] Amitriptyline HCl 25 mg [Amitriptyline 25 mg Tablet] 125 mg PO HS 08/15/23 [History] Buspirone HCl 5 mg [Buspar 5 mg] 15 mg PO TID 08/15/23 [History] Divalproex Sodium ER 250 mg [Depakote EXTENDED RELEASE 250 MG] 750 mg PO HS 08/15/23 [History] Duloxetine HCl 30 mg [Cymbalta 30 MG Capsule] 90 mg PO DAILY 08/15/23 [History] Ergocalciferol (Vitamin D2) [Vitamin D2] 50,000 unit PO UD 08/15/23 [History] Ertugliflozin Pidolate [Steglatro] 15 mg PO DAILY 08/15/23 [History] Finerenone [Kerendia] 10 mg PO DAILY 08/15/23 [History] Levetiracetam 250 MG [Keppra 250 MG] 1,500 mg PO BID 08/15/23 [History] Hx Tetanus, Diphtheria Vaccination/Date Given: Yes (tetanus on 01/21/23) Hx Influenza Vaccination/Date Given: No Hx Pneumococcal Vaccination/Date Given: No Immunizations Up to Date: Yes Travel Risk - International Travel Have you traveled outside of the country in past 3 weeks: No - Emerging Infectious Disease Are you exhibiting symptoms associated with any current EIDs: No - Review of Systems All Other Systems: Reviewed and Negative - Past Medical History Pertinent Past Medical History: Yes Neurological History: Epilepsy, Migraines, Peripheral Neuropathy, Seizures, Stroke, TIA ENT History: Other Cardiac History: Arrhythmia, Coronary Artery Disease, Other Respiratory History: Asthma, Pneumonia, Sleep Apnea Endocrine Medical History: Diabetes Type II, Other Musculoskeletal History: Bone Cancer, Degenerative Disk Disease, Osteoarthritis GI Medical History: Gallbladder Disease, Irritable Bowel, Ulcer, Other History: Other Psycho-Social History: Anxiety, Bipolar, Depression, Panic Disorder Female Reproductive Disorders: Menstrual Problems Other Medical History: KIDNEY STONES, NODULES ON HER THYROID, HAS A HEART CONDITION, 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 - Past Surgical History Past Surgical History: Yes Neuro Surgical History: No Pertinent History Cardiac: Cardiac Catheterization Respiratory: No Pertinent History Gastrointestinal: Bowel Surgery, Other Genitourinary: Kidney Surgery Musculoskeletal: Other Female Surgical History: Section, Other Other Surgical History: ulcer, bariatric, pain procedure to bilateral hips with cortisone, ablasion, July 2021 gtube placed for bowel rupture (no longer has this) Significant Family History: other (vision loss) - Female History Hx Last Menstrual Period: 09/09/13 Hx Now: No - Social History Smoking Status: Former smoker How long have you smoked: 30 yrs Exposure to second hand smoke: Yes Drug Use: none - Social Determinants of Health Will the patient participate in the screening: Yes Do you worry about a steady place to live?: No Do you have any problems with any of the following?: No known problems In the past 12 months,have you had to go without utilities?: No Transportation Issues: No Has anyone in your support network made you feel unsafe?: No Have you or anyone in your house had to go w/o enough food: No - Nursing Vital Signs Nursing Vital Signs: Initial Vital Signs Temperature 97.4 F 08/11/25 16:15 Pulse Rate 80 08/11/25 16:15 Respiratory Rate 20 08/11/25 16:15 O2 Sat by Pulse Oximetry 98 08/11/25 16:15 Pain Scale Pain Intensity 0 - Physical Exam General Appearance: no apparent distress, alert, other (2 x 2 cm right posterior parietal scalp cyst) Eye Exam: PERRL/EOMI, eyes nml inspection Ears, Nose, Throat Exam: normal ENT inspection, moist mucous membranes Neck Exam: normal inspection, full range of motion Respiratory Exam: normal breath sounds, lungs clear, airway intact, No respiratory distress Cardiovascular Exam: regular rate/rhythm, normal heart sounds, normal peripheral pulses Gastrointestinal/Abdomen Exam: soft, normal bowel sounds, No tenderness, No mass Back Exam: normal inspection, normal range of motion, No CVA tenderness, No vertebral tenderness Extremity Exam: normal inspection, normal range of motion, pelvis stable Neurologic Exam: alert, oriented x 3, cooperative, normal mood/affect, sensation nml, No motor deficits Skin Exam: normal color, warm, dry, No rash Lymphatic Exam: No adenopathy SpO2 Interpretation: normal SpO2: 99 O2 Delivery: Room Air - Course Nursing assessment & vital signs reviewed: Yes EKG Interpreted by Me: RATE (74), Sinus Rhythm, NORMAL AXIS, NORMAL INTERVALS, NORMAL QRS - CT Exams Head CT Interpretation: Tele-radiologist Report (No change compared to 08/14/2023. Again normal CT head. Stable CTA with minimal calcifications both parasellar ICAs. Otherwise continued normal CTA head) Soft Tissue Neck CT Interpretation: Tele-radiologist Report (No change compared to 08/14/2023. Minimal plaquing at left ICA. Remaining CTA neck again normal) Ordered Tests: Active Orders 24 hr Category Date Time Status Consulting Services Manager STAT Care 08/11/25 16:46 Active EKG-ER Only STAT Care 08/11/25 16:45 Active IV Insertion STAT Care 08/11/25 16:45 Active Pulse Oximetry (ED) STAT Care 08/11/25 16:[address] ANGIOGRAPHY NECK [CT] Stat Exams 08/11/25 16:49 Taken CTA HEAD W AND/OR WO CONTRAST [CT] Stat Exams 08/11/25 16:49 Taken CBC W DIFF Stat Lab 08/11/25 17:28 Completed CMP Stat Lab 08/11/25 17:28 Completed TROPONIN Q4H Lab 08/11/25 17:28 Completed TROPONIN Q4H Lab 08/11/25 21:00 Received TROPONIN Q4H Lab 08/12/25 01:00 Ordered Transfer Order Routine Transfer 08/11/25 Ordered Medication Summary Generic Name Dose Route Start Last Admin Trade Name Freq PRN Reason Stop Dose Admin Sodium Chloride 1,000 mls @ 100 mls/hr 08/11/25 16:45 08/11/25 17:18 Sodium Chloride 0.9% 1000 Ml IV 09/10/25 16:44 100 mls/hr .Q10H JOSEMANUEL Administration Discontinued Medications Generic Name Dose Route Start Last Admin Trade Name Gagan PRN Reason Stop Dose Admin Ticagrelor 60 mg 08/11/25 20:55 Ticagrelor 90 Mg Tablet PO 08/11/25 20:56 ONCE STA Lab/Rad Data: Laboratory Result Diagrams 08/11/25 17:28 08/11/25 17:28 Laboratory Results 08/11/25 08/11/25 08/11/25 Range/Units 17:28 17:28 17:28 WBC 6.6 (3.98-10.04) x10^3/uL RBC 4.36 (3.93-5.22) x10^6/uL Hgb 12.2 (11.2-15.7) g/dL Hct 40.9 (34.1-44.9) % MCV 93.8 (79.4-94.8) fL MCH 28.0 (25.6-32.2) pg MCHC 29.8 L (32.2-35.5) g/dL RDW 13.8 (11.7-14.4) % Plt Count 249 (182-369) x10^3/uL MPV 9.1 L (9.4-12.3) fL Gran % 53.0 (34.0-71.1) % Immature Gran % (Auto) 0.5 H (0.001-0.429) % Nucleat RBC Rel Count 0.0 (0.00-0.2) % Eos # (Auto) 0.17 (0.04-0.36) x10^3/uL Immature Gran # (Auto) 0.03 (0.001-0.031) x10^3u/L Absolute Lymphs (auto) 2.24 (1.18-3.74) x10^3/uL Absolute Monos (auto) 0.58 (0.24-0.86) x10^3/uL Absolute Nucleated RBC 0.00 (0.00-0.012) x10^3u/L Lymphocytes % 33.9 (19.3-51.7) % Monocytes % 8.8 (4.7-12.5) % Eosinophils % 2.6 (0.7-5.8) % Basophils % 1.2 (0.1-1.2) % Absolute Granulocytes 3.50 (1.56-6.13) x10^3/uL Basophils # 0.08 (0.01-0.08) x10^3/uL Sodium 141 (135-145) mmol/L Potassium 3.5 (3.5-5.1) mmol/L Chloride 110 H (98-107) mmol/L Carbon Dioxide 25 (22-30) mmol/L Anion Gap 9.9 (5-15) MEQ/L BUN 7 (7-17) mg/dL Creatinine 0.97 (0.52-1.04) mg/dL Estimated GFR 69.4 ML/MIN Glucose 94 (74-106) mg/dL Calcium 8.8 (8.4-10.2) mg/dL Total Bilirubin < 0.10 L (0.2-1.3) mg/dL AST 20 (14-36) U/L ALT 21 (0-35) U/L Alkaline Phosphatase 115 (38-126) U/L Troponin I < 0.012 (0.000-0.033) ng/mL Serum Total Protein 6.4 (6.3-8.2) g/dL Albumin 3.7 (3.5-5.0) g/dL - Progress Progress: improved Progress Note: Patient is a 55-year-old female history of diabetes stroke, seizures, coronary artery disease, peripheral neuropathy, bipolar, anxiety, panic disorder presents to our ED for evaluation of a palpable fluctuant scalp mass. However patient adds that she has been experiencing a right facial numbness and blurred vision. Physical exam essentially nonremarkable. NIH 0. [place] workup essentially nonremarkable. Case discussed with neurologist on 8:10 PM. She advised hospitalization for MRI and cardiac echo. She requested a 60 mg dose of Brilinta in our ED then daily twice daily. Plan of care discussed with patient. She agrees to admission to [facility] for further evaluation and treatment. Patient reassessed. She is stable. No active complaints. Admit order completed. at bedside. They agree to admission to [facility] for further evaluation and treatment. Portions of this note were created with voice recognition technology. There may be grammatical, spelling, punctuation or sound alike errors History obtained from patient and her who was at the bedside. Differential diagnosis includes ischemic stroke, stroke mimics, hypoglycemia seizure, migraine headache, cardiac dysrhythmia Complexity of problem addressed is moderate acute complicated. No critical care time. Complexity of data reviewed and analyzed is extensive. Test ordered chest reviewed results analyzed and correlated clinically with history and physical exam. Management discussed with hospitalist Dr. Albaro moreno who accepts admission to observation at 9:20 PM. Risk of complication at risk of morbidity/mortality of patient management is high. Patient requires hospitalization for further evaluation and treatment. Vital stable. Time spent to admit patient approximately 20 minutes. Plan of care established for shared decision making. No social determinants of health present to impede follow-up. Portions of this note were created with voice recognition technology. There may be grammatical, spelling, punctuation or sound alike errors 08/11/25 21:30 Counseled pt/family regarding: lab results, diagnosis - Departure Departure Disposition: Observation Clinical Impression: Scalp cyst, Facial numbness, Blurred vision, right eye Condition: Stable Critical Care Time: No Referrals: GODWIN NELSON [COURTESY STAFF, [facility]] - Follow up/PCP as directed
[2025-08-11 17:31] LABS: BASOPHIL % 1.2 % (0.1-1.2); Basophil (Absolute #) 0.08 x10^3/uL (0.01-0.08); Eosinophil (Absolute #) 0.17 x10^3/uL (0.04-0.36); Hematocrit 40.9 % (34.1-44.9); Hemoglobin 12.2 g/dL (11.2-15.7); IMMATURE GRAN # 0.03 x10^3u/L (0.001-0.031); IMMATURE GRAN % 0.5 % (0.001-0.429); Lymphocyte (Absolute #) 2.24 x10^3/uL (1.18-3.74); Mean Corpuscular Hemoglobin 28.0 pg (25.6-32.2); Mean Corpuscular Hgb Concent. 29.8 g/dL (32.2-35.5); Monocyte (Absolute #) 0.58 x10^3/uL (0.24-0.86); NUCLEATED RBC # 0.00 x10^3u/L (0.00-0.012); NUCLEATED RBC % 0.0 % (0.00-0.2); Platelet Count 249 x10^3/uL (182-369); Red Blood Count 4.36 x10^6/uL (3.93-5.22); White Blood Count 6.6 x10^3/uL (3.98-10.04)
[2025-08-11 17:45] LABS: Calcium 8.8 mg/dL (8.4-10.2); Carbon Dioxide 25 mmol/L (22-30); Creatinine 1 0.97 mg/dL (0.52-1.04); EST GLOMERULAR FILTRATION RATE 69.4 ML/MIN; Glucose 94 mg/dL (74-106); Potassium 3.5 mmol/L (3.5-5.1); SGOT/AST 20 U/L (14-36); SGPT/ALT 21 U/L (0-35); Total Protein 6.4 g/dL (6.3-8.2)
[2025-08-11] MEDS: BRILINTA PO STA ×2 (21:53→21:54)
[2025-08-12] MEDS: NORCO 7.5/325 MG TAB PO SCH (00:18)
[2025-08-12 05:28] LABS: Hematocrit 41.0 % (34.1-44.9); Hemoglobin 12.2 g/dL (11.2-15.7); Mean Corpuscular Hemoglobin 27.7 pg (25.6-32.2); Mean Corpuscular Hgb Concent. 29.8 g/dL (32.2-35.5); Platelet Count 262 x10^3/uL (182-369); Red Blood Count 4.40 x10^6/uL (3.93-5.22); White Blood Count 6.7 x10^3/uL (3.98-10.04)
[2025-08-12 06:02] LABS: Calcium 8.8 mg/dL (8.4-10.2); Carbon Dioxide 22.0 mmol/L (22-30); Creatinine 1 0.83 mg/dL (0.52-1.04); EST GLOMERULAR FILTRATION RATE 83.7 ML/MIN; Glucose 83.0 mg/dL (74-106); Potassium 4.1 mmol/L (3.5-5.1)
--- NOTE | 2025-08-12 06:51 | PCM.HP ---
History of Present Illness - Chief Complaint Chief Complaint: TIA, blurred vision, facial numbness History of Present Illness: Acute cerebrovascular accident (acute, high risk) - She reports right-sided facial weakness and slurred speech which began earlier today. - CTA of the head and neck was performed to rule out an acute process. - An MRI of the brain and echocardiogram are pending - Neurologist following, recommendations appreciated - Recommendations include starting ticagrelor 60 mg BID. Implementing lipid- lowering therapy to target an LDL of <55 mg/dL. History of seizures (chronic, ongoing assessment) - She will resume her home regimen of levetiracetam 1500 mg BID and divalproex 750 mg qHS. - The neurology service has been consulted for further management. Obstructive coronary artery disease (chronic, stable) - She is currently asymptomatic and denies any chest pain. - No changes will be made to her current medication regimen, which includes ranolazine 500 mg BID and metoprolol succinate 25 mg qday. Subjective This is a 55-year-old woman who presents for evaluation after being seen in the emergency department. She initially presented with concerns of a palpable and fluctuant mass on her scalp. During her ER evaluation, she also reported the onset of right-sided facial numbness, blurred vision, and right-sided motor weakness affecting both the upper and lower extremities. Her past medical history is significant for diabetes mellitus, a prior stroke, seizures, coronary artery disease, anxiety, and bipolar disorder. Home cardiac medications Atorvastatin 20 mg qHS Metoprolol succinate 25 mg qday Ranolazine 500 mg BID Finerenone 10 mg qday Physical examination Vital Signs Blood pressure: 147/91 mmHg Heart rate: 77 beats per minute Respiratory rate: 16 breaths per minute Oxygen saturation: 99% on room air Height: 5'5" Weight: 253.5 lbs BMI: 42.4 kg/m Neurological She is alert and oriented to person, place, and time. Cardiovascular Regular rate and rhythm, not tachycardic. Respiratory Clear to auscultation bilaterally, not tachypneic. Abdominal The abdomen is soft and non-distended. Musculoskeletal There are no gross deformities noted. Lab and Studies Reviewed - Complete Blood Count (08/11/2025): Hemoglobin 12.2 g/dL, Hematocrit 40%, WBC 6.6 k/uL, Platelets 249 k/uL. Independently reviewed and interpreted by me. - Basic Metabolic Panel (08/11/2025): Sodium 141 mmol/L, Potassium 3.5 mmol/L, Chloride 110 mmol/L, Bicarbonate 25 mmol/L, BUN 7 mg/dL, Creatinine 0.97 mg/dL. Independently reviewed and interpreted by me. - CT Head (08/14/2023): The study was unremarkable and showed no significant carotid artery disease. Independently reviewed and interpreted by me. Notes reviewed Emergency department documentation from 08/11/2025 by the ER physician was reviewed. The note documented her initial complaints of right-sided facial weakness. MDM Summary 1. Number and Complexity of Problems Addressed (CoPA): - High Complexity: The presentation involves an undiagnosed new problem with uncertain prognosis (acute cerebrovascular accident) which poses a threat to bodily function. Additionally, she has multiple chronic illnesses (seizures, coronary artery disease) requiring ongoing management. 2. Amount and/or Complexity of Data to be Reviewed and Analyzed (Data): - Extensive: Management required ordering and reviewing advanced imaging (CTA head/neck, MRI brain), reviewing multiple lab tests (CBC, BMP), reviewing external records (ER physician note), and consultation with another specialist (Neurology). 3. Risk of Complications, Morbidity, and/or Mortality (Risk): - High Risk: The decision was made to initiate a direct oral anticoagulant (DOAC), ticagrelor. The differential diagnosis includes acute cerebrovascular accident, which carries a high risk of morbidity and mortality. The decision for potential hospitalization and escalation of care was considered. - Review of Systems Eyes: No No Symptoms Ears, Nose, & Throat: No No Symptoms Respiratory: No No Symptoms Cardiac: No No Symptoms Abdominal/Gastrointestinal: No No Symptoms Genitourinary Symptoms: No No Symptoms Skin: No No Symptoms Neurological: Focal Weakness, Parasthesia, Sensory Changes Psychological: No No Symptoms Endocrine: No No Symptoms Hematologic/Lymphatic: No No Symptoms Immunological/Allergic: No No Symptoms Medications & Allergies Home Medications: Home Medication List Albuterol 2.5 mg/3 ml Neb [Proventil 2.5 mg/3 ml Neb] 2.5 mg IH .PRN 10/11/17 [History Confirmed 08/11/25] Oxybutynin Chloride [Oxybutynin Chloride ER] 10 mg PO DAILY 10/11/17 [History Confirmed 08/11/25] Atorvastatin Calcium 40 mg PO HS 01/25/19 [History Confirmed 08/11/25] Ropinirole HCl [Requip] 2 mg PO TID 01/25/19 [History Confirmed 08/11/25] Metoprolol Succinate 25 mg Xl* [Toprol-Xl 25MG Tablets] 25 mg PO DAILY 08/14/23 [History Confirmed 08/11/25] Pregabalin 100 mg PO TID 08/14/23 [History Confirmed 08/11/25] Topiramate 100 mg [Topamax 100 MG] 100 mg PO BID 08/14/23 [History Confirmed 08/11/25] Amitriptyline HCl 25 mg [Amitriptyline 25 mg Tablet] 150 mg PO HS 08/15/23 [History Confirmed 08/11/25] Buspirone HCl 5 mg [Buspar 5 mg] 15 mg PO TID 08/15/23 [History Confirmed 08/11/25] Divalproex Sodium ER 250 mg [Depakote EXTENDED RELEASE 250 MG] 1,000 mg PO HS 08/15/23 [History Confirmed 08/11/25] Albuterol 8 gm Mdi Hfa [Ventolin Hfa MDI] 90 mcg IH Q6HPRN PRN 08/11/25 [History Confirmed 08/11/25] Cariprazine HCl [Vraylar] 3 mg PO HS 08/11/25 [History Confirmed 08/11/25] Cholecalciferol (Vitamin D3) [D3-5000] 125 mcg PO DAILY 08/11/25 [History Confirmed 08/11/25] Clopidogrel Bisulfate [Clopidogrel] 75 mg PO DAILY 08/11/25 [History Confirmed 08/11/25] Famotidine 20 mg [Pepcid 20 MG] 40 mg PO DAILY 08/11/25 [History Confirmed 08/11/25] Ferrous Sulfate [Ferosul] 325 mg PO BID 08/11/25 [History Confirmed 08/11/25] Fluticasone Propionate 2 spray IN BID 08/11/25 [History Confirmed 08/11/25] Hydrocodone/Acetaminophen [Hydrocodone-Acetamin 7.5-325] 1 each PO BID 08/11/25 [History Confirmed 08/11/25] Linaclotide [Linzess] 290 mcg PO DAILY 08/11/25 [History Confirmed 08/11/25] Montelukast Sodium 10 mg [Singulair 10 MG] 10 mg PO DAILY 08/11/25 [History Confirmed 08/11/25] Ubrogepant [Ubrelvy] 100 mg PO UD 08/11/25 [History Confirmed 08/11/25] icosapent ethyL [Icosapent Ethyl] 1 gm PO BID 08/11/25 [History Confirmed 08/11/25] Allergies/Adverse Reactions: Allergies Allergy/AdvReac Type Severity Reaction Status Date / Time aspirin Allergy Verified 08/11/25 16:28 latex Allergy Verified 08/11/25 16:28 NSAIDS (Non-Steroidal Allergy Verified 08/11/25 16:28 Anti-Inflamma Penicillins Allergy Verified 08/11/25 16:28 metformin AdvReac Nausea Verified 08/11/25 16:28 - Past Medical History Past Medical History: Yes Neurological History: Epilepsy, Migraines, Peripheral Neuropathy, Seizures, Stroke, TIA ENT History: Other Cardiac History: Arrhythmia, Coronary Artery Disease, Other Respiratory History: Asthma, Pneumonia, Sleep Apnea Endocrine Medical History: Diabetes Type II, Other Musculoskelatal History: Degenerative Disk Disease, Osteoarthritis GI Medical History: Gallbladder Disease, Irritable Bowel, Ulcer, Other History: Other Pyscho-Social History: Anxiety, Bipolar, Depression, Panic Disorder Reproductive Disorders: Menstrual Problems Comment: KIDNEY STONES, NODULES ON HER THYROID, HAS A HEART CONDITION, 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 - Female History Hx Last Menstrual Period: 09/09/13 Are you now?: No - Past Surgical History Past Surgical History: Yes Neuro Surgical History: No Pertinent History Cardiac History: Cardiac Catheterization Respiratory Surgery: No Pertinent History GI Surgical History: Bowel Surgery, Cholecystectomy, Other Genitourinary Surgical Hx: Kidney Surgery Musculskeletal Surgical Hx: Other Female Surgical History: Section, Other Other Surgical History: ulcer, bariatric, pain procedure to bilateral hips with cortisone, ablasion, July 2021 gtube placed for bowel rupture (no longer has this) Significant Family History: other (vision loss) - Social History Smoking Status: Former smoker How long have you smoked: 30 yrs Exposure to second hand smoke: Yes Alcohol: None Drug Use: none - Social Determinants of Health Will the patient participate in the screening: Yes Do you worry about a steady place to live?: No Do you have any problems with any of the following?: No known problems In the past 12 months,have you had to go without utilities?: No Have you or anyone in your house had to go without enough: No Transportation Issues: No Has anyone in your support network made you feel unsafe?: No Does the patient want assistance with any of the above?: No - Physical Exam Vital Signs: Vital Signs - 24 hr Temp Pulse Resp BP BP Pulse Ox 08/12/25 03:59 98.0 F 73 18 109/58 95 08/12/25 00:36 75 16 99 08/12/25 00:29 97.6 F 77 22 147/91 99 08/11/25 22:00 76 15 141/92 100 08/11/25 21:36 99 08/11/25 21:30 78 18 133/86 100 08/11/25 21:00 79 15 127/90 100 08/11/25 20:30 79 17 120/76 100 08/11/25 20:00 76 16 118/73 98 08/11/25 19:31 76 14 131/80 99 08/11/25 19:08 80 17 102/61 96 08/11/25 18:00 115/72 08/11/25 17:30 76 15 110/73 97 08/11/25 17:02 76 18 127/85 98 08/11/25 16:45 99 08/11/25 16:30 76 20 121/88 99 08/11/25 16:20 153/121 08/11/25 16:15 97.4 F 80 20 98 Results - Labs Lab/Micro Results: Lab Results-Last 24 Hours 08/11/25 08/11/25 08/11/25 Range/Units 17:28 17:28 17:28 WBC 6.6 (3.98-10.04) x10^3/uL RBC 4.36 (3.93-5.22) x10^6/uL Hgb 12.2 (11.2-15.7) g/dL Hct 40.9 (34.1-44.9) % MCV 93.8 (79.4-94.8) fL MCH 28.0 (25.6-32.2) pg MCHC 29.8 L (32.2-35.5) g/dL RDW 13.8 (11.7-14.4) % Plt Count 249 (182-369) x10^3/uL MPV 9.1 L (9.4-12.3) fL Gran % 53.0 (34.0-71.1) % Immature Gran % (Auto) 0.5 H (0.001-0.429) % Nucleat RBC Rel Count 0.0 (0.00-0.2) % Eos # (Auto) 0.17 (0.04-0.36) x10^3/uL Immature Gran # (Auto) 0.03 (0.001-0.031) x10^3u/L Absolute Lymphs (auto) 2.24 (1.18-3.74) x10^3/uL Absolute Monos (auto) 0.58 (0.24-0.86) x10^3/uL Absolute Nucleated RBC 0.00 (0.00-0.012) x10^3u/L Lymphocytes % 33.9 (19.3-51.7) % Monocytes % 8.8 (4.7-12.5) % Eosinophils % 2.6 (0.7-5.8) % Basophils % 1.2 (0.1-1.2) % Absolute Granulocytes 3.50 (1.56-6.13) x10^3/uL Basophils # 0.08 (0.01-0.08) x10^3/uL Sodium 141 (135-145) mmol/L Potassium 3.5 (3.5-5.1) mmol/L Chloride 110 H (98-107) mmol/L Carbon Dioxide 25 (22-30) mmol/L Anion Gap 9.9 (5-15) MEQ/L BUN 7 (7-17) mg/dL Creatinine 0.97 (0.52-1.04) mg/dL Estimated GFR 69.4 ML/MIN Glucose 94 (74-106) mg/dL Calcium 8.8 (8.4-10.2) mg/dL Total Bilirubin < 0.10 L (0.2-1.3) mg/dL AST 20 (14-36) U/L ALT 21 (0-35) U/L Alkaline Phosphatase 115 (38-126) U/L Troponin I < 0.012 (0.000-0.033) ng/mL Serum Total Protein 6.4 (6.3-8.2) g/dL Albumin 3.7 (3.5-5.0) g/dL 08/11/25 08/12/25 08/12/25 Range/Units 21:00 04:31 04:31 WBC 6.7 (3.98-10.04) x10^3/uL RBC 4.40 (3.93-5.22) x10^6/uL Hgb 12.2 (11.2-15.7) g/dL Hct 41.0 (34.1-44.9) % MCV 93.2 (79.4-94.8) fL MCH 27.7 (25.6-32.2) pg MCHC 29.8 L (32.2-35.5) g/dL RDW 13.7 (11.7-14.4) % Plt Count 262 (182-369) x10^3/uL MPV 9.3 L (9.4-12.3) fL Gran % (34.0-71.1) % Immature Gran % (Auto) (0.001-0.429) % Nucleat RBC Rel Count (0.00-0.2) % Eos # (Auto) (0.04-0.36) x10^3/uL Immature Gran # (Auto) (0.001-0.031) x10^3u/L Absolute Lymphs (auto) (1.18-3.74) x10^3/uL Absolute Monos (auto) (0.24-0.86) x10^3/uL Absolute Nucleated RBC (0.00-0.012) x10^3u/L Lymphocytes % (19.3-51.7) % Monocytes % (4.7-12.5) % Eosinophils % (0.7-5.8) % Basophils % (0.1-1.2) % Absolute Granulocytes (1.56-6.13) x10^3/uL Basophils # (0.01-0.08) x10^3/uL Sodium (135-145) mmol/L Potassium (3.5-5.1) mmol/L Chloride (98-107) mmol/L Carbon Dioxide (22-30) mmol/L Anion Gap (5-15) MEQ/L BUN (7-17) mg/dL Creatinine (0.52-1.04) mg/dL Estimated GFR ML/MIN Glucose (74-106) mg/dL Calcium (8.4-10.2) mg/dL Total Bilirubin (0.2-1.3) mg/dL AST (14-36) U/L ALT (0-35) U/L Alkaline Phosphatase (38-126) U/L Troponin I < 0.012 < 0.012 (0.000-0.033) ng/mL Serum Total Protein (6.3-8.2) g/dL Albumin (3.5-5.0) g/dL 08/12/25 Range/Units 04:31 WBC (3.98-10.04) x10^3/uL RBC (3.93-5.22) x10^6/uL Hgb (11.2-15.7) g/dL Hct (34.1-44.9) % MCV (79.4-94.8) fL MCH (25.6-32.2) pg MCHC (32.2-35.5) g/dL RDW (11.7-14.4) % Plt Count (182-369) x10^3/uL MPV (9.4-12.3) fL Gran % (34.0-71.1) % Immature Gran % (Auto) (0.001-0.429) % Nucleat RBC Rel Count (0.00-0.2) % Eos # (Auto) (0.04-0.36) x10^3/uL Immature Gran # (Auto) (0.001-0.031) x10^3u/L Absolute Lymphs (auto) (1.18-3.74) x10^3/uL Absolute Monos (auto) (0.24-0.86) x10^3/uL Absolute Nucleated RBC (0.00-0.012) x10^3u/L Lymphocytes % (19.3-51.7) % Monocytes % (4.7-12.5) % Eosinophils % (0.7-5.8) % Basophils % (0.1-1.2) % Absolute Granulocytes (1.56-6.13) x10^3/uL Basophils # (0.01-0.08) x10^3/uL Sodium 141 (135-145) mmol/L Potassium 4.1 (3.5-5.1) mmol/L Chloride 113 H (98-107) mmol/L Carbon Dioxide 22 (22-30) mmol/L Anion Gap 10.2 (5-15) MEQ/L BUN 7 (7-17) mg/dL Creatinine 0.83 (0.52-1.04) mg/dL Estimated GFR 83.7 ML/MIN Glucose 83 (74-106) mg/dL Calcium 8.8 (8.4-10.2) mg/dL Total Bilirubin (0.2-1.3) mg/dL AST (14-36) U/L ALT (0-35) U/L Alkaline Phosphatase (38-126) U/L Troponin I (0.000-0.033) ng/mL Serum Total Protein (6.3-8.2) g/dL Albumin (3.5-5.0) g/dL - Radiology Impressions Radiology Exams & Impressions: Radiology Procedures Category Date Time Status CT ANGIOGRAPHY NECK [CT] Stat Exams 08/11/25 16:49 Taken CTA HEAD W AND/OR WO CONTRAST [CT] Stat Exams 08/11/25 16:49 Taken - Other Procedures and Tests Respiratory Therapy 08/12/25 00:35 Respiratory Therapy Assessment DAILY Telemedicine Encounter - Telemedicine Encounter Telemedicine Encounter: "The entirety of this encounter was performed via Telemedicine" This visit was performed using real-time audio and video connection between my location and thepatients locationwith the assistance of a surrogateat the patients location. Written or verbal consent was obtained from the patient/guardian to perform this visit usingsynchrKing [place] [employer] technology. Any patient questions regarding the telemedicine interaction were answered.
[2025-08-12] MEDS ORDERED: MEDICATION INTERVENTION MC SCH ×2 (08:00)
[2025-08-12 08:27] LABS: Cholesterol 163.0 mg/dL (50-200); LDL, DIRECT 75.0 mg/dL (30-100); TRIGLYCERIDE 229.0 mg/dL (30-150)
--- NOTE | 2025-08-12 08:55 | XRAY ---
Indication: Facial numbness. Two-dimensional contrast enhanced CTA neck performed using 80 cc Isovue 370 contrast. 2-D sagittal and coronal reformatted images obtained. Additional 3-D reformatted images obtained using a separate workstation. Comparison: August 14, 2023 Visualized aortic arch again normal in course and caliber with anatomic variant for bovine arch. Examination of the right carotid circulation demonstrates widely patent common carotid, carotid bulb, internal carotid, and external carotid arteries. Examination of the left carotid circulation again demonstrates minimal eccentric calcified plaque in proximal internal carotid artery unchanged. Remaining common carotid, carotid bulb, and external carotid arteries are normal in CTA appearance. Vertebral arteries are bilaterally patent with the right slightly larger in caliber. Visualized soft tissues again demonstrates a few centimeter/subcentimeter cervical and submandibular nodes bilaterally, none pathologically enlarged. Parotid and submandibular glands are bilaterally symmetric. Thyroid gland enhances homogeneously. Supra and infraglottic airway widely patent. Osseous structures intact with mild/moderate degenerative changes throughout the cervical spine. Patient is edentulous. Lung apices are clear. Impression: 1. Stable minimal calcified plaquing proximal left internal carotid artery. Remaining CTA neck is normal. 2. Again incidental multilevel cervical degenerative spondylosis.
--- NOTE | 2025-08-12 09:01 | XRAY ---
Indication: Facial numbness. Initial CT head performed without contrast. Then conventional contrast enhanced CTA head performed using 80 cc Isovue 370 contrast. 2-D sagittal and coronal reformatted images obtained. Additional 3-D reformatted images obtained using a separate workstation. Comparison: August 14, 2023 CT head without contrast demonstrates remote lacunar infarct left external capsule. No acute intracranial hemorrhage, abnormal extra-axial fluid collection, or mass effect. 4th ventricle is midline without hydrocephalus. [place]-white matter differentiation preserved. Bony calvarium intact. Visualized paranasal sinuses and mastoid air cells are clear. CTA images again demonstrates minimal scattered calcifications in both parasellar internal carotid arteries. No critical stenosis, obstruction, or AV malformation. Normal carotid terminus with normal branching A1 and M1 segments bilaterally. More distal anterior cerebral and middle cerebral arteries are normal in CTA appearance bilaterally. Again anatomic variant origin right posterior cerebral artery. Posterior circulation demonstrates normal CTA appearance to the basilar, left/right posterior cerebral, left/right superior cerebellar, and left/right anterior inferior cerebellar arteries. Venous sinuses/drainage unremarkable. Brain parenchyma is negative for abnormal enhancing intra or extra-axial mass. Impression: 1. Remote lacunar infarct left external capsule. Remaining CT head without contrast is negative. 2. CTA head again demonstrates minimal arteriosclerotic calcifications both parasellar internal carotid arteries without critical stenosis/obstruction. Remaining CTA head is again negative.
[2025-08-12] MEDS: BUSPAR 5 MG PO SCH (09:59)
[2025-08-12] MEDS: Pepcid 20 MG PO SCH (09:59)
[2025-08-12] MEDS ORDERED: ICOSAPENT ETHYL 1 GM PO SCH (10:00)
[2025-08-12] MEDS ORDERED: NORCO 7.5/325 MG TAB PO SCH ×2 (10:00)
--- NOTE | 2025-08-12 12:47 | PCM.NOTE ---
Date and Time: 08/12/25 1242 Subjective Assessment: This is a 55-year-old female with a medical history of diabetes mellitus, prior stroke, seizures, coronary artery disease, anxiety, and bipolar disorder who presented on 08/11/25 for evaluation following an emergency department visit. She initially sought care due to a palpable, fluctuant mass on the posterior right side of her scalp. During her ED evaluation, she also reported the new onset of right-sided facial numbness, blurred vision, and right-sided motor weakness involving both the upper and lower extremities. On 08/12, CT angiography of the head and neck was performed and was negative for any acute vascular findings. She is scheduled for brain MRI and echocardiogram today to further investigate her symptoms. At present, she continues to experience some blurred vision but denies any ongoing numbness or weakness. Her neurological examination was overall non-focal and nonconcerning. The scalp lesion remains present; it is soft, mobile, and consistent with a cyst. Outpatient follow-up with dermatology may be considered if removal becomes necessary. She is currently being evaluated by physical therapy, occupational therapy, and speech therapy. Cardiac workup including three serial troponins was negative. Her lab results are overall unremarkable. There is a need to obtain neurology records to clarify the patient's recommended secondary stroke prevention regimen, as she currently takes Plavix. At this time, the patient denies any further symptoms. - Review of Systems Constitutional: No Fever, No Chills Eyes: No Symptoms, Vision Changes (blurred vision) Ears, Nose, & Throat: No Symptoms Respiratory: No Cough, No Short Of Breath Cardiac: No Chest Pain, No Edema, No Syncope Abdominal/Gastrointestinal: No Abdominal Pain, No Nausea, No Vomiting, No Diarrhea Genitourinary Symptoms: No Dysuria Musculoskeletal: No Back Pain, No Neck Pain Skin: No Rash Neurological: No Dizziness, No Focal Weakness, No Sensory Changes Psychological: No Symptoms Endocrine: No Symptoms Hematologic/Lymphatic: No Symptoms Immunological/Allergic: No Symptoms Objective Exam General Appearance: no apparent distress, alert, obese Neurologic Exam: alert, oriented x 3, cooperative, strategy specialist II-XII nml as tested, normal mood/affect, nml cerebellar function, sensation nml, No motor deficits Skin Exam: normal color, warm, dry Eye Exam: PERRL, EOMI, eyes nml inspection Ears, Nose, Throat Exam: normal ENT inspection, pharynx normal, moist mucous membranes Neck Exam: normal inspection, non-tender, supple, full range of motion Respiratory Exam: normal breath sounds, lungs clear, No respiratory distress Cardiovascular Exam: regular rate/rhythm, normal heart sounds Gastrointestinal/Abdomen Exam: soft, No tenderness, No mass Extremity Exam: normal inspection, normal range of motion Back Exam: normal inspection, normal range of motion, No CVA tenderness, No vertebral tenderness Pelvic Exam: deferred Rectal Exam: deferred Objective Data Vital Signs: Vital Signs - 24 hr Temp Pulse Resp BP BP Pulse Ox 08/12/25 11:51 97.3 F 74 18 117/68 95 08/12/25 07:47 97.5 F 75 18 128/66 97 08/12/25 07:27 72 18 95 08/12/25 03:59 98.0 F 73 18 109/58 95 08/12/25 00:36 75 16 99 08/12/25 00:29 97.6 F 77 22 147/91 99 08/11/25 22:00 76 15 141/92 100 08/11/25 21:36 99 08/11/25 21:30 78 18 133/86 100 08/11/25 21:00 79 15 127/90 100 08/11/25 20:30 79 17 120/76 100 08/11/25 20:00 76 16 118/73 98 08/11/25 19:31 76 14 131/80 99 08/11/25 19:08 80 17 102/61 96 08/11/25 18:00 115/72 08/11/25 17:30 76 15 110/73 97 08/11/25 17:02 76 18 127/85 98 08/11/25 16:45 99 08/11/25 16:30 76 20 121/88 99 08/11/25 16:20 153/121 08/11/25 16:15 97.4 F 80 20 98 Pain Assessment - Last Documented Pain Intensity 3 Pain Scale Used 0-10 Pain Scale Intake and Output: Intake & Output 08/10/25 08/11/25 08/12/25 08/13/25 11:59 11:59 11:59 11:59 Intake Total 1210 Output Total 1000 Balance 210 Weight 115.7 kg Lab Results: Lab Results-Last 24 Hours 08/11/25 08/11/25 08/11/25 Range/Units 17:28 17:28 17:28 WBC 6.6 (3.98-10.04) x10^3/uL RBC 4.36 (3.93-5.22) x10^6/uL Hgb 12.2 (11.2-15.7) g/dL Hct 40.9 (34.1-44.9) % MCV 93.8 (79.4-94.8) fL MCH 28.0 (25.6-32.2) pg MCHC 29.8 L (32.2-35.5) g/dL RDW 13.8 (11.7-14.4) % Plt Count 249 (182-369) x10^3/uL MPV 9.1 L (9.4-12.3) fL Gran % 53.0 (34.0-71.1) % Immature Gran % (Auto) 0.5 H (0.001-0.429) % Nucleat RBC Rel Count 0.0 (0.00-0.2) % Eos # (Auto) 0.17 (0.04-0.36) x10^3/uL Immature Gran # (Auto) 0.03 (0.001-0.031) x10^3u/L Absolute Lymphs (auto) 2.24 (1.18-3.74) x10^3/uL Absolute Monos (auto) 0.58 (0.24-0.86) x10^3/uL Absolute Nucleated RBC 0.00 (0.00-0.012) x10^3u/L Lymphocytes % 33.9 (19.3-51.7) % Monocytes % 8.8 (4.7-12.5) % Eosinophils % 2.6 (0.7-5.8) % Basophils % 1.2 (0.1-1.2) % Absolute Granulocytes 3.50 (1.56-6.13) x10^3/uL Basophils # 0.08 (0.01-0.08) x10^3/uL Sodium 141 (135-145) mmol/L Potassium 3.5 (3.5-5.1) mmol/L Chloride 110 H (98-107) mmol/L Carbon Dioxide 25 (22-30) mmol/L Anion Gap 9.9 (5-15) MEQ/L BUN 7 (7-17) mg/dL Creatinine 0.97 (0.52-1.04) mg/dL Estimated GFR 69.4 ML/MIN Glucose 94 (74-106) mg/dL Hemoglobin A1c (4.5-6.0) % Calcium 8.8 (8.4-10.2) mg/dL Total Bilirubin < 0.10 L (0.2-1.3) mg/dL AST 20 (14-36) U/L ALT 21 (0-35) U/L Alkaline Phosphatase 115 (38-126) U/L Troponin I < 0.012 (0.000-0.033) ng/mL Serum Total Protein 6.4 (6.3-8.2) g/dL Albumin 3.7 (3.5-5.0) g/dL Triglycerides (30-150) mg/dL Cholesterol (50-200) mg/dL LDL Cholesterol (30-100) mg/dL HDL Cholesterol (40-60) mg/dL Heart Disease Risk Ratio TSH 3rd Generation (0.470-4.680) mIU/L 08/11/25 08/12/25 08/12/25 Range/Units 21:00 04:31 04:31 WBC 6.7 (3.98-10.04) x10^3/uL RBC 4.40 (3.93-5.22) x10^6/uL Hgb 12.2 (11.2-15.7) g/dL Hct 41.0 (34.1-44.9) % MCV 93.2 (79.4-94.8) fL MCH 27.7 (25.6-32.2) pg MCHC 29.8 L (32.2-35.5) g/dL RDW 13.7 (11.7-14.4) % Plt Count 262 (182-369) x10^3/uL MPV 9.3 L (9.4-12.3) fL Gran % (34.0-71.1) % Immature Gran % (Auto) (0.001-0.429) % Nucleat RBC Rel Count (0.00-0.2) % Eos # (Auto) (0.04-0.36) x10^3/uL Immature Gran # (Auto) (0.001-0.031) x10^3u/L Absolute Lymphs (auto) (1.18-3.74) x10^3/uL Absolute Monos (auto) (0.24-0.86) x10^3/uL Absolute Nucleated RBC (0.00-0.012) x10^3u/L Lymphocytes % (19.3-51.7) % Monocytes % (4.7-12.5) % Eosinophils % (0.7-5.8) % Basophils % (0.1-1.2) % Absolute Granulocytes (1.56-6.13) x10^3/uL Basophils # (0.01-0.08) x10^3/uL Sodium (135-145) mmol/L Potassium (3.5-5.1) mmol/L Chloride (98-107) mmol/L Carbon Dioxide (22-30) mmol/L Anion Gap (5-15) MEQ/L BUN (7-17) mg/dL Creatinine (0.52-1.04) mg/dL Estimated GFR ML/MIN Glucose (74-106) mg/dL Hemoglobin A1c (4.5-6.0) % Calcium (8.4-10.2) mg/dL Total Bilirubin (0.2-1.3) mg/dL AST (14-36) U/L ALT (0-35) U/L Alkaline Phosphatase (38-126) U/L Troponin I < 0.012 < 0.012 (0.000-0.033) ng/mL Serum Total Protein (6.3-8.2) g/dL Albumin (3.5-5.0) g/dL Triglycerides (30-150) mg/dL Cholesterol (50-200) mg/dL LDL Cholesterol (30-100) mg/dL HDL Cholesterol (40-60) mg/dL Heart Disease Risk Ratio TSH 3rd Generation (0.470-4.680) mIU/L 08/12/25 08/12/25 08/12/25 Range/Units 04:31 05:33 05:33 WBC (3.98-10.04) x10^3/uL RBC (3.93-5.22) x10^6/uL Hgb (11.2-15.7) g/dL Hct (34.1-44.9) % MCV (79.4-94.8) fL MCH (25.6-32.2) pg MCHC (32.2-35.5) g/dL RDW (11.7-14.4) % Plt Count (182-369) x10^3/uL MPV (9.4-12.3) fL Gran % (34.0-71.1) % Immature Gran % (Auto) (0.001-0.429) % Nucleat RBC Rel Count (0.00-0.2) % Eos # (Auto) (0.04-0.36) x10^3/uL Immature Gran # (Auto) (0.001-0.031) x10^3u/L Absolute Lymphs (auto) (1.18-3.74) x10^3/uL Absolute Monos (auto) (0.24-0.86) x10^3/uL Absolute Nucleated RBC (0.00-0.012) x10^3u/L Lymphocytes % (19.3-51.7) % Monocytes % (4.7-12.5) % Eosinophils % (0.7-5.8) % Basophils % (0.1-1.2) % Absolute Granulocytes (1.56-6.13) x10^3/uL Basophils # (0.01-0.08) x10^3/uL Sodium 141 (135-145) mmol/L Potassium 4.1 (3.5-5.1) mmol/L Chloride 113 H (98-107) mmol/L Carbon Dioxide 22 (22-30) mmol/L Anion Gap 10.2 (5-15) MEQ/L BUN 7 (7-17) mg/dL Creatinine 0.83 (0.52-1.04) mg/dL Estimated GFR 83.7 ML/MIN Glucose 83 (74-106) mg/dL Hemoglobin A1c 5.37 (4.5-6.0) % Calcium 8.8 (8.4-10.2) mg/dL Total Bilirubin (0.2-1.3) mg/dL AST (14-36) U/L ALT (0-35) U/L Alkaline Phosphatase (38-126) U/L Troponin I (0.000-0.033) ng/mL Serum Total Protein (6.3-8.2) g/dL Albumin (3.5-5.0) g/dL Triglycerides 229 H (30-150) mg/dL Cholesterol 163 (50-200) mg/dL LDL Cholesterol 75 (30-100) mg/dL HDL Cholesterol 36 L (40-60) mg/dL Heart Disease Risk Ratio 5.0 TSH 3rd Generation 1.527 (0.470-4.680) mIU/L Radiology Exams: Radiology Procedures Category Date Time Status CT ANGIOGRAPHY NECK [CT] Stat Exams 08/11/25 16:49 Completed CTA HEAD W AND/OR WO CONTRAST [CT] Stat Exams 08/11/25 16:49 Completed ECHO W/2D AND DOPPLER [US] Routine Exams 08/12/25 07:30 Taken MRI BRAIN W/O CONTRAST [MRI] Routine Exams 08/12/25 07:29 Ordered Medications: Medications Generic Name Dose Route Start Last Admin Trade Name Freq PRN Reason Stop Dose Admin Hydrocodone Bitart/Acetaminophen 1 tab 08/12/25 10:00 08/12/25 09:13 Hydrocodone /Apap 7.5/325 Mg 1 Each Tablet PO 08/17/25 09:59 1 tab BID JOSEMANUEL Administration Albuterol Sulfate 2.5 mg 08/12/25 12:00 Albuterol Sulfate 2.5 Mg/3 Ml Neb IH 09/11/25 11:59 Q6HT JOSEMANUEL Amitriptyline HCl 150 mg 08/12/25 22:00 Amitriptyline Hcl 25 Mg Tablet PO 09/11/25 21:59 HS JOSEMANUEL Atorvastatin Calcium 40 mg 08/12/25 22:00 Atorvastatin Calcium 40 Mg Tablet PO 09/11/25 21:59 HS JOSEMANUEL Buspirone HCl 15 mg 08/12/25 10:00 08/12/25 09:59 Buspirone Hcl 5 Mg Tablet PO 09/11/25 09:59 15 mg TID JOSEMANUEL Administration Divalproex Sodium 1,000 mg 08/12/25 22:00 Divalproex Sodium 250 Mg Tab Extended Release PO 09/11/25 21:59 HS JOSEMANUEL Famotidine 40 mg 08/12/25 10:00 08/12/25 09:59 Famotidine 20 Mg Tablet PO 09/11/25 09:59 40 mg DAILY JOSEMANUEL Administration Miscellaneous Information 1 each 08/12/25 08:00 Medication Intervention 1 Each Each 09/11/25 07:59 .RN TO CHECK JOSEMANUEL Miscellaneous Information 1 each 08/12/25 08:00 Medication Intervention 1 Each Each 09/11/25 07:59 .RN TO CHECK JOSEMANUEL Discontinued Medications Generic Name Dose Route Start Last Admin Trade Name Gagan PRN Reason Stop Dose Admin Hydrocodone Bitart/Acetaminophen tab 08/12/25 10:00 Hydrocodone /Apap 7.5/325 Mg 1 Each Tablet PO 08/17/25 09:59 BID JOSEMANUEL Hydrocodone Bitart/Acetaminophen 7.5 tab 08/12/25 10:00 Hydrocodone /Apap 7.5/325 Mg 1 Each Tablet PO 08/17/25 09:59 BID JOSEMANUEL Divalproex Sodium 1,000 mg 08/12/25 22:00 08/12/25 00:16 Divalproex Sodium 250 Mg 250 Mg Tablet. PO 09/11/25 21:59 1,000 mg HS JOSEMANUEL Administration Divalproex Sodium Confirm 08/12/25 00:11 Divalproex Sodium 250 Mg 250 Mg Tablet. Administered 08/12/25 00:12 Dose 1,000 mg PO .STK-MED ONE Sodium Chloride 1,000 mls @ 100 mls/hr 08/11/25 16:45 08/11/25 17:18 Sodium Chloride 0.9% 1000 Ml IV 09/10/25 16:44 100 mls/hr .Q10H JOSEMANUEL Administration Sodium Chloride Confirm 08/11/25 17:15 Sodium Chloride 0.9% 1000 Ml Administered 08/11/25 17:16 Dose 1,000 mls @ ud .ROUTE .STK-MED ONE Sodium Chloride Confirm 08/12/25 03:19 Sodium Chloride 0.9% 1000 Ml Administered 08/12/25 03:20 Dose 1,000 mls @ ud .ROUTE .STK-MED ONE Ticagrelor 60 mg 08/11/25 20:55 08/11/25 21:53 Ticagrelor 90 Mg Tablet PO 08/11/25 20:56 Not Given ONCE STA Ticagrelor 90 mg 08/11/25 21:53 08/11/25 21:54 Ticagrelor 90 Mg Tablet PO 08/11/25 21:54 90 mg BID STA Administration Assessment/Plan (1) TIA (transient ischemic attack) Current Visit: Yes Status: Acute Assessment & Plan: - An MRI of the brain and echocardiogram are pending - Neurologist consulted, recommendations appreciated - John gave in ER - CBC, CMP reviewed - Lipid panel reviewed- Triglycerides 229, LDL, 75, HDL 36- high dose statin started - TSH 1.527 - A1C 5.37 - PT/OT/ST - CTA: 1. Remote lacunar infarct left external capsule. Remaining CT head without contrast is negative. 2. CTA head again demonstrates minimal arteriosclerotic calcifications both parasellar internal carotid arteries without critical stenosis/obstruction. Remaining CTA head is again negative. - CT angio: 1. Stable minimal calcified plaquing proximal left internal carotid artery. Remaining CTA neck is normal. 2. Again incidental multilevel cervical degenerative spondylosis. Code(s): G45.9 - TRANSIENT CEREBRAL ISCHEMIC ATTACK, UNSPECIFIED (2) Blurred vision Current Visit: Yes Status: Acute Assessment & Plan: - Continued today pt reports however neuro exam is non-concerning Code(s): H53.8 - OTHER VISUAL DISTURBANCES (3) Facial numbness Current Visit: Yes Status: Resolved Assessment & Plan: - Resolved today per pt - Eval for CVA/TIA see plan above Code(s): R20.0 - ANESTHESIA OF SKIN (4) Scalp cyst Current Visit: Yes Status: Acute Assessment & Plan: - Can f/u OP with Derm - MRI for further evaluation Code(s): L72.9 - FOLLICULAR CYST OF THE SKIN AND SUBCUTANEOUS TISSUE, UNSP (5) Seizure disorder Current Visit: No Status: Chronic Assessment & Plan: - Continue home meds Code(s): G40.909 - EPILEPSY, UNSP, NOT INTRACTABLE, WITHOUT STATUS EPILEPTICUS (6) History of stroke Current Visit: Yes Status: Chronic Assessment & Plan: - Takes plavix daily - As seen on CTA head: Impression: 1. Remote lacunar infarct left external capsule. Remaining CT head without contrast is negative. 2. CTA head again demonstrates minimal arteriosclerotic calcifications both parasellar internal carotid arteries without critical stenosis/obstruction. Remaining CTA head is again negative. Code(s): Z86.73 - PRSNL HX OF TIA (TIA), AND CEREB INFRC W/O RESID DEFICITS (7) Morbid obesity with BMI of 40.0-44.9, adult Current Visit: Yes Status: Chronic Assessment & Plan: - advised diet and exercise control Code(s): E66.01 - MORBID (SEVERE) OBESITY DUE TO EXCESS CALORIES; Z68.41 - BODY MASS INDEX [BMI] 40.0-44.9, ADULT (8) CAD (coronary artery disease) Current Visit: Yes Status: Chronic Assessment & Plan: - Chronic - Continue home meds - Echo today VTE: Awaiting neuro recs- SCD's PPI: Madeline Next of KIN: Spouse- [place] [phone] D/C plan: tomorrow Code status: Full Code(s): I25.10 - ATHSCL HEART DISEASE OF [place] CORONARY ARTERY W/O ANG PCTRS
--- NOTE | 2025-08-12 14:06 | XRAY ---
Indication: Transient ischemic attack. Negative CT head, CTA neck, and CTA head exams. Sagittal, coronal, and axial MRI brain performed without contrast using T1, T2, FLAIR, diffusion, and ADC sequences. Comparison: August 15, 2023 Again age-appropriate global atrophy and remote lacunar infarct left basal ganglia. No acute intracranial hemorrhage, abnormal extra-axial fluid collection, or mass effect. Diffusion images again negative for restricted signal. 4th ventricle is midline without hydrocephalus. 7/8 cranial nerve complex bilaterally symmetric. Normal flow void signal within the major intracerebral circulation. Normal appearing craniocervical junction and sella turcica. Paranasal sinuses are clear. Impression: Stable remote lacunar infarct left basal ganglia. Remaining MRI brain without contrast exam continues to be negative.
--- NOTE | 2025-08-12 18:47 | PCM.CONS ---
History of Present Illness - Neuro Consultation Date of Consultation Date: 08/12/25 ED Arrival Date & Time: 08/11/25 16:14 Providers: Attending Provider: ELEAZAR PENN MD ED Provider: YUE MORALES Consulting Provider: LEÓN LAMBERT MD cc:: The requesting physician will be sent a copy of the consult. - Chief Complaint Patient Subjective Stated Complaint: right arm and leg weakness - History of Present Illness HPI: The patient is a 55F SUBJECTIVE: Cindy Broussard is a 55 year old female with a medical history of diabetes m ellitus, prior stroke, seizures, coronary artery disease, anxiety, and bipolar disorder who presented on 08/11/25 with new onset right-sided facial numbness, blurred vision, and right sided upper and lower extremity weakness. Patient reports persistent right sided weakness. The right facial numbness has resolved. Patient initially presented for right occipital pain that is persistent. Patient has a history of migraine and is prescribed Ubrelvy as needed. Patient reports getting multiple migraines per week. Patient has a previous stroke in 2022 which presented with difficulty with speec h and left arm and leg weakness. She reports some residual weakness on the left side. She reports that the the stroke was hemorrhagic due to to an aneurysm. Patient walks with a cane at baseline. This is the extent of the patients complaints at this time. Per H&P: This is a 55-year-old female with a medical history of diabetes mellitus, prior stroke, seizures, coronary artery disease, anxiety, and bipolar disorder who presented on 08/11/25 for evaluation following an emergency department visit. She initially sought care due to a palpable, fluctuant mass on the posterior right side of her scalp. During her ED evaluation, she also reported the new onset of right-sided facial numbness, blurred vision, and right-sided motor weakness involving both the upper and lower extremities. On 08/12, CT angiography of the head and neck was performed and was negative for any acute vascular findings. She is scheduled for brain MRI and echocardiogram today to further investigate her symptoms. At present, she continues to experience some blurred vision but denies any ongoing numbness or weakness. Her neurological examination was overall non-focal and non-concerning. The scalp lesion remains present; it is soft, mobile, and consistent with a cyst. Outpatient follow-up with dermatology may be considered if removal becomes necessary. She is currently being evaluated by physical therapy, occupational therapy, and speech therapy. Cardiac workup including three serial troponins was negative. Her lab results are overall unremarkable. There is a need to obtain neurology records to clarify the patient's recommended secondary stroke prevention regimen, as she currently takes Plavix. At this time, the patient denies any further symptoms. Known stroke risk factors:: Diabetes Review of Systems - Review of Systems Review of Systems (Narrative): Pertinent positive and negative findings as per HPI. All other systems negative. Constitutional: Denies fevers, chills, weight loss ENT: Denies tinnitus Ophthalmology: Denies diplopia, blurred vision, vision loss Respiratory: Denies SOB, cough Cardiovascular: Denies chest pains, palpitations GI: Denies nausea, vomiting : Denies hematuria Hematology: Denies excessive bleeding Musculoskeletal: Denies back pain, neck pain, joint pain Neurology: Endorses headache, denies altered mentation Mental Health: Denies anxiety, depression, hallucinations Dermatology: Denies rash - Past Medical History Past Medical History: Yes Neurological History: Epilepsy, Migraines, Peripheral Neuropathy, Seizures, Stroke, TIA ENT History: Other Cardiac History: Arrhythmia, Coronary Artery Disease, Other Respiratory History: Asthma, Pneumonia, Sleep Apnea Endocrine Medical History: Diabetes Type II, Other Musculoskelatal History: Degenerative Disk Disease, Osteoarthritis GI Medical History: Gallbladder Disease, Irritable Bowel, Ulcer, Other History: Other Pyscho-Social History: Anxiety, Bipolar, Depression, Panic Disorder Reproductive Disorders: Menstrual Problems Comment: KIDNEY STONES, NODULES ON HER THYROID, HAS A HEART CONDITION, 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 - Female History Are you now?: No - Past Surgical History Past Surgical History: Yes Neuro Surgical History: No Pertinent History Cardiac History: Cardiac Catheterization Respiratory Surgery: No Pertinent History GI Surgical History: Bowel Surgery, Cholecystectomy, Other Genitourinary Surgical Hx: Kidney Surgery Musculskeletal Surgical Hx: Other Female Surgical History: Section, Other Other Surgical History: ulcer, bariatric, pain procedure to bilateral hips with cortisone, ablasion, July 2021 gtube placed for bowel rupture (no longer has this) Significant Family History: other (vision loss) - Social History Smoking Status: Former smoker How long have you smoked: 30 yrs Exposure to second hand smoke: Yes Alcohol: None Drug Use: none - Social Determinants of Health Will the patient participate in the screening: Yes Do you worry about a steady place to live?: No Do you have any problems with any of the following?: No known problems In the past 12 months,have you had to go without utilities?: No Have you or anyone in your house had to go without enough: No Transportation Issues: No Has anyone in your support network made you feel unsafe?: No Does the patient want assistance with any of the above?: No Physical Exam - Vital Signs Vital Signs: Vital Signs - 24 hr 08/11/25 08/11/25 08/11/25 19:08 19:31 20:00 Temperature Pulse Rate 80 76 76 Respiratory 17 14 16 Rate Blood Pressure 102/61 131/80 118/73 Blood Pressure [Left Arm] O2 Sat by Pulse 96 99 98 Oximetry 08/11/25 08/11/25 08/11/25 20:30 21:00 21:30 Temperature Pulse Rate 79 79 78 Respiratory 17 15 18 Rate Blood Pressure 120/76 127/90 133/86 Blood Pressure [Left Arm] O2 Sat by Pulse 100 100 100 Oximetry 08/11/25 08/11/25 08/12/25 21:36 22:00 00:29 Temperature 97.6 F Pulse Rate 76 77 Respiratory 15 22 Rate Blood Pressure 141/92 Blood Pressure 147/91 [Left Arm] O2 Sat by Pulse 99 100 99 Oximetry 08/12/25 08/12/25 08/12/25 00:36 03:59 07:27 Temperature 98.0 F Pulse Rate 75 73 72 Respiratory 16 18 18 Rate Blood Pressure Blood Pressure 109/58 [Left Arm] O2 Sat by Pulse 99 95 95 Oximetry 08/12/25 08/12/25 08/12/25 07:47 11:51 16:00 Temperature 97.5 F 97.3 F 97.5 F Pulse Rate 75 74 79 Respiratory 18 18 20 Rate Blood Pressure Blood Pressure 128/66 117/68 143/75 [Left Arm] O2 Sat by Pulse 97 95 98 Oximetry - Physical Exam Tele-Neuro Physical Exam (Narrative): Gen: Well developed, well nourished. No acute distress. MS: Awake and oriented. Alert. Fund of knowledge and language at baseline. CV: Regular rate. No edema. 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 +blink. Unable to visualize fundi. Sensation intact. Face is symmetric. Hearing intact. Trapezii strong. Tongue midline. Motor: Antigravity in all 4 extremities without drift. Normal tone and bulk. Sens: Intact to light touch in all 4 extremities. MSR: Unable to assess through telemedicine, no clonus noted. Mvmt: No tremors noted. TORSTEN/FTN intact. Gait: Deferred. - NIHSS Stroke Scale Date Completed: 08/12/25 Time Stroke Scale Completed: 03:00 Results - Labs Lab/Micro Results: Lab Results-Last 24 Hours 08/11/25 08/12/25 08/12/25 Range/Units 21:00 04:31 04:31 WBC 6.7 (3.98-10.04) x10^3/uL RBC 4.40 (3.93-5.22) x10^6/uL Hgb 12.2 (11.2-15.7) g/dL Hct 41.0 (34.1-44.9) % MCV 93.2 (79.4-94.8) fL MCH 27.7 (25.6-32.2) pg MCHC 29.8 L (32.2-35.5) g/dL RDW 13.7 (11.7-14.4) % Plt Count 262 (182-369) x10^3/uL MPV 9.3 L (9.4-12.3) fL Sodium (135-145) mmol/L Potassium (3.5-5.1) mmol/L Chloride (98-107) mmol/L Carbon Dioxide (22-30) mmol/L Anion Gap (5-15) MEQ/L BUN (7-17) mg/dL Creatinine (0.52-1.04) mg/dL Estimated GFR ML/MIN Glucose (74-106) mg/dL POC Glucometer (74 to 106) mg/dL Hemoglobin A1c (4.5-6.0) % Calcium (8.4-10.2) mg/dL Troponin I < 0.012 < 0.012 (0.000-0.033) ng/mL Triglycerides (30-150) mg/dL Cholesterol (50-200) mg/dL LDL Cholesterol (30-100) mg/dL HDL Cholesterol (40-60) mg/dL Heart Disease Risk Ratio TSH 3rd Generation (0.470-4.680) mIU/L 08/12/25 08/12/25 08/12/25 Range/Units 04:31 05:33 05:33 WBC (3.98-10.04) x10^3/uL RBC (3.93-5.22) x10^6/uL Hgb (11.2-15.7) g/dL Hct (34.1-44.9) % MCV (79.4-94.8) fL MCH (25.6-32.2) pg MCHC (32.2-35.5) g/dL RDW (11.7-14.4) % Plt Count (182-369) x10^3/uL MPV (9.4-12.3) fL Sodium 141 (135-145) mmol/L Potassium 4.1 (3.5-5.1) mmol/L Chloride 113 H (98-107) mmol/L Carbon Dioxide 22 (22-30) mmol/L Anion Gap 10.2 (5-15) MEQ/L BUN 7 (7-17) mg/dL Creatinine 0.83 (0.52-1.04) mg/dL Estimated GFR 83.7 ML/MIN Glucose 83 (74-106) mg/dL POC Glucometer (74 to 106) mg/dL Hemoglobin A1c 5.37 (4.5-6.0) % Calcium 8.8 (8.4-10.2) mg/dL Troponin I (0.000-0.033) ng/mL Triglycerides 229 H (30-150) mg/dL Cholesterol 163 (50-200) mg/dL LDL Cholesterol 75 (30-100) mg/dL HDL Cholesterol 36 L (40-60) mg/dL Heart Disease Risk Ratio 5.0 TSH 3rd Generation 1.527 (0.470-4.680) mIU/L 08/12/25 Range/Units 16:11 WBC (3.98-10.04) x10^3/uL RBC (3.93-5.22) x10^6/uL Hgb (11.2-15.7) g/dL Hct (34.1-44.9) % MCV (79.4-94.8) fL MCH (25.6-32.2) pg MCHC (32.2-35.5) g/dL RDW (11.7-14.4) % Plt Count (182-369) x10^3/uL MPV (9.4-12.3) fL Sodium (135-145) mmol/L Potassium (3.5-5.1) mmol/L Chloride (98-107) mmol/L Carbon Dioxide (22-30) mmol/L Anion Gap (5-15) MEQ/L BUN (7-17) mg/dL Creatinine (0.52-1.04) mg/dL Estimated GFR ML/MIN Glucose (74-106) mg/dL POC Glucometer 98 (74 to 106) mg/dL Hemoglobin A1c (4.5-6.0) % Calcium (8.4-10.2) mg/dL Troponin I (0.000-0.033) ng/mL Triglycerides (30-150) mg/dL Cholesterol (50-200) mg/dL LDL Cholesterol (30-100) mg/dL HDL Cholesterol (40-60) mg/dL Heart Disease Risk Ratio TSH 3rd Generation (0.470-4.680) mIU/L Accuchecks Date 08/12/25 Date 08/12/25 Date 08/12/25 - Other Procedures & Test Other Procedures & Test: Respiratory Therapy 08/12/25 00:35 Respiratory Therapy Assessment DAILY - Radiology Orders Radiology Orders: Radiology Procedures Category Date Time Status CT ANGIOGRAPHY NECK [CT] Stat Exams 08/11/25 16:49 Completed CTA HEAD W AND/OR WO CONTRAST [CT] Stat Exams 08/11/25 16:49 Completed ECHO W/2D AND DOPPLER [US] Routine Exams 08/12/25 07:30 Taken MRI BRAIN W/O CONTRAST [MRI] Routine Exams 08/12/25 07:29 Completed Brain MRI: Stable remote lacunar infarct in the left basal ganglia. No acute infarcts CTA: Remote lacunar infarct left external capsule minimal arteriosclerotic calcifications without critical stenosis/obstruction Assessment & Plan - Encounter Encounter: "The entirety of this encounter was performed via Telemedicine using audio and visual " ASSESSMENT/PLAN: Cindy Broussard is a 55 year old female with a medical history of diabetes mellitus, prior stroke, seizures, coronary artery disease, anxiety, and bipolar disorder who presented on 08/11/25 with new onset right-sided facial numbness, blurred vision, and right sided upper and lower extremity weakness. MRI brain shows no acute stroke. Presentation is likely secondary to migraine. - General Recommendations - Telemetry - q4h neuro checks - Medications - Continue single antiplatelet - Continue statin - Please avoid benzodiazepines/sedatives if agitated to not obscure n eurologic exam - PT/OT/DOLPHIN TRAINER - Discharge Planning - Patient will need follow up with neurology for migraine - recommend starting a preventative migraine medication León Lambert MD Thank you for allowing us to participate in this patients care. Please call [facility] with questions, concerns, or change in patients neurological status. This consult was performed via secure telemedicine audio/visual platform, patient consent obtained.
[2025-08-12] MEDS: AMITRIPTYLINE 25 MG TABLET PO SCH (21:32)
[2025-08-12] MEDS: Depakote EXTENDED RELEASE 250 MG PO SCH (21:33)
[2025-08-12] MEDS: LIPITOR 40MG PO SCH (21:33)
[2025-08-12] MEDS ORDERED: Depakote EXTENDED RELEASE 250 MG PO SCH (22:00)
[2025-08-12] MEDS ORDERED: LIPITOR 40MG PO SCH (22:00)
[2025-08-12] MEDS ORDERED: NON-FORMULARY ITEM (Atorvastatin Calcium [Atorvastatin Calcium] 20 MG Tablet) PO SCH (22:00)
[2025-08-12] MEDS ORDERED: BRILINTA PO SCH (22:00)
[2025-08-12] MEDS ORDERED: NON-FORMULARY ITEM (Cariprazine Hcl [Vraylar] 3 MG Capsule) PO SCH (22:00)
[2025-08-13 05:09] LABS: Hematocrit 40.0 % (34.1-44.9); Hemoglobin 12.1 g/dL (11.2-15.7); Mean Corpuscular Hemoglobin 27.9 pg (25.6-32.2); Mean Corpuscular Hgb Concent. 30.3 g/dL (32.2-35.5); Platelet Count 256 x10^3/uL (182-369); Red Blood Count 4.34 x10^6/uL (3.93-5.22); White Blood Count 6.6 x10^3/uL (3.98-10.04)
[2025-08-13 06:55] LABS: Calcium 8.5 mg/dL (8.4-10.2); Carbon Dioxide 25.0 mmol/L (22-30); Creatinine 1 0.8 mg/dL (0.52-1.04); EST GLOMERULAR FILTRATION RATE 87.5 ML/MIN; Glucose 99.0 mg/dL (74-106); Potassium 3.4 mmol/L (3.5-5.1)
[2025-08-13] MEDS: PROVENTIL 2.5 MG/3 ML NEB IH SCH (07:29)
[2025-08-13 07:37] VITALS: RESP 20
[2025-08-13] MEDS ORDERED: Ventolin Hfa MDI IH PRN (07:40)
[2025-08-13] MEDS ORDERED: NON-FORMULARY ITEM (Ubrogepant [Ubrelvy] 100 MG Tablet) PO SCH (07:45)
[2025-08-13] MEDS ORDERED: MEDICATION INTERVENTION MC SCH ×2 (08:00→08:15)
[2025-08-13] MEDS: POTASSIUM CHLORIDE 20 mEq IN WATER 100ML 100 ML IV SCH (08:45)
[2025-08-13] MEDS: HUMALOG SQ PRN (09:40)
--- NOTE | 2025-08-13 09:49 | PCM.DS ---
Discharge Summary Date of Admission: 08/11/25 22:46 Date of Discharge: 08/13/25 Admitting Physician: ELEAZAR PENN MD Consults: Consults on Case 08/12/25 07:32 Consult Neurology ROUTINE Primary Care Provider: VICKIE GIRARD Allergies Allergies aspirin Allergy (Verified 08/11/25 16:28) latex Allergy (Verified 08/11/25 16:28) NSAIDS (Non-Steroidal Anti-Inflamma Allergy (Verified 08/11/25 16:28) Penicillins Allergy (Verified 08/11/25 16:28) metformin Adverse Reaction (Verified 08/11/25 16:28) Nausea Hospital Summary - Hospital Course Hospital Course: The patient is a 55-year-old female with a history of diabetes mellitus, prior stroke, seizures, coronary artery disease, anxiety, and bipolar disorder, who was admitted on 08/11/25 following an emergency department visit for evaluation of a palpable, fluctuant mass on the posterior right scalp and new-onset right- sided facial numbness, blurred vision, and right-sided weakness. CT angiography of the head and neck was negative for acute vascular findings. MRI of the brain performed during admission revealed no new abnormalities. Echocardiogram was completed, and cardiology recommended an outpatient transesophageal echocardiogram (ADALGISA) for further evaluation. Serial troponins were negative, and laboratory studies were otherwise unremarkable except for a mild hypokalemia (K+ 3.4), which was replaced. Neurology evaluated the patient and recommended continuation of antiplatelet therapy with Plavix. The scalp lesion was noted to be soft and mobile, consistent with a cyst, for which outpatient dermatology follow-up may be considered if removal is desired. Physical, occupational, and speech therapy evaluations were completed. At the time of discharge, the patient reported improvement in vision and resolution of neurological symptoms. She was clinically stable, sitting up in bed, and ready for discharge. The patient will follow up as an outpatient with cardiology, neurology, primary care, and dermatology as indicated. - Vitals & Intake/Output Vital Signs: Vital Signs Temperature 97.5 F 08/13/25 07:36 Pulse Rate 78 08/13/25 07:36 Respiratory Rate 20 08/13/25 07:36 Blood Pressure 147/79 08/13/25 07:36 O2 Sat by Pulse Oximetry 97 08/13/25 07:36 Intake & Output: Intake & Output 08/10/25 08/11/25 08/12/25 08/13/25 11:59 11:59 11:59 11:59 Intake Total 1210 2320 Output Total 1000 Balance 210 2320 Weight 115.7 kg - Lab Result Diagrams: 08/13/25 04:28 08/13/25 04:28 Lab Results-Last 24 Hrs: Lab Results-Last 24 Hours 08/12/25 08/12/25 08/13/25 Range/Units 16:11 21:21 04:28 WBC 6.6 (3.98-10.04) x10^3/uL RBC 4.34 (3.93-5.22) x10^6/uL Hgb 12.1 (11.2-15.7) g/dL Hct 40.0 (34.1-44.9) % MCV 92.2 (79.4-94.8) fL MCH 27.9 (25.6-32.2) pg MCHC 30.3 L (32.2-35.5) g/dL RDW 13.8 (11.7-14.4) % Plt Count 256 (182-369) x10^3/uL MPV 9.1 L (9.4-12.3) fL Sodium (135-145) mmol/L Potassium (3.5-5.1) mmol/L Chloride (98-107) mmol/L Carbon Dioxide (22-30) mmol/L Anion Gap (5-15) MEQ/L BUN (7-17) mg/dL Creatinine (0.52-1.04) mg/dL Estimated GFR ML/MIN Glucose (74-106) mg/dL POC Glucometer 98 94 (74 to 106) mg/dL Calcium (8.4-10.2) mg/dL 08/13/25 Range/Units 04:28 WBC (3.98-10.04) x10^3/uL RBC (3.93-5.22) x10^6/uL Hgb (11.2-15.7) g/dL Hct (34.1-44.9) % MCV (79.4-94.8) fL MCH (25.6-32.2) pg MCHC (32.2-35.5) g/dL RDW (11.7-14.4) % Plt Count (182-369) x10^3/uL MPV (9.4-12.3) fL Sodium 142 (135-145) mmol/L Potassium 3.4 L (3.5-5.1) mmol/L Chloride 111 H (98-107) mmol/L Carbon Dioxide 25 (22-30) mmol/L Anion Gap 9.1 (5-15) MEQ/L BUN 7 (7-17) mg/dL Creatinine 0.80 (0.52-1.04) mg/dL Estimated GFR 87.5 ML/MIN Glucose 99 (74-106) mg/dL POC Glucometer (74 to 106) mg/dL Calcium 8.5 (8.4-10.2) mg/dL Micro Results-Entire Visit: Accuchecks Date 08/13/25 Date 08/12/25 Date 08/12/25 Time 07:36 - Radiology Exams Ordered Rad Exams-Entire Visit: Radiology Procedures Category Date Time Status CT ANGIOGRAPHY NECK [CT] Stat Exams 08/11/25 16:49 Completed CTA HEAD W AND/OR WO CONTRAST [CT] Stat Exams 08/11/25 16:49 Completed ECHO W/2D AND DOPPLER [US] Routine Exams 08/12/25 07:30 Taken MRI BRAIN W/O CONTRAST [MRI] Routine Exams 08/12/25 07:29 Completed - Procedures and Test Procedures and Tests throughout Hospitalization: Therapy Orders & Screens 08/12/25 00:35 Respiratory Therapy Assessment DAILY Comment: Diagnosis: TIA, blurred vision, facial numbness 08/12/25 07:33 PT Eval & Treat (MD Order) ONCE Reason for Eval:: TIA Diagnosis: TIA, blurred vision, facial numbness ST Eval & Treat (MD Order) .as ordered Comment: Physician Instructions: Reason For Exam: Evaluate: Yes Treat: Yes Reason for Eval: Facial numbness post TIA and slurred speech Diagnosis: TIA, blurred vision, facial numbness OT Eval and Treat (MD Order) ONCE Comment: Physician Instructions: Reason For Exam: Evaluate: Yes Treat: Yes Reason for Evaluation: TIA Diagnosis: TIA, blurred vision, facial numbness Discharge Exam General Appearance: no apparent distress, alert, obese Neurologic Exam: alert, oriented x 3, cooperative, normal mood/affect, nml cerebellar function, sensation nml, No motor deficits Eye Exam: PERRL, EOMI, eyes nml inspection Ears, Nose, Throat Exam: normal ENT inspection, pharynx normal, moist mucous membranes Neck Exam: normal inspection, non-tender, supple, full range of motion Respiratory Exam: normal breath sounds, lungs clear, No respiratory distress Cardiovascular Exam: regular rate/rhythm, normal heart sounds Gastrointestinal/Abdomen Exam: soft, No tenderness, No mass Pelvic Exam: deferred Rectal Exam: deferred Back Exam: normal inspection, normal range of motion, No CVA tenderness, No vertebral tenderness Extremity Exam: normal inspection, normal range of motion Skin Exam: normal color, warm, dry Final Diagnosis/Problem List - Final Discharge Diagnosis/Problem (1) TIA (transient ischemic attack) Current Visit: Yes Status: Acute Code(s): G45.9 - TRANSIENT CEREBRAL ISCHEMIC ATTACK, UNSPECIFIED (2) Blurred vision Current Visit: Yes Status: Acute Code(s): H53.8 - OTHER VISUAL DISTURBANCES (3) Facial numbness Current Visit: Yes Status: Resolved Code(s): R20.0 - ANESTHESIA OF SKIN (4) Scalp cyst Current Visit: Yes Status: Acute Code(s): L72.9 - FOLLICULAR CYST OF THE SKIN AND SUBCUTANEOUS TISSUE, UNSP (5) Seizure disorder Current Visit: No Status: Chronic Code(s): G40.909 - EPILEPSY, UNSP, NOT INTRACTABLE, WITHOUT STATUS EPILEPTICUS (6) History of stroke Current Visit: Yes Status: Chronic Code(s): Z86.73 - PRSNL HX OF TIA (TIA), AND CEREB INFRC W/O RESID DEFICITS (7) Morbid obesity with BMI of 40.0-44.9, adult Current Visit: Yes Status: Chronic Code(s): E66.01 - MORBID (SEVERE) OBESITY DUE TO EXCESS CALORIES; Z68.41 - BODY MASS INDEX [BMI] 40.0-44.9, ADULT (8) CAD (coronary artery disease) Current Visit: Yes Status: Chronic Assessment & Plan: (1) TIA (transient ischemic attack) Current Visit: Yes Status: Acute Assessment & Plan: - An MRI of the brain and echocardiogram are pending - Neurologist consulted, recommendations appreciated - [place] gave in ER - CBC, CMP reviewed - Lipid panel reviewed- Triglycerides 229, LDL, 75, HDL 36- high dose statin started - TSH 1.527 - A1C 5.37 - PT/OT/ST - CTA: 1. Remote lacunar infarct left external capsule. Remaining CT head without contrast is negative. 2. CTA head again demonstrates minimal arteriosclerotic calcifications both parasellar internal carotid arteries without critical stenosis/obstruction. Remaining CTA head is again negative. - CT angio: 1. Stable minimal calcified plaquing proximal left internal carotid artery. Remaining CTA neck is normal. 2. Again incidental multilevel cervical degenerative spondylosis. 08/15 - MRI negative for acute concern - Neurology note reviewed and agree with plan of care- recs include high dose statin and 1 antiplatelet - pt is already on Plavix - Pt to f/u OP with Neurology Code(s): G45.9 - TRANSIENT CEREBRAL ISCHEMIC ATTACK, UNSPECIFIED (2) Blurred vision Current Visit: Yes Status: Acute Assessment & Plan: - Continued today pt reports however neuro exam is non-concerning 08/13 - Pt states this has resolved Code(s): H53.8 - OTHER VISUAL DISTURBANCES (3) Facial numbness Current Visit: Yes Status: Resolved Assessment & Plan: - Resolved today per pt- 08/12 - Eval for CVA/TIA see plan above Code(s): R20.0 - ANESTHESIA OF SKIN (4) Scalp cyst Current Visit: Yes Status: Acute Assessment & Plan: - Can f/u OP with Derm - MRI for further evaluation 08/13 - OP derm appointment made Code(s): L72.9 - FOLLICULAR CYST OF THE SKIN AND SUBCUTANEOUS TISSUE, UNSP (5) Seizure disorder Current Visit: No Status: Chronic Assessment & Plan: - Continue home meds - F/U with neuro OP Code(s): G40.909 - EPILEPSY, UNSP, NOT INTRACTABLE, WITHOUT STATUS EPILEPTICUS (6) History of stroke Current Visit: Yes Status: Chronic Assessment & Plan: - Takes plavix daily - As seen on CTA head: Impression: 1. Remote lacunar infarct left external capsule. Remaining CT head without contrast is negative. 2. CTA head again demonstrates minimal arteriosclerotic calcifications both parasellar internal carotid arteries without critical stenosis/obstruction. Remaining CTA head is again negative. Code(s): Z86.73 - PRSNL HX OF TIA (TIA), AND CEREB INFRC W/O RESID DEFICITS (7) Morbid obesity with BMI of 40.0-44.9, adult Current Visit: Yes Status: Chronic Assessment & Plan: - advised diet and exercise control Code(s): E66.01 - MORBID (SEVERE) OBESITY DUE TO EXCESS CALORIES; Z68.41 - BODY MASS INDEX [BMI] 40.0-44.9, ADULT (8) CAD (coronary artery disease) Current Visit: Yes Status: Chronic Assessment & Plan: - Chronic - Continue home meds - Echo today Code(s): I25.10 - ATHSCL HEART DISEASE OF [place] CORONARY ARTERY W/O ANG PCTRS Code(s): I25.10 - ATHSCL HEART DISEASE OF [place] CORONARY ARTERY W/O ANG PCTRS (9) Hypokalemia Current Visit: Yes Status: Acute Assessment & Plan: - K+ 3.4- replaced IV as PO meds cause interaction with PO K+ replacement - Recheck 2 hours after completed. - Tele Code(s): E87.6 - HYPOKALEMIA (10) Type II diabetes mellitus Current Visit: No Status: Chronic Assessment & Plan: - A1C 5.37 - Pt has dexcom and can use IP - Humalog S/S D/C plan of care time> 38 minutes New med on D/C high dose statin - Discharge Discharge Date: 08/13/25 Disposition: Home, Self-Care Condition: Stable Prescriptions: New Atorvastatin Calcium [Lipitor 40Mg] 80 mg PO HS 30 Days #30 tablet Continue Oxybutynin Chloride [Oxybutynin Chloride ER] 10 mg PO DAILY Albuterol 2.5 mg/3 ml Neb [Proventil 2.5 mg/3 ml Neb] 2.5 mg IH .PRN Ropinirole HCl [Requip] 2 mg PO TID Pregabalin 100 mg PO TID Metoprolol Succinate 25 mg Xl* [Toprol-Xl 25MG Tablets] 25 mg PO DAILY Topiramate 100 mg [Topamax 100 MG] 100 mg PO BID Buspirone HCl 5 mg [Buspar 5 mg] 15 mg PO TID Amitriptyline HCl 25 mg [Amitriptyline 25 mg Tablet] 150 mg PO HS Divalproex Sodium ER 250 mg [Depakote EXTENDED RELEASE 250 MG] 1,000 mg PO HS Albuterol 8 gm Mdi Hfa [Ventolin Hfa MDI] 90 mcg IH Q6HPRN PRN PRN Reason: Shortness Of Breath Famotidine 20 mg [Pepcid 20 MG] 40 mg PO DAILY Montelukast Sodium 10 mg [Singulair 10 MG] 10 mg PO DAILY Linaclotide [Linzess] 290 mcg PO DAILY Ubrogepant [Ubrelvy] 100 mg PO UD Hydrocodone/Acetaminophen [Hydrocodone-Acetamin 7.5-325] 1 each PO BID Clopidogrel Bisulfate [Clopidogrel] 75 mg PO DAILY Cholecalciferol (Vitamin D3) [D3-5000] 125 mcg PO DAILY icosapent ethyL [Icosapent Ethyl] 1 gm PO BID Cariprazine HCl [Vraylar] 3 mg PO HS Ferrous Sulfate [Ferosul] 325 mg PO BID Fluticasone Propionate 2 spray IN BID Discontinued Atorvastatin Calcium 40 mg PO HS Follow up with: VICKIE GIRARD NP [Primary Care Provider, UNKNOWN] - 08/24/25 2:00 pm SUZAN WU NP [NON-STAFF PHY W/O PRIVILEGES, DERMATOLOGY] - 08/17/25 3:50 pm Referral Note: Please bring your ID and insurance and arrive 15 min. early for your appointment. XAVIER ALMONTE [NON-STAFF PHY W/O PRIVILEGES, NEUROLOGY] - 08/13/25 2:15 pm HILARIO ALANIZ PA [NON-STAFF PHY W/O PRIVILEGES, UNKNOWN] - 08/18/25 11:00 am Referral Note: Elena Davis
[2025-08-13] MEDS ORDERED: NON-FORMULARY ITEM (Linaclotide [Linzess] 290 MCG Capsule) PO SCH (10:00)
[2025-08-13] MEDS ORDERED: NON-FORMULARY ITEM (Ropinirole Hcl [Requip] 1 MG Tablet) PO SCH (10:00)
[2025-08-13] MEDS ORDERED: NON-FORMULARY ITEM (Topiramate 100 Mg*** [Topamax 100 Mg***] 100 MG Tablet) PO SCH (10:00)
[2025-08-13] MEDS ORDERED: NON-FORMULARY ITEM (Cholecalciferol (Vitamin D3) [D3-5000] 125 MCG Capsule) PO SCH (10:00)
[2025-08-13] MEDS: VITAMIN D PO SCH (10:13)
[2025-08-13] MEDS: TOPIRAMATE PO SCH (10:13)
[2025-08-13] MEDS: Singulair 10 MG PO SCH (10:14)
[2025-08-13] MEDS: PLAVIX Tablet PO SCH (10:14)
[2025-08-13] MEDS: Toprol-Xl 25MG Tablets PO SCH (10:15)
[2025-08-13] MEDS: LYRICA 100MG PO SCH (10:15)
[2025-08-13] MEDS: REQUIP 2MG TAB PO SCH (10:15)
[2025-08-13] MEDS: Ditropan XL 5 MG PO SCH (10:17)
[2025-08-13] MEDS: FEOSOL 325 MG PO SCH (10:18)
[2025-08-13 11:47] VITALS: BP 131/73; PULSE 76; TEMP 97.7; O2SAT 96
[2025-08-13] MEDS: Flonase NASAL NS SCH (12:41)
== END 2025-08-13 15:50 | disposition home or self-care (01) ==
LOC: ED 16:14 → MED SURG 22:46
PROVIDERS: ADMIT Internal Medicine; ATTEND Internal Medicine
DX: G45.9 Transient cerebral ischemic attack, unspecified (principal); H53.8 Other visual disturbances; R20.0 Anesthesia of skin; L72.9 Follicular cyst of the skin and subcutaneous tissue, unspecified; G40.909 Epilepsy, unspecified, not intractable, without status epilepticus; Z86.73 Personal history of transient ischemic attack (TIA), and cerebral infarction without residual deficits; E66.01 Morbid (severe) obesity due to excess calories; Z68.41 Body mass index [BMI] 40.0-44.9, adult; I25.10 Atherosclerotic heart disease of native coronary artery without angina pectoris; E87.6 Hypokalemia; E11.9 Type 2 diabetes mellitus without complications; Z79.899 Other long term (current) drug therapy
CPT/HCPCS: 36415; 70496; 70498; 70551; 80048; 80053; 80061; 82947; 83036; 83721; 84132; 84443; 84484; 85025; 85027; 93005; 93041; 93306; 94760; 97161; 99285; Q3014

== ENCOUNTER 2025-08-26 08:39 | Day surgery (SDC) | payer OTHER ==
[2025-08-26] MEDS ORDERED: methylPREDNISolone acetate IM ONE (08:40)
[2025-08-26] MEDS ORDERED: Sensorcaine 0.25% 10 ML IJ ONE (08:40)
[2025-08-26 10:24] LABS: HCG URINE TEST NEGATIVE (NEGATIVE)
[2025-08-26] MEDS ORDERED: D50W 50 ml Abboject IV ONE (10:45)
[2025-08-26] MEDS ORDERED: propofoL IV ONE (11:50)
[2025-08-26] MEDS ORDERED: Lactated Ringers 1,000 ML IV ONE ×2 (13:20→14:01)
--- NOTE | 2025-08-26 13:56 | XRAY ---
Indication: Bilateral L4-S1 MBB. Intraoperative fluoroscopy provided for 21 seconds. Single digital spot image submitted for interpretation demonstrates posterior needle tips projecting over expected left and right L4-S1 nerve roots. Correlate with intraoperative findings/report.
--- NOTE | 2025-08-26 14:00 | XRAY ---
21 seconds of fluoroscopy was used in surgery for a bilateral L4-S1 MBB.
== END 2025-08-26 13:05 | disposition home or self-care (01) ==
LOC: SDC-PAIN 08:39
PROVIDERS: ATTEND Psychiatry & Neurology Pain Medicine
DX: M47.817 Spondylosis without myelopathy or radiculopathy, lumbosacral region (principal); E11.9 Type 2 diabetes mellitus without complications